=== PATIENT | female | born 1955 | race Hispanic/Latino ===

== ENCOUNTER 2019-05-12 21:16 | Emergency (ER) | payer BC ==
--- OUTSIDE RECORDS SUMMARY | 2019-05-12 21:19 | XMS REPORT ---
:1955 [facility] Address [address] [place] [address] [address]. [address] [place] [address] Care Team Providers Name Role Phone Unavailable Unavailable Unavailable Problems This patient has no known problems. Allergies, Adverse Reactions, Alerts This patient has no known allergies or adverse reactions. Medications This patient has no known medications. Results Test Description Test Time Test Comments Text Results Atomic Results Result Comments Thyroid Stimulating Hormone 2018-11-22 22:27:55 Test Item Value Reference Range Comments TSH (test code=TSH) 0.445 mIU/mL 0.270-4.200 Erythrocyte Sedimentation Rate [id number] 22:20:13 Test Item Value Reference Range Comments ESR STAT (test code=ESR STAT) 8 mm/hr 0-20 Comprehensive Metabolic [id number] 21:59:49 Test Item Value Reference Range Comments Sodium Level (test code=Sodium Level) 139.0 mmol/L 135.0-145.0 Potassium Level (test code=Potassium Level) 3.7 mmol/L 3.5-5.1 Chloride Level (test code=Chloride Level) 98 mmol/L 98-105 CO2 (test code=CO2) 26 mmol/L 22-29 Anion Gap (test code=Anion Gap) 15 mmol/L 7-16 BUN (test code=BUN) 14.70 mg/dL 8.00-23.00 Creatinine Level (test code=Creatinine Level) 0.70 mg/dL 0.50-0.90 BUN/Creat Ratio (test code=BUN/Creat Ratio) 21 Glucose Level (test code=Glucose Level) 121 mg/dL 70-115 Calcium Level (test code=Calcium Level) 9.8 mg/dL 8.3-10.5 Alk Phos (test code=Alk Phos) 98 U/L 35-104 Bilirubin Total (test code=Bilirubin Total) 0.4 mg/dL 0.1-0.9 Albumin Level (test code=Albumin Level) 4.6 g/dL 3.5-5.2 Protein Total (test code=Protein Total) 7.4 g/dL 6.4-8.3 ALT (test code=ALT) 22 U/L 1-33 AST (test code=AST) 24 U/L 1-32 Globulin (test code=Globulin) 2.8 g/dL 2.9-3.1 A/G Ratio (test code=A/G Ratio) 1.6 ratio Comprehensive Metabolic [id number] 21:59:49 Test Item Value Reference Range Comments Sodium Level (test 139.0 mmol/L 135.0-145.0 code=Sodium Level) Potassium Level (test 3.7 mmol/L 3.5-5.1 code=Potassium Level) Chloride Level (test 98 mmol/L 98-105 code=Chloride Level) CO2 (test code=CO2) 26 mmol/L 22-29 Anion Gap (test 15 mmol/L 7-16 code=Anion Gap) BUN (test code=BUN) 14.70 mg/dL 8.00-23.00 Creatinine Level (test 0.70 mg/dL 0.50-0.90 code=Creatinine Level) BUN/Creat Ratio (test 21 code=BUN/Creat Ratio) Glucose Level (test 121 mg/dL 70-115 code=Glucose Level) Calcium Level (test 9.8 mg/dL 8.3-10.5 code=Calcium Level) Alk Phos (test code=Alk 98 U/L 35-104 Phos) Bilirubin Total (test 0.4 mg/dL 0.1-0.9 code=Bilirubin Total) Albumin Level (test 4.6 g/dL 3.5-5.2 code=Albumin Level) Protein Total (test 7.4 g/dL 6.4-8.3 code=Protein Total) ALT (test code=ALT) 22 U/L 1-33 AST (test code=AST) 24 U/L 1-32 Globulin (test 2.8 g/dL 2.9-3.1 code=Globulin) A/G Ratio (test code=A/G 1.6 ratio Ratio) eGFR AA (test code=eGFR >60 mL/min/1.73 m2 eGFR (estimated AA) Glomerular Filtration Rate) is an estimated value, calculated from the patient's serum creatinine using the MDRD equation. It is NOT the patient's actual GFR. The eGFR provides a more clinically useful measure of kidney disease than serum creatinine alone.This calculation takes sex and race into account, if the information is provided. If the race is not provided, and the patient is -[place], multiply by 1.212. If sex is not provided, and the patient is female, multiply by 0.742. Results for patients <18 years of age have not been validated by the MDRD study and should be interpreted with caution. eGFR Result Interpretation:eGFR > or=60 is in the Normal RangeeGFR < 60 may mean kidney diseaseeGFR < 15 may mean kidney failure Ranges recommended by the National Kidney Foundation, http://nkdep.nih.gov Lipid [id number] 21:59:49 Test Item Value Reference Range Comments Cholesterol Total (test 294 mg/dL 0-200 RISK OF HEART code=Cholesterol Total) DISEASEPublished by [place] Heart Association Analyte Optimal Borderline Increased RiskCHOL <200 200-239 >240TRIG <150 150-199 >200HDL Male >60 <40HDL Female >60 <50LDL <100 130-159 >160LDL Near optimal is 100-129 Triglycerides (test 616 mg/dL 9-200 code=Triglycerides) HDL (test code=HDL) 52 mg/dL 50-60 LDL (test code=LDL) N/A Trig >400 0-130 LDL calculation is mg/dL unreliable when Triglyceride is greater than 400. VLDL (test code=VLDL) N/A Trig >400 5-40 VLDL calculation is mg/dL unreliable when Triglyceride is greater than 400. Chol/HDL (test 5.7 ratio 0.0-4.4 code=Chol/HDL) LDL/HDL Ratio (test N/A Trig >400 LDL/HDL Ratio calculation code=LDL/HDL Ratio) is unreliable when Triglyceride is greater than 400. Comprehensive Metabolic [id number] 21:59:49 Test Item Value Reference Range Comments Sodium Level (test 139.0 mmol/L 135.0-145.0 code=Sodium Level) Potassium Level (test 3.7 mmol/L 3.5-5.1 code=Potassium Level) Chloride Level (test 98 mmol/L 98-105 code=Chloride Level) CO2 (test code=CO2) 26 mmol/L 22-29 Anion Gap (test 15 mmol/L 7-16 code=Anion Gap) BUN (test code=BUN) 14.70 mg/dL 8.00-23.00 Creatinine Level (test 0.70 mg/dL 0.50-0.90 code=Creatinine Level) BUN/Creat Ratio (test 21 code=BUN/Creat Ratio) Glucose Level (test 121 mg/dL 70-115 code=Glucose Level) Calcium Level (test 9.8 mg/dL 8.3-10.5 code=Calcium Level) Alk Phos (test code=Alk 98 U/L 35-104 Phos) Bilirubin Total (test 0.4 mg/dL 0.1-0.9 code=Bilirubin Total) Albumin Level (test 4.6 g/dL 3.5-5.2 code=Albumin Level) Protein Total (test 7.4 g/dL 6.4-8.3 code=Protein Total) ALT (test code=ALT) 22 U/L 1-33 AST (test code=AST) 24 U/L 1-32 Globulin (test 2.8 g/dL 2.9-3.1 code=Globulin) A/G Ratio (test code=A/G 1.6 ratio Ratio) eGFR AA (test code=eGFR >60 mL/min/1.73 m2 eGFR (estimated AA) Glomerular Filtration Rate) is an estimated value, calculated from the patient's serum creatinine using the MDRD equation. It is NOT the patient's actual GFR. The eGFR provides a more clinically useful measure of kidney disease than serum creatinine alone.This calculation takes sex and race into account, if the information is provided. If the race is not provided, and the patient is -[place], multiply by 1.212. If sex is not provided, and the patient is female, multiply by 0.742. Results for patients <18 years of age have not been validated by the MDRD study and should be interpreted with caution. eGFR Result Interpretation:eGFR > or=60 is in the Normal RangeeGFR < 60 may mean kidney diseaseeGFR < 15 may mean kidney failure Ranges recommended by the National Kidney Foundation, http://nkdep.nih.gov eGFR Non-AA (test >60.00 mL/min/1.73 eGFR (estimated code=eGFR Non-AA) m2 Glomerular Filtration Rate) is an estimated value, calculated from the patient's serum creatinine using the MDRD equation. It is NOT the patient's actual GFR. The eGFR provides a more clinically useful measure of kidney disease than serum creatinine alone.This calculation takes sex and race into account, if the information is provided. If the race is not provided, and the patient is -[place], multiply by 1.212. If sex is not provided, and the patient is female, multiply by 0.742. Results for patients <18 years of age have not been validated by the MDRD study and should be interpreted with caution. eGFR Result Interpretation:eGFR > or=60 is in the Normal RangeeGFR < 60 may mean kidney diseaseeGFR < 15 may mean kidney failure Ranges recommended by the National Kidney Foundation, http://nkdep.nih.gov Complete Blood Count with [id number] 21:52:58 Test Item Value Reference Range Comments WBC (test code=WBC) 9.0 x10 4.4-10.5 RBC (test code=RBC) 4.76 x10 3.75-5.20 Hgb (test code=Hgb) 14.4 g/dL 12.2-14.8 Hct (test code=Hct) 42.4 % 36.5-44.4 MCV (test code=MCV) 89.10 fL 80.00-100.00 MCHC (test code=MCHC) 34.00 g/dL 32.00-37.50 MCH (test code=MCH) 30.3 pg 27.0-32.5 RDW CV (test code=RDW CV) 12.6 % 11.5-14.5 Platelets (test 340.0 x10 140.0-440.0 code=Platelets) MPV (test code=MPV) 10.1 fL Slide Review (test code=Slide Auto Auto Result created by Review) GL_SJM_SLIDE_REV_AUTO nRBC (test code=nRBC) 0 NRBC Abs (test code=NRBC Abs) 0.00 x10 IPF (test code=IPF) 0 % Automated [id number] 21:52:58 Test Item Value Reference Range Comments Neutro Auto (test code=Neutro Auto) 62.7 % 36.0-70.0 Lymph Auto (test code=Lymph Auto) 28.3 % 12.0-44.0 Hardy Auto (test code=Hardy Auto) 7.6 % 0.0-11.0 Eos, Auto (test code=Eos, Auto) 0.7 % 0.0-7.0 Basophil Auto (test code=Basophil Auto) 0.3 % 0.0-2.0 Neutro Absolute (test code=Neutro Absolute) 5.7 x10 1.6-7.4 Lymph Absolute (test code=Lymph Absolute) 2.56 x10 .50-4.60 Hardy Absolute (test code=Hardy Absolute) .69 x10 .00-1.20 Eos Absolute (test code=Eos Absolute) 0.06 x10 0.00-0.74 Baso Absolute (test code=Baso Absolute) 0.03 x10 0.00-0.21 Pro B Natriuretic [id number] 21:52:58 Test Item Value Reference Range Comments NT-proBNP (test code=NT-proBNP) 80 pg/mL 0-124 IG [id number] 21:52:58 Test Item Value Reference Range Comments IG (test code=IG) 0.4 % 0.0-5.0 IG Abs (test code=IG Abs) 0 x10
[2019-05-12] MEDS ORDERED: lisinopriL 10 MG TAB ONE (21:41)
[2019-05-12 22:07] LABS: Absolute Lymphocytes (CBC) 2.3 K/uL (0.7-4.9); Basophils % 0.6 % (0-1.3); Hematocrit 44.7 % (36.0-45.0); Lymphocytes % 33.1 % (15.3-44.8); MPV 7.6 fL (7.6-11.3); RBC Red Blood Cell Count 4.94 M/uL (3.86-4.86)
[2019-05-12 22:51] LABS: ALT/SGPT 34 U/L (12-78); AST/SGOT 31 U/L (15-37); Alkaline Phosphatase 77 U/L (45-117); BUN Blood Urea Nitrogen 12 mg/dL (7-18); Bicarbonate 28 mmol/L (21-32); Bilirubin Direct < 0.1 mg/dL (0-0.2); Bilirubin Total 0.4 mg/dL (0.2-1.0); Creatine Phosphokinase 138 U/L (26-192); Glucose Level 96 mg/dL (74-106); Lipase 158 U/L (73-393); Magnesium 2.3 mg/dL (1.8-2.4); Potassium 3.5 mmol/L (3.5-5.1); Protein, Total 8.5 g/dL (6.4-8.2); Sodium Level 140 mmol/L (136-145); Troponin (Emerg Dept Use Only) < 0.02 ng/mL (0.0-0.045)
--- NOTE | 2019-05-12 23:14 | ER ---
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 Her stylist reports she was shaking as if she was having a seizure and was unresponsive for a couple mins. Pt states at this time she feels completely normal and has no symptoms. Reports this has happened once before many years ago but she was not evaluated for it. Transition of care: patient was not received from another setting of care. Onset of symptoms was May 12, 2019. Risk Assessment: Do you want to hurt yourself or someone else? Patient reports no desire to harm self or others. Initial Sepsis Screen: Does the patient meet any 2 criteria? No. Patient's initial sepsis screen is negative. Does the patient have a suspected source of infection? No. Patient's initial sepsis screen is negative. Care prior to arrival: None. 21:28 Method Of Arrival: Ambulatory aa1 21:28 Acuity: CHET 3 aa1 Triage Assessment: 21:34 General: Appears in no apparent distress. comfortable, Behavior is calm, cooperative, aa1 appropriate for age. Pain: Denies pain. Historical: - Allergies: 21:34 No Known Allergies; aa1 - Home Meds: 21:34 lisinopril 10 mg Oral tab 1 tab once daily [Active]; aa1 - PMHx: 21:34 Hypertension; aa1 - PSHx: 21:34 None; aa1 - Immunization history:: Flu vaccine is not up to date. - Social history:: Smoking status: Patient uses tobacco products, smokes one pack cigarettes per day. - Ebola Screening: : No symptoms or risks identified at this time. Screenin:30 Abuse screen: Denies threats or abuse. Nutritional screening: No deficits noted. tr5 Tuberculosis screening: No symptoms or risk factors identified. Fall Risk None identified. Assessment: 21:30 General: Appears uncomfortable, Behavior is calm, cooperative, appropriate for age. tr5 Pain: Denies pain. Neuro: Seizure activity Seizure lasted approximately 2 minutes. Patient is post-ictal at this time. Cardiovascular: Heart tones present Capillary refill < 3 seconds Pulses are all present. Edema is absent. Respiratory: Airway is patent Respiratory effort is even, unlabored, Respiratory pattern is regular, symmetrical. GI: No signs and/or symptoms were reported involving the gastrointestinal system. : No signs and/or symptoms were reported regarding the genitourinary system. EENT: No signs and/or symptoms were reported regarding the EENT system. Derm: No signs and/or symptoms reported regarding the dermatologic system. Musculoskeletal: No signs and/or symptoms reported regarding the musculoskeletal system. 23:00 Reassessment: Patient appears in no apparent distress at this time. Patient and/or tr5 family updated on plan of care and expected duration. Pain level reassessed. Patient is alert, oriented x 3, equal unlabored respirations, skin warm/dry/pink. Vital Signs: 21:34 BP 196 / 97; Pulse 75; Resp 16; Temp 97.6; Pulse Ox 100% on R/A; Weight 67.59 kg; aa1 Height 5 ft. 2 in. (157.48 cm); Pain 0/10; 22:00 BP 165 / 91; Pulse 75; Resp 18; Pulse Ox 100% ; tr5 22:30 BP 178 / 92; Pulse 80; Resp 16; Pulse Ox 99% on R/A; tr5 23:00 BP 181 / 90; Pulse 75; Resp 16; Pulse Ox 98% ; tr5 21:34 Body Mass Index 27.25 (67.59 kg, 157.48 cm) aa1 [place] Coma Score: 21:34 Eye Response: spontaneous(4). Verbal Response: oriented(5). Motor Response: obeys aa1 commands(6). Total: 15. ED Course: 21:18 Patient arrived in ED. cl3 21:24 [facility]oussaint [facility]C [facility]. kb 21:24 Bonifacio Nguyen MD is Attending Physician. kb 21:30 Bed in low position. Call light in reach. Side rails up X 1. tr5 21:30 Seizure precautions initiated. tr5 21:31 Triage completed. aa1 21:34 Arm band placed on right wrist. aa1 21:37 Tc, Manas, RN is Primary Nurse. tr5 21:40 Initial lab(s) drawn, by me, sent to lab. Inserted saline lock: 20 gauge in right tr5 antecubital area, using aseptic technique. Patient did not have IV access during this emergency room visit. 21:[address] via stretcher. shaina 22:01 CT Head Brain wo Cont In Process Unspecified. EDMS 22:15 EKG done, by ED staff, reviewed by Payton BARTON. jp3 23:19 No provider procedures requiring assistance completed. tr5 Administered Medications: 21:41 Drug: Lisinopril 10 mg Route: PO; tr5 Outcome: 23:12 Discharge ordered by MD. spencer 23:19 Discharged to home ambulatory, with family. tr5 23:19 Condition: stable 23:19 Discharge instructions given to patient, family, Instructed on discharge instructions, follow up and referral plans. Demonstrated understanding of instructions, follow-up care. 23:24 Patient left the ED. tr5 Signatures: Dispatcher [employer] EDPayton Bernard, MICK CASTROP-Viktoria Canales, RN RN aa1 Marcelo Holguin Jacob jp3 Manas Montez, RN RN tr5 Adolfo Hoffman 3
--- NOTE | 2019-05-12 23:14 | EDPHYS ---
Physician Documentation [facility] Name: Jeni Johnson Age: 64 yrs Sex: Female : 1955 Arrival Date: 05/12/2019 Time: 21:18 Bed 27 Private MD: ED Physician Bonifacio Nguyen HPI: 05/12 21:47 This 64 yrs old Female presents to ER via Ambulatory with complaints of kb Probable Seizure. 21:47 The patient has experienced syncope, became unresponsive. Onset: The symptoms/episode kb began/occurred today. Duration: This was a single episode. 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 Associated injury: The patient did not suffer any apparent associated injury. Associated signs and symptoms: The patient has no apparent associated signs or symptoms. Current symptoms: Currently, the patient is not experiencing any symptoms, the patient feels back to baseline, no decreased level of consciousness, no confusion, no dysphasia, no headache, no paralysis, no visual changes. The patient has experienced a previous episode, many years ago. The patient has not recently seen a physician. Pt reports she was getting her hair done, felt hot and nauseous, then blacked out. Person doing her hair reports she shook a little like she may have had a seizure. EMS were called to the scene. Pt reports she felt fine when she woke up and feels fine now. States this happened once before but she didn't get checked out at the time. Reports the only thing that was consistent on both occasions was that she was drinking alcohol. . Historical: - Allergies: 21:34 No Known Allergies; aa1 - Home Meds: 21:34 lisinopril 10 mg Oral tab 1 tab once daily [Active]; aa1 - PMHx: 21:34 Hypertension; aa1 - PSHx: 21:34 None; aa1 - Immunization history:: Flu vaccine is not up to date. - Social history:: Smoking status: Patient uses tobacco products, smokes one pack cigarettes per day. - Ebola Screening: : No symptoms or risks identified at this time. ROS: 21:46 Constitutional: Negative for fever, chills, and weight loss, ENT: Negative for injury, kb pain, and discharge, Neck: Negative for injury, pain, and swelling, Cardiovascular: Negative for chest pain, palpitations, and edema, Respiratory: Negative for shortness of breath, cough, wheezing, and pleuritic chest pain, Abdomen/GI: Negative for abdominal pain, nausea, vomiting, diarrhea, and constipation, Back: Negative for injury and pain, MS/Extremity: Negative for injury and deformity, Skin: Negative for injury, rash, and discoloration. 21:46 Neuro: Positive for seizure activity, syncope. Exam: 21:46 Constitutional: This is a well developed, well nourished patient who is awake, alert, kb and in no acute distress. Head/Face: Normocephalic, atraumatic. ENT: Nares patent. No nasal discharge, no septal abnormalities noted. Tympanic membranes are normal and external auditory canals are clear. Oropharynx with no redness, swelling, or masses, exudates, or evidence of obstruction, uvula midline. Mucous membranes moist. Neck: Trachea midline, no thyromegaly or masses palpated, and no cervical lymphadenopathy. Supple, full range of motion without nuchal rigidity, or vertebral point tenderness. No Meningismus. Chest/axilla: Normal chest wall appearance and motion. Nontender with no deformity. No lesions are appreciated. Cardiovascular: Regular rate and rhythm with a normal S1 and S2. No gallops, murmurs, or rubs. Normal PMI, no JVD. No pulse deficits. Respiratory: Lungs have equal breath sounds bilaterally, clear to auscultation and percussion. No rales, rhonchi or wheezes noted. No increased work of breathing, no retractions or nasal flaring. Abdomen/GI: Soft, non-tender, with normal bowel sounds. No distension or tympany. No guarding or rebound. No evidence of tenderness throughout. Skin: Warm, dry with normal turgor. Normal color with no rashes, no lesions, and no evidence of cellulitis. MS/ Extremity: Pulses equal, no cyanosis. Neurovascular intact. Full, normal range of motion. Neuro: Awake and alert, GCS 15, oriented to person, place, time, and situation. Cranial nerves II-XII grossly intact. Motor strength 5/5 in all extremities. Sensory grossly intact. Cerebellar exam normal. Normal gait. Vital Signs: 21:34 BP 196 / 97; Pulse 75; Resp 16; Temp 97.6; Pulse Ox 100% on R/A; Weight 67.59 kg; aa1 Height 5 ft. 2 in. (157.48 cm); Pain 0/10; 22:00 BP 165 / 91; Pulse 75; Resp 18; Pulse Ox 100% ; tr5 22:30 BP 178 / 92; Pulse 80; Resp 16; Pulse Ox 99% on R/A; tr5 23:00 BP 181 / 90; Pulse 75; Resp 16; Pulse Ox 98% ; tr5 21:34 Body Mass Index 27.25 (67.59 kg, 157.48 cm) aa1 [place] Coma Score: 21:34 Eye Response: spontaneous(4). Verbal Response: oriented(5). Motor Response: obeys aa1 commands(6). Total: 15. MDM: 21:24 Patient medically screened. kb 21:46 Data reviewed: vital signs, nurses notes. Data interpreted: Pulse oximetry: on room air kb is 100 %. Interpretation: normal. 23:12 Counseling: I had a detailed discussion with the patient and/or guardian regarding: the kb historical points, exam findings, and any diagnostic results supporting the discharge/admit diagnosis, lab results, radiology results, the need for outpatient follow up, a family practitioner, to return to the emergency department if symptoms worsen or persist or if there are any questions or concerns that arise at home. 05/12 21:32 Order name: Basic Metabolic Panel; Complete Time: 22:53 kb 05/12 21:32 Order name: CBC with Diff; Complete Time: 22:36 kb 05/12 21:32 Order name: Ckmb; Complete Time: 22:53 kb 05/12 21:32 Order name: CPK; Complete Time: 22:53 kb 05/12 21:32 Order name: Hepatic Function; Complete Time: 22:53 kb 05/12 21:32 Order name: Lipase; Complete Time: 22:53 kb 05/12 21:32 Order name: EKG; Complete Time: 21:32 kb 05/12 21:32 Order name: EKG - Nurse/Tech; Complete Time: 22:34 kb 05/12 21:32 Order name: CT Head Brain wo Cont kb 05/12 21:32 Order name: Magnesium; Complete Time: 22:53 kb 05/12 21:32 Order name: Troponin (emerg Dept Use Only); Complete Time: 22:53 kb 05/12 21:32 Order name: Cardiac monitoring; Complete Time: 22:34 kb 05/12 21:32 Order name: IV Saline Lock; Complete Time: 22:01 kb 05/12 21:32 Order name: Labs collected and sent; Complete Time: 22:01 kb 05/12 21:32 Order name: NPO; Complete Time: 21:38 kb 05/12 21:32 Order name: O2 Per Protocol; Complete Time: 21:38 kb 05/12 21:32 Order name: O2 Sat Monitoring; Complete Time: 21:38 kb Administered Medications: 21:41 Drug: Lisinopril 10 mg Route: PO; tr5 Disposition: 05/13 06:53 Co-signature as Attending Physician, Bonifacio Nguyen MD I agree with the assessment and tw4 plan of care. Disposition: 05/12/19 23:12 Discharged to Home. Impression: Syncope and collapse. - Condition is Stable. - Discharge Instructions: Syncope, [id number]. - Medication Reconciliation Form, Thank You Letter, Antibiotic Education, Prescription Opioid Use form. - Follow up: Emergency Department; When: As needed; Reason: Worsening of condition. Follow up: Private Physician; When: 2 - 3 days; Reason: Recheck today's complaints, Continuance of care, Re-evaluation by your physician. Signatures: Dispatcher [employer] EDMS Payton Toussaint, SCREW MACHINE REPAIRER-C SCREW MACHINE REPAIRER-CkViktoria Connolly, RN RN aa1 Bonifacio Nguyen MD MD tw4 Manas Montez RN RN tr5 Corrections: (The following items were deleted from the chart) 05/12 23:24 23:12 05/12/2019 23:12 Discharged to Home. Impression: Syncope and collapse. Condition tr5 is Stable. Forms are Medication Reconciliation Form, Thank You Letter, Antibiotic Education, Prescription Opioid Use. Follow up: Emergency Department; When: As needed; Reason: Worsening of condition. Follow up: Private Physician; When: 2 - 3 days; Reason: Recheck today's complaints, Continuance of care, Re-evaluation by your physician. kb
[2019-05-12 23:45] VITALS: TEMP 97.6
[2019-05-12 23:50] VITALS: BP 181/90; O2SAT 98
--- NOTE | 2019-05-13 11:39 | RAD REPORT ---
EXAM DESCRIPTION: CT - Head Brain Wo Cont - 05/13/2019 2:02 am CLINICAL HISTORY: 64 years Female SYNCOPE COMPARISON: None TECHNIQUE: Images were obtained in axial, sagittal, and coronal planes. This exam was performed according to our departmental dose-optimization program which includes use of Automated Exposure Control, adjustment of the mA and/or kV according to patient size and/or use of i terative reconstruction technique. FINDINGS: Ventricular system appears mildly enlarged for the patient's age. Old lacunar infarcts bas al ganglionic regions bilaterally left greater than right. Decreased attenuation adjacent to anterior right frontal horn consistent with more remote ischemic change. Moderate periventricular decreased a ttenuation consistent with more remote microvascular ischemic change more pronounced on the left. No abnormal areas of increased attenuation in. No extra-axial fluid collections noted. No evidence for skull fracture. Symmetric aeration mastoid air cells bilaterally. IMPRESSION: No acute intracranial abnormality. No evidence for hemorrhage, mass lesion, or large acu te infarction. Findings consistent with more remote ischemic change. Electronically signed by: Meena Mcintyre MD 05/12/2019 10:20 PM BISTRO ATTENDANT Due to temporary technical issues with the PACS/Fluency reporting system, reports are being signed by the in house radiologist as a courtesy to ensure prompt reporting. The interpreting radiologist is f ully responsible for the content of the report.
--- NOTE | 2019-05-13 16:36 | EKG ---
Test Date: 2019-05-12 Test Time: 22:24:29 Client Support Representative: DEON MEASUREMENT RESULTS: Intervals: Rate: 76 MS: 152 QRSD: 86 QT: 398 QTc: 447 [place]: P: 73 MS: 152 QRS: 29 T: 29 INTERPRETIVE STATEMENTS: Normal sinus rhythm Normal ECG Compared to ECG 02/06/2013 10:19:08 No significant changes Electronically Signed On 05-13-19 16:34:03 SUPERINTENDENT MAINTENANCE by Honorio Blake
== END 2019-05-12 23:24 | disposition home or self-care (01) ==
LOC: ER 21:16
DX: R55 Syncope and collapse (principal); I10 Essential (primary) hypertension; F17.210 Nicotine dependence, cigarettes, uncomplicated
CPT/HCPCS: 36415; 70450; 80048; 80076; 82550; 82553; 83690; 83735; 84484; 85025; 93005; 99284

== ENCOUNTER 2020-05-25 18:59 | Emergency (ER) | payer BC, OTHER ==
--- OUTSIDE RECORDS SUMMARY | 2020-05-25 19:01 | XMS REPORT | Continuity of Care Document ---
:1955 Author Organization [facility] Care Team Providers Name Role Phone [facility] Unavailable Un available Problems Problem Status Onset Classification Date Comments Sourc e Date Reported SUB ACUTE MCA Active 02/07/20 Killian as STROKE [address] [place] [address] Center TIA Active 02/07/[address] Arthritis Resolved Problem 02/09/2013 [facility] Hyperlipidemia Resolved Problem 02/09/2013 [facility] LASIK Resolved Problem 02/09/2013 [facility] Arthritis Resolved Problem 07/23/2019 [facility]ischer (disorder) Neuro Hyperlipidemia Resolved Problem 07/23/2019 Misc her (disorder) Neuro Laser assisted in Resolved Problem 07/23/2019 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 [facility] Medications Medication Details Route Status Patient Ordering Order Source Instructions Provider Date atorvastatin 80 80 mg, 1 tab, PO Active [facility] [place] mg oral tablet PO, Daily, 30 013 Med ical tab, Center Substitution Allowed, TAB aspirin 81 mg 81 mg, 1 tab, PO Active [facility] [place] tablet, enteric PO, Daily, 30 013 Me dical coated tab, Center Substitution Allowed, ECTAB atorvastatin 80 mg, 1 tab, PO No [place] Route: PO, Drug Jocy Medical form: TAB, Active Center Daily, Dosing Weight 72.727, kg, Start date: 02/07/13 9:00:00, Duration: 30 day, Stop date: 03/08/13 9:00:00 aspirin 81 mg, 1 tab, PO No Leon Tino Route: PO, Drug Longer 013 Medical form: ECTAB, Active Center Daily, Dosing Weight 72.727, kg, Start date: 02/07/13 9:00:00, Duration: 30 day, Stop date: 03/08/13 9:00:00 heparin 5,000 unit, 1 SUB-Q No Leon Tino mL, Route: Longer 013 Medical SUB-Q, Drug Active Center form: INJ, Q8H, Dosing Weight 72.727, kg, Start date: 02/07/13 8:00:00, Duration: 30 day, Stop date: 03/09/13 0:00:00 Saline Flush 5 ml, Route: IVP No Yoshii-Con [place] 0.9% IVP, Drug Form: Longer trerebecca 013 Medical INJ, Dosing Active Center Weight 72.727, kg, Q12H, Start date: 02/06/13 21:00:00, Duration: 30 day, Stop date: 03/08/13 9:00:00 Zantac Substitution Active [facility] Allowed 013 Medical Center Multiple 1 cap, PO, PO Active Tino Vitamins oral Daily, 30 cap, [facility] Med ical capsule Substitution Center Allowed, Maintenance, CAP Saline Flush 5 ml, Route: IVP No Kamrynii-Con [facility] 0.9% IVP, Drug Form: Longer treras 013 Medical INJ, Dosing Active Center Weight 72.727, kg, PRN, PRN Line Flush, Start date: 02/06/13 17:09:00, Duration: 30 day, Stop date: 03/08/13 17:08:00 labetalol 10 mg, 2 mL, IVP No Kamrynii-Con Killian as Route: IVP, Longer trerebecca Menjivar Medical Drug form: INJ, Active Center Q10Min, Dosing Weight 72.727, kg, PRN Hypertension, Start date: 02/06/13 17:09:00, Duration: 30 day, Stop date: 03/08/13 17:08:00, For SBP > 180mmHg and/or DBP > 105mmHg Sodium Chloride 1,000 mL, Rate: IV No Brown Tino 0.9% IV 1,000 100 ml/hr, Longer 013 Medical mL Infuse over: 10 Active Center hr, Route: IV, Dosing Weight 72.727 kg, Total Volume: 1,000, Start date: 02/06/13 17:09:00, Stop date: 03/08/13 17:08:00 Omnipaque 85 mL, Route: IVP No Anderson [facility] 350mg/ml IVP, Drug Form: Longer 013 Medical SOLN, Dosing Active Center Weight 72.727, kg, ONCALL, STAT, Start date: 02/06/13 14:37:00, Duration: 1 doses or times, Dose = 2.2ml/kg, Max dose = 100ml -- "To be infused by Radiology Staff ONLY"Dose = 2.2ml/kg, Max dose = 100ml -- "To be infused by Radiology Staff ONLY" Allergies, Adverse Reactions, Alerts Substance Category Reaction Severity Reaction Status Date Comments S ource type Reported No Known Assertion Drug Misch er Medication allergy Neuro Allergies Immunizations No Data Provided for This Section Results Order Name Results Value Reference Date Interpretation Comments Saundra rce Range CHEMISTRY LDL Direct 144 <=99 02/07 HI [facility] CHEMISTRY AGAP 13.1 10.0 - 02/07 Normal [facility] 20.0 [facility] CHEMISTRY eGFR 96 02/07 NA <sup>1</sup>Res [facility] ult Comment: Medical The eGFR is Center calculated using the CKD-EPI formula. In most young, healthy individuals the eGFR will be >90 mL/min/1.73m2. The eGFR declines with age. An eGFR of 60-89 may be normal in some populations, particularly the elderly, for whom the CKD-EPI formula has not been extensively validated. Use of the eGFR is not recommended in the following populations:&lt ;br/>
Indiv iduals with unstable creatinine concentrations, including patients and those with serious co-morbid conditions.<br/ >
Patients with extremes in muscle mass or diet.

The data above are obtained from the National Kidney Disease Education Program (NKDEP) which additionally recommends that when the eGFR is used in patients with extremes of body mass index for purposes of drug dosing, the eGFR should be multiplied by the estimated BMI. CHEMISTRY Creatinine 0.7 0.5 - 1.4 02/07 Normal [facility] Lvl /2012 [facility] CHEMISTRY BUN 18 7 - 22 02/07 Normal [facility] CHEMISTRY Glucose Lvl 101 70 - 99 02/07 HI <sup>3</sup>Int erpretive Data: [facility] Adult reference Center range values reflect the clinical guidelines
of the [place] [employer]. CHEMISTRY Sodium Lvl 142 135 - 145 02/07 Normal [facility] CHEMISTRY Calcium Lvl 8.3 8.5 - 10.5 02/07 LOW [facility] CHEMISTRY CO2 23 24 - 32 02/07 LOW [facility] CHEMISTRY Chloride Lvl 110 95 - 109 02/07 [facility] CHEMISTRY Potassium Lvl 4.1 3.5 - 5.1 02/07 Normal [facility] CHEMISTRY LDL See Note mg/dL 5 <=99 02/07 NA <sup>5</sup>R es [facility] *NA* /2012 ult Comment: Medical (02/07/2013 03:00:00) LDL choles [facility] cannot be calculated due to very high triglycerides (>400 mg/dL). Recommend Direct LDL if clinically indicated. CHEMISTRY CHD Risk 8.45 3.90 - 02/07 [facility] 5.80 /2012 [facility] CHEMISTRY HDL 29 >=61 02/07 LOW [facility] CHEMISTRY Trig 531 <=149 02/07 [facility] CHEMISTRY Chol 245 <=199 02/07 [facility] HEMATOLOGY Basophils 0.7 0.0 - 1.0 02/07 Normal [facility] HEMATOLOGY Segs-Bands # 3.6 1.5 - 8.1 02/07 Normal [facility] HEMATOLOGY Lymphocytes # 3.1 1.0 - 5.5 02/07 Normal [place] [facility] HEMATOLOGY Monocytes # 0.6 0.0 - 0.8 02/07 Normal [facility] HEMATOLOGY Eosinophils # 0.1 0.0 - 0.5 02/07 [place] [facility] HEMATOLOGY Basophils # 0.1 0.0 - 0.2 02/07 Normal [facility] HEMATOLOGY Eosinophils 1.7 0.0 - 4.0 02/07 Normal [facility] HEMATOLOGY Monocytes 8.0 2.0 - 12.0 02/07 Normal [facility] HEMATOLOGY Segs 48.0 45.0 - 02/07 [facility] [place] 75.0 Medical Center HEMATOLOGY Lymphocytes 41.6 20.0 - 02/07 [facility] [place] 40.0 Medical Center HEMATOLOGY RBC 3.87 4.20 - 02/07 LOW [place] 5.40 /2012 [facility] HEMATOLOGY WBC 7.4 3.7 - 10.4 02/07 Normal [facility] HEMATOLOGY Hgb 11.9 12.0 - 02/07 [facility] [place] 16.0 /2012 [facility] HEMATOLOGY Hct 35.2 36.0 - 02/07 LOW [place] 48.0 /2012 [facility] HEMATOLOGY MCV 90.8 81.0 - 02/07 Normal [place] 99.0 /2012 [facility] HEMATOLOGY MCH 30.7 27.0 - 09 Normal [place] 31.0 /2012 [facility] HEMATOLOGY RDW 13.3 11.5 - 02/07 Normal [place] 14.5 /2012 [facility] HEMATOLOGY MCHC 33.9 32.0 - 09 [facility] [place] 36.0 /2012 [facility] HEMATOLOGY Platelet 279 133 - 450 02/07 [facility] HEMATOLOGY MPV 7.5 7.4 - 10.4 02/07 Normal [facility] CHEMISTRY eGFR 96 02/06 NA <sup>2</sup>Res [facility] ult Comment: Medical The eGFR is Center calculated using the CKD-EPI formula. In most young, healthy individuals the eGFR will be >90 mL/min/1.73m2. The eGFR declines with age. An eGFR of 60-89 may be normal in some populations, particularly the elderly, for whom the CKD-EPI formula has not been extensively validated. Use of the eGFR is not recommended in the following populations:&lt ;br/>
Indiv iduals with unstable creatinine concentrations, including patients and those with serious co-morbid conditions.<br/ >
Patients with extremes in muscle mass or diet.

The data above are obtained from the National Kidney Disease Education Program (NKDEP) which additionally recommends that when the eGFR is used in patients with extremes of body mass index for purposes of drug dosing, the eGFR should be multiplied by the estimated BMI. CHEMISTRY Sodium Lvl 140 135 - 145 02/06 Normal [facility] CHEMISTRY Potassium Lvl 3.9 3.5 - 5.1 02/06 Normal [facility] CHEMISTRY Chloride Lvl 105 95 - 109 02/06 Normal [facility] CHEMISTRY CO2 28 24 - 32 09/15 Normal [facility] CHEMISTRY Glucose Lvl 92 70 - 99 02/06 Normal <sup>4</sup>Int erpretive Data: [facility] Adult reference Center range values reflect the clinical guidelines
of the [place] [employer]. CHEMISTRY BUN 14 7 - 22 02/06 Normal [facility] CHEMISTRY Creatinine 0.7 0.5 - 1.4 02/06 Normal [facility] Lvl [facility] CHEMISTRY Calcium Lvl 9.1 8.5 - 10.5 02/06 Normal [facility] CHEMISTRY AGAP 10.9 10.0 - 02/06 Normal [place] 20.0 [facility] HEMATOLOGY Basophils # 0.1 0.0 - 0.2 02/06 Normal [place] [facility] HEMATOLOGY Lymphocytes # 2.8 1.0 - 5.5 02/06 [place] [facility] HEMATOLOGY Eosinophils # 0.1 0.0 - 0.5 02/06 [place] [facility] HEMATOLOGY Monocytes # 0.7 0.0 - 0.8 02/06 Normal [place] [facility] HEMATOLOGY Segs-Bands # 4.6 1.5 - 8.1 02/06 Normal [facility] HEMATOLOGY Basophils 1.0 0.0 - 1.0 02/06 Normal [facility] HEMATOLOGY Lymphocytes 34.0 20.0 - 02/06 Normal [place] 40.0 /2012 [facility] HEMATOLOGY Eosinophils 1.3 0.0 - 4.0 02/06 Normal a [facility] HEMATOLOGY Monocytes 8.4 2.0 - 12.0 02/06 Normal [facility] HEMATOLOGY Segs 55.3 45.0 - 02/06 Normal [place] 75.0 /2012 [facility] HEMATOLOGY PTT 27.3 22.9 - 02/06 Normal <sup>7</sup>Int [place] 35.8 /2012 erpretive Data: [facility] Center Therapeutic Range: 57 - 92 Seconds HEMATOLOGY PT 13.3 12.0 - 02/06 Normal [place] 14.7 [facility] HEMATOLOGY INR 1.02 0.85 - 02/06 Normal <sup>6</sup>Int [place] 1.17 erpretive Data: [facility] RANGES FOR PROTIME INR:
2.0-3.0 for most medical and surgical thromboembolic states.
2.5-3.5 for artificial heart valves and recurrent embolism.
< br/>INR SHOULD BE USED ONLY FOR PATIENTS ON STABLE ANTICOAGULANT THERAPY. HEMATOLOGY MPV 7.2 7.4 - 10.4 02/06 LOW [facility] HEMATOLOGY MCHC 33.5 32.0 - 02/06 Normal [facility] 36.0 [facility] HEMATOLOGY MCH 29.8 27.0 - 02/06 Normal [facility] 31.0 [facility] HEMATOLOGY Platelet 305 133 - 450 02/06 Normal /2012 [facility] HEMATOLOGY RDW 12.4 11.5 - 02/06 Normal [facility] 14.5 [facility] HEMATOLOGY MCV 89.0 81.0 - 02/06 Normal [facility] 99.0 /2012 [facility] HEMATOLOGY Hgb 13.3 12.0 - 02/06 Normal [facility] 16.0 [facility] HEMATOLOGY RBC 4.45 4.20 - 02/06 Normal [facility] 5.40 /2012 [facility] HEMATOLOGY Hct 39.6 36.0 - 02/06 Normal [facility] 48.0 /2012 [facility] HEMATOLOGY WBC 8.3 3.7 - 10.4 02/06 Normal [facility] /2012 [facility] Pathology Reports No Data Provided for This Section Diagnostic Reports Report Value Date Source Brain w contrast MRI EXAM: MRI BRAIN WITH AND WITHOUT CONTRAST 0 02/07/2013 [facility] DATE: Feb 07, 2013 at 0940 hours INDICATION: Hemiparesis COMPARISON: MRI brain without contrast dated 01/23 TECHNIQUE: Multiplanar imaging of the b rain was obtained before and after intravenous administration of 14 mL of MultiHance gadolinium contrast. FINDINGS: No abnormal enhancement is i dentified. Redemonstration of the T2 hyperintensity in the left frontal subcortical white matter without perilesional edema or marked mass effect (but absence of volume loss as well). An area of diffusion restric tion along the left periventricular white matter is once again seen without enhancement, compatible with acute ischemia. Remote bilateral lacunar isc hemic changes are present. Chronic white matter disease is once again noted. IMPRESSION: 1. Nonenhancing T2 hyperinte nse lesion in the left frontal subcortical white matter. Given the lack of enhancement this is not felt to be a consequence of demyelinating disease. Absence of volume loss i s concerning and the lesion differs from others present. The differential remains a subacute versus more remote infarct or a low grade neoplasm. Recommend followup MRI brain with and without contrast in 3 to 6 months to document s tability. A change in size/morphology in the interim could help discriminate between a more recent infarct and neoplasm. 2. Periventricular lesion do es not enhance and, therefore, is consistent with recent infarct rather than demyelinating disease. Brain wo contrast MRI EXAM: MRI BRAIN 02/06/2013 [facility] DATE: Feb 06, 2013 dated 1839 hours INDICATION: Right-sided weakness COMPARISON: CT of the head dated 02/06/2013 TECHNIQUE: Multiplanar and m ultisequence MRI of the brain was performed without administration of intravenous contrast. FINDINGS: There is tiny area of diffusion restriction along the left periventricular white matter (series 302, image 120), likely related to recent ischemic change. In a patient where MS is suspected, a more acute lesion would possibly have this luana earance as well. There is a T2 hyperintense, T1 isointense lesion in the left frontal subcortical white matter without volume loss or perilesional edema which may represent subacute infarct, multiple sclerosis plaque, or low grade neoplasm. Central cystic changes in th e caudate heads are most likely lacunar infarcts. Scattered areas of T2 FLAIR abnormality is compatible with advanced for age chronic white matter disease. There is no evidence of intr aparenchymal or extra-axial hemorrhage, mass, mass effect, or hydrocephalus. Appropriate flow-voids are present in the vessels at the base of the brain. Incidental imaging of the or bits, paranasal sinuses, mastoid air cells, and skull base are unremarkable. IMPRESSION: 1. Tiny area of diffusion re striction along the left periventricular white matter (series 302, image 120), likely related to an acute subcortical ischemic event and less likely secondary to demyelinating disease. 2. Left frontal white matter T2 hyperintense, T1 isointense lesion may represent subacute ischemic change, multiple sclerosis plaque, or low grade neoplasm. Contrast study may be indicated for further evaluation. Head/Neck CTA CT ANGIOGRAM OF THE HEAD AND NECK 02/06/2013 [facility] DATE: 05/08/2013 at 2:47 p.m. CLINICAL INFORMATION: Aphasia, dysarthria. TECHNIQUE: Axial images wer e obtained from the vertex through the upper thorax at 1.5 mm intervals in the enhanced mode. 3-D maximum intensity projection, MIP images were also created. FINDINGS: There is normal contrast-enh ancement of the aortic arch and proximal great vessels. The right innominate, left common carotid, and left subclavian arteries arise in normal anatomic configuration. There are no proximal stenoses. Minimal calcified atheroscle rotic plaque is noted within the bilateral carotid bulbs without stenosis. There is normal contrast-enhancement of the bilateral common, internal, and external carotid arteries. There is normal contrast-enhancement of the bila teral vertebral arteries. Intracranially there is norm al contrast-enhancement of the bilateral intracranial internal carotid arteries, the bilateral distal vertebral arteries, and the basilar artery. There is normal contrast enh ancement of the the bilatera l anterior, middle, and posterior cerebral arteries. There is normal contrast-enhancement of the superior cerebellar, anterior/inferior cerebellar, and posterior inferior cer ebellar arteries bilaterally. There are no intra cranial branch occlusions. There is normal contrast-enhancement of the veno us structures. IMPRESSION: 1. Minimal atherosclerotic p laque of the carotid bifurcations without stenosis. 2. Normal intracranial CT an giogram. There are no intracranial branch occlusions. Consultation Notes No Data Provided for This Section Discharge Summaries No Data Provided for This Section History and Physicals No Data Provided for This Section Vital Signs Vital Sign Value Date Comments Source Diastolic (mm Hg) 77 02/07/2013 [facility] Heart Rate 72 02/07/2013 [facility] Respitory Rate 20 02/07/[address] [facility] [place] [place] Temperature Oral (F) 97.0 F 02/07/2013 [facility] Systolic (mm Hg) 156 02/07/2013 [facility] Temperature Oral (F) 96.3 F 02/07/2013 [facility] Heart Rate 68 02/07/2013 [facility] Systolic (mm Hg) 166 02/07/2013 [facility] Diastolic (mm Hg) 82 02/07/2013 [facility] Respitory Rate 20 02/07/[address] [facility] [place] [place] Heart Rate 62 02/07/2013 [facility] Temperature Oral (F) 97.8 F 02/07/2013 [facility] Systolic (mm Hg) 126 02/07/2013 [facility] Diastolic (mm Hg) 72 02/07/2013 [facility] Respitory Rate 18 02/07/[address] [facility] [place] [place] Weight 72.727 02/06/2013 [facility] Height 157.48 cm 02/06/2013 [facility] Encounters Location Location Encounter Encounter Reason Attending ADM DC Stat us Source Details Type Number For Provider Date Date Visit [facility] OU [id number] 02/06 02/07 [facility] [id number] Gunn[place] 07/21 Active [facility] Kre Mateusz MNA Ambulatory [id number] Gunnar 07/21 07/21 [facility] [place] /2019 [facility] [place] Procedures Procedure Code Date Perfomer Comments Source LASIK [facility] LASIK [id number] [facility] Assessment and Plan No Data Provided for This Section Plan of Care No Data Provided for This Section Social History Social History Date Source No data available for this 07/21/2019 [facility] section Family History No Data Provided for This Section Advance Directives No Data Provided for This Section Functional Status No Data Provided for This Section
--- OUTSIDE RECORDS SUMMARY | 2020-05-25 19:02 | XMS REPORT | Continuity of Care Document ---
:1955 Author Organization [facility] t Address [address] [place] [address] Care Team Providers Name Role Phone Lab, Adc Fam Pob I Attending Clinician Unavailable Logan Bowers Attending Clinician Problems Condition Condition Condition Status Onset Resolution Last Treating Co mments Source Name Details Category Date Date Treatment Clinician Date SUB ACUTE Diagnosis Active 2013-02-06 Memoria MCA STROKE 02-06 18:02:00 l SUB 00:00: Mateusz ACUTE MCA 00 STROKE Active 02/06/2013 [facility] TIA Diagnosis Active 2013-02-07 Mem oria 02-06 12:05:00 l TIA 00:00: Mateusz 00 Active 02/06/2013 [facility] Arthritis Problem Resolve 2013-02-09 M emoria d 21:14:51 l [place] Arthritis Resolved Problem 02/09/2013 [facility] Hyperlipid Problem Resolve 2013-02-09 Memoria emia d 21:14:51 l Mateusz Hyperlipid emia Resolved Problem 02/09/2013 [facility] LASIK Problem Resolve 2013-02-09 Jn sal d 21:14:51 l LASIK [place] Resolved Problem 02/09/2013 [facility] Arthritis Problem Resolve 2019-07-23 M emoria (disorder) d 22:45:28 l [place] Arthritis (disorder) Resolved Problem 07/23/2019 [facility] Hyperlipid Problem Resolve 2019-07-23 Memoria emia d 22:45:28 l (disorder) Edmundo n Hyperlipid emia (disorder) Resolved Problem 07/23/2019 [facility] Laser Problem Resolve 2019-07-23 Jn sal assisted d 22:45:28 l in situ Laser Mateusz keratomile assisted usis in situ (procedure keratomile ) usis (procedure ) Resolved Problem 07/23/2019 [facility] TRANS Diagnosis Active 2013-02-07 Mem oria CEREB 12:05:00 l ISCHEMIA TRANS [place] NEC CEREB ISCHEMIA NEC Active [facility] Allergies, Adverse Reactions, Alerts Allergy Allergy Status Severity Reaction(s) Onset Inactive Treating Comm ents Source Name Type Date Date Clinician No Known No Known Active Memori a Medicati Medicati l on on [place] Allergie Allergie s s Social History Social Habit Start Date Stop Date Quantity Comments Source Social History 2019-07-21 2019-07-21 [facility] 19:45:00 19:45:00 Medications Ordered Filled Start Stop Current Ordering Indication Dosage Frequency Signature Comments Components Source Medication Medication Date Date Medication? Clinician (SIG) Name Name atorvastati Yes Payton 80 mg, 1 Memoria n 80 mg 02-07 Joellen tab, PO, l oral tablet 18:23: Brown Daily, 30 [place] 46 tab, Substituti on Allowed, TAB aspirin 81 Yes Payton 81 mg, 1 Memoria mg tablet, 02-07 Joellen tab, PO, l enteric 18:23: Brown Daily, 30 Herm aleksandra coated 38 tab, Substituti on Allowed, ECTAB atorvastati No Peace 80 mg, 1 M emoria n -16 Luis tab, l 14:00: Leon Route: PO, Edmundo n 00 Drug form: TAB, Daily, Dosing Weight 72.727, kg, Start date: 02/07/13 9:00:00, Duration: 30 day, Stop date: 03/08/13 9:00:00 aspirin No Peace 81 mg, 1 Memor ia -16 Luis tab, l 14:00: Leon Route: PO, Edmundo n 00 Drug form: ECTAB, Daily, Dosing Weight 72.727, kg, Start date: 02/07/13 9:00:00, Duration: 30 day, Stop date: 03/08/13 9:00:00 heparin No Peace 5,000 Memoria -16 Luis unit, 1 l 13:00: Leon mL, Route: Edmundo n 00 SUB-Q, Drug form: INJ, Q8H, Dosing Weight 72.727, kg, Start date: 02/07/13 8:00:00, Duration: 30 day, Stop date: 03/09/13 0:00:00 Saline 2012- No October 5 ml, Memoria Flush 0.9% 02-07 Yoshii-Con Route: l 02:00: treras IVP, Drug Edmundo n 00 Form: INJ, Dosing Weight 72.727, kg, Q12H, Start date: 02/06/13 21:00:00, Duration: 30 day, Stop date: 03/08/13 9:00:00 Zantac Yes Substituti Memor ia 9-15 on Allowed l 22:49: Mateusz 00 Multiple Yes 1 cap, PO, Mem oria Vitamins 9-15 Daily, 30 l oral 22:48: cap, Mateusz capsule 47 Substituti on Allowed, Maintenanc e, CAP Saline No October 5 ml, Memoria Flush 0.9% 02-06 Yoshii-Con Route: l 22:09: treras IVP, Drug Edmundo n 00 Form: INJ, Dosing Weight 72.727, kg, PRN, PRN Line Flush, Start date: 02/06/13 17:09:00, Duration: 30 day, Stop date: 03/08/13 17:08:00 labetalol No October 10 mg, 2 Jn sal -15 Yoshii-Con mL, Route: l 22:09: treras IVP, Drug Edmundo n 00 form: INJ, Q10Min, Dosing Weight 72.727, kg, PRN Hypertensi on, Start date: 02/06/13 17:09:00, Duration: 30 day, Stop date: 03/08/13 17:08:00, For SBP > 180mmHg and/or DBP > 105mmHg Sodium No Payton 1,000 mL, Mem oria Chloride 9-15 Joellen Rate: 100 l 0.9% IV 22:09: Brown ml/hr, [place] 1,000 mL 00 Infuse over: 10 hr, Route: IV, Dosing Weight 72.727 kg, Total Volume: 1,000, Start date: 02/06/13 17:09:00, Stop date: 03/08/13 17:08:00 Omnipaque 2012- No Miriam 85 mL, Jn sal 350mg/ml 02-06 Anderson Route: l 19:37: IVP, Drug Mateusz 00 Form: SOLN, Dosing Weight 72.727, kg, ONCALL, STAT, Start date: 02/06/13 14:37:00, Duration: 1 doses or times, Dose = 2.2ml/kg, Max dose = 100ml -- "To be infused by Radiology Staff ONLY"Dose = 2.2ml/kg, Max dose = 100ml -- "To be infused by Radiology Staff ONLY" Vital Signs Vital Name Observation Time Observation Value Comments Source Diastolic (mm Hg) 2013-02-07 17:00:00 Mem orial [place] Heart Rate 2013-02-07 17:00:00 [facility] [place] Respitory Rate 2013-02-07 17:00:00 Memori al Mateusz Temperature Oral (F) 2013-02-07 17:00:00 97.0 F [facility] Mateusz Systolic (mm Hg) 2013-02-07 17:00:00 Jn rial Mateusz Temperature Oral (F) 2013-02-07 12:00:00 96.3 F [facility] [place] Heart Rate 2013-02-07 12:00:00 [facility] Mateusz Systolic (mm Hg) 2013-02-07 12:00:00 Jn rial [place] Diastolic (mm Hg) 2013-02-07 12:00:00 Mem orial Mateusz Respitory Rate 2013-02-07 12:00:00 Memori al Mateusz Heart Rate 2013-02-07 08:51:00 [facility] [place] Temperature Oral (F) 2013-02-07 08:51:00 97.8 F [facility] [place] Systolic (mm Hg) 2013-02-07 08:51:00 Jn rial Mateusz Diastolic (mm Hg) 2013-02-07 08:51:00 Mem orial Mateusz Respitory Rate 2013-02-07 00:41:00 Maria Elenaori al [place] Weight 2013-02-06 17:49:00 [facility] Mateusz Height 2013-02-06 17:49:00 157.48 cm [facility] Mateusz Procedures Procedure Date / Time Performed Performing Clinician Fady ROMAN [facility] BAEL [facility] Encounters Start End Encounter Admission Attending Care Care Encounter Source Date/Time Date/Time Type Type Clinicians Facility Department ID 2020-01-06 2020-01-06 Laboratory Lab, [facility] [id number] 09:23:20 09:43:20 Only Fam Pob I Health [id number] [place] [id number] Professio [id number] nal [address] 2019-07-21 2019-07-21 [id number] 13:45:00 13:45:00 Gunnar 00 Logan Results Test Description Test Time Test Comments Results Result Comments Source Thyroid Stimulating Hormone 2018-11-22 22:27:55 Test Item Value Reference Range Interpretation Comme nts TSH (test code = TSH) 0.445 mIU/mL 0.270-4.200 Erythrocyte Sedimentation Rate [id number] 22:20:13 Test Item Value Reference Range Interpretation Comments ESR STAT (test code = ESR STAT) 8 mm/hr 0-20 Comprehensive Metabolic [id number] 21:59:49 Test Item Value Reference Range Interpretation Comments Sodium Level (test code = Sodium 139.0 mmol/L 135.0-145.0 Level) Potassium Level (test code = 3.7 mmol/L 3.5-5.1 Potassium Level) Chloride Level (test code = 98 mmol/L 98-105 Chloride Level) CO2 (test code = CO2) 26 mmol/L 22-29 Anion Gap (test code = Anion 15 mmol/L 7-16 Gap) BUN (test code = BUN) 14.70 mg/dL 8.00-23.00 Creatinine Level (test code = 0.70 mg/dL 0.50-0.90 Creatinine Level) BUN/Creat Ratio (test code = 21 N BUN/Creat Ratio) Glucose Level (test code = 121 mg/dL 70-115 H Glucose Level) Calcium Level (test code = 9.8 mg/dL 8.3-10.5 Calcium Level) Alk Phos (test code = Alk Phos) 98 U/L 35-104 Bilirubin Total (test code = 0.4 mg/dL 0.1-0.9 Bilirubin Total) Albumin Level (test code = 4.6 g/dL 3.5-5.2 Albumin Level) Protein Total (test code = 7.4 g/dL 6.4-8.3 Protein Total) ALT (test code = ALT) 22 U/L 1-33 AST (test code = AST) 24 U/L 1-32 Globulin (test code = Globulin) 2.8 g/dL 2.9-3.1 L A/G Ratio (test code = A/G 1.6 ratio N Ratio) Comprehensive Metabolic [id number] 21:59:49 Test Item Value Reference Range Interpretation Comments Sodium Level (test 139.0 mmol/L 135.0-145.0 code = Sodium Level) Potassium Level 3.7 mmol/L 3.5-5.1 (test code = Potassium Level) Chloride Level (test 98 mmol/L 98-105 code = Chloride Level) CO2 (test code = 26 mmol/L 22-29 CO2) Anion Gap (test code 15 mmol/L 7-16 = Anion Gap) BUN (test code = 14.70 mg/dL 8.00-23.00 BUN) Creatinine Level 0.70 mg/dL 0.50-0.90 (test code = Creatinine Level) BUN/Creat Ratio 21 N (test code = BUN/Creat Ratio) Glucose Level (test 121 mg/dL 70-115 H code = Glucose Level) Calcium Level (test 9.8 mg/dL 8.3-10.5 code = Calcium Level) Alk Phos (test code 98 U/L 35-104 = Alk Phos) Bilirubin Total 0.4 mg/dL 0.1-0.9 (test code = Bilirubin Total) Albumin Level (test 4.6 g/dL 3.5-5.2 code = Albumin Level) Protein Total (test 7.4 g/dL 6.4-8.3 code = Protein Total) ALT (test code = 22 U/L 1-33 ALT) AST (test code = 24 U/L 1-32 AST) Globulin (test code 2.8 g/dL 2.9-3.1 L = Globulin) A/G Ratio (test code 1.6 ratio N = A/G Ratio) eGFR AA (test code = >60 N eGFR (e stimated eGFR AA) mL/min/1.73 m2 Glomerular Filtration Rate ) is an estimated va lue, calculated from the patient's serum creatinine usin g the MDRD equation. It is NOT the patient 's actual GFR. The eGFR provides a more clinically usef ul measure of kidn ey disease than se rum creatinine alone.This calculation ofelia es sex and race in to account, if the information is provided. If th e race is not provided, and t he patient is -Suzan n, multiply by 1.2 12. If sex is not provided, and t he patient is fema le, multiply by 0.7 42. Results for pat ients <18 years of ag e have not been validated by th e MDRD study and should be interpreted wit h caution. eGFR R esult Interpretation: eGFR > or = 60 is in the Normal RangeeGF R < 60 may mean kid helio diseaseeGFR < 1 5 may mean kidney failure Rang es recommended by the National Kidney Foundation, http://nkdep.ni h.gov Lipid [id number] 21:59:49 Test Item Value Reference Range Interpretation Comments Cholesterol Total 294 mg/dL 0-200 H RISK OF HE ART (test code = DISEASEPublishe d by Cholesterol Total) [place] [employer] Sowmya lyte Optimal Borderl ine Increased RiskC HOL <200 200-239 >2 40TRIG <150 150-199 >2 00HDL Male >60 <40H DL Female >60 <5 0LDL <100 130-159 >1 60LDL Near optimal is 100-129 Triglycerides (test 616 mg/dL 9-200 H code = Triglycerides) HDL (test code = 52 mg/dL 50-60 HDL) LDL (test code = N/A Trig 0-130 N LDL calcula tion is LDL) >400 mg/dL unreliable when Triglyceride is greater than 40 0. VLDL (test code = N/A Trig 5-40 N VLDL calcu lation is VLDL) >400 mg/dL unreliable when Triglyceride is greater than 40 0. Chol/HDL (test code 5.7 ratio 0.0-4.4 H = Chol/HDL) LDL/HDL Ratio (test N/A Trig N LDL/HDL Ratio code = LDL/HDL >400 calculation i s Ratio) unreliable when Triglyceride is greater than 40 0. Comprehensive Metabolic [id number] 21:59:49 Test Item Value Reference Range Interpretation Comments Sodium Level (test 139.0 mmol/L 135.0-145.0 code = Sodium Level) Potassium Level 3.7 mmol/L 3.5-5.1 (test code = Potassium Level) Chloride Level (test 98 mmol/L 98-105 code = Chloride Level) CO2 (test code = 26 mmol/L 22-29 CO2) Anion Gap (test code 15 mmol/L 7-16 = Anion Gap) BUN (test code = 14.70 mg/dL 8.00-23.00 BUN) Creatinine Level 0.70 mg/dL 0.50-0.90 (test code = Creatinine Level) BUN/Creat Ratio 21 N (test code = BUN/Creat Ratio) Glucose Level (test 121 mg/dL 70-115 H code = Glucose Level) Calcium Level (test 9.8 mg/dL 8.3-10.5 code = Calcium Level) Alk Phos (test code 98 U/L 35-104 = Alk Phos) Bilirubin Total 0.4 mg/dL 0.1-0.9 (test code = Bilirubin Total) Albumin Level (test 4.6 g/dL 3.5-5.2 code = Albumin Level) Protein Total (test 7.4 g/dL 6.4-8.3 code = Protein Total) ALT (test code = 22 U/L 1-33 ALT) AST (test code = 24 U/L 1-32 AST) Globulin (test code 2.8 g/dL 2.9-3.1 L = Globulin) A/G Ratio (test code 1.6 ratio N = A/G Ratio) eGFR AA (test code = >60 N eGFR (e stimated eGFR AA) mL/min/1.73 m2 Glomerular Filtration Rate ) is an estimated va lue, calculated from the patient's serum creatinine usin g the MDRD equation. It is NOT the patient 's actual GFR. The eGFR provides a more clinically usef ul measure of kidn ey disease than se rum creatinine alone.This calculation ofelia es sex and race in to account, if the information is provided. If th e race is not provided, and t he patient is -Suzan n, multiply by 1.2 12. If sex is not provided, and t he patient is fema le, multiply by 0.7 42. Results for pat ients <18 years of ag e have not been validated by th e MDRD study and should be interpreted wit h caution. eGFR R esult Interpretation: eGFR > or = 60 is in the Normal RangeeGF R < 60 may mean kid helio diseaseeGFR < 1 5 may mean kidney failure Rang es recommended by the National Kidney Foundation, http://nkdep.ni h.gov eGFR Non-AA (test >60.00 N eGFR (olegario mated code = eGFR Non-AA) mL/min/1.73 m2 Glomer ular Filtration Rate ) is an estimated va lue, calculated from the patient's serum creatinine usin g the MDRD equation. It is NOT the patient 's actual GFR. The eGFR provides a more clinically usef ul measure of kidn ey disease than se rum creatinine alone.This calculation ofelia es sex and race in to account, if the information is provided. If th e race is not provided, and t he patient is -Suzan n, multiply by 1.2 12. If sex is not provided, and t he patient is fema le, multiply by 0.7 42. Results for pat ients <18 years of ag e have not been validated by th e MDRD study and should be interpreted wit h caution. eGFR R esult Interpretation: eGFR > or = 60 is in the Normal RangeeGF R < 60 may mean kid helio diseaseeGFR < 1 5 may mean kidney failure Rang es recommended by the National Kidney Foundation, http://nkdep.ni h.gov Complete Blood Count with [id number] 21:52:58 Test Item Value Reference Range Interpretation Comments WBC (test code = WBC) 9.0 x10 4.4-10.5 RBC (test code = RBC) 4.76 x10 3.75-5.20 Hgb (test code = Hgb) 14.4 g/dL 12.2-14.8 Hct (test code = Hct) 42.4 % 36.5-44.4 MCV (test code = MCV) 89.10 fL 80.00-100.00 MCHC (test code = 34.00 g/dL 32.00-37.50 MCHC) MCH (test code = MCH) 30.3 pg 27.0-32.5 RDW CV (test code = 12.6 % 11.5-14.5 RDW CV) Platelets (test code = 340.0 x10 140.0-440.0 Platelets) MPV (test code = MPV) 10.1 fL N Slide Review (test Auto Auto Result cr eated by code = Slide Review) GL_SJM_ SLIDE_REV_AUTO nRBC (test code = 0 N nRBC) NRBC Abs (test code = 0.00 x10 N NRBC Abs) IPF (test code = IPF) 0 % N Automated [id number] 21:52:58 Test Item Value Reference Range Interpretation Comments Neutro Auto (test code = Neutro 62.7 % 36.0-70.0 Auto) Lymph Auto (test code = Lymph Auto) 28.3 % 12.0-44.0 Twiggs Auto (test code = Twiggs Auto) 7.6 % 0.0-11.0 Eos, Auto (test code = Eos, Auto) 0.7 % 0.0-7.0 Basophil Auto (test code = Basophil 0.3 % 0.0-2.0 Auto) Neutro Absolute (test code = Neutro 5.7 x10 1.6-7.4 Absolute) Lymph Absolute (test code = Lymph 2.56 x10 .50-4.60 Absolute) Twiggs Absolute (test code = Twiggs .69 x10 .00-1.20 Absolute) Eos Absolute (test code = Eos 0.06 x10 0.00-0.74 Absolute) Baso Absolute (test code = Baso 0.03 x10 0.00-0.21 Absolute) Pro B Natriuretic [id number] 21:52:58 Test Item Value Reference Range Interpretation Comments NT-proBNP (test code = NT-proBNP) 80 pg/mL 0-124 IG [id number] 21:52:58 Test Item Value Reference Range Interpretation Comments IG (test code = IG) 0.4 % 0.0-5.0 IG Abs (test code = IG Abs) 0 x10 N [id number] 12:35:08110Rrqdzfzk ZhbasfuNBCUUHIYN5187-03-32 08:00:0013.1 [facility] LlviqtkHSEAQQDMF1975-98-53 08:00:0096[facility]STRY 2013-02-07 08:00:000.7[facility] IpxmmbbXQRBEHBMS5698-67-69 08:00:0018[facility] EsjvamyWZUNWLYDR7717-66-39 08:00:18825Hzvxqvfb OrjmgofLISZNFSDN8684-41-11 08:00:40960Bzmorkjk PxuuqpyUINTLXEPE6092-91-13 08:00:008.3[facility] [place] UFGIYWOEP4245-83-64 08:00:0023[facility] VunnovrRUJLWDSTZ6308-69-94 08:00:36126 [facility] PsgbcmnARPLMIWMB9998-16-22 08:00:004.1[facility]annCHEMISTRY 2013-02-07 08:00:00See Note mg/dL 5*NA*(02/07/2013 03:00:00)[facility] Mate[facility]z HRBPZBZMX5056-62-25 08:00:008.45[facility] SxthrurWBDWORGSO4397-62-78 08:00:0029 [facility] EqginuoQLOYCBBXG3167-62-29 08:00:94873Xxocukjt HermannCHEMISTRY 2013-02-07 08:00:71377Gijrwjna GhxuiteTCUWBSWLYU4820-91-07 08:00:000.7[facility] JnsuzraTEWIGWVJSQ2392-12-11 08:00:003.6[facility] FritmhaWBCTDWAQVY5524-93-76 08:00:003.1[facility] ZwgihlxFDOLFPCCRH0274-17-64 08:00:000.6[facility] MSUXVZFPLA7663-12-82 08:00:000.1[facility] PrctubiEPPDPURPWK8129-08-43 08:00:000.1 [facility] WxlnetyJDXEANCSJM4125-11-93 08:00:001.7[facility] HermannHEMATOLOGY 2013-02-07 08:00:008.0[facility] NltywpvYOFISDVBDX1187-43-19 08:00:0048.0[facility] AqxuulgQMFFXHEDZQ8833-28-46 08:00:0041.6[facility] GfxbqrpFSHAKELELK0486-62-80 08:00:003.87[facility] CbtbtnpGLILYBRRTC1304-49-24 08:00:007.4[facility] [place] ERCSIVPFVI0335-17-57 08:00:0011.9[facility] WmgzyesHKSBEZJWVG4286-99-50 08:00:00 35.2[facility] EspjmjvZIUNWTZGKT5822-86-17 08:00:0090.8[facility] HermannHEMATOLOGY 2013-02-07 08:00:00 Test Item Value Reference Range Interpretation Comments MCH (test code = MCH) 30.7 pg 27.0-31.0 N Memorial GkvgblmWVJZIKCNRW1099-29-75 08:00:0013.3[facility]annHEMATOLOGY 2013-02-07 08:00:0033.9[facility] YwkacgaAKFJYNXEVF1724-32-10 08:00:68370Vsewqdth SoghkhfGIVGVHTRZC5016-73-89 08:00:007.5[facility] MhrtbdcEZNDFUIJP8828-35-26 18:53:0096[facility] ZbkslzbDSVKHXSDS7792-92-79 18:53:36971Hvbknuys Mateusz HJXVUTWFJ6938-23-55 18:53:003.9[facility] VddubzlNOHEGEXAQ7086-90-04 18:53:91260 [facility] PoirytjFDHAWBPEH8047-08-03 18:53:0028[facility]annCHEMISTRY 2013-02-06 18:53:0092[facility] LbbpjloEJOKPCYSH8832-38-77 18:53:0014[facility] RebtkkfRKXASOCJI7436-48-19 18:53:000.7[facility] IkvxigyOZQFKFLHF4977-88-97 18:53:009.1[facility] MshgehoIQJHQYMPH1255-90-75 18:53:0010.9[facility] [place] KYVRZCBYWE2960-43-26 18:53:000.1[facility] MjhcattSVSEQGBZKO2706-11-22 18:53:002.8 [facility] VvqbjjqBEVGUEQHES6340-35-57 18:53:000.1[facility]annHEMATOLOGY 2013-02-06 18:53:000.7[facility] QadjvidENSIDYNJTI7895-87-59 18:53:004.6[facility] FlsdxccPLMIFZQLAE9450-88-87 18:53:001.0[facility] BhiytlaGIIENGWMIK7794-61-15 18:53:0034.0[facility] IrvidvmCQRXADNRTL7582-72-37 18:53:001.3[facility] [place] NHGCXPBVSG8129-24-42 18:53:008.4[facility] AzdehthWJWIVKKYTD7805-14-33 18:53:00 55.3[facility] SvgqgraAGBZDYXFOZ6378-14-97 18:53:00 Test Item Value Reference Range Interpretation Comments PTT (test code = PTT) 27.3 s 22.9-35.8 N [facility] ResourcesPswluaaCXIEMZPJXR2471-06-62 18:53:00 Test Item Value Reference Range Interpretation Comments PT (test code = PT) 13.3 s 12.0-14.7 N [facility] WmsfuntJCADSTFIRS3771-59-34 18:53:001.02[facility] HermannHEMATOLOGY 2013-02-06 18:53:007.2[facility] PynrxylOOZUUDEDAS1038-32-79 18:53:0033.5[facility] WzbezeaXLDDISYQFC4218-00-34 18:53:00 Test Item Value Reference Range Interpretation Comments MCH (test code = MCH) 29.8 pg 27.0-31.0 N [facility] ResourcesIudteieJHVLZHAIHM5005-43-35 18:53:04706Mvgmxjju HermannHEMATOLOGY 2013-02-06 18:53:0012.4[facility] NrpiljvUWEROSTGEF3183-93-99 18:53:0089.0[facility] NlppazeHQGVPAGDML9498-34-21 18:53:0013.3[facility] PgwlhukQRXZBAVFEG2422-40-70 18:53:004.45[facility] SweyhnmBWFAYAVYIP8884-93-55 18:53:0039.6[facility] [place] JYLGTFKBSU3999-91-50 18:53:008.3[facility] [place]
[2020-05-25] MEDS ORDERED: HYDROCODONE/APAP 7.5/325 MG TAB ONE (19:45)
--- NOTE | 2020-05-25 20:19 | RAD REPORT ---
EXAM DESCRIPTION: RAD - Chest Single View - 05/25/2020 7:49 pm CLINICAL HISTORY: fall, clavicle injury, chest pain COMPARISON: January 2013 TECHNIQUE: AP portable chest image was obtained 05/25/2020 7:49 pm . FINDINGS: Lung volumes are low. No pulmonary contusion, pneumothorax or acute lung parenchymal proce ss. Heart and vasculature are normal. No measurable pleural effusion and no pneumothorax. No acute mariaelena ne finding. Clavicle as a normal appearance on single-view imaging. No acute aortic findings suspecte d. IMPRESSION: No clavicle fracture or other acute finding.
--- NOTE | 2020-05-25 21:02 | RAD REPORT ---
EXAM DESCRIPTION: CT - C Spine Wo Con - 05/25/2020 8:34 pm CLINICAL HISTORY: Fall, right-sided chest pain, right-sided neck pain COMPARISON: Portable chest same date TECHNIQUE: Axial 2 mm thick images of the cervical spine were obtained with sagittal and coronal rec onstruction images generated and reviewed. All CT scans are performed using dose optimization technique as appropriate and may include automated exposure control or mA/KV adjustment according to patient size. FINDINGS: Cervical body height and alignment are normal. No disk space narrowing. No fracture or acu te bony abnormality. No paraspinal mass or hematoma. Central canal detail is inherently limited on CT imaging. Right clavicle is fractured near the sternoclavicular joint. The clavicle at the AC joint is not disl ocated. There is anterior displacement of the medial shaft of the clavicle creating bowing deformity into the anterior right chest soft tissues. Small amount of hemorrhage or edema surrounds the fractur e site. IMPRESSION: Fracture of the right clavicle near the sternoclavicular joint. Anterior displacement of the shaft of the clavicle creates an anterior bone deformity to the chest soft tissues. Sternoclavic ular joint is intact. No cervical spine fracture or acute cervical spine finding.
--- NOTE | 2020-05-25 21:08 | ER ---
Nurse's Notes [facility] Name: Jeni Johnson Age: 65 yrs Sex: Female : 1955 Arrival Date: 05/25/2020 Time: 19:06 Bed 8 Private MD: Diagnosis: Fracture of clavicle;Fall on same level from slipping, tripping and stumbling Presentation: 05/25 19:16 Chief complaint: Patient states: Stepped on a puppy pillow and fell sideways on the R ca1 side. reports R shoulder pain. Swelling on R side of the clavicle. Denies difficulty breathing. Coronavirus screen: Client denies travel out of the [place] in the last 14 days. At this time, the client does not indicate any symptoms associated with coronavirus-19. Ebola Screen: Patient negative for fever greater than or equal to 101.5 degrees Fahrenheit, and additional compatible Ebola Virus Disease symptoms Patient denies exposure to infectious person. Patient denies travel to an Ebola-affected area in the 21 days before illness onset. No symptoms or risks identified at this time. Initial Sepsis Screen: Does the patient meet any 2 criteria? No. Patient's initial sepsis screen is negative. Does the patient have a suspected source of infection? No. Patient's initial sepsis screen is negative. Risk Assessment: Do you want to hurt yourself or someone else? Patient reports no desire to harm self or others. Onset of symptoms was May 25, 2020. 19:16 Method Of Arrival: Ambulatory ca1 19:16 Acuity: CHET 4 ca1 20:27 Care prior to arrival: None. Mechanism of Injury: Fall from standing position. Trauma mg2 event details: Injury occurred in the [facility]. Trauma Activation: Not Applicable Physician: ED Physician; Name: ; Notified At: ; Arrived At: Physician: General Surgeon; Name: ; Notified At: ; Arrived At: Physician: Radiology; Name: ; Notified At: ; Arrived At: Physician: Respiratory; Name: ; Notified At: ; Arrived At: Physician: Lab; Name: ; Notified At: ; Arrived At: Historical: - Allergies: 19:19 No Known Allergies; ca1 - Home Meds: 19:19 lisinopril 10 mg Oral tab 1 tab once daily [Active]; ca1 - PMHx: 19:19 Hypertension; ca1 - PSHx: 19:19 None; ca1 - Immunization history:: Flu vaccine is not up to date. - Social history:: Smoking status: Patient reports the use of cigarette tobacco products, smokes two packs cigarettes per day. - Immunization history: Last tetanus immunization: unknown. Screenin:26 Abuse screen: Denies threats or abuse. Denies injuries from another. Nutritional mg2 screening: No deficits noted. Tuberculosis screening: No symptoms or risk factors identified. Fall risk At risk due to prior history of falls. 20:28 Fall Risk Fall in past 12 months (25 points). mg2 Primary Survey: 20:27 NO uncontrolled hemorrhage observed. A: The patient is alert. Breathing/Chest: mg2 Respiratory pattern: regular, Respiratory effort: spontaneous, unlabored. Circulation: Skin color: pink. Disability Alert. Exposure/Environment: All clothing and personal items were removed. Forensic evidence collection is not deemed to be indicated at this time. Items placed in patient belonging bag. 20:50 Reassessment Airway Airway Patent Breathing/Chest Respiratory pattern Regular rr5 Circulation Pulses Palpable. Assessment: 19:50 General: Appears in no apparent distress. uncomfortable, Behavior is calm, cooperative, rr5 appropriate for age. Pain: Complains of pain in right clavicle Pain currently is 5 out of 10 on a pain scale. Quality of pain is described as aching, Pain began suddenly, Is intermittent. Neuro: Level of Consciousness is awake, alert, obeys commands, Oriented to person, place, time, situation. Cardiovascular: Capillary refill < 3 seconds Patient's skin is warm and dry. Respiratory: Airway is patent Respiratory effort is even, unlabored, Respiratory pattern is regular, symmetrical. GI: No signs and/or symptoms were reported involving the gastrointestinal system. : No signs and/or symptoms were reported regarding the genitourinary system. EENT: No signs and/or symptoms were reported regarding the EENT system. Derm: Skin is intact, is healthy with good turgor, Skin temperature is warm. Musculoskeletal: Capillary refill < 3 seconds, Swelling present in right clavicle Reports pain in right clavicle. 20:27 Reassessment: Patient appears in no apparent distress at this time. Patient is alert, rr5 oriented x 3, equal unlabored respirations, skin warm/dry/pink. reassess by ED provider ordered for CTscan. 21:17 Reassessment: Patient appears in no apparent distress at this time. Patient is alert, rr5 oriented x 3, equal unlabored respirations, skin warm/dry/pink. discharge instruction given and explained without complaints made. Vital Signs: 19:16 BP 190 / 94; Pulse 95; Resp 16 S; Temp 98.3(TE); Pulse Ox 99% on R/A; Weight 69.4 kg ca1 (R); Height 5 ft. 2 in. (157.48 cm) (R); Pain 5/10; 19:50 BP 180 / 92; Pulse 90; Resp 17; Pulse Ox 99% ; rr5 20:20 BP 164 / 135; Pulse 89; Resp 15; Pulse Ox 99% ; rr5 20:28 BP 180 / 92; mg2 21:19 BP 175 / 92; Pulse 80; Resp 17; Pulse Ox 98% ; rr5 19:16 Body Mass Index 27.98 (69.40 kg, 157.48 cm) ca1 Emery Coma Score: 20:27 Eye Response: spontaneous(4). Verbal Response: oriented(5). Motor Response: obeys mg2 commands(6). Total: 15. 21:19 Eye Response: spontaneous(4). Verbal Response: oriented(5). Motor Response: obeys rr5 commands(6). Total: 15. Trauma Score (Adult): 20:27 Eye Response: spontaneous(1); Verbal Response: oriented(1); Motor Response: obeys mg2 commands(2); Systolic BP: > 89 mm Hg(4); Respiratory Rate: 10 to 29 per min(4); Yuki Score: 15; Trauma Score: 12 21:19 Eye Response: spontaneous(1); Verbal Response: oriented(1); Motor Response: obeys rr5 commands(2); Systolic BP: > 89 mm Hg(4); Respiratory Rate: 10 to 29 per min(4); Yuki Score: 15; Trauma Score: 12 ED Course: 19:06 Patient arrived in ED. es 19:19 Triage completed. ca1 19:19 Arm band placed on right wrist. ca1 19:21 Pay[facility]oussaint [facility]-C [facility] kb 19:21 Blair Isabel MD is Attending Physician. kb 19:30 Tonio Campuzano, NYLA is Primary Nurse. rr5 19:44 Chest Single View XRAY In Process Unspecified. EDMS 19:45 Ice pack to injury. rr5 19:50 Patient has correct armband on for positive identification. Bed in low position. Call rr5 light in reach. Pulse ox on. NIBP on. 20:26 No provider procedures requiring assistance completed. Patient did not have IV access mg2 during this emergency room visit. 20:27 Patient has correct armband on for positive identification. mg2 20:28 Patient maintains SpO2 saturation greater than 95% on room air. Thermoregulation: warm mg2 blanket given to patient. 20:34 CT C Spine In Process Unspecified. EDMS 21:17 Clavicle/Shoulder strap applied on right clavicle/shoulder. rr5 Administered Medications: 19:31 Drug: Addy (7.5 mg-325 mg) 1 tabs {Note: rass 0.} Route: PO; rr5 20:26 Follow up: Response: No adverse reaction mg2 Intake: 20:27 PO: 0ml; Total: 0ml. mg2 Outcome: 21:07 Discharge ordered by . kb 21:17 Discharged to home ambulatory. rr5 21:17 Condition: stable 21:17 Discharge instructions given to patient, Instructed on discharge instructions, follow up and referral plans. medication usage, Demonstrated understanding of instructions, follow-up care, medications, Prescriptions given X 1. 21:19 Patient's length of stay was not longer than 2 hours. rr5 21:20 Patient left the ED. rr5 Signatures: Dispatcher [employer] EDRI Payton Toussaint, ELEVATED WORK PLATFORM OPERATOR-C ELEVATED WORK PLATFORM OPERATOR-Jonelle Emmanuel Michele, RN RN mg2 Tonio Campuzano RN RN rr5 Elle Cueva RN RN ca1
--- NOTE | 2020-05-25 21:09 | EDPHYS ---
Physician Documentation [facility] Name: Jeni Johnson Age: 65 yrs Sex: Female : 1955 Arrival Date: 05/25/2020 Time: 19:06 Bed 8 Private MD: ED Physician Blair Isabel HPI: 05/25 21:29 This 65 yrs old Female presents to ER via Ambulatory with complaints of Fall kb Injury. 21:29 Details of fall: The patient fell from an upright position, while walking. Onset: The kb symptoms/episode began/occurred just prior to arrival. Associated injuries: The patient sustained right sternocleidomastoid and right clavicle. Severity of symptoms: At their worst the symptoms were moderate, in the emergency department the symptoms are unchanged. The patient has not experienced similar symptoms in the past. The patient has not recently seen a physician. Pt reports she was walking and slipped on dog's bed causing her to fall onto right side. Reports pain to right clavicle/neck area only. Denies loc. Historical: - Allergies: 19:19 No Known Allergies; ca1 - Home Meds: 19:19 lisinopril 10 mg Oral tab 1 tab once daily [Active]; ca1 - PMHx: 19:19 Hypertension; ca1 - PSHx: 19:19 None; ca1 - Immunization history:: Flu vaccine is not up to date. - Social history:: Smoking status: Patient reports the use of cigarette tobacco products, smokes two packs cigarettes per day. - Immunization history: Last tetanus immunization: unknown. ROS: 21:32 Constitutional: Negative for fever, chills, and weight loss, Cardiovascular: Negative kb for chest pain, palpitations, and edema, Respiratory: Negative for shortness of breath, cough, wheezing, and pleuritic chest pain, Abdomen/GI: Negative for abdominal pain, nausea, vomiting, diarrhea, and constipation, Skin: Negative for injury, rash, and discoloration, Neuro: Negative for headache, weakness, numbness, tingling, and seizure. 21:32 MS/extremity: Positive for injury or acute deformity, decreased range of motion, pain, swelling, tenderness, of the right clavicle. Exam: 21:30 Constitutional: This is a well developed, well nourished patient who is awake, alert, kb and in no acute distress. Head/Face: Normocephalic, atraumatic. Chest/axilla: Normal chest wall appearance and motion. Nontender with no deformity. No lesions are appreciated. Cardiovascular: Regular rate and rhythm with a normal S1 and S2. No gallops, murmurs, or rubs. Normal PMI, no JVD. No pulse deficits. Respiratory: Lungs have equal breath sounds bilaterally, clear to auscultation and percussion. No rales, rhonchi or wheezes noted. No increased work of breathing, no retractions or nasal flaring. Abdomen/GI: Soft, non-tender, with normal bowel sounds. No distension or tympany. No guarding or rebound. No evidence of tenderness throughout. Skin: Warm, dry with normal turgor. Normal color with no rashes, no lesions, and no evidence of cellulitis. Neuro: Awake and alert, GCS 15, oriented to person, place, time, and situation. Cranial nerves II-XII grossly intact. Motor strength 5/5 in all extremities. Sensory grossly intact. Cerebellar exam normal. Normal gait. 21:30 Neck: External neck: swelling, that is moderate, of the right sternocleidomastoid. 21:30 Musculoskeletal/extremity: Extremities: grossly normal except: noted in the right clavicle: decreased ROM, deformity, pain, swelling, tenderness, ROM: limited active range of motion due to pain, in the right arm, Circulation is intact in all extremities. Sensation intact. Vital Signs: 19:16 BP 190 / 94; Pulse 95; Resp 16 S; Temp 98.3(TE); Pulse Ox 99% on R/A; Weight 69.4 kg ca1 (R); Height 5 ft. 2 in. (157.48 cm) (R); Pain 5/10; 19:50 BP 180 / 92; Pulse 90; Resp 17; Pulse Ox 99% ; rr5 20:20 BP 164 / 135; Pulse 89; Resp 15; Pulse Ox 99% ; rr5 20:28 BP 180 / 92; mg2 21:19 BP 175 / 92; Pulse 80; Resp 17; Pulse Ox 98% ; rr5 19:16 Body Mass Index 27.98 (69.40 kg, 157.48 cm) ca1 Topaz Coma Score: 20:27 Eye Response: spontaneous(4). Verbal Response: oriented(5). Motor Response: obeys mg2 commands(6). Total: 15. 21:19 Eye Response: spontaneous(4). Verbal Response: oriented(5). Motor Response: obeys rr5 commands(6). Total: 15. Trauma Score (Adult): 20:27 Eye Response: spontaneous(1); Verbal Response: oriented(1); Motor Response: obeys mg2 commands(2); Systolic BP: > 89 mm Hg(4); Respiratory Rate: 10 to 29 per min(4); Yuki Score: 15; Trauma Score: 12 21:19 Eye Response: spontaneous(1); Verbal Response: oriented(1); Motor Response: obeys rr5 commands(2); Systolic BP: > 89 mm Hg(4); Respiratory Rate: 10 to 29 per min(4); Yuki Score: 15; Trauma Score: 12 MDM: 19:21 Patient medically screened. kb 21:06 Data reviewed: vital signs, nurses notes. Data interpreted: Pulse oximetry: on room air kb is 99 %. Interpretation: normal. Counseling: I had a detailed discussion with the patient and/or guardian regarding: the historical points, exam findings, and any diagnostic results supporting the discharge/admit diagnosis, radiology results, the need for outpatient follow up, a orthopedic surgeon, to return to the emergency department if symptoms worsen or persist or if there are any questions or concerns that arise at home. 05/25 19:27 Order name: Chest Single View XRAY; Complete Time: 20:22 kb 05/25 20:23 Order name: CT C Spine; Complete Time: 21:16 kb 05/25 19:27 Order name: Ice pack; Complete Time: 19:31 kb 05/25 21:07 Order name: Sling; Complete Time: 21:17 kb Administered Medications: 19:31 Drug: [place] (7.5 mg-325 mg) 1 tabs {Note: rass 0.} Route: PO; rr5 20:26 Follow up: Response: No adverse reaction mg2 Disposition: 22:01 Co-signature as Attending Physician, Blair Isabel MD. pkl Disposition: 05/25/20 21:07 Discharged to Home. Impression: Fracture of clavicle, Fall on same level from slipping, tripping and stumbling. - Condition is Stable. - Discharge Instructions: Clavicle Fracture, [id number]. - Prescriptions for Tylenol- Codeine #3 300-30 mg Oral Tablet - take 2 tablets by ORAL route every 6 hours As needed; 16 tablet. - Medication Reconciliation Form, Thank You Letter, Antibiotic Education, Prescription Opioid Use form. - Follow up: Emergency Department; When: As needed; Reason: Worsening of condition. Follow up: Private Physician; When: 2 - 3 days; Reason: Recheck today's complaints, Continuance of care, Re-evaluation by your physician. Signatures: Dispatcher [employer] EDMS Payton Toussaint, MICK PARHAM-Blair Preston MD MD pkTonio Bains RN RN rr5 Hammad, NYLA Almeida RN ca1 Cory Krueger RN mg2 Corrections: (The following items were deleted from the chart) 21:20 21:07 05/25/2020 21:07 Discharged to Home. Impression: Fracture of clavicle; Fall on rr5 same level from slipping, tripping and stumbling. Condition is Stable. Forms are Medication Reconciliation Form, Thank You Letter, Antibiotic Education, Prescription Opioid Use. Follow up: Emergency Department; When: As needed; Reason: Worsening of condition. Follow up: Private Physician; When: 2 - 3 days; Reason: Recheck today's complaints, Continuance of care, Re-evaluation by your physician. kb
[2020-05-25 21:28] VITALS: TEMP 98.3
[2020-05-25 21:33] VITALS: BP 175/92; O2SAT 98
== END 2020-05-25 21:20 | disposition home or self-care (01) ==
LOC: ER 18:59
DX: S42.011A Anterior displaced fracture of sternal end of right clavicle, initial encounter for closed fracture (principal); W01.0XXA Fall on same level from slipping, tripping and stumbling without subsequent striking against object, initial encounter; Y93.01 Activity, walking, marching and hiking; Y92.9 Unspecified place or not applicable; I10 Essential (primary) hypertension; F17.210 Nicotine dependence, cigarettes, uncomplicated
CPT/HCPCS: 71045; 72125; 99284

== ENCOUNTER 2021-09-24 09:42 | Inpatient (IN) | payer OTHER ==
--- OUTSIDE RECORDS SUMMARY | 2021-09-24 09:44 | XMS REPORT | Continuity of Care Document ---
:1955 Author Organization [facility] t Address [address] [place] [address] Care Team Providers Name Role Phone Lab, [facility] Fam Pob I Attending Clinician Unavailable Maylin CASTROP Attending Clinician Payers Payer Name Policy Type Policy Number Effective Date Expiration Date S ource Problems This patient has no known problems. Allergies, Adverse Reactions, Alerts Allergy Allergy Status Severity Reaction(s) Onset Inactive Treating Comm ents Source Name Type Date Date Clinician NO KNOWN Drug Active Univers ALLERGIE Class ity of S [facility] Social History Social Habit Start Date Stop Date Quantity Comments Source Sex Assigned At Universit y of [facility] Exposure to Yes University of SARS-CoV-2 [facility] (event) Branch Alcohol intake 2015-04-09 2015-04-09 Current University of 00:00:00 00:00:00 non-drinker of [facility] alcohol Branch (finding) Smoking Status Start Date Stop Date Source Current every day smoker 2015-04-09 00:00:00 Uni versity of [facility] Medications Ordered Filled Start Stop Current Ordering Indication Dosage Frequency Signature Comments Components Source Medication Medication Date Date Medication? Clinician (SIG) Name Name HUSSEIN 2014-05 Yes 20mg Take 20 mg U nivers mg tablet 0-26 by mouth ity of 00:00: at [place] 00 bedtime. Medical Branch Procedures This patient has no known procedures. Encounters Start End Encounter Admission Attending Care Care Encounter Source Date/Time Date/Time Type Type Clinicians Facility Department ID 2020-01-06 2020-01-06 Laboratory Lab, [facility] [id number] 09:23:20 09:43:20 Only Fam Pob I Health [id number] [place] [id number] Professio [phone] nal [facility] Office Building One 2020-01-06 2020-01-06 Laboratory Lab, Adc Fam Pob I [facility] [id number] Univers 09:23:20 09:43:20 Only Anene, [facility] [id number] ity of [place] [id number] [place] as Professio [phone] [place] [address] Branch Office [address] One 2020-01-06 2020-01-06 Outpatient R [facility] [id number] Univers 09:00:00 09:00:00 [facility] Results Test Description Test Time Test Comments Results Result Comments Source Thyroid Stimulating Hormone 2018-11-22 22:27:55 Test Item Value Reference Range Interpretation Comme nts TSH (test code = TSH) 0.445 mIU/mL 0.270-4.200 Erythrocyte Sedimentation Rate [id number] 22:20:13 Test Item Value Reference Range Interpretation Comments ESR STAT (test code = ESR STAT) 8 mm/hr 0-20 Comprehensive Metabolic [id number] 21:59:49 Test Item Value Reference Range Interpretation [...] A/G 1.6 ratio N Ratio) Comprehensive Metabolic [id number] 21:59:49 Test Item Value Reference Range Interpretation [...] the National Kidney Foundation, http://nkdep.ni h.gov Lipid [id number] 21:59:49 Test Item Value Reference Range Interpretation Comments Cholesterol Total 294 mg/dL 0-200 H RISK OF HE ART (test code = DISEASEPublishe d by Cholesterol Total) [place] [employer] Sowmya lyte Optimal Borderl ine [...] is greater than 40 0. Comprehensive Metabolic [id number] 21:59:49 Test Item Value Reference Range Interpretation [...] ag e have not been validated by [facility] MDRD study and should be interpreted wit [...] ag e have not been validated by [facility] MDRD study and should be interpreted wit h caution. eGFR R esult Interpretation: eGFR > or = 60 is in the Normal RangeeGF R < 60 may mean kid helio diseaseeGFR < 1 5 may mean kidney failure Rang es recommended by the National Kidney Foundation, http://nkdep.ni h.gov Complete Blood Count with [id number] 21:52:58 Test Item Value Reference Range Interpretation [...] code = IPF) 0 % N Automated [id number] 21:52:58 Test Item Value Reference Range Interpretation Comments Neutro Auto (test code = Neutro 62.7 % 36.0-70.0 Auto) Lymph Auto (test code = Lymph Auto) 28.3 % 12.0-44.0 Mcdonough Auto (test code = Mcdonough Auto) 7.6 % 0.0-11.0 Eos, Auto (test code = Eos, Auto) 0.7 % 0.0-7.0 Basophil Auto (test code = Basophil 0.3 % 0.0-2.0 Auto) Neutro Absolute (test code = Neutro 5.7 x10 1.6-7.4 Absolute) Lymph Absolute (test code = Lymph 2.56 x10 .50-4.60 Absolute) Mcdonough Absolute (test code = Mcdonough .69 x10 .00-1.20 Absolute) Eos Absolute (test code = Eos 0.06 x10 0.00-0.74 Absolute) Baso Absolute (test code = Baso 0.03 x10 0.00-0.21 Absolute) Pro B Natriuretic [id number] 21:52:58 Test Item Value Reference Range Interpretation Comments NT-proBNP (test code = NT-proBNP) 80 pg/mL 0-124 IG [id number] 21:52:58 Test Item Value Reference Range Interpretation Comments IG (test code = IG) 0.4 % 0.0-5.0 IG Abs (test code = IG Abs) 0 x10 N
[2021-09-24 10:32] LABS: Absolute Lymphocytes (CBC) 1.9 K/uL (0.7-4.9); Hematocrit 42.5 % (36.0-45.0); Lymphocytes % 23.2 % (15.3-44.8); MPV 7.3 fL (7.6-11.3); RBC Red Blood Cell Count 4.92 M/uL (3.86-4.86)
[2021-09-24 10:37] LABS: Urine Blood Negative (Negative); Urine Glucose Negative (Negative); Urine Protein Negative (Negative); Urine pH 5.5 (5.0-7.0)
[2021-09-24 10:39] LABS: Protime INR 1.03
[2021-09-24 10:49] LABS: Albumin 3.8 g/dL (3.4-5.0); Bilirubin Total 0.3 mg/dL (0.2-1.0); Magnesium 2.2 mg/dL (1.8-2.4); Protein, Total 7.5 g/dL (6.4-8.2)
--- NOTE | 2021-09-24 10:51 | RAD REPORT ---
EXAM DESCRIPTION: CT - Head Brain Wo Cont - 09/24/2021 10:42 am CLINICAL HISTORY: difficulty walking, bowel/bladder incontinence Headache, drowsiness, CVA symptomology COMPARISON: Head Brain Wo Cont dated 05/12/2019; HEAD BRAIN W O CONTRAST dated 02/06/2013 TECHNIQUE: All CT scans are performed using dose optimization technique as appropriate and may inclu de automated exposure control or mA/KV adjustment according to patient size. FINDINGS: No intracranial hemorrhage, hydrocephalus or extra-axial fluid collection.Moderate periven tricular and deep white matter chronic microvascular ischemic changes are present.No areas of brain e evette or evidence of midline shift. The paranasal sinuses and mastoids are clear. The calvarium is intact. IMPRESSION: No acute intracranial abnormality.
[2021-09-24 10:52] LABS: Urine Bacteria <20 /HPF (<20); Urine Mucus 1+ /HPF (NONE SEEN); Urine RBC <5 /HPF (NONE SEEN)
--- NOTE | 2021-09-24 11:35 | RAD REPORT ---
EXAM DESCRIPTION: MRI - Brain Wo Cont - 09/24/2021 11:20 am CLINICAL HISTORY: bowel/bladder incontinence Headache, drowsiness COMPARISON: Head Brain Wo Cont dated 09/24/2021 TECHNIQUE: Multi-sequence, multiplanar MR imaging of the brain was performed without contrast. FINDINGS: No intracranial hemorrhage, hydrocephalus or extra-axial fluid collections.Moderate perive ntricular and deep white matter chronic microvascular ischemic changes. No edema or shift of midline structures. No findings to suspect brain mass. 5 mm acute CVA is seen right aspect of the hussain. No he morrhage is present. Midline structures are normally formed. Mastoid air cells and paranasal sinuses are clear. IMPRESSION: 5 mm acute right-sided pontine CVA.
--- NOTE | 2021-09-24 11:38 | RAD REPORT ---
EXAM DESCRIPTION: MRI - Lumbar Spine Mera Merritt- 09/24/2021 11:25 am CLINICAL HISTORY: bowel or bladder incontinence Back pain radiculopathy. COMPARISON: No comparisons FINDINGS: Vertebral body heights are within normal limits. No aggressive marrow pattern is observed. No fracture is suspected. The conus medullaris terminates at a normal level. No thickening of the cauda equina or clumping of n erve roots seen. L1-2 level: Asymmetric bulge of disc material to the left is seen with moderate left-sided facet hype rtrophy. There is slight attenuation left lateral recess. L2-3 level: Minimal posterior disc bulge is present. L3-4 level: Mild posterior disc bulge with mild facet and ligamentum flavum hypertrophy. L4-5 level: Mild to moderate posterior disc bulge with moderate facet and ligamentum flavum hypertrop hy. Moderate central canal stenosis. L5-S1 level: No significant findings. IMPRESSION: Moderate spondylosis L4-5 is noted.
--- NOTE | 2021-09-24 11:55 | ER ---
Nurse's Notes [facility] Name: Jeni Johnson Age: 66 yrs Sex: Female : 1955 Arrival Date: 09/24/2021 Time: 09:44 Bed 4 Private MD: Diagnosis: Shuffling gait;Cerebral infarction, unspecified Presentation: 09/24 09:50 Chief complaint: Patient states: Trouble walking (shuffling gait) getting progressively ll1 worse for 2 weeks. Symptoms got way worse yesterday. 3 episodes of loss of BM since yesterday, abnormal for her. Coronavirus screen: Vaccine status: Patient reports being unvaccinated. Client denies travel out of the [place] in the last 14 days. At this time, the client does not indicate any symptoms associated with coronavirus-19. Ebola Screen: Patient denies travel to an Ebola-affected area in the 21 days before illness onset. Initial Sepsis Screen: Does the patient meet any 2 criteria? No. Patient's initial sepsis screen is negative. Does the patient have a suspected source of infection? No. Patient's initial sepsis screen is negative. Risk Assessment: Do you want to hurt yourself or someone else? Patient reports no desire to harm self or others. Onset of symptoms was September 13, 2021. 09:50 Method Of Arrival: Ambulatory ll1 09:50 Acuity: CHET 3 ll1 Historical: - Allergies: 09:56 No Known Allergies; ll1 - PMHx: 09:56 Hypertension; ll1 - PSHx: 09:56 None; ll1 - Immunization history:: Client reports having NOT received the Covid vaccine. - Social history:: Smoking status: Patient reports the use of cigarette tobacco products, smokes one pack cigarettes per day. - Family history:: not pertinent. - Hospitalizations: : No recent hospitalization is reported. Screenin:32 Abuse screen: Denies threats or abuse. Nutritional screening: No deficits noted. vg1 Tuberculosis screening: No symptoms or risk factors identified. Fall Risk No fall in past 12 months (0 pts). No secondary diagnosis (0 pts). IV access (20 points). Ambulatory Aid- None/Bed Rest/Nurse Assist (0 pts). Gait- Normal/Bed Rest/Wheelchair (0 pts) Mental Status- Oriented to own ability (0 pts). Total Anderson Fall Scale indicates No Risk (0-24 pts). Assessment: 10:05 General: Appears in no apparent distress. uncomfortable, Behavior is calm, cooperative. vg1 Pain: Denies pain. Neuro: Mar Agitation-Sedation Scale (RASS): 0 - Alert and Calm Level of Consciousness is awake, alert, obeys commands, Oriented to person, place, time, situation, Denies paresthesias in right leg and left leg numbness. Cardiovascular: Patient's skin is warm and dry. Respiratory: Airway is patent Respiratory effort is even, unlabored. GI: Reports diarrhea, incontinence, Patient currently denies nausea, vomiting. : Reports incontinence. EENT: Derm: Skin is intact, is healthy with good turgor. Musculoskeletal: Circulation, motion, and sensation intact. 10:33 Reassessment: Pt transported to CT/MRI via wheelchair. vg1 11:52 Reassessment: Patient appears in no apparent distress at this time. No changes from vg1 previously documented assessment. Patient and/or family updated on plan of care and expected duration. Pain level reassessed. Patient is alert, oriented x 3, equal unlabored respirations, skin warm/dry/pink. 13:30 Reassessment: Patient appears in no apparent distress at this time. No changes from vg1 previously documented assessment. Patient and/or family updated on plan of care and expected duration. Pain level reassessed. Patient is alert, oriented x 3, equal unlabored respirations, skin warm/dry/pink. 14:30 Reassessment: Patient appears in no apparent distress at this time. Patient and/or vg1 family updated on plan of care and expected duration. Pain level reassessed. Patient is alert, oriented x 3, equal unlabored respirations, skin warm/dry/pink. 15:30 Reassessment: pt resting with eyes closed. vg1 16:30 Reassessment: Patient appears in no apparent distress at this time. Patient and/or vg1 family updated on plan of care and expected duration. Pain level reassessed. Patient is alert, oriented x 3, equal unlabored respirations, skin warm/dry/pink. Patient denies pain at this time. 17:55 Reassessment: attempted to call report. vg1 18:05 Reassessment: Patient appears in no apparent distress at this time. No changes from vg1 previously documented assessment. Patient and/or family updated on plan of care and expected duration. Pain level reassessed. Patient is alert, oriented x 3, equal unlabored respirations, skin warm/dry/pink. Vital Signs: 09:50 BP 164 / 85; Pulse 83; Resp 17; Temp 98.2; Pulse Ox 100% ; Weight 66.68 kg; Height 5 ll1 ft. 2 in. (157.48 cm); Pain 0/10; 10:15 BP 164 / 93; Pulse 90; Resp 16; Pulse Ox 100% on R/A; vg1 11:00 BP 162 / 88; Pulse 86; Resp 18; Pulse Ox 99% on R/A; vg1 12:00 BP 168 / 100; Pulse 86; Resp 19; Pulse Ox 98% on R/A; vg1 13:20 BP 172 / 75; Pulse 97; Resp 20; Pulse Ox 99% on R/A; vg1 14:30 BP 159 / 78; Pulse 99; Resp 16; Pulse Ox 98% on R/A; vg1 15:30 BP 153 / 87; Pulse 88; Resp 16; Pulse Ox 97% on R/A; vg1 16:30 BP 153 / 103; Pulse 100; Resp 16; Pulse Ox 100% on R/A; vg1 17:30 BP 164 / 92; Pulse 99; Resp 20; Pulse Ox 97% on R/A; vg1 09:50 Body Mass Index 26.89 (66.68 kg, 157.48 cm) ll1 ED Course: 09:44 Patient arrived in ED. ds1 09:56 Triage completed. ll1 09:57 Arm band placed on Patient placed in an exam room, on a stretcher. ll1 09:58 Hugh Zendejas MD is Attending Physician. rn 10:00 Cassandra Horne, [place] is Primary Nurse. vg1 10:15 Inserted saline lock: 20 gauge in right antecubital area, using aseptic technique. vg1 ,using aseptic technique. completed by foundation stage teacher Blood collected. 10:32 Patient has correct armband on for positive identification. Placed in gown. Bed in low vg1 position. Call light in reach. Side rails up X 1. Adult w/ patient. Client placed on continuous cardiac and pulse oximetry monitoring. NIBP monitoring applied. civil division commander deputy sheriff on. 10:44 Head Brain Wo Cont In Process Unspecified. EDMS 11:17 Brain Wo Cont MRI In Process Unspecified. EDMS 11:17 MRI Lumbar Spine wo Con In Process Unspecified. EDMS 11:54 Jimbo Templeton is Hospitalizing Provider. rn 18:33 No provider procedures requiring assistance completed. Patient admitted, IV remains in vg1 place. Administered Medications: 12:05 Drug: Aspirin 325 mg Route: PO; vg1 12:52 Follow up: Response: No adverse reaction vg1 12:05 Drug: foLIC Acid 1 mg Route: IVPB; Site: right antecubital; vg1 12:52 Follow up: Response: No adverse reaction; IV Status: Completed infusion vg1 12:50 Drug: Nicoderm CQ Patch 21 mg/24 hr 21 mg {Note: Right upper arm.} Route: Transdermal; vg1 Site: affected area; 14:00 Follow up: Response: No adverse reaction vg1 Outcome: 11:55 Decision to Hospitalize by Provider. rn 18:32 Admitted to Tele accompanied by tech, via wheelchair, room 207, with chart, Report vg1 called to Celia REDMOND 18:32 Condition: good 18:32 Instructed on the need for admit. 18:33 Patient left the ED. vg1 Signatures: Dispatcher [employer] EDMS Maricruz Artis ds1 Hugh Zendejas MD MD rn Garcia, Victoria RN RN vg1 Dionne Hoffman, [place]LA RN ll1 Corrections: (The following items were deleted from the chart) 09:58 09:50 Pulse 83bpm; Resp 17bpm; Pulse Ox 100%; Temp 98.2F; 66.68 kg; Height 5 ft. 2 in.; ll1 BMI: 26.8; Pain 0/10; ll1
--- NOTE | 2021-09-24 11:55 | EDPHYS ---
Physician Documentation [facility] Name: Jeni Johnson Age: 66 yrs Sex: Female : 1955 Arrival Date: 09/24/2021 Time: 09:44 Bed 4 Private MD: ED Physician Hugh Zendejas HPI: 09/24 10:30 This 66 yrs old Female presents to ER via Ambulatory with complaints of Diff rn Walking. 10:30 The patient presents to the emergency department with difficult walking, Difficulty rn walking, bowel and bladder incontinence. Onset: The symptoms/episode began/occurred 1 month(s) ago. Context: occurred at an unknown location, occurred while the patient was at rest. 11:50 Associated signs and symptoms: Pertinent positives: shuffling gait, difficulty rn controlling/bowel/bladder, Pertinent negatives: altered mental status, fever, headache, neck stiffness, seizure, syncope, blurred vision, double vision, visual field changes, loss of vision. Severity of symptoms: At their worst the symptoms were moderate in the emergency department the symptoms are unchanged. Current symptoms: difficulty walking. The patient has not experienced similar symptoms in the past. The patient has not recently seen a physician. Partner reports patient having difficulty walking with shuffling gait but in the last week developed worsening symptoms, a feeling is worse, and now reports incontinence of bowel and bladder but cannot specify if due to length of time to arrive in bathroom or true incontinence. No trauma. Seen by PCP and MRIs ordered but not obtained yet. Last known normal was last month but partner states noticed a change in symptoms last week. Patient active smoker. Historical: - Allergies: 09:56 No Known Allergies; ll1 - PMHx: 09:56 Hypertension; ll1 - PSHx: 09:56 None; ll1 - Immunization history:: Client reports having NOT received the Covid vaccine. - Social history:: Smoking status: Patient reports the use of cigarette tobacco products, smokes one pack cigarettes per day. - Family history:: not pertinent. - Hospitalizations: : No recent hospitalization is reported. ROS: 11:50 Constitutional: Negative for fever, chills, and weight loss, Eyes: Negative for injury, rn pain, redness, and discharge, ENT: Negative for injury, pain, and discharge, Neck: Negative for injury, pain, and swelling, Cardiovascular: Negative for chest pain, palpitations, and edema, Respiratory: Negative for shortness of breath, cough, wheezing, and pleuritic chest pain, Abdomen/GI: Negative for abdominal pain, nausea, vomiting, diarrhea, and constipation, Back: Negative for injury and pain, : Negative for injury, bleeding, discharge, and swelling, MS/Extremity: Negative for injury and deformity, Skin: Negative for injury, rash, and discoloration, Neuro: Negative for headache, weakness, numbness, tingling, and seizure. Exam: 11:50 Constitutional: This is a well developed, well nourished patient who is awake, alert, rn and in no acute distress. Ambulatory to room with a shuffling slow gait Head/Face: Normocephalic, atraumatic. Eyes: Pupils equal round and reactive to light, extra-ocular motions intact. Lids and lashes normal. Conjunctiva and sclera are non-icteric and not injected. Cornea within normal limits. Periorbital areas with no swelling, redness, or edema. Neck: Trachea midline, no thyromegaly or masses palpated, and no cervical lymphadenopathy. Supple, full range of motion without nuchal rigidity, or vertebral point tenderness. No Meningismus. Cardiovascular: Regular rate and rhythm. No pulse deficits. Respiratory: No increased work of breathing, no retractions or nasal flaring. Abdomen/GI: Soft, non-tender Back: No spinal tenderness. No costovertebral tenderness. Full range of motion. Skin: Warm, dry with normal turgor. Normal color with no rashes, no lesions, and no evidence of cellulitis. MS/ Extremity: Pulses equal, no cyanosis. Neurovascular intact. Full, normal range of motion. Equal circumference. Neuro: Awake and alert, GCS 15, oriented to person, place, time, and situation. Cranial nerves II-XII grossly intact. Motor strength 5/5 in all extremities. Sensory grossly intact. Shuffling gait Vital Signs: 09:50 BP 164 / 85; Pulse 83; Resp 17; Temp 98.2; Pulse Ox 100% ; Weight 66.68 kg; Height 5 ll1 ft. 2 in. (157.48 cm); Pain 0/10; 10:15 BP 164 / 93; Pulse 90; Resp 16; Pulse Ox 100% on R/A; vg1 11:00 BP 162 / 88; Pulse 86; Resp 18; Pulse Ox 99% on R/A; vg1 12:00 BP 168 / 100; Pulse 86; Resp 19; Pulse Ox 98% on R/A; vg1 13:20 BP 172 / 75; Pulse 97; Resp 20; Pulse Ox 99% on R/A; vg1 14:30 BP 159 / 78; Pulse 99; Resp 16; Pulse Ox 98% on R/A; vg1 15:30 BP 153 / 87; Pulse 88; Resp 16; Pulse Ox 97% on R/A; vg1 16:30 BP 153 / 103; Pulse 100; Resp 16; Pulse Ox 100% on R/A; vg1 17:30 BP 164 / 92; Pulse 99; Resp 20; Pulse Ox 97% on R/A; vg1 09:50 Body Mass Index 26.89 (66.68 kg, 157.48 cm) ll1 MDM: 09:58 Patient medically screened. rn 10:44 ED course: Pt ambulatory to bathroom, tech in bathroom with her, no incontinence and rn able to urinate on her own in specimen cup without difficulty. MRI department unable to fit in all MRIs ordered so canceled thoracic and cspine, kept brain and lumbar to rule out emergency.. 11:50 Data reviewed: vital signs, nurses notes, lab test result(s), EKG, radiologic studies, rn CT scan, MRI, and as a result, I will admit patient. Counseling: I had a detailed discussion with the patient and/or guardian regarding: the historical points, exam findings, and any diagnostic results supporting the discharge/admit diagnosis, lab results, radiology results, the need for further work-up and treatment in the hospital. Response to treatment: There is no appreciated change of the patient's symptoms at this time, and as a result, I will admit patient. Admission orders: after a detailed discussion of the patient's condition and case, the admit orders are written by me. 09/24 10:10 Order name: CBC with Diff; Complete Time: 10:42 rn 09/24 10:10 Order name: Protime (+inr); Complete Time: 10:42 rn 09/24 10:10 Order name: Ptt, Activated; Complete Time: 10:42 rn 09/24 10:10 Order name: Urine Microscopic Only; Complete Time: 11:36 rn 09/24 10:10 Order name: Magnesium; Complete Time: 11:36 rn 09/24 10:10 Order name: CMP; Complete Time: 11:36 rn 09/24 10:10 Order name: CT Head Brain wo Cont rn 09/24 10:10 Order name: Brain Wo Cont MRI; Complete Time: 11:36 rn 09/24 10:10 Order name: MRI Lumbar Spine wo Con; Complete Time: 11:55 rn 09/24 10:14 Order name: Head Brain Wo Cont; Complete Time: 11:36 EDMS 09/24 10:38 Order name: Urine Dipstick-Ancillary; Complete Time: 10:42 EDMS 09/24 11:56 Order name: COVID-19 SARS RT PCR (Document "Date of Onset" if Symptomatic) bd 09/24 10:10 Order name: IV Start; Complete Time: 10:28 rn 09/24 10:10 Order name: Urine Dipstick-Ancillary (obtain specimen); Complete Time: 12:30 rn Administered Medications: 12:05 Drug: Aspirin 325 mg Route: PO; vg1 12:52 Follow up: Response: No adverse reaction vg1 12:05 Drug: foLIC Acid 1 mg Route: IVPB; Site: right antecubital; vg1 12:52 Follow up: Response: No adverse reaction; IV Status: Completed infusion vg1 12:50 Drug: Nicoderm CQ Patch 21 mg/24 hr 21 mg {Note: Right upper arm.} Route: Transdermal; vg1 Site: affected area; 14:00 Follow up: Response: No adverse reaction vg1 Disposition Summary: 09/24/21 11:55 Hospitalization Ordered Hospitalization Status: Inpatient Admission rn Provider: Jimbo Templeton rn Condition: Stable rn Problem: new rn Symptoms: are unchanged rn Bed/Room Type: Standard rn Location: Telemetry/MedSurg (Inpatient)(09/24/21 17:10) bd Room Assignment: 207(09/24/21 17:10) bd Diagnosis - Shuffling gait rn - Cerebral infarction, unspecified rn Forms: - Medication Reconciliation Form rn - SBAR form rn Signatures: Dispatcher [employer] EDMS Che Estrella bd Hugh Zendejas MD MD rn Garcia, Victoria, RN RN vg1 Dionne Hoffman RN RN 1 Corrections: (The following items were deleted from the chart) 10:44 10:20 CT-CERVICAL SPINE W/O CONTRAST ordered. EDMS EDMS 10:44 10:33 CT-CERVICAL SPINE W/O CONTRAST ordered. EDMS EDMS 11:48 10:20 Thoracic Spine Wo Contr ordered. EDMS EDMS :48 10:30 C Spine Wo Cont ordered. EDMS EDMS 16:38 11:55 Telemetry/MedSurg (Inpatient) rn bd 16:38 11:55 rn bd 17:10 16:38 [facility] ER HOLD bd bd 17:10 16:38 ERHOLD- bd bd
[2021-09-24] MEDS ORDERED: ASPIRIN 325 MG TAB ONE (12:06)
[2021-09-24] MEDS ORDERED: FOLIC ACID 5 MG/ML VIAL ONE (12:08)
[2021-09-24] MEDS ORDERED: NICOTINE 21 MG/PAT TD ONE (12:50)
--- NOTE | 2021-09-24 13:44 | P.HP ---
Certification for Inpatient Patient admitted to: Observation With expected LOS: <2 Midnights Practitioner: I am a practitioner with admitting privileges, knowledge of patient current condition, hospital course, and medical plan of care. Services: Services provided to patient in accordance with Admission requirements found in Title 42 Section 412.3 of the Code of Federal Regulations Patient History Date of Service: 09/24/21 Reason for admission: Unsteady gait History of Present Illness: 66-year-old man with a history of hypertension presented to the emergency department with a complaint of unsteady gait of several weeks duration which became worse over the last 4 days. She saw her PCP who prescribed her Viibryd for possible depression. Patient reports worsening wobbly gait denies any facial deviation or speech problem or visual problems. She also denied any tremors. There was concern for acute CVA. CT head negative, MRI of the brain showed acute pontine CVA. Patient unsteady gait likely secondary to acute stroke. She is hospitalized for further management. Allergies No Known Allergies Allergy (Unverified 09/24/21 10:14) Home medications list reviewed: Yes - Past Medical/Surgical History Diabetic: No -: Hypertension - Family History Father -: Other (see notes) (Parkinson's disease, diabetes) Mother -: Cancer (Stomach cancer), Other (see notes) - Social History Smoking Status: Former smoker Alcohol use: No Place of Residence: Home Review of Systems Other: Except as documented, all other systems reviewed and negative. Physical Examination - Physical Exam General: Alert, In no apparent distress, Oriented x3 HEENT: Atraumatic, Normocephalic, PERRLA, Mucous membr. moist/pink, EOMI, Sclerae nonicteric Neck: Supple, 2+ carotid pulse no bruit, JVD not distended, No Thyromegaly Respiratory: Clear to auscultation bilaterally, Normal air movement Cardiovascular: No edema, Regular rate/rhythm, Normal S1 S2, No murmurs Capillary refill: <2 Seconds Gastrointestinal: Normal bowel sounds, Soft and benign, Non-distended, No tenderness Musculoskeletal: No swelling, No tenderness Integumentary: No rashes, No erythema, No cyanosis Neurological: Normal strength at 5/5 x4 extr, Cranial nerves 3-12 intact, Other (Coordination intact.) Lymphatics: No axilla or inguinal lymphadenopathy - Studies Laboratory Data (last 24 hrs) 09/24/21 10:19: Sodium 138, Potassium 4.0, BUN 16, Creatinine 0.90, Glucose 103, Magnesium 2.2, Total Bilirubin 0.3, AST 19, ALT 26, Alkaline Phosphatase 100 09/24/21 10:19: PT 11.3, INR 1.03, APTT 31.0 09/24/21 10:19: WBC 8.1, Hgb 14.5, Hct 42.5, Plt Count 289 Assessment and Plan - Problems (Diagnosis) (1) Acute CVA (cerebrovascular accident) Current Visit: Yes Status: Acute (2) Hypertension Current Visit: Yes Status: Acute (3) Unsteady gait Current Visit: Yes Status: Acute - Plan Place patient under observation. Continue stroke protocol initiated in the ED. We will start aspirin and Plavix. Obtain carotid Doppler, echocardiogram Start statins. Check lipid profile. PT and OT evaluation Speech consult. Permissive hypertension, keep systolic blood pressure between 160-1 80. Neurology consult. - Advance Directives Does patient have a Living Will: No Does patient have a Durable POA for Healthcare: No
[2021-09-24 18:51] VITALS: BMI 26.9
--- NOTE | 2021-09-24 19:56 | RAD REPORT ---
EXAM DESCRIPTION: RAD - Chest Single View - 09/24/2021 7:35 pm CLINICAL HISTORY: [facility] chest film COMPARISON: Portable 05/25/2020 TECHNIQUE: AP portable chest image was obtained 09/24/2021 7:35 pm . FINDINGS: Lung volumes are low. No acute lung parenchymal process. Heart and vasculature are normal. No measurable pleural effusion and no pneumothorax. No acute bony abnormality seen. No acute aortic findings suspected. IMPRESSION: No acute cardiopulmonary process. No significant change from comparison study.
[2021-09-24] MEDS: ATORVASTATIN 40 MG TAB PO SCH (20:05)
[2021-09-24] MEDS: NA CHLORIDE 0.9% 1,000 ML IV SCH (20:06)
[2021-09-25] MEDS: HYDRALAZINE HCL 20 MG/ML VIAL IV PRN ×2 (00:24→20:15)
[2021-09-25] MEDS: ONDANSETRON 4 MG/2 ML VIAL IV PRN (02:06)
[2021-09-25 04:10] LABS: Absolute Lymphocytes (CBC) 1.3 K/uL (0.7-4.9); Hematocrit 38.8 % (36.0-45.0); Lymphocytes % 16.6 % (15.3-44.8); MPV 7.1 fL (7.6-11.3); RBC Red Blood Cell Count 4.58 M/uL (3.86-4.86)
[2021-09-25 04:51] LABS: Folic Acid, (Folate) 11.5 ng/mL (3.1-17.5); Phosphorus 1.6 mg/dL (2.5-4.9); Potassium 3.7 mmol/L (3.5-5.1); Thyroid Stimulating Hormone 0.277 uIU/mL (0.360-3.740)
[2021-09-25] MEDS ORDERED: POTASS/SODIUM PHOSPHATE 1 PKT POWD.PACK PO SCH (06:00)
[2021-09-25] MEDS: POTASS/SODIUM PHOSPHATE 1 PKT POWD.PACK PO SCH ×3 (06:31→08:01)
[2021-09-25] MEDS: ASPIRIN EC 81 MG TAB PO SCH (08:01)
[2021-09-25] MEDS: ENOXAPARIN 40 MG/0.4 ML SQ SCH (08:01)
[2021-09-25] MEDS: CLOPIDOGREL 75 MG TABLET PO SCH (08:02)
[2021-09-25] MEDS ORDERED: POTASSIUM CL SA 10 MEQ TAB PO ONE (09:00)
[2021-09-25] MEDS: NA CHLORIDE 0.9% 1,000 ML IV SCH (10:21)
[2021-09-25 10:27] VITALS: O2SAT 98
--- NOTE | 2021-09-25 12:57 | EKG ---
Test Date: 2021-09-24 Test Time: 10:25:08 Drying Machine Tender: EDISON MEASUREMENT RESULTS: Intervals: Rate: 87 MA: 152 QRSD: 92 QT: 360 QTc: 433 [place]: P: 68 MA: 152 QRS: 22 T: 30 INTERPRETIVE STATEMENTS: Normal sinus rhythm Normal ECG Compared to ECG 05/12/2019 22:24:29 No significant changes Electronically Signed On 09-25-21 12:52:19 CDT by Honorio Blake
--- NOTE | 2021-09-25 13:32 | ECHO ---
HEIGHT: 5 ft 2 in WEIGHT: 147 lb 6 oz DATE OF STUDY: 09/25/[address]: debbie rg 2-DIMENSIONAL: YES M.MODE: YES DOPPLER: YES COLOR FLOW: YES TDS: NO PORTABLE: YES DEFINITY: NO BUBBLE STUDY: NO DIAGNOSIS: STROKE CARDIAC HISTORY: CATHERIZATION: SURGERY: PROSTHETIC VALVE: PACEMAKER: MEASUREMENTS (cm) DIASTOLIC (NORMALS) SYSTOLIC (NORMALS) IVSd 0.9 (0.6-1.2) LA Diam 3.2 (1.9-4.0) LVEF 55% LVIDd 3.1 (3.5-5.7) LVIDs 2.3 (2.0-3.5) %FS 27% LVPWd 1.0 (0.6-1.2) Ao Diam 2.4 (2.0-3.7) 2 DIMENSIONAL ASSESSMENT: RIGHT ATRIUM: NORMAL LEFT ATRIUM: NORMAL RIGHT VENTRICLE: NORMAL LEFT VENTRICLE: NORMAL TRICUSPID VALVE: NORMAL MITRAL VALVE: NORMAL PULMONIC VALVE: NORMAL AORTIC VALVE: NORMAL PERICARDIAL EFFUSION: NONE AORTIC ROOT: NORMAL LEFT VENTRICULAR WALL MOTION: NORMAL DOPPLER/COLOR FLOW: NORMAL COMMENTS: NORMAL 2D ECHOCARDIOGRAM WITH DOPPLER. NO VEGETATION. NO THROMBUS. TECHNOLOGIST: Diana PATTERSON
[2021-09-25] MEDS: NICOTINE 21 MG/PAT TD SCH (18:02)
[2021-09-25] MEDS: ATORVASTATIN 40 MG TAB PO SCH (20:15)
--- NOTE | 2021-09-26 00:04 | CON ---
Reason For Consultation: Consultation called because of stroke. History Of Present Illness: Ms. Johnson is a 66-year-old patient with hypertension who comes to [facility] with worsening gait, perhaps of 2-3 weeks' duration, but she still ambulated well unt il Thursday when she had a significant change with much more left leg and arm weakness and could not am bulate. Her gait was described as "wobbly." She had no difficulty with face movements, speech, visi on, or other issues. Head CT scan was negative. She is not a candidate for tPA as she did not arriv e within 4.5 hours and had a complete workup prior to the decision to be made for tPA. Brain MRI did show an acute 5 mm infarct in the right hussain and she was admitted for further evaluation and managem ent. Her echocardiogram showed an ejection fraction of 55% and was a normal study without vegetation . Her electrocardiogram showed a normal sinus rhythm and is a normal study. Her chest x-ray showed no acute cardiothoracic processes. She did have a lumbar spine MRI entertaining the possibility of a nerve compression of the perhaps L4-L5 region. The study did show moderate central canal stenosis, however, no mention of any nerve root stenosis. The patient was evaluated by Physical Therapy and wa s able to ambulate 100 feet once then 60 feet and then 40 feet with minimum assistance, taking severa l rest breaks. Maximum verbal cues were required for the patient to steer her foot and not trip and fall. Past Medical History: As noted. Allergies: NO KNOWN DRUG ALLERGIES. Family History: Parkinson's and diabetes in father. Cancer in mother. Social History: Smoked in the past. No recent tobacco use. No alcohol use. The patient lives at [facility] with family. Review of Systems: Aside from mentioned where she has the gait difficulties for a few weeks and poor balance and incoord ination, now more left-sided weakness along with the right-sided weakness, she has no nausea or vomit ing. No fevers or chills. No myalgias or arthralgias. No rash. No headaches. No weight changes. Physical Examination: Vital Signs: Blood pressure 136 up to 161/74-84, pulse 73-89, temperature 98.3, oxygen saturation 99 % on room air. Weight 147 pounds, height 5 feet 2 inches, BMI 27. General: Ms. Johnson is resting in bed. She is in no significant distress. HEENT: She is normocephalic, atraumatic. Sclerae anicteric. Oropharynx is moist. Neck: Supple. Chest: Clear. Heart: Regular. Extremities: No significant edema, cyanosis, or clubbing. Neurologic: Cranial nerves show no focal deficits. The left lower extremity has some zcmk-rz-[id number] te weakness around 3 to 4/5 proximally and distally in the left upper extremity, 4+/5 weakness. Righ t upper and lower extremity, 5-/5 weakness. Sensory examination slightly decreased to light touch an d temperature in the left upper and lower extremity compared to the right side. Reflexes are symmetr ic. Coordination intact in upper and lower extremities. Gait, she does require moderate assistance using a 2 wheeled walker. Laboratory Studies: Complete blood count with differential is normal. INR 1.03. She has a pending stroke workup including protein C, protein S, antithrombin 3, Factor V Leiden. Her cholesterol panel shows elevated cholesterol of 239, LDL elevated at 153. Vitamin D level is very low at 16.8. TSH v jamshid low at 0.277. Liver function studies normal. Chemistry is unremarkable except slightly elevated chloride of 110. Her magnesium is normal at 2.0. Glucose ranged from 103-126. Urinalysis is unrem arkable. She also has pending studies including antiphospholipid antibody, anticardiolipin antibody, antiproteinase 3, antimyeloperoxidase antibody. RPR test is pending. COVID-19 test is negative. Assessment: Ms. 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 She has had difficulty with coordination predating her more recent stroke. She has a stroke workup pending. Also she is on aspirin, Plavix, Lipitor, deep vein thrombosis proph ylaxis with Lovenox and blood pressure management with apresoline. Those medications are to be rainer nued. She is currently being evaluated for inpatient rehabilitation transfer for aggressive physical , occupational, and speech therapy. The patient was informed that she would recover best after her s troke, if she has aggressive therapy immediately following the stroke, which is what the patient agre ed to. TIFFANY/DANIEL Voice ID: [id number] Report ID: [id number]
[2021-09-26] MEDS: NA CHLORIDE 0.9% 1,000 ML IV SCH (01:08)
[2021-09-26] MEDS: ONDANSETRON 4 MG/2 ML VIAL IV PRN (01:08)
[2021-09-26] MEDS ORDERED: POTASSIUM CL SA 10 MEQ TAB PO ONE (05:32)
[2021-09-26] MEDS ORDERED: POTASSIUM PHOS IN 0.9 % NACL 15 MMOL/250 ML BAG IV ONE (09:00)
[2021-09-26] MEDS ORDERED: NICOTINE 21 MG/PAT TD SCH (09:00)
--- NOTE | 2021-09-26 09:39 | P.DS ---
Admission Date: 09/25/21 Discharge Date: 09/26/21 Disposition: TRANSFER TO INPATIENT REHAB Discharge Condition: FAIR Reason for Admission: Unsteady gait - Problems (1) Acute CVA (cerebrovascular accident) Current Visit: Yes Status: Acute (2) Hypertension Current Visit: Yes Status: Resolved (3) Unsteady gait Current Visit: Yes Status: Acute Brief History of Present Illness: 66-year-old man with a history of hypertension presented to the emergency department with a complaint of unsteady gait of several weeks duration which became worse over the last 4 days. She saw her PCP who prescribed her Viibryd for possible depression. Patient reports worsening wobbly gait denies any facial deviation or speech problem or visual problems. She also denied any tremors. There was concern for acute CVA. CT head negative, MRI of the brain showed acute pontine CVA. Patient unsteady gait likely secondary to acute stroke. She was hospitalized for further management. Hospital Course: Admitted to the medical floor. Stroke work-up initiated in the ED was continued. Echocardiogram done unremarkable. Patient placed on aspirin and Plavix, seen by neurology, lipid profile checked which showed elevated LDL. Patient started on high-dose statin. She continues to have unsteady gait. She had no trouble with swallowing or speech. She was seen by physical therapy. Neurology and physical therapy recommending inpatient rehab. Patient has been accepted to rehab. She is deemed stable for discharge. Vital Signs/Physical Exam: Temp Pulse Resp BP Pulse Ox 97.0 F 83 18 180/88 H 98 09/26/21 08:00 09/26/21 08:00 09/26/21 08:00 09/26/21 08:00 09/26/21 08:00 General: Alert, In no apparent distress, Oriented x3 HEENT: Mucous membr. moist/pink Neck: JVD not distended Respiratory: Clear to auscultation bilaterally, Normal air movement Cardiovascular: No edema, Regular rate/rhythm, No murmurs Gastrointestinal: Soft and benign, Non-distended, No tenderness Musculoskeletal: No swelling Integumentary: No rashes Neurological: Normal strength at 5/5 x4 extr, Cranial nerves 3-12 intact Laboratory Data at Discharge: WBC 7.9 K/uL (4.3-10.9) 09/25/21 03:46 Hgb 13.5 g/dL (12.0-15.0) 09/25/21 03:46 Hct 38.8 % (36.0-45.0) 09/25/21 03:46 Plt Count 284 K/uL (152-406) 09/25/21 03:46 PT 11.3 SECONDS (9.5-12.5) 09/24/21 10:19 INR 1.03 09/24/21 10:19 APTT 31.0 SECONDS (24.3-36.9) 09/24/21 10:19 Sodium 139 mmol/L (136-145) 09/25/21 03:46 Potassium 3.7 mmol/L (3.5-5.1) 09/25/21 03:46 BUN 18 mg/dL (7-18) 09/25/21 03:46 Creatinine 0.88 mg/dL (0.55-1.3) 09/25/21 03:46 Glucose 126 mg/dL (74-106) H 09/25/21 03:46 Phosphorus 1.6 mg/dL (2.5-4.9) L 09/25/21 03:46 Magnesium 2.0 mg/dL (1.8-2.4) 09/25/21 03:46 Total Bilirubin 0.3 mg/dL (0.2-1.0) 09/24/21 10:19 AST 19 U/L (15-37) 09/24/21 10:19 ALT 26 U/L (12-78) 09/24/21 10:19 Alkaline Phosphatase 100 U/L (45-117) 09/24/21 10:19 Triglycerides 280 mg/dL (<150) H 09/25/21 03:46 Cholesterol 259 mg/dL (<200) H 09/25/21 03:46 HDL Cholesterol 50 mg/dL (40-60) 09/25/21 03:46 Cholesterol/HDL Ratio 5.18 09/25/21 03:46 Home Medications: Lisinopril [Zestril] 1 tab PO DAILY 09/24/21 Vilazodone HCl [Viibryd] 1 each PO DAILY 09/24/21 Aspirin [Aspirin EC 81 MG] 81 mg PO DAILY #30 tablet. 09/26/21 Atorvastatin Calcium [Lipitor] 40 mg PO BEDTIME tab 09/26/21 Clopidogrel Bisulfate [Plavix*] 75 mg PO DAILY tablet 09/26/21 Nicotine [Nicoderm*] 21 mg TD DAILY patch.td24 09/26/21 New Medications: Aspirin [Aspirin EC 81 MG] 81 mg PO DAILY #30 tablet. Diet: AHA Activity: Fall precautions Followup: Logan Lemus MD [Primary Care Provider] - (Call to schedule appointment) Time spent managing pt's care (in minutes): 34
[2021-09-26] MEDS: CLOPIDOGREL 75 MG TABLET PO SCH (11:18)
[2021-09-26] MEDS: HYDRALAZINE HCL 20 MG/ML VIAL IV PRN (11:18)
[2021-09-26] MEDS: ASPIRIN EC 81 MG TAB PO SCH (11:18)
[2021-09-26] MEDS: ENOXAPARIN 40 MG/0.4 ML SQ SCH (11:19)
[2021-09-26] MEDS: NICOTINE 21 MG/PAT TD SCH (11:19)
[2021-09-26 12:21] VITALS: TEMP 98.2
[2021-09-26 13:03] VITALS: BP 142/68
[2021-09-27 00:50] LABS: RPR (Rapid Plasma Reagin) NON-REACT (NON-REACT)
[2021-09-27 12:06] LABS: Protein C Antigen 97 % (70-140)
[2021-09-28 12:32] LABS: Alpha-1-Globulins 0.2 g/dL (0.2-0.3); Alpha-2-Globulins 0.7 g/dL (0.5-0.9); Gamma Globulins 0.9 g/dL (0.8-1.7); INTERPRETATION REPORT
[2021-09-29 03:30] LABS: Anti-Cardiolipin IgA Antibody <2.0 APL-U/mL (<20.0); PHOSPHATDYLSERINE AB IGA <20 U/mL (<20); PHOSPHATDYLSERINE AB IGG 13 U/mL (<10); PHOSPHATDYLSERINE AB IGM <25 U/mL (<25)
== END 2021-09-26 15:52 | DRG 66 ==
LOC: ER 09:42 → ERHOLD 13:35 → 2ND 18:07 → OBSVTOIN 09-25 22:26
PROVIDERS: ADMIT Internal Medicine; ATTEND Internal Medicine
DX: I63.9 Cerebral infarction, unspecified (principal); R26.81 Unsteadiness on feet; I10 Essential (primary) hypertension; F32.A Depression, unspecified; E78.00 Pure hypercholesterolemia, unspecified; Z20.822 Contact with and (suspected) exposure to COVID-19; Z87.891 Personal history of nicotine dependence; Z83.3 Family history of diabetes mellitus; Z82.0 Family history of epilepsy and other diseases of the nervous system; Z80.0 Family history of malignant neoplasm of digestive organs
CPT/HCPCS: 36415; 70450; 70551; 71045; 72148; 80048; 80053; 80061; 81003; 81015; 81240; 81241; 82306; 82607; 82746; 83090; 83735; 84100; 84165; 84443; 85025; 85300; 85302; 85305; 85306; 85610; 85652; 85730; 86021; 86146; 86147; 86148; 86592; 93005; 93306; 96365; 97116; 97161; 97530; 99285; G0378; J0360; J1650; J2405; J7030; U0003

== ENCOUNTER 2021-09-26 09:29 | Inpatient (IN) | payer OTHER ==
--- NOTE | 2021-09-26 12:04 | R.PREADM ---
PRE-ADMISSION SCREENING FORM SCREENING DATE AND TIME 09/26/2021 09:59 (CDT) ANTICIPATED REHAB ADMISSION DATE 09/28/2021 REFERRING FACILITY [facility] REFERRAL DATE AND TIME 09/26/2021 09:59 (CDT) REFERRAL ROOM# 207/A ACUTE ADMIT DATE 09/24/2021 Previous Rehabilitation(s): No. 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 Eliud Larkin M.D. MR# [id number] NAME FERMIN DE LOS SANTOS ADDRESS [address] [place] [address] PHONE [facility] [id number] DATE OF 1955 AGE 66 SSN# [id number] GENDER female MARITAL STATUS with a Domestic Partner RACE unknown race ADMIT FROM 02 - [facility] PRE-HOSPITAL LIVING SETTING 01 - Home (private home/apt. board/care, assisted living, alf, transitional living) HOME TYPE AND DETAILS Type of home: single family house # of levels in the residence: 1 # of steps within the residence: 0 # of steps to enter the residence: 1 PRE-HOSPITAL LIVING WITH Other FAMILY SUPPORT Yes PRIMARY FAMILY CONTACT NAME Mercy Hdez PRIMARY FAMILY CONTACT PHONE PRIMARY FAMILY CONTACT RELATIONSHIP Partner PHONE PRIMARY FAMILY CONTACT ON ADM.? no IS PRIMARY FAMILY CONTACT AUTH. REP.? no 1ST EMERGENCY CONTACT Mercy Hdez 1ST CONTACT PHONE 1ST CONTACT RELATIONSHIP Partner PHONE 1ST CONTACT ON ADM. no IS 1ST CONTACT AUTH. REP.? no PHONE 2ND CONTACT ON ADM.? no PATIENT EMPLOYMENT STATUS Retired (for age) PATIENT EMPLOYER Lynne Bonilla PAYOR INFORMATION: 1ST PAYOR NAME MEDICARE 1ST PAYOR PHONE 1ST PAYOR INJURY/ILLNESS DUE TO ACCIDENT? No ANOTHER CONSTITUTION PARTY RESPONSIBLE? No PRIMARY REHAB/ACUTE DIAGNOSIS: Acute Pontine CVA ONSET DATE 09/22/2021 REHAB IMPAIRMENT CATEGORY (YASMINE): 01 Stroke (STR) MEETS 60% rule PRIMARY DIAGNOSIS-RELATED SURGERIES: No surgeries related to the primary diagnosis were performed. INTERVENTIONS: - Hypertension Monitor and treat with prescribed medications to maintainsystolic blood pressure between 160-180 as p er physician recommendation Increase physical activity - Depression Monitor and treat Administer medications as indicated - CVA Monitor Neuro Signs regularly Provide aggressive OT, PT, and Speech services if warranted to address functional deficits RISK FOR COMPLICATIONS: - Skin Breakdown Encourage ambulation as tolerated Repositioning q 2 hours Use of pillows or foam wedges while in bed - DVT Active and Passive ROM exercises Assist patient with frequent position changes Elevate BLE - Falls Maintain call light within patient reach for easy access to nursing assistance Provide assistive devices Provide assistance getting out of bed and with ambulation Assess for medication side effects - Stroke Monitor and maintain patient pain level Monitor patient blood pressure - Pain Assist patient with frequent position changes at least every 2 hours - CVA pt has history of CVA. Will monitor blood pressure and manage with medication. SUMMARY OF ACUTE HOSPITALIZATION: Pt. is a 66 yo female of unknown race. On 09/24/2021 she was admitted to [facility] with diagnosis Acute Pontine CVA. Her impairment category is Stroke 01 - Other Stroke (01.9). Pre-morbidly, Pt. was independent/mod-I in Self-Care, Communication, and Locomotion; and she had good Balance, Transfers Control, Endurance, and Safety Awareness. Currently, she has deficits of Locomotion, Safety Awareness, Transfers Control, Endurance, and Self-C are. Pt. is now referred to [facility] for acute in-patient rehabilitation in order to maximize patient's functional independence in activities of daily living, strength, ROM, and mobi lity. Patient has realistic goal of being discharged at assistance level 7-Ind to reside at Home with chan rAnastasia PAST MEDICAL HISTORY Hypertension Depression Falls PAST SURGICAL HISTORY: None MEDICATION ALLERGIES: No Known Drug Allergies (NKDA) ENVIRONMENTAL ALLERGIES: - Substance Allergies None Known - Other Allergies None Known CODE STATUS: Full code WEIGHT/HEIGHT/BMI: WEIGHT 147 lbs HEIGHT 5' 2" BMI 26.9 DIET: - Diet Type Regular - Diet - Solid Texture Regular - Diet - Liquid Texture Regular - Tube Feed N/A none REVIEW OF SYSTEMS: - Gen Alert and awake Lying in bed No apparent distress Oriented to: person, time, and place - Vital Signs Temperature: 98.0 F SBP/DBP: 166/74 Pulse: 98 Resp: 18 Vital signs stable, afebrile - CVS RRR VITAL SIGNS Temperature: 98.0 F SBP/DBP: 166/74 Pulse: 98 Resp: 18 Vital signs stable, afebrile MEDICATIONS/TREATMENT: Other- See attached MAR (Medication Administration Record). CURRENT SPHINCTER CONTROL: Pre-hospital bladder status: unspecified # of bladder accidents in the last 7 days prior to screenin Pre-hospital bowel status: unspecified # of bowel accidents in the last 7 days prior to screenin Last Bowel Movement Date: 09/26/2021 CURRENT LOCOMOTION STATUS: distance walked 100 feet DETAILED CURRENT FUNCTIONAL STATUS: - Bladder accident frequency: 7-Ind - No accidents in the past 7 days - Bowel accident frequency: 7-Ind - No accidents in the past 7 days - Walking score based on distance walked: 3(>=150ft) QI SCORES: - Self-Care A. Eating 05-Setup or clean-up assistance B. Oral hygiene 05-Setup or clean-up assistance C. Toileting hygiene 03-Partial/moderate assistance E. Shower/bathe self 03-Partial/moderate assistance F. Upper body dressing 04-Supervision or touching assistance G. Lower body dressing 03-Partial/moderate assistance H. Putting on/taking off footwear 03-Partial/moderate assistance - Mobility A. Roll left and right 03-Partial/moderate assistance B. Sit to lying 03-Partial/moderate assistance C. Lying to sitting on side of bed 03-Partial/moderate assistance D. Sit to stand 03-Partial/moderate assistance E. Chair/uvi-qf-chuon transfer 03-Partial/moderate assistance F. Toilet transfer 03-Partial/moderate assistance G. Car transfer 03-Partial/moderate assistance I. Walk 10 feet 03-Partial/moderate assistance J. Walk 50 feet with two turns 03-Partial/moderate assistance K. Walk 150 feet 88-Not attempted due to medical condition or safety concerns L. Walking 10 feet on uneven surfaces 88-Not attempted due to medical condition or safety concerns M. 1 step (curb) 88-Not attempted due to medical condition or safety concerns N. 4 steps 88-Not attempted due to medical condition or safety concerns O. 12 steps 88-Not attempted due to medical condition or safety concerns P. Picking up object 88-Not attempted due to medical condition or safety concerns R. Wheel 50 feet with two turns S. Wheel 150 feet - Bladder and Bowel Bladder continence 2-Incontinent less than daily Bowel continence 0-Always continent - Endurance Poor - Balance Poor - Safety Awareness Fair CURRENT FUNC. DEFICITS: Self-Care, Mobility, Endurance, Balance, and Safety Awareness CURRENT / PREVIOUS ASSISTIVE DEVICES: Rolling Walker HISTORY OF FALLS. HAS THE PATIENT HAD TWO OR MORE FALLS IN THE PAST YEAR OR ANY FALL WITH INJURY IN T HE PAST YEAR?: Yes PRIOR SURGERY. DID THE PATIENT HAVE MAJOR SURGERY DURING THE 100 DAYS PRIOR TO ADMISSION?: No THERAPY NOTES FROM ACUTE CARE: Attached. SPECIAL NEEDS: - Safety Concerns Skin breakdown and Fall precautions needed due to skin breakdown risk, Poor balance, Fall history, an d High fall risk PRECAUTIONS: - Fall Precaution Bed alarm TABS alarm Wheel chair alarm - DVT Risk due to restricted mobility and age - Skin Breakdown Risk due to restricted mobility and age PATIENT NEEDS ACTIVE AND ONGOING THERAPEUTIC INTERVENTION OF MULTIPLE THERAPY DISCIPLINES, INCLUDING: - Dietary and Nutrition Adequate Nutrition. Nutritional Education. Nutritional Supplements. - Occupational Therapy Cognitive Retraining. Evaluate and Treat. Patient needs Occupational Therapy for a daily minimum of 1 .5 hours at least 5 out of 7 days, to improve Activities of Daily Living, including: Bathing, Toilet Transfers, Community Reintegration, Higher functional activities, Adaptive Equipment, Household Tasks , and Other activities as determined. Visual Perceptual Training. - Speech Therapy Cognitive Training. Evaluate and Treat. Expressive Language Skills. Memory Strategies. Receptive Lang uage Skills. Speech Intelligibility Training. - Physical Therapy Patient needs Physical Therapy for a daily minimum of 1.5 hours at least 5 out of 7 days, to improve: Mobility, Strengthening, Transfers, Stretching, ROM, Endurance, Ability to manage stairs, Gait, and Balance. Safety Awareness. Medical Equipment Assessment and Evaluation. PATIENT NEEDS CLOSE MEDICAL SUPERVISION BY A REHABILITATION PHYSICIAN FOR: Coordination of Treatment Team DVT Management Bowel and Bladder Management Medical and Co-Morbidity Management Pain Management PATIENT REQUIRES 24X7 REHAB NURSING FOR MEDICAL AND FUNCTIONAL MGT. OF THE FOLLOWING DEFICITS: Disease Management Patient requires 24x7 Rehabilitation Nursing for: Pain Issues, Identifying and preventing risk factor s, Monitoring and reporting current medical conditions, Assisting with ambulation and transfer, Leonila ting with all ADL-s, Teaching patients about disease process and medications, Family teaching, Provid ing safe environment, Bowel and Bladder Issues, Skin Integrity, and Medication Management PATIENT REQUIRES INTENSIVE, COORDINATED INTERDISCIPLINARY APPROACH TO REHAB: Arranging Home Equipment/Services Discharge Planning Family Intervention/Training Patient needs Dietary and Nutrition Services for: Adequate Nutrition, Nutritional Supplements, and Nu tritional Education Patient needs Retail Salesworker and/or Case Management for: Discharge Planning, Arranging Home Equipmen t or Services, and Family Interventions Retail Salesworker/Case Management PATIENT REHAB POTENTIAL: Rafi DE LOS SANTOS is able and expected to receive 3 hours of individualized therapy daily on at least 5 of e very 7 days Rafi DE LOS SANTOS'fletcher prognosis for significant practical improvement within a reasonable period of time appea rs Good Expected level of measurable improvement will be of a practical value to Rafi DE LOS SANTOS's functional capa city or adaptations to impairments Has a viable Discharge Plan Medically appropriate; condition is sufficiently stable to participate in intensive rehab program DISCHARGE PLAN: - Estimated Length of Stay (days) 17. - Consensus on plan Discharge plan has been discussed with primary caregiver. Patient/Family is in agreement with the shauna n. Primary caregiver is in agreement with the plan. - Patient/Family Goals Return home independently. - Planned Living Setting Upon Discharge Home, to live with Other. Transitional Living. RECOMMENDED CARE LEVEL: IRF RECOMMENDATION DETAILS: Recommended Admission to Comprehensive Rehabilitation Program to Increase Functional [place] SCREENER'S COMPLETENESS CONFIRMATION: - Screening Confirmation The patient data collection on this preadmission screening form is finished PHYSICIANS REVIEW AND ADMISSION DETERMINATION Admit - Based on my review of the Pre-Admission Screening results, in my medical judgment and experie nce, I concur with the findings and recommend admission to [facility], as this patient requires an IRF level of care. SIGNATURE PANEL: Clinical Liaison - [electronically] signed by Alfreda Castillo on 09/26/2021 at 10:33 (CDT) Radio Interference Investigator - [electronically] signed by Guido Alberto PT on 09/26/2021 at 10:52 (CDT) Physician Reviewer - [electronically] signed by Dr. Eliud Larkin M.D. on 09/26/2021 at 12:03 (CDT )
--- OUTSIDE RECORDS SUMMARY | 2021-09-26 15:56 | XMS REPORT | Continuity of Care Document ---
:1955 Author Organization [facility] t Address [address] [place] [address] Care Team Providers Name Role Phone Lab, [facility] Fam Pob I Attending Clinician Unavailable Maylin CASTROP Attending Clinician Payers Payer Name Policy Type Policy Number Effective Date Expiration Date S ource Problems This patient has no known problems. Allergies, Adverse Reactions, Alerts Allergy Allergy Status Severity Reaction(s) Onset Inactive Treating Comm ents Source Name Type Date Date Clinician NO KNOWN Drug Active Univers ALLERGIE Class ity of S [facility] Social History Social Habit Start Date Stop Date Quantity Comments Source Sex Assigned At Universit y of [facility] Exposure to Yes University of SARS-CoV-2 [facility] (event) Branch Alcohol intake 2015-04-09 2015-04-09 Current University of 00:00:00 00:00:00 non-drinker of [facility] alcohol Branch (finding) Smoking Status Start Date Stop Date Source Current every day smoker 2015-04-09 00:00:00 Uni versity of [facility] Medications Ordered Filled Start Stop Current Ordering Indication Dosage Frequency Signature Comments Components Source Medication Medication Date Date Medication? Clinician (SIG) Name Name HUSSEIN 2014-05 Yes 20mg Take 20 mg U nivers mg tablet 0-26 by mouth ity of 00:00: at [place] 00 bedtime. Medical Branch Procedures This patient has no known procedures. Encounters Start End Encounter Admission Attending Care Care Encounter Source Date/Time Date/Time Type Type Clinicians Facility Department ID 2020-01-06 2020-01-06 Laboratory Lab, [facility] [id number] 09:23:20 09:43:20 Only Fam Pob I Health [id number] [place] [id number] Professio [phone] nal [facility] Office Building One 2020-01-06 2020-01-06 Laboratory Lab, Adc Fam Pob I [facility] [id number] Univers 09:23:20 09:43:20 Only Anene, [facility] [id number] ity of [place] [id number] [place] as Professio [phone] dical [place] [address] Branch Office Building One 2020-01-06 2020-01-06 Outpatient R [facility] [id number] Univers 09:00:00 09:00:00 [facility] Results Test Description Test Time Test Comments Results Result Comments Source Thyroid Stimulating Hormone 2018-11-22 22:27:55 Test Item Value Reference Range Interpretation Comme nts TSH (test code = TSH) 0.445 mIU/mL 0.270-4.200 Erythrocyte Sedimentation Rate [id number] 22:20:13 Test Item Value Reference Range Interpretation Comments ESR STAT (test code = ESR STAT) 8 mm/hr 0-20 Comprehensive Metabolic [id number] 21:59:49 Test Item Value Reference Range Interpretation [...] A/G 1.6 ratio N Ratio) Comprehensive Metabolic [id number] 21:59:49 Test Item Value Reference Range Interpretation [...] the National Kidney Foundation, http://nkdep.ni h.gov Lipid [id number] 21:59:49 Test Item Value Reference Range Interpretation Comments Cholesterol Total 294 mg/dL 0-200 H RISK OF HE ART (test code = DISEASEPublishe d by Cholesterol Total) [employer] Sowmya lyte Optimal Borderl ine [...] is greater than 40 0. Comprehensive Metabolic [id number] 21:59:49 Test Item Value Reference Range Interpretation [...] disease than se rum creatinine alone.This calculation foelia es sex and race in to account, if the information is provided. If th e race is not provided, and t he patient is -Suzan n, multiply by 1.2 12. If sex is not provided, and t he patient is fema le, multiply by 0.7 42. Results for pat ients <18 years of ag e have not been validated by [facility] MDRD study and should be interpreted wit [...] ag e have not been validated by [facility] MDRD study and should be interpreted wit h caution. eGFR R esult Interpretation: eGFR > or = 60 is in the Normal RangeeGF R < 60 may mean kid helio diseaseeGFR < 1 5 may mean kidney failure Rang es recommended by the National Kidney Foundation, http://nkdep.ni h.gov Complete Blood Count with [id number] 21:52:58 Test Item Value Reference Range Interpretation [...] code = IPF) 0 % N Automated [id number] 21:52:58 Test Item Value Reference Range Interpretation Comments Neutro Auto (test code = Neutro 62.7 % 36.0-70.0 Auto) Lymph Auto (test code = Lymph Auto) 28.3 % 12.0-44.0 [place] Auto (test code = [place] Auto) 7.6 % 0.0-11.0 Eos, Auto (test code = Eos, Auto) 0.7 % 0.0-7.0 Basophil Auto (test code = Basophil 0.3 % 0.0-2.0 Auto) Neutro Absolute (test code = Neutro 5.7 x10 1.6-7.4 Absolute) Lymph Absolute (test code = Lymph 2.56 x10 .50-4.60 Absolute) [place] Absolute (test code = [place] .69 x10 .00-1.20 Absolute) Eos Absolute (test code = Eos 0.06 x10 0.00-0.74 Absolute) Baso Absolute (test code = Baso 0.03 x10 0.00-0.21 Absolute) Pro B Natriuretic [id number] 21:52:58 Test Item Value Reference Range Interpretation Comments NT-proBNP (test code = NT-proBNP) 80 pg/mL 0-124 IG [id number] 21:52:58 Test Item Value Reference Range Interpretation Comments IG (test code = IG) 0.4 % 0.0-5.0 IG Abs (test code = IG Abs) 0 x10 N
[2021-09-26] MEDS ORDERED: ONDANSETRON 4 MG (ODT) TAB PO PRN (16:24)
[2021-09-26] MEDS ORDERED: DOCUSATE NA/SENNA CONC 1 TAB PO PRN (16:25)
[2021-09-26] MEDS ORDERED: MELATONIN 5 MG TABLET PO PRN (16:25)
[2021-09-26] MEDS ORDERED: ACETAMINOPHEN 500 MG TAB PO PRN (16:26)
[2021-09-26 17:06] VITALS: BMI 27.1
--- NOTE | 2021-09-26 18:17 | R.HP ---
HISTORY AND PHYSICAL FACILITY: [facility] ENCOUNTER DATE AND TIME: 09/26/2021 18:11 (CDT) MR#: [id number] NAME FERMIN DE LOS SANTOS ADDRESS: [address] [place] [address]: [place] [address] [address] PHONE: DATE OF : 1955 AGE: 66 SSN# [id number] GENDER: Female DEXTERITY Unknown dexterity MARITAL STATUS With a Domestic Partner RACE Unknown race PRE-HOSPITAL LIVING SETTING 01 - Home (private home/apt. board/care, assisted living, [facility], transitional living) PRE-HOSPITAL LIVING WITH Other ENCOUNTER PHYSICIAN: Dr. Eliud Larkin M.D. REFERRING DOCTOR: Jimbo Templeton DATE OF ADMISSION: 09/26/2021 18:12 (CDT) [facility]ACILITY [facility] PRIMARY CARE PHYSICIAN Logan Lemus BOYERS TYPE AND DETAILS: Type of home: single family house # of levels in the residence: 1 # of steps within the residence: 0 # of steps to enter the residence: 1 ONSET DATE: 09/22/2021 PRIMARY DIAGNOSIS-RELATED SURGERIES: No surgeries related to the primary diagnosis were performed. HISTORY OF PRESENT ILLNESS (HPI): Pt. is a 66 yo female of unknown race. On 09/24/2021 [facility] with diagnosis Acute 5 mm right pontine CVA. Her impairment category is Stroke 01 - Other Stroke (01.9). Pre-morbidly, Pt. was independent/mod-I in Self-Care, Communication, and Locomotion; and she had good Balance, Transfers Control, Endurance, and Safety Awareness. Currently, she has deficits of Locomotion, Safety Awareness, Transfers Control, Endurance, and Self-C are. Pt. is now referred to [facility] for acute in-patient rehabilitation in order to maximize patient's functional independence in activities of daily living, strength, ROM, and mobi lity. Patient has realistic goal of being discharged at assistance level 7-Ind to reside at Home with Ot r. MEDICATION ALLERGIES: No Known Drug Allergies (NKDA) ENVIRONMENTAL ALLERGIES: - Substance Allergies None Known - Other Allergies None Known PAST MEDICAL HISTORY: Hypertension Depression Falls PAST SURGICAL HISTORY: None REVIEW OF SYSTEMS: - Gen No Chills Fatigue No Fever - Eyes No Double Vision No itchiness - ENMT Difficulty Swallowing - CVS No Chest Discomfort No Chest Pain Fatigue No Weight Gain - Resp No Cough No Shortness of Breath - GI Continent No Abdominal Pain No Constipation No Diarrhea - Continent No Kidney Pain No Painful Urination No Urinary Urgency - MSK No Joint Pain Muscle Cramps Stiffness - Skin No Itching No Rash No Suspicious Lesions - Neuro Coordination Difficulty No Difficulty with Concentration No Memory Loss No Seizures Weakness - Psych No Anxiety No Depression No HIV Exposure No Persistent Infections No Seasonal Allergies - Endo No Cold/Heat Intolerance No Excessive Hunger No Excessive Thirst No Excessive Urination PHYSICAL EXAM - Gen Alert and awake Lying in bed No apparent distress Oriented to: person, time, and place - Skin No skin breakdown. No abnormalities - Eyes No abnormalities - ENMT No abnormalities - Neck No abnormalities No cervical adenopathy - CVS RRR - Chest No abnormalities - Resp Clear to auscultation - Abd + bowel sounds - GI Soft Deferred - No abnormalities - Ext Mild left lower extremity edema. - MSK 4+/5 weakness in left upper and lower extremity - Neuro 4/5 strength left upper and lower extremities. - Psych Mild depression. VITAL SIGNS Temperature: 97.8 F SBP/DBP: 159/76 Pulse: 100 Resp: 16 NURSING: - Shower allowing shower - Bladder care per protocol - Skin care per protocol PRECAUTIONS: - Fall Precaution Bed alarm TABS alarm Wheel chair alarm - DVT Risk due to restricted mobility and age - Skin Breakdown Risk due to restricted mobility and age ACTIVITIES OOB only with supervision QI SCORES: - Self-Care A. Eating 05-Setup or clean-up assistance B. Oral hygiene 05-Setup or clean-up assistance C. Toileting hygiene 03-Partial/moderate assistance E. Shower/bathe self 03-Partial/moderate assistance F. Upper body dressing 04-Supervision or touching assistance G. Lower body dressing 03-Partial/moderate assistance H. Putting on/taking off footwear 03-Partial/moderate assistance - Mobility A. Roll left and right 03-Partial/moderate assistance B. Sit to lying 03-Partial/moderate assistance C. Lying to sitting on side of bed 03-Partial/moderate assistance D. Sit to stand 03-Partial/moderate assistance E. Chair/onz-ei-uwbwo transfer 03-Partial/moderate assistance F. Toilet transfer 03-Partial/moderate assistance G. Car transfer 03-Partial/moderate assistance I. Walk 10 feet 03-Partial/moderate assistance J. Walk 50 feet with two turns 03-Partial/moderate assistance K. Walk 150 feet 88-Not attempted due to medical condition or safety concerns L. Walking 10 feet on uneven surfaces 88-Not attempted due to medical condition or safety concerns M. 1 step (curb) 88-Not attempted due to medical condition or safety concerns N. 4 steps 88-Not attempted due to medical condition or safety concerns O. 12 steps 88-Not attempted due to medical condition or safety concerns P. Picking up object 88-Not attempted due to medical condition or safety concerns R. Wheel 50 feet with two turns S. Wheel 150 feet - Bladder and Bowel Bladder continence 2-Incontinent less than daily Bowel continence 0-Always continent - Endurance Poor - Balance Poor - Safety Awareness Fair CURRENT FUNC. DEFICITS: Self-Care, Mobility, Endurance, Balance, and Safety Awareness MEDICATIONS: - Other See attached MAR (Medication Administration Record) ASSESSMENT: Pt. is a 66 yo female of unknown race.On 09/24/2021 [facility] with di agnosis Acute 5 mm right pontine CVA.Her impairment category is Stroke 01 - Other Stroke (01.9).Pre- morbidly, Pt. was independent/mod-I in Self-Care, Communication, and Locomotion; and she had good Bal ance, Transfers Control, Endurance, and Safety Awareness.Currently, she has deficits of Locomotion, S afety Awareness, Transfers Control, Endurance, and Self-Care.Pt. is now referred to [facility] for acute in-patient rehabilitation in order to maximize patient's functional indepe ndence in activities of daily living, strength, ROM, and mobility.- Rehab Goal Patient has realistic goal of being discharged at assistance level 7-Ind to reside at Home with Othe r. for Dementia, TBI, Stroke, or others - Physical Therapy Weakness - to improve, our physical therapists will perform initial evaluation of pt's status upon a dmission and devise an individualized program for Aquatic Therapy, Neuromuscular Reeducation, and Str engthening Inability to transfer - to improve, our physical therapists will perform initial evaluation of pt's status upon admission and devise an individualized program for Bed mobility Need in caregiver upon discharge - to improve, our physical therapists will perform initial evaluati on of pt's status upon admission and devise an individualized program for Caregiver Training Poor endurance - to improve, our physical therapists will perform initial evaluation of pt's status upon admission and devise an individualized program for Endurance Training Gait dysfunction - to improve, our physical therapists will perform initial evaluation of pt's statu s upon admission and devise an individualized program for Gait Training, and Wheel Chair mobility Need for home safety evaluation - to improve, our physical therapists will perform initial evaluatio n of pt's status upon admission and devise an individualized program for Home Evaluation New precaution - to improve, our physical therapists will perform initial evaluation of pt's status upon admission and devise an individualized program for Patient precaution education Edema - to improve, our physical therapists will perform initial evaluation of pt's status upon admi ssion and devise an individualized program for Elevation Training, and Lymphedema Therapy - Occupational Therapy Weakness - to improve, our occupation therapists will perform initial evaluation of pt's status upon admission and devise an individualized program for Aquatic Therapy, Balance, Endurance, UE ROM, and UE strengthening ADL deficits - to improve, our occupation therapists will perform initial evaluation of pt's status upon admission and devise an individualized program for Bathing, Bed mobility, Community Reintegratio n, Cooking, Dressing, Eating, Fine Motor Skills, Grooming, Homemaking, Kitchen Mobility, Laundry, Pat ient Education, Safety Awareness, Splinting - Positioning, Transfers(Toilet, Tub, Shower), and Wheel Chair Management Need for family day care worker - to improve, our occupation therapists will perform initial evaluation of pt's status upon admission and devise an individualized program for Caregiver Training - Balance for Weakness - Bed mobility for ADL deficits - Cognition - orientation for Dementia - Dressing Status: for ADL deficits - Eating for ADL deficits - Grooming Status: for ADL deficits - Toilet Transfer for ADL deficits Status: - Bed to Chair Transfer squat pivot transfer Status: for ADL deficits - Tub Transfer for ADL deficits Status: - Hygiene for ADL deficits - Shower Transfer for ADL deficits Status: - Wheel Chair to Bed Transfer Status: for ADL deficits MEDICAL PLAN: - Diet Type Start Regular - Diet - Liquid Texture Start Regular - Tube Feed Start N/A - Bladder care per protocol - DVT Risk due to restricted mobility and age - Skin Breakdown Risk due to restricted mobility and age - Fall Precaution Bed alarm TABS alarm Wheel chair alarm - Skin care per protocol - Other See attached MAR (Medication Administration Record) - Diet - Solid Texture Regular - Shower shower DISCHARGE PLAN: - Estimated Length of Stay (days) 17. - Consensus on plan Discharge plan has been discussed with primary caregiver. Patient/Family is in agreement with the shauna n. Primary caregiver is in agreement with the plan. - Patient/Family Goals Return home independently. - Planned Living Setting Upon Discharge Home, to live with Other. Transitional Living. SIGNATURE PANEL: (CDT)
--- NOTE | 2021-09-26 18:18 | PAPE ---
POST ADMISSION PHYSICIAN EVALUATION PATIENT: [facility] MR# [id number] REFERRING DOCTOR Jimbo [place] PRIMARY CARE PHYSICIAN rebecca Lemus EVALUATION DATE AND TIME 09/26/2021 18:16 (CDT) NAME FERMIN DE LOS SANTOS DATE OF 1955 AGE 66 PHONE SSN# [id number] GENDER female EVALUATING PHYSICIAN Dr. Eliud Larkin M.D. ADMISSION DIAGNOSIS: Acute 5 mm right pontine CVA ONSET DATE 09/22/2021 POST-ADMISSION FUNCTIONAL/MEDICAL STATUS: - Bladder Same accident frequency: 7-Ind - No accidents in the past 7 days - Bowel Same accident frequency: 7-Ind - No accidents in the past 7 days - Walking Same score based on distance walked: 3(>=150ft) - Wheelchair Same STATUS CHANGE EVALUATION: No change in Functional or Medical Status is identified compared with Pre-Admission screening. PATIENT NEEDS CLOSE MEDICAL SUPERVISION BY A REHABILITATION PHYSICIAN FOR: Coordination of Treatment Team DVT Management Bowel and Bladder Management Medical and Co-Morbidity Management Pain Management PATIENT REQUIRES 24X7 REHAB NURSING FOR MEDICAL AND FUNCTIONAL MGT. OF THE FOLLOWING DEFICITS: Disease Management Patient requires 24x7 Rehabilitation Nursing for: Pain Issues, Identifying and preventing risk factor s, Monitoring and reporting current medical conditions, Assisting with ambulation and transfer, Leonila ting with all ADL-s, Teaching patients about disease process and medications, Family teaching, Provid ing safe environment, Bowel and Bladder Issues, Skin Integrity, and Medication Management PATIENT REQUIRES INTENSIVE, COORDINATED INTERDISCIPLINARY APPROACH TO REHAB: Arranging Home Equipment/Services Discharge Planning Family Intervention/Training Patient needs Dietary and Nutrition Services for: Adequate Nutrition, Nutritional Supplements, and Nu tritional Education Patient needs Rn Endoscopy and/or Case Management for: Discharge Planning, Arranging Home Equipmen t or Services, and Family Interventions Rn Endoscopy/Case Management LIST OF IDENTIFIED AND POTENTIAL PROBLEMS: Alteration in leisure activities Bladder, Incontinence Bowel, Incontinence Falls, Actual or Potential Infection, Actual or Potential Mobility Impaired Pain, Alteration in Comfort Self Care Deficit Skin Integrity, Actual or Potential Urinary Tract Infection (UTI), Actual or Potential RISK FOR COMPLICATIONS - Skin Breakdown Encourage ambulation as tolerated. Repositioning q 2 hours. Use of pillows or foam wedges while in be d. - DVT Active and Passive ROM exercises. Assist patient with frequent position changes. Elevate BLE. - Falls Maintain call light within patient reach for easy access to nursing assistance. Provide assistive dev ices. Provide assistance getting out of bed and with ambulation. Assess for medication side effects. - Stroke Monitor and maintain patient pain level. Monitor patient blood pressure. - Pain Assist patient with frequent position changes at least every 2 hours. - CVA pt has history of CVA. Will monitor blood pressure and manage with medication. INTERVENTIONS - Hypertension Monitor and treat with prescribed medications to maintainsystolic blood pressure between 160-180 as p er physician recommendation. Increase physical activity. - Depression Monitor and treat. Administer medications as indicated. - CVA Monitor Neuro Signs regularly. Provide aggressive OT, PT, and Speech services if warranted to address functional deficits. PATIENT COULD BE AT RISK FOR COMPLICATIONS FROM ADVERSE MEDICAL CONDITIONS DUE TO HIS/HER COMORBIDITI ES AND THE RIGORS OF THE INTENSIVE REHABILLITATION PROGRAM. METHODS OR INTERVENTIONS TO AVOID COMPLIC ATIONS INCLUDE: - Deep Vein Thrombosis (DVT) Prophylaxis therapy for prevention . Sequential Compression Device (SCD). TE D Hose. - Bleeding Stroke patients assessed for lethargy or change in status. - Infection Clinical staff to assess and manage the signs and symptoms of infection including fever, redness, war mth, etc. - Urinary Tract Infection - Aspiration Clinical staff will assess and manage coughing, drooling, congestion. - Falls Patient will be evaluated for Fall Precautions and will be placed on Fall Precautions as indicated pe r protocol. - Skin Breakdown Nursing will assess skin daily using assessment tool and will place on Skin Breakdown Precautions as indicated per protocol. - Pain Clinical staff may employ non-medication methods such as massage, distraction, decrease stimulus, etc . as needed. Clinical staff will assess patient's pain level every shift per protocol to assess and e nsure pain management effectiveness. Medications will be given and the pain level re-assessed. PRELIMINARY PLAN OF CARE: - Physical Therapy Patient needs Physical Therapy for a daily minimum of 1.5 hours at least 5 out of 7 days, to improve: Mobility, Strengthening, Transfers, Stretching, ROM, Endurance, Ability to manage stairs, Gait, and Balance. - Speech Therapy Patient needs Speech Therapy for a daily minimum of 0.5 hours at least 5 out of 7 days, to improve: S wallowing, Cognition, Language Skills, and Compensatory Strategies. - Rehabilitation Nursing Patient requires 24x7 Rehabilitation Nursing for: Pain Issues, Identifying and preventing risk factor s, Monitoring and reporting current medical conditions, Assisting with ambulation and transfer, Leonila ting with all ADL-s, Teaching patients about disease process and medications, Family teaching, Provid ing safe environment, Bowel and Bladder Issues, Skin Integrity, and Medication Management. Patient needs Rn Endoscopy and/or Case Management for: Discharge Planning, Arranging Home Equipmen t or Services, and Family Interventions. - Dietary and Nutrition Services Patient needs Dietary and Nutrition Services for: Adequate Nutrition, Nutritional Supplements, and Nu tritional Education. - Occupational Therapy Patient needs Occupational Therapy for a daily minimum of 1.5 hours at least 5 out of 7 days, to impr ove Activities of Daily Living, including: Eating, Grooming, Bathing, Dressing, Toileting, Toilet Tra nsfers, Community Reintegration, Higher functional activities, Adaptive Equipment, Splinting, Househo ld Tasks, and Other activities as determined. QI SCORES: - Self-Care A. Eating 05-Setup or clean-up assistance B. Oral hygiene 05-Setup or clean-up assistance C. Toileting hygiene 03-Partial/moderate assistance E. Shower/bathe self 03-Partial/moderate assistance F. Upper body dressing 04-Supervision or touching assistance G. Lower body dressing 03-Partial/moderate assistance H. Putting on/taking off footwear 03-Partial/moderate assistance - Mobility A. Roll left and right 03-Partial/moderate assistance B. Sit to lying 03-Partial/moderate assistance C. Lying to sitting on side of bed 03-Partial/moderate assistance D. Sit to stand 03-Partial/moderate assistance E. Chair/zup-de-wrllv transfer 03-Partial/moderate assistance F. Toilet transfer 03-Partial/moderate assistance G. Car transfer 03-Partial/moderate assistance I. Walk 10 feet 03-Partial/moderate assistance J. Walk 50 feet with two turns 03-Partial/moderate assistance K. Walk 150 feet 88-Not attempted due to medical condition or safety concerns L. Walking 10 feet on uneven surfaces 88-Not attempted due to medical condition or safety concerns M. 1 step (curb) 88-Not attempted due to medical condition or safety concerns N. 4 steps 88-Not attempted due to medical condition or safety concerns O. 12 steps 88-Not attempted due to medical condition or safety concerns P. Picking up object 88-Not attempted due to medical condition or safety concerns R. Wheel 50 feet with two turns S. Wheel 150 feet - Bladder and Bowel Bladder continence 2-Incontinent less than daily Bowel continence 0-Always continent - Endurance Poor - Balance Poor - Safety Awareness Fair POTENTIAL FUNCTIONAL GOALS FOR PATIENT TO ACHIEVE BY DISCHARGE: - Safety Precaution Patient will remain free from falls or injury at time of discharge. - Bed Mobility Patient will perform bed mobility at 4-[place] level of assistance. - Transfers Patient will complete transfers from bed to chair at 4-[place] level of assistance. - Mobility Patient will ambulate 150 ft with 4-[place] level of assistance with RW. PATIENT REHAB POTENTIAL Rafi DE LOS SANTOS is able and expected to receive 3 hours of individualized therapy daily on at least 5 of e very 7 days Rafi Justin prognosis for significant practical improvement within a reasonable period of time appea rs Good Expected level of measurable improvement will be of a practical value to Rafi DE LOS SANTOS's functional capa city or adaptations to impairments Has a viable Discharge Plan Medically appropriate; condition is sufficiently stable to participate in intensive rehab program DISCHARGE PLAN: - Estimated Length of Stay (days) 17. - Consensus on plan Discharge plan has been discussed with primary caregiver. Patient/Family is in agreement with the shauna n. Primary caregiver is in agreement with the plan. - Patient/Family Goals Return home independently. - Planned Living Setting Upon Discharge Home, to live with Other. Transitional Living. CONCLUSION ON REHABILITATION NECESSITY: I have evaluated patient's pre-admission functional status and, comparing it to the patient's post-ad mission functional status now, I conclude that the pre-admission assessment was accurate. Patient's c ondition on admission supports the medical necessity of admission to IR[facility]. It is safe to proceed with patient's therapy program. SIGNATURE PANEL: (CDT)
[2021-09-26] MEDS: ATORVASTATIN 40 MG TAB PO SCH (20:06)
[2021-09-26] MEDS: cloNIDine HCL 0.1 MG TAB PO PRN (20:50)
[2021-09-27 05:05] LABS: Absolute Lymphocytes (CBC) 2.7 K/uL (0.7-4.9); Hematocrit 36.4 % (36.0-45.0); Lymphocytes % 37.6 % (15.3-44.8); MPV 7.2 fL (7.6-11.3); RBC Red Blood Cell Count 4.16 M/uL (3.86-4.86)
[2021-09-27 05:26] LABS: Magnesium 2.1 mg/dL (1.8-2.4); Potassium 4.1 mmol/L (3.5-5.1); Prealbumin 18.5 mg/dL (20-40)
[2021-09-27] MEDS: NICOTINE 21 MG/PAT TD SCH (07:29)
[2021-09-27] MEDS: ENOXAPARIN 40 MG/0.4 ML SQ SCH (07:29)
[2021-09-27] MEDS: lisinopriL 20 MG TAB PO SCH (07:30)
[2021-09-27] MEDS: CLOPIDOGREL 75 MG TABLET PO SCH (07:31)
[2021-09-27] MEDS: ASPIRIN EC 81 MG TAB PO SCH (07:31)
[2021-09-27] MEDS: VILAZODONE 20 MG PO SCH (07:32)
--- NOTE | 2021-09-27 09:55 | P.RH.PN ---
Estimated Length of Stay: 14 Expected Discharge Date: 10/10/21 Discharge Disposition Plan: Home Family Support: Yes Half-Way Goal: Mobility, Transfers, Self Care Vital Signs: Last Vital Signs Temp 97.8 F 09/27/21 07:32 Pulse 79 09/27/21 07:32 Resp 18 09/27/21 07:32 BP 130/68 09/27/21 07:32 Pulse Ox 95 09/27/21 07:32 Laboratory: Laboratory Last Values WBC 7.2 K/uL (4.3-10.9) 09/27/21 04:22 RBC 4.16 M/uL (3.86-4.86) 09/27/21 04:22 Hgb 12.4 g/dL (12.0-15.0) 09/27/21 04:22 Hct 36.4 % (36.0-45.0) 09/27/21 04:22 MCV 87.6 fL (80-100) 09/27/21 04:22 MCH 29.9 pg (27.0-35.0) 09/27/21 04:22 MCHC 34.1 g/dL (32.0-36.0) 09/27/21 04:22 RDW 13.9 % (12.1-15.2) 09/27/21 04:22 Plt Count 259 K/uL (152-406) 09/27/21 04:22 MPV 7.2 fL (7.6-11.3) L 09/27/21 04:22 Neutrophils % 49.9 % (41.7-73.7) 09/27/21 04:22 Lymphocytes % 37.6 % (15.3-44.8) 09/27/21 04:22 Monocytes % 10.7 % (3.3-12.3) 09/27/21 04:22 Eosinophils % 1.3 % (0-4.4) 09/27/21 04:22 Basophils % 0.5 % (0-1.3) 09/27/21 04:22 Absolute Neutrophils 3.6 K/uL (1.8-8.0) 09/27/21 04:22 Absolute Lymphocytes 2.7 K/uL (0.7-4.9) 09/27/21 04:22 Absolute Monocytes 0.8 K/uL (0.1-1.3) 09/27/21 04:22 Absolute Eosinophils 0.1 K/uL (0-0.5) 09/27/21 04:22 Absolute Basophils 0.0 K/uL (0-0.5) 09/27/21 04:22 Sodium 137 mmol/L (136-145) 09/27/21 04:22 Potassium 4.1 mmol/L (3.5-5.1) 09/27/21 04:22 Chloride 111 mmol/L (98-107) H 09/27/21 04:22 Carbon Dioxide 21 mmol/L (21-32) 09/27/21 04:22 Anion Gap 9.1 mEq/L (5.0-15.0) D 09/27/21 04:22 BUN 18 mg/dL (7-18) 09/27/21 04:22 Creatinine 0.83 mg/dL (0.55-1.3) 09/27/21 04:22 Estimated GFR 69 mL/min (=/>90) L 09/27/21 04:22 Glucose 103 mg/dL (74-106) 09/27/21 04:22 Calcium 8.8 mg/dL (8.5-10.1) 09/27/21 04:22 Magnesium 2.1 mg/dL (1.8-2.4) 09/27/21 04:22 Albumin 3.0 g/dL (3.4-5.0) L 09/27/21 04:22 Prealbumin 18.5 mg/dL (20-40) L 09/27/21 04:22 Weight: 148 lb 1.6 oz Physician Update: Bed mobility supervision, transfers at CGA, gait 150' with queing crossing her leg. Fatigues easily. Not coordinated to use a single prong cane. May have features of Parkinsonism. CGA to min assistance for transfers, bathing. Standby for grooming. Poor right hand dexterity. 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 Please see the Rehabilitation Signature page for all necessary signatures.
[2021-09-27] MEDS ORDERED: BISACODYL 10 MG RECTAL SUPP PR PRN (11:54)
[2021-09-27] MEDS: DOCUSATE NA/SENNA CONC 1 TAB PO SCH ×2 (14:53→19:29)
[2021-09-27 17:43] LABS: Urine Appearance Clear (Clear); Urine Bilirubin Negative (Negative); Urine Blood Negative (Negative); Urine Color Yellow (Yellow); Urine Glucose Negative (Negative); Urine Protein Negative (Negative); Urine Specific Gravity 1.015 (1.005-1.030); Urine Urobilinogen 0.2 mg/dL (0.2-1.0); Urine pH 5.5 (5.0-7.0)
[2021-09-27] MEDS: ATORVASTATIN 40 MG TAB PO SCH (19:28)
[2021-09-27 20:03] LABS: Urine Bacteria <20 /HPF (<20); Urine Microscopic Reflex ORDER UMIC; Urine RBC <5 /HPF (NONE SEEN)
[2021-09-28] MEDS: ENOXAPARIN 40 MG/0.4 ML SQ SCH (07:16)
[2021-09-28] MEDS: CLOPIDOGREL 75 MG TABLET PO SCH (07:42)
[2021-09-28] MEDS: NICOTINE 21 MG/PAT TD SCH (07:42)
[2021-09-28] MEDS: ASPIRIN EC 81 MG TAB PO SCH (07:42)
[2021-09-28] MEDS: lisinopriL 20 MG TAB PO SCH (07:42)
[2021-09-28] MEDS: VILAZODONE 20 MG PO SCH (09:51)
--- NOTE | 2021-09-28 16:55 | R.PN ---
PROGRESS NOTES ENCOUNTER DATE AND TIME: 09/28/2021 16:44 (CDT) NAME FERMIN DE LOS SANTOS DATE OF : 1955 DATE OF ADMISSION: 09/26/2021 18:12 (CDT) Acute 5 mm right pontine CVACHIEF COMPLAINT: Left sided weakness after right pontine stroke. SUBJECTIVE: Pt denied any depression. Pt denied any Shortness of Breath. CBC with differential is normal, prealbumin 18.5. Ambulated 750' with a rolling walker and contact guard assistance. VITAL SIGNS Temperature: 97.8 F SBP/DBP: 159/76 Pulse: 100 Resp: 16 MEDICATION ALLERGIES: No Known Drug Allergies (NKDA) ENVIRONMENTAL ALLERGIES: - Substance Allergies None Known - Other Allergies None Known NURSING: - Shower allowing shower - Bladder care per protocol - Skin care per protocol PRECAUTIONS: - Fall Precaution Bed alarm TABS alarm Wheel chair alarm - DVT Risk due to restricted mobility and age - Skin Breakdown Risk due to restricted mobility and age ACTIVITIES OOB only with supervision THERAPIES: - Dietary and Nutrition Adequate Nutrition. Nutritional Education. Nutritional Supplements. - Occupational Therapy Cognitive Retraining. Evaluate and Treat. Patient needs Occupational Therapy for a daily minimum of 1 .5 hours at least 5 out of 7 days, to improve Activities of Daily Living, including: Bathing, Toilet Transfers, Community Reintegration, Higher functional activities, Adaptive Equipment, Household Tasks , and Other activities as determined. Visual Perceptual Training. - Speech Therapy Cognitive Training. Evaluate and Treat. Expressive Language Skills. Memory Strategies. Receptive Lang uage Skills. Speech Intelligibility Training. - Physical Therapy Patient needs Physical Therapy for a daily minimum of 1.5 hours at least 5 out of 7 days, to improve: Mobility, Strengthening, Transfers, Stretching, ROM, Endurance, Ability to manage stairs, Gait, and Balance. Safety Awareness. Medical Equipment Assessment and Evaluation. PHYSICAL EXAM - Gen Alert and awake Lying in bed No apparent distress Oriented to: person, time, and place - Skin No skin breakdown. No abnormalities - Eyes No abnormalities - ENMT No abnormalities - Neck No abnormalities No cervical adenopathy - CVS RRR - Chest No abnormalities - Resp Clear to auscultation - Abd + bowel sounds - GI Soft Deferred - No abnormalities - Ext Mild left lower extremity edema. - MSK 4+/5 weakness in left upper and lower extremity - Neuro 4/5 strength left upper and lower extremities. - Psych Mild depression. ASSESSMENT: Pt. is a 66 yo female of unknown race.On 09/24/2021 she was admitted to [facility] with di agnosis Acute 5 mm right pontine CVA.Her impairment category is Stroke 01 - Other Stroke (01.9).Pre- morbidly, Pt. was independent/mod-I in Self-Care, Communication, and Locomotion; and she had good Bal ance, Transfers Control, Endurance, and Safety Awareness.Currently, she has deficits of Locomotion, S afety Awareness, Transfers Control, Endurance, and Self-Care.Pt. is now referred to [facility] for acute in-patient rehabilitation in order to maximize patient's functional indepe ndence in activities of daily living, strength, ROM, and mobility.- Rehab Goal Patient has realistic goal of being discharged at assistance level 7-Ind to reside at Home with Adalgisa denver MDM/PLAN: - Physical Therapy Weakness - to improve, our physical therapists will perform initial evaluation of pt's status upon ad mission and devise an individualized program for Aquatic Therapy, Neuromuscular Reeducation, and Stre ngthening Inability to transfer - to improve, our physical therapists will perform initial evaluation of pt's s tatus upon admission and devise an individualized program for Bed mobility Need in caregiver upon discharge - to improve, our physical therapists will perform initial evaluatio n of pt's status upon admission and devise an individualized program for Caregiver Training Poor endurance - to improve, our physical therapists will perform initial evaluation of pt's status u frances admission and devise an individualized program for Endurance Training Gait dysfunction - to improve, our physical therapists will perform initial evaluation of pt's status upon admission and devise an individualized program for Gait Training, and Wheel Chair mobility Need for home safety evaluation - to improve, our physical therapists will perform initial evaluation of pt's status upon admission and devise an individualized program for Home Evaluation New precaution - to improve, our physical therapists will perform initial evaluation of pt's status u frances admission and devise an individualized program for Patient precaution education Edema - to improve, our physical therapists will perform initial evaluation of pt's status upon admis tanesha and devise an individualized program for Elevation Training, and Lymphedema Therapy - Occupational Therapy Weakness - to improve, our occupation therapists will perform initial evaluation of pt's status upon admission and devise an individualized program for Aquatic Therapy, Balance, Endurance, UE ROM, and U E strengthening ADL deficits - to improve, our occupation therapists will perform initial evaluation of pt's status u frances admission and devise an individualized program for Bathing, Bed mobility, Community Reintegration , Cooking, Dressing, Eating, Fine Motor Skills, Grooming, Homemaking, Kitchen Mobility, Laundry, Tamiko ent Education, Safety Awareness, Splinting - Positioning, Transfers(Toilet, Tub, Shower), and Wheel C hair Management 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 - to improve, our occupation therapists will perform initial evaluation of pt's s tatus upon admission and devise an individualized program for Caregiver Training - Other See attached MAR (Medication Administration Record) - Diet Type Continue Regular - Diet - Liquid Texture Continue Regular - Tube Feed Continue N/A - Bladder care per protocol - DVT Risk due to restricted mobility and age - Skin Breakdown Risk due to restricted mobility and age - Fall Precaution Bed alarm TABS alarm Wheel chair alarm - Skin care per protocol - Diet - Solid Texture Continue Regular - Shower allowing shower for Dementia, TBI, Stroke, or others - Balance for Weakness - Bed mobility for ADL deficits - Cognition - orientation for Dementia - Dressing Status: indep for ADL deficits - Eating for ADL deficits - Grooming Status: indep for ADL deficits - Toilet Transfer for ADL deficits Status: indep - Bed to Chair Transfer squat pivot transfer Status: indep for ADL deficits - Tub Transfer for ADL deficits Status: indep - Hygiene for ADL deficits - Shower Transfer for ADL deficits Status: indep - Wheel Chair to Bed Transfer Status: indep for ADL deficits FUNCTIONAL STATUS: UPDATED AT WEEKLY TEAM CONFERENCE - Bladder Same accident frequency: 7-Ind - No accidents in the past 7 days - Bowel Same accident frequency: 7-Ind - No accidents in the past 7 days - Walking Same score based on distance walked: 3(>=150ft) - Wheelchair Same FUNCTIONAL STATUS: - Self-Care A. Eating Ind B. Grooming sup C. Bathing sup D. Dressing - Upper sup E. Dressing - Lower sup F. Toileting Ken[place] - Sphincter Control G. Bladder control Kenney H. Bowel control [place] - Transfers Control I. Bed/Chair/Wheelchair sup J. Toilet Ind K. Tub/Shower [place] - Locomotion L. Walk/Wheelchair (B) [place] M. Stairs maxA - Communication N. Comprehension (B) [place] O. Expression (B) [place] - Social Cognition P. Social Interaction Kenney Q. Problem Solving Kenney R. Memory Ind - Endurance Good - Balance Good - Safety Awareness Good QI SCORES: - Self-Care A. Eating 05-Setup or clean-up assistance B. Oral hygiene 05-Setup or clean-up assistance C. Toileting hygiene 03-Partial/moderate assistance E. Shower/bathe self 03-Partial/moderate assistance F. Upper body dressing 04-Supervision or touching assistance G. Lower body dressing 03-Partial/moderate assistance H. Putting on/taking off footwear 03-Partial/moderate assistance - Mobility A. Roll left and right 03-Partial/moderate assistance B. Sit to lying 03-Partial/moderate assistance C. Lying to sitting on side of bed 03-Partial/moderate assistance D. Sit to stand 03-Partial/moderate assistance E. Chair/[id number]-bg-luniq transfer 03-Partial/moderate assistance F. Toilet transfer 03-Partial/moderate assistance G. Car transfer 03-Partial/moderate assistance I. Walk 10 feet 03-Partial/moderate assistance J. Walk 50 feet with two turns 03-Partial/moderate assistance K. Walk 150 feet 88-Not attempted due to medical condition or safety concerns L. Walking 10 feet on uneven surfaces 88-Not attempted due to medical condition or safety concerns M. 1 step (curb) 88-Not attempted due to medical condition or safety concerns N. 4 steps 88-Not attempted due to medical condition or safety concerns O. 12 steps 88-Not attempted due to medical condition or safety concerns P. Picking up object 88-Not attempted due to medical condition or safety concerns R. Wheel 50 feet with two turns S. Wheel 150 feet - Bladder and Bowel Bladder continence 2-Incontinent less than daily Bowel continence 0-Always continent - Endurance Poor - Balance Poor - Safety Awareness Fair CURRENT FUNC. DEFICITS: Self-Care, Mobility, Endurance, Balance, and Safety Awareness SIGNATURE PANEL: (CDT)
[2021-09-28] MEDS: cloNIDine HCL 0.1 MG TAB PO PRN (19:32)
[2021-09-28] MEDS: ATORVASTATIN 40 MG TAB PO SCH (19:32)
[2021-09-29] MEDS: ENOXAPARIN 40 MG/0.4 ML SQ SCH (07:38)
[2021-09-29] MEDS: VILAZODONE 20 MG PO SCH (08:18)
[2021-09-29] MEDS: ASPIRIN EC 81 MG TAB PO SCH (08:22)
[2021-09-29] MEDS: NICOTINE 21 MG/PAT TD SCH (08:23)
[2021-09-29] MEDS: lisinopriL 20 MG TAB PO SCH (08:23)
[2021-09-29] MEDS: CLOPIDOGREL 75 MG TABLET PO SCH (08:23)
[2021-09-29] MEDS: DOCUSATE NA/SENNA CONC 1 TAB PO SCH ×2 (19:54→19:59)
[2021-09-29] MEDS: ATORVASTATIN 40 MG TAB PO SCH (19:54)
[2021-09-30] MEDS: ENOXAPARIN 40 MG/0.4 ML SQ SCH (07:41)
[2021-09-30] MEDS: VILAZODONE 20 MG PO SCH (07:41)
[2021-09-30] MEDS: NICOTINE 21 MG/PAT TD SCH (07:41)
[2021-09-30] MEDS: CLOPIDOGREL 75 MG TABLET PO SCH (07:41)
[2021-09-30] MEDS: ASPIRIN EC 81 MG TAB PO SCH (07:41)
[2021-09-30] MEDS: lisinopriL 20 MG TAB PO SCH (07:42)
--- NOTE | 2021-09-30 18:56 | R.PN ---
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 SUBJECTIVE: Pt denied any depression. Pt denied any Shortness of Breath. CBC with differential is normal, prealbumin 18.5. Ambulated without an assistive device with contact guard assistance. VITAL SIGNS Temperature: 97.2 F SBP/DBP: 170/81 Pulse: 89 Resp: 16 MEDICATION ALLERGIES: No Known Drug Allergies (NKDA) ENVIRONMENTAL ALLERGIES: - Substance Allergies None Known - Other Allergies None Known NURSING: - Shower allowing shower - Bladder care per protocol - Skin care per protocol PRECAUTIONS: - Fall Precaution Bed alarm TABS alarm Wheel chair alarm - DVT Risk due to restricted mobility and age - Skin Breakdown Risk due to restricted mobility and age ACTIVITIES OOB only with supervision THERAPIES: - Dietary and Nutrition Adequate Nutrition. Nutritional Education. Nutritional Supplements. - Occupational Therapy Cognitive Retraining. Evaluate and Treat. Patient needs Occupational Therapy for a daily minimum of 1 .5 hours at least 5 out of 7 days, to improve Activities of Daily Living, including: Bathing, Toilet Transfers, Community Reintegration, Higher functional activities, Adaptive Equipment, Household Tasks , and Other activities as determined. Visual Perceptual Training. - Speech Therapy Cognitive Training. Evaluate and Treat. Expressive Language Skills. Memory Strategies. Receptive Lang uage Skills. Speech Intelligibility Training. - Physical Therapy Patient needs Physical Therapy for a daily minimum of 1.5 hours at least 5 out of 7 days, to improve: Mobility, Strengthening, Transfers, Stretching, ROM, Endurance, Ability to manage stairs, Gait, and Balance. Safety Awareness. Medical Equipment Assessment and Evaluation. PHYSICAL EXAM - Gen Alert and awake Lying in bed No apparent distress Oriented to: person, time, and place - Skin No skin breakdown. No abnormalities - Eyes No abnormalities - ENMT No abnormalities - Neck No abnormalities No cervical adenopathy - CVS RRR - Chest No abnormalities - Resp Clear to auscultation - Abd + bowel sounds - GI Soft Deferred - No abnormalities - Ext Mild left lower extremity edema. - MSK 4+/5 weakness in left upper and lower extremity - Neuro 4/5 strength left upper and lower extremities. - Psych Mild depression. ASSESSMENT: Pt. is a 66 yo female of unknown race.On 09/24/2021 she was admitted to [facility] with di agnosis Acute 5 mm right pontine CVA.Her impairment category is Stroke 01 - Other Stroke (01.9).Pre- morbidly, Pt. was independent/mod-I in Self-Care, Communication, and Locomotion; and she had good Bal ance, Transfers Control, Endurance, and Safety Awareness.Currently, she has deficits of Locomotion, S afety Awareness, Transfers Control, Endurance, and Self-Care.Pt. is now referred to [facility] for acute in-patient rehabilitation in order to maximize patient's functional indepe ndence in activities of daily living, strength, ROM, and mobility.- Rehab Goal Patient has realistic goal of being discharged at assistance level 7-Ind to reside at Home with Adalgisa garciaAnastasia MDM/PLAN: - Physical Therapy Weakness - to improve, our physical therapists will perform initial evaluation of pt's status upon a dmission and devise an individualized program for Aquatic Therapy, Neuromuscular Reeducation, and Str engthening Inability to transfer - to improve, our physical therapists will perform initial evaluation of pt's status upon admission and devise an individualized program for Bed mobility Need in caregiver upon discharge - to improve, our physical therapists will perform initial evaluati on of pt's status upon admission and devise an individualized program for Caregiver Training Poor endurance - to improve, our physical therapists will perform initial evaluation of pt's status upon admission and devise an individualized program for Endurance Training Gait dysfunction - to improve, our physical therapists will perform initial evaluation of pt's statu s upon admission and devise an individualized program for Gait Training, and Wheel Chair mobility Need for home safety evaluation - to improve, our physical therapists will perform initial evaluatio n of pt's status upon admission and devise an individualized program for Home Evaluation New precaution - to improve, our physical therapists will perform initial evaluation of pt's status upon admission and devise an individualized program for Patient precaution education Edema - to improve, our physical therapists will perform initial evaluation of pt's status upon admi ssion and devise an individualized program for Elevation Training, and Lymphedema Therapy - Occupational Therapy Weakness - to improve, our occupation therapists will perform initial evaluation of pt's status upon admission and devise an individualized program for Aquatic Therapy, Balance, Endurance, UE ROM, and UE strengthening ADL deficits - to improve, our occupation therapists will perform initial evaluation of pt's status upon admission and devise an individualized program for Bathing, Bed mobility, Community Reintegratio n, Cooking, Dressing, Eating, Fine Motor Skills, Grooming, Homemaking, Kitchen Mobility, Laundry, Pat ient Education, Safety Awareness, Splinting - Positioning, Transfers(Toilet, Tub, Shower), and Wheel Chair Management Need for healthcare social worker - to improve, our occupation therapists will perform initial evaluation of pt's status upon admission and devise an individualized program for Caregiver Training - Other See attached MAR (Medication Administration Record) - Diet Type Continue Regular - Diet - Liquid Texture Continue Regular - Tube Feed Continue N/A - Bladder care per protocol - DVT Risk due to restricted mobility and age - Skin Breakdown Risk due to restricted mobility and age - Fall Precaution Bed alarm TABS alarm Wheel chair alarm - Skin care per protocol - Diet - Solid Texture Continue Regular - Shower allowing shower for Dementia, TBI, Stroke, or others - Balance for Weakness - Bed mobility for ADL deficits - Cognition - orientation for Dementia - Dressing Status: indep for ADL deficits - Eating for ADL deficits - Grooming Status: indep for ADL deficits - Toilet Transfer for ADL deficits Status: indep - Bed to Chair Transfer squat pivot transfer Status: indep for ADL deficits - Tub Transfer for ADL deficits Status: indep - Hygiene for ADL deficits - Shower Transfer for ADL deficits Status: indep - Wheel Chair to Bed Transfer Status: indep for ADL deficits FUNCTIONAL STATUS: UPDATED AT WEEKLY TEAM CONFERENCE - Bladder Same accident frequency: 7-Ind - No accidents in the past 7 days - Bowel Same accident frequency: 7-Ind - No accidents in the past 7 days - Walking Same score based on distance walked: 3(>=150ft) - Wheelchair Same FUNCTIONAL STATUS: - Self-Care A. Eating Ind B. Grooming sup C. Bathing sup D. Dressing - Upper sup E. Dressing - Lower sup F. Toileting Kenney - Sphincter Control G. Bladder control Kenney H. Bowel control Kenney - Transfers Control I. Bed/Chair/Wheelchair sup J. Toilet Ind K. Tub/Shower Latonia - Locomotion L. Walk/Wheelchair (B) Latonia M. Stairs maxA - Communication N. Comprehension (B) Kenney O. Expression (B) Kenney - Social Cognition P. Social Interaction Kenney Q. Problem Solving Kenney R. Memory Ind - Endurance Good - Balance Good - Safety Awareness Good QI SCORES: - Self-Care A. Eating 05-Setup or clean-up assistance B. Oral hygiene 05-Setup or clean-up assistance C. Toileting hygiene 03-Partial/moderate assistance E. Shower/bathe self 03-Partial/moderate assistance F. Upper body dressing 04-Supervision or touching assistance G. Lower body dressing 03-Partial/moderate assistance H. Putting on/taking off footwear 03-Partial/moderate assistance - Mobility A. Roll left and right 03-Partial/moderate assistance B. Sit to lying 03-Partial/moderate assistance C. Lying to sitting on side of bed 03-Partial/moderate assistance D. Sit to stand 03-Partial/moderate assistance E. Chair/[id number] transfer 03-Partial/moderate assistance F. Toilet transfer 03-Partial/moderate assistance G. Car transfer 03-Partial/moderate assistance I. Walk 10 feet 03-Partial/moderate assistance J. Walk 50 feet with two turns 03-Partial/moderate assistance K. Walk 150 feet 88-Not attempted due to medical condition or safety concerns L. Walking 10 feet on uneven surfaces 88-Not attempted due to medical condition or safety concerns M. 1 step (curb) 88-Not attempted due to medical condition or safety concerns N. 4 steps 88-Not attempted due to medical condition or safety concerns O. 12 steps 88-Not attempted due to medical condition or safety concerns P. Picking up object 88-Not attempted due to medical condition or safety concerns R. Wheel 50 feet with two turns S. Wheel 150 feet - Bladder and Bowel Bladder continence 2-Incontinent less than daily Bowel continence 0-Always continent - Endurance Poor - Balance Poor - Safety Awareness Fair CURRENT FUNC. DEFICITS: Self-Care, Mobility, Endurance, Balance, and Safety Awareness SIGNATURE PANEL: (CDT)
[2021-09-30] MEDS: DOCUSATE NA/SENNA CONC 1 TAB PO SCH (21:00)
[2021-09-30] MEDS: ATORVASTATIN 40 MG TAB PO SCH (21:04)
[2021-09-30] MEDS: cloNIDine HCL 0.1 MG TAB PO PRN (21:04)
[2021-10-01] MEDS: VILAZODONE 20 MG PO SCH (07:23)
[2021-10-01] MEDS: ASPIRIN EC 81 MG TAB PO SCH (07:23)
[2021-10-01] MEDS: CLOPIDOGREL 75 MG TABLET PO SCH (07:23)
[2021-10-01] MEDS: lisinopriL 20 MG TAB PO SCH (07:24)
[2021-10-01] MEDS: NICOTINE 21 MG/PAT TD SCH (07:24)
[2021-10-01] MEDS: ENOXAPARIN 40 MG/0.4 ML SQ SCH (07:24)
--- NOTE | 2021-10-01 16:57 | R.PN ---
PROGRESS NOTES ENCOUNTER DATE AND TIME: 10/01/2021 16:44 (CDT) NAME FERMIN DE LOS SANTOS DATE OF : 1955 DATE OF ADMISSION: 09/26/2021 18:12 (CDT) Acute 5 mm right pontine CVACHIEF COMPLAINT: Left sided weakness after right pontine stroke. SUBJECTIVE: Pt denied any depression. Pt denied any Shortness of Breath. CBC with differential is normal, prealbumin 18.5. Ambulated 250' with a SPC cane and contact guard assistance. Ambulated 1000' with a rolling walker an d supervision. Covid-19 test is pending. VITAL SIGNS Temperature: 97.9 F SBP/DBP: 168/84 Pulse: 84 Resp: 16 MEDICATION ALLERGIES: No Known Drug Allergies (NKDA) ENVIRONMENTAL ALLERGIES: - Substance Allergies None Known - Other Allergies None Known NURSING: - Shower allowing shower - Bladder care per protocol - Skin care per protocol PRECAUTIONS: - Fall Precaution Bed alarm TABS alarm Wheel chair alarm - DVT Risk due to restricted mobility and age - Skin Breakdown Risk due to restricted mobility and age ACTIVITIES OOB only with supervision THERAPIES: - Dietary and Nutrition Adequate Nutrition. Nutritional Education. Nutritional Supplements. - Occupational Therapy Cognitive Retraining. Evaluate and Treat. Patient needs Occupational Therapy for a daily minimum of 1 .5 hours at least 5 out of 7 days, to improve Activities of Daily Living, including: Bathing, Toilet Transfers, Community Reintegration, Higher functional activities, Adaptive Equipment, Household Tasks , and Other activities as determined. Visual Perceptual Training. - Speech Therapy Cognitive Training. Evaluate and Treat. Expressive Language Skills. Memory Strategies. Receptive Lang uage Skills. Speech Intelligibility Training. - Physical Therapy Patient needs Physical Therapy for a daily minimum of 1.5 hours at least 5 out of 7 days, to improve: Mobility, Strengthening, Transfers, Stretching, ROM, Endurance, Ability to manage stairs, Gait, and Balance. Safety Awareness. Medical Equipment Assessment and Evaluation. PHYSICAL EXAM - Gen Alert and awake Lying in bed No apparent distress Oriented to: person, time, and place - Skin No skin breakdown. No abnormalities - Eyes No abnormalities - ENMT No abnormalities - Neck No abnormalities No cervical adenopathy - CVS RRR - Chest No abnormalities - Resp Clear to auscultation - Abd + bowel sounds - GI Soft Deferred - No abnormalities - Ext Mild left lower extremity edema. - MSK 4+/5 weakness in left upper and lower extremity - Neuro 4/5 strength left upper and lower extremities. - Psych Mild depression. ASSESSMENT: Pt. is a 66 yo female of unknown race.On 09/24/2021 [facility] Acute 5 mm right pontine CVA.Her impairment category is Stroke 01 - Other Stroke (01.9).Pre- morbidly, Pt. was independent/mod-I in Self-Care, Communication, and Locomotion; and she had good Bal ance, Transfers Control, Endurance, and Safety Awareness.Currently, she has deficits of Locomotion, S afety Awareness, Transfers Control, Endurance, and Self-Care.Pt. is now referred to [facility] for acute in-patient rehabilitation in order to maximize patient's functional indepe ndence in activities of daily living, strength, ROM, and mobility.- Rehab Goal Patient has realistic goal of being discharged at assistance level 7-Ind to reside at Home with Adalgisa goff MDM/PLAN: - Physical Therapy Weakness - to improve, our physical therapists will perform initial evaluation of pt's status upon a dmission and devise an individualized program for Aquatic Therapy, Neuromuscular Reeducation, and Str engthening Inability to transfer - to improve, our physical therapists will perform initial evaluation of pt's status upon admission and devise an individualized program for Bed mobility Need in caregiver upon discharge - to improve, our physical therapists will perform initial evaluati on of pt's status upon admission and devise an individualized program for Caregiver Training Poor endurance - to improve, our physical therapists will perform initial evaluation of pt's status upon admission and devise an individualized program for Endurance Training Gait dysfunction - to improve, our physical therapists will perform initial evaluation of pt's statu s upon admission and devise an individualized program for Gait Training, and Wheel Chair mobility Need for home safety evaluation - to improve, our physical therapists will perform initial evaluatio n of pt's status upon admission and devise an individualized program for Home Evaluation New precaution - to improve, our physical therapists will perform initial evaluation of pt's status upon admission and devise an individualized program for Patient precaution education Edema - to improve, our physical therapists will perform initial evaluation of pt's status upon admi ssion and devise an individualized program for Elevation Training, and Lymphedema Therapy - Occupational Therapy Weakness - to improve, our occupation therapists will perform initial evaluation of pt's status upon admission and devise an individualized program for Aquatic Therapy, Balance, Endurance, UE ROM, and UE strengthening ADL deficits - to improve, our occupation therapists will perform initial evaluation of pt's status upon admission and devise an individualized program for Bathing, Bed mobility, Community Reintegratio n, Cooking, Dressing, Eating, Fine Motor Skills, Grooming, Homemaking, Kitchen Mobility, Laundry, Pat ient Education, Safety Awareness, Splinting - Positioning, Transfers(Toilet, Tub, Shower), and Wheel Chair Management Need for child care counselor - to improve, our occupation therapists will perform initial evaluation of pt's status upon admission and devise an individualized program for Caregiver Training - Other See attached MAR (Medication Administration Record) - Diet Type Continue Regular - Diet - Liquid Texture Continue Regular - Tube Feed Continue N/A - Bladder care per protocol - DVT Risk due to restricted mobility and age - Skin Breakdown Risk due to restricted mobility and age - Fall Precaution Bed alarm TABS alarm Wheel chair alarm - Skin care per protocol - Diet - Solid Texture Continue Regular - Shower allowing shower for Dementia, TBI, Stroke, or others - Balance for Weakness - Bed mobility for ADL deficits - Cognition - orientation for Dementia - Dressing Status: indep for ADL deficits - Eating for ADL deficits - Grooming Status: indep for ADL deficits - Toilet Transfer for ADL deficits Status: indep - Bed to Chair Transfer squat pivot transfer Status: indep for ADL deficits - Tub Transfer for ADL deficits Status: indep - Hygiene for ADL deficits - Shower Transfer for ADL deficits Status: indep - Wheel Chair to Bed Transfer Status: indep for ADL deficits FUNCTIONAL STATUS: UPDATED AT WEEKLY TEAM CONFERENCE - Bladder Same accident frequency: 7-Ind - No accidents in the past 7 days - Bowel Same accident frequency: 7-Ind - No accidents in the past 7 days - Walking Same score based on distance walked: 3(>=150ft) - Wheelchair Same FUNCTIONAL STATUS: - Self-Care A. Eating Ind B. Grooming sup C. Bathing sup D. Dressing - Upper sup E. Dressing - Lower sup F. Toileting Kenney - Sphincter Control G. Bladder control Kenney H. Bowel control Kenney - Transfers Control I. Bed/Chair/Wheelchair sup J. Toilet Ind K. Tub/Shower Latonia - Locomotion L. Walk/Wheelchair (B) Latonia M. Stairs maxA - Communication N. Comprehension (B) Kenney O. Expression (B) Kenney - Social Cognition P. Social Interaction Kenney Q. Problem Solving Kenney R. Memory Ind - Endurance Good - Balance Good - Safety Awareness Good QI SCORES: - Self-Care A. Eating 05-Setup or clean-up assistance B. Oral hygiene 05-Setup or clean-up assistance C. Toileting hygiene 03-Partial/moderate assistance E. Shower/bathe self 03-Partial/moderate assistance F. Upper body dressing 04-Supervision or touching assistance G. Lower body dressing 03-Partial/moderate assistance H. Putting on/taking off footwear 03-Partial/moderate assistance - Mobility A. Roll left and right 03-Partial/moderate assistance B. Sit to lying 03-Partial/moderate assistance C. Lying to sitting on side of bed 03-Partial/moderate assistance D. Sit to stand 03-Partial/moderate assistance E. Chair/[id number] transfer 03-Partial/moderate assistance F. Toilet transfer 03-Partial/moderate assistance G. Car transfer 03-Partial/moderate assistance I. Walk 10 feet 03-Partial/moderate assistance J. Walk 50 feet with two turns 03-Partial/moderate assistance K. Walk 150 feet 88-Not attempted due to medical condition or safety concerns L. Walking 10 feet on uneven surfaces 88-Not attempted due to medical condition or safety concerns M. 1 step (curb) 88-Not attempted due to medical condition or safety concerns N. 4 steps 88-Not attempted due to medical condition or safety concerns O. 12 steps 88-Not attempted due to medical condition or safety concerns P. Picking up object 88-Not attempted due to medical condition or safety concerns R. Wheel 50 feet with two turns S. Wheel 150 feet - Bladder and Bowel Bladder continence 2-Incontinent less than daily Bowel continence 0-Always continent - Endurance Poor - Balance Poor - Safety Awareness Fair CURRENT FUNC. DEFICITS: Self-Care, Mobility, Endurance, Balance, and Safety Awareness SIGNATURE PANEL: (CDT)
[2021-10-01] MEDS: ATORVASTATIN 40 MG TAB PO SCH (19:41)
[2021-10-01] MEDS: DOCUSATE NA/SENNA CONC 1 TAB PO SCH (19:41)
[2021-10-02] MEDS: ENOXAPARIN 40 MG/0.4 ML SQ SCH (06:59)
[2021-10-02] MEDS: ASPIRIN EC 81 MG TAB PO SCH (08:22)
[2021-10-02] MEDS: lisinopriL 20 MG TAB PO SCH (08:22)
[2021-10-02] MEDS: CLOPIDOGREL 75 MG TABLET PO SCH (08:22)
[2021-10-02] MEDS: VILAZODONE 20 MG PO SCH (08:23)
[2021-10-02] MEDS: NICOTINE 21 MG/PAT TD SCH (14:23)
--- NOTE | 2021-10-02 17:16 | R.PN ---
PROGRESS NOTES ENCOUNTER DATE AND TIME: 10/02/2021 17:12 (CDT) NAME FERMIN DE LOS SANTOS DATE OF : 1955 DATE OF ADMISSION: 09/26/2021 18:12 (CDT) Acute 5 mm right pontine CVACHIEF COMPLAINT: Left sided weakness after right pontine stroke. SUBJECTIVE: Pt denied any depression. Pt denied any Shortness of Breath. CBC with differential is normal, prealbumin 18.5. Ambulated 520' with a rolling walker and standby assistance. Ambulated 260' with no assistive device nad contact guard assistance. Covid-19 test is pending. VITAL SIGNS Temperature: 97.5 F SBP/DBP: 171/79 Pulse: 82 Resp: 16 MEDICATION ALLERGIES: No Known Drug Allergies (NKDA) ENVIRONMENTAL ALLERGIES: - Substance Allergies None Known - Other Allergies None Known NURSING: - Shower allowing shower - Bladder care per protocol - Skin care per protocol PRECAUTIONS: - Fall Precaution Bed alarm TABS alarm Wheel chair alarm - DVT Risk due to restricted mobility and age - Skin Breakdown Risk due to restricted mobility and age ACTIVITIES OOB only with supervision THERAPIES: - Dietary and Nutrition Adequate Nutrition. Nutritional Education. Nutritional Supplements. - Occupational Therapy Cognitive Retraining. Evaluate and Treat. Patient needs Occupational Therapy for a daily minimum of 1 .5 hours at least 5 out of 7 days, to improve Activities of Daily Living, including: Bathing, Toilet Transfers, Community Reintegration, Higher functional activities, Adaptive Equipment, Household Tasks , and Other activities as determined. Visual Perceptual Training. - Speech Therapy Cognitive Training. Evaluate and Treat. Expressive Language Skills. Memory Strategies. Receptive Lang uage Skills. Speech Intelligibility Training. - Physical Therapy Patient needs Physical Therapy for a daily minimum of 1.5 hours at least 5 out of 7 days, to improve: Mobility, Strengthening, Transfers, Stretching, ROM, Endurance, Ability to manage stairs, Gait, and Balance. Safety Awareness. Medical Equipment Assessment and Evaluation. PHYSICAL EXAM - Gen Alert and awake Lying in bed No apparent distress Oriented to: person, time, and place - Skin No skin breakdown. No abnormalities - Eyes No abnormalities - ENMT No abnormalities - Neck No abnormalities No cervical adenopathy - CVS RRR - Chest No abnormalities - Resp Clear to auscultation - Abd + bowel sounds - GI Soft Deferred - No abnormalities - Ext Mild left lower extremity edema. - MSK 4+/5 weakness in left upper and lower extremity - Neuro 4/5 strength left upper and lower extremities. - Psych Mild depression. ASSESSMENT: Pt. is a 66 yo female of unknown race.On 09/24/2021 she was admitted to [facility] with di agnosis Acute 5 mm right pontine CVA.Her impairment category is Stroke 01 - Other Stroke (01.9).Pre- morbidly, Pt. was independent/mod-I in Self-Care, Communication, and Locomotion; and she had good Bal ance, Transfers Control, Endurance, and Safety Awareness.Currently, she has deficits of Locomotion, S afety Awareness, Transfers Control, Endurance, and Self-Care.Pt. is now referred to [facility] for acute in-patient rehabilitation in order to maximize patient's functional indepe ndence in activities of daily living, strength, ROM, and mobility.- Rehab Goal Patient has realistic goal of being discharged at assistance level 7-Ind to reside at Home with Adalgisa goff MDM/PLAN: - Physical Therapy Weakness - to improve, our physical therapists will perform initial evaluation of pt's status upon a dmission and devise an individualized program for Aquatic Therapy, Neuromuscular Reeducation, and Str engthening Inability to transfer - to improve, our physical therapists will perform initial evaluation of pt's status upon admission and devise an individualized program for Bed mobility Need in caregiver upon discharge - to improve, our physical therapists will perform initial evaluati on of pt's status upon admission and devise an individualized program for Caregiver Training Poor endurance - to improve, our physical therapists will perform initial evaluation of pt's status upon admission and devise an individualized program for Endurance Training Gait dysfunction - to improve, our physical therapists will perform initial evaluation of pt's statu s upon admission and devise an individualized program for Gait Training, and Wheel Chair mobility Need for home safety evaluation - to improve, our physical therapists will perform initial evaluatio n of pt's status upon admission and devise an individualized program for Home Evaluation New precaution - to improve, our physical therapists will perform initial evaluation of pt's status upon admission and devise an individualized program for Patient precaution education Edema - to improve, our physical therapists will perform initial evaluation of pt's status upon admi ssion and devise an individualized program for Elevation Training, and Lymphedema Therapy - Occupational Therapy Weakness - to improve, our occupation therapists will perform initial evaluation of pt's status upon admission and devise an individualized program for Aquatic Therapy, Balance, Endurance, UE ROM, and UE strengthening ADL deficits - to improve, our occupation therapists will perform initial evaluation of pt's status upon admission and devise an individualized program for Bathing, Bed mobility, Community Reintegratio n, Cooking, Dressing, Eating, Fine Motor Skills, Grooming, Homemaking, Kitchen Mobility, Laundry, Pat ient Education, Safety Awareness, Splinting - Positioning, Transfers(Toilet, Tub, Shower), and Wheel Chair Management Need for administrator health care facility - to improve, our occupation therapists will perform initial evaluation of pt's status upon admission and devise an individualized program for Caregiver Training - Other See attached MAR (Medication Administration Record) - Diet Type Continue Regular - Diet - Liquid Texture Continue Regular - Tube Feed Continue N/A - Bladder care per protocol - DVT Risk due to restricted mobility and age - Skin Breakdown Risk due to restricted mobility and age - Fall Precaution Bed alarm TABS alarm Wheel chair alarm - Skin care per protocol - Diet - Solid Texture Continue Regular - Shower allowing shower for Dementia, TBI, Stroke, or others - Balance for Weakness - Bed mobility for ADL deficits - Cognition - orientation for Dementia - Dressing Status: indep for ADL deficits - Eating for ADL deficits - Grooming Status: indep for ADL deficits - Toilet Transfer for ADL deficits Status: indep - Bed to Chair Transfer squat pivot transfer Status: indep for ADL deficits - Tub Transfer for ADL deficits Status: indep - Hygiene for ADL deficits - Shower Transfer for ADL deficits Status: indep - Wheel Chair to Bed Transfer Status: indep for ADL deficits FUNCTIONAL STATUS: UPDATED AT WEEKLY TEAM CONFERENCE - Bladder Same accident frequency: 7-Ind - No accidents in the past 7 days - Bowel Same accident frequency: 7-Ind - No accidents in the past 7 days - Walking Same score based on distance walked: 3(>=150ft) - Wheelchair Same FUNCTIONAL STATUS: - Self-Care A. Eating Ind B. Grooming sup C. Bathing sup D. Dressing - Upper sup E. Dressing - Lower sup F. Toileting Kenney - Sphincter Control G. Bladder control Kenney H. Bowel control Kenney - Transfers Control I. Bed/Chair/Wheelchair sup J. Toilet Ind K. Tub/Shower Latonia - Locomotion L. Walk/Wheelchair (B) Latonia M. Stairs maxA - Communication N. Comprehension (B) Kenney O. Expression (B) Kenney - Social Cognition P. Social Interaction Kenney Q. Problem Solving Kenney R. Memory Ind - Endurance Good - Balance Good - Safety Awareness Good QI SCORES: - Self-Care A. Eating 05-Setup or clean-up assistance B. Oral hygiene 05-Setup or clean-up assistance C. Toileting hygiene 03-Partial/moderate assistance E. Shower/bathe self 03-Partial/moderate assistance F. Upper body dressing 04-Supervision or touching assistance G. Lower body dressing 03-Partial/moderate assistance H. Putting on/taking off footwear 03-Partial/moderate assistance - Mobility A. Roll left and right 03-Partial/moderate assistance B. Sit to lying 03-Partial/moderate assistance C. Lying to sitting on side of bed 03-Partial/moderate assistance D. Sit to stand 03-Partial/moderate assistance E. Chair/[id number] transfer 03-Partial/moderate assistance F. Toilet transfer 03-Partial/moderate assistance G. Car transfer 03-Partial/moderate assistance I. Walk 10 feet 03-Partial/moderate assistance J. Walk 50 feet with two turns 03-Partial/moderate assistance K. Walk 150 feet 88-Not attempted due to medical condition or safety concerns L. Walking 10 feet on uneven surfaces 88-Not attempted due to medical condition or safety concerns M. 1 step (curb) 88-Not attempted due to medical condition or safety concerns N. 4 steps 88-Not attempted due to medical condition or safety concerns O. 12 steps 88-Not attempted due to medical condition or safety concerns P. Picking up object 88-Not attempted due to medical condition or safety concerns R. Wheel 50 feet with two turns S. Wheel 150 feet - Bladder and Bowel Bladder continence 2-Incontinent less than daily Bowel continence 0-Always continent - Endurance Poor - Balance Poor - Safety Awareness Fair CURRENT FUNC. DEFICITS: Self-Care, Mobility, Endurance, Balance, and Safety Awareness SIGNATURE PANEL: (CDT)
[2021-10-02] MEDS: APIXABAN 2.5 MG TABLET PO SCH (19:09)
[2021-10-02] MEDS: DOCUSATE NA/SENNA CONC 1 TAB PO SCH (19:09)
[2021-10-02] MEDS: ATORVASTATIN 40 MG TAB PO SCH (19:09)
[2021-10-03 06:04] LABS: Absolute Lymphocytes (CBC) 2.2 K/uL (0.7-4.9); Hematocrit 38.5 % (36.0-45.0); Lymphocytes % 30.4 % (15.3-44.8); MPV 7.3 fL (7.6-11.3); RBC Red Blood Cell Count 4.43 M/uL (3.86-4.86)
[2021-10-03 06:16] LABS: Albumin 3.3 g/dL (3.4-5.0); Magnesium 2.1 mg/dL (1.8-2.4); Potassium 3.8 mmol/L (3.5-5.1); Prealbumin 27.8 mg/dL (20-40)
[2021-10-03] MEDS: NICOTINE 21 MG/PAT TD SCH (08:05)
[2021-10-03] MEDS: CLOPIDOGREL 75 MG TABLET PO SCH (08:05)
[2021-10-03] MEDS: VILAZODONE 20 MG PO SCH (08:05)
[2021-10-03] MEDS: ASPIRIN EC 81 MG TAB PO SCH (08:05)
[2021-10-03] MEDS: APIXABAN 2.5 MG TABLET PO SCH ×2 (08:05→20:04)
[2021-10-03] MEDS: cloNIDine HCL 0.1 MG TAB PO PRN (08:18)
--- NOTE | 2021-10-03 18:06 | R.PN ---
PROGRESS NOTES ENCOUNTER DATE AND TIME: 10/03/2021 18:00 (CDT) NAME FERMIN DE LOS SANTOS DATE OF : 1955 DATE OF ADMISSION: 09/26/2021 18:12 (CDT) Acute 5 mm right pontine CVACHIEF COMPLAINT: Left sided weakness after right pontine stroke. SUBJECTIVE: Pt denied any depression. Pt denied any Shortness of Breath. CBC with differential is normal, prealbumin 27.8 Ambulated 1000' with a rolling walker and modified independence. Up and down 15 steps with modified i ndependence. Covid-19 test is pending. VITAL SIGNS Temperature: 98.0 F SBP/DBP: 123/70 Pulse: 76 Resp: 16 MEDICATION ALLERGIES: No Known Drug Allergies (NKDA) ENVIRONMENTAL ALLERGIES: - Substance Allergies None Known - Other Allergies None Known NURSING: - Shower allowing shower - Bladder care per protocol - Skin care per protocol PRECAUTIONS: - Fall Precaution Bed alarm TABS alarm Wheel chair alarm - DVT Risk due to restricted mobility and age - Skin Breakdown Risk due to restricted mobility and age ACTIVITIES OOB only with supervision THERAPIES: - Dietary and Nutrition Adequate Nutrition. Nutritional Education. Nutritional Supplements. - Occupational Therapy Cognitive Retraining. Evaluate and Treat. Patient needs Occupational Therapy for a daily minimum of 1 .5 hours at least 5 out of 7 days, to improve Activities of Daily Living, including: Bathing, Toilet Transfers, Community Reintegration, Higher functional activities, Adaptive Equipment, Household Tasks , and Other activities as determined. Visual Perceptual Training. - Speech Therapy Cognitive Training. Evaluate and Treat. Expressive Language Skills. Memory Strategies. Receptive Lang uage Skills. Speech Intelligibility Training. - Physical Therapy Patient needs Physical Therapy for a daily minimum of 1.5 hours at least 5 out of 7 days, to improve: Mobility, Strengthening, Transfers, Stretching, ROM, Endurance, Ability to manage stairs, Gait, and Balance. Safety Awareness. Medical Equipment Assessment and Evaluation. PHYSICAL EXAM - Gen Alert and awake Lying in bed No apparent distress Oriented to: person, time, and place - Skin No skin breakdown. No abnormalities - Eyes No abnormalities - ENMT No abnormalities - Neck No abnormalities No cervical adenopathy - CVS RRR - Chest No abnormalities - Resp Clear to auscultation - Abd + bowel sounds - GI Soft Deferred - No abnormalities - Ext Mild left lower extremity edema. - MSK 4+/5 weakness in left upper and lower extremity - Neuro 4/5 strength left upper and lower extremities. - Psych Mild depression. ASSESSMENT: Pt. is a 66 yo female of unknown race.On 09/24/2021 she was admitted to [facility] with di agnosis Acute 5 mm right pontine CVA.Her impairment category is Stroke 01 - Other Stroke (01.9).Pre- morbidly, Pt. was independent/mod-I in Self-Care, Communication, and Locomotion; and she had good Bal ance, Transfers Control, Endurance, and Safety Awareness.Currently, she has deficits of Locomotion, S afety Awareness, Transfers Control, Endurance, and Self-Care.Pt. is now referred to [facility] for acute in-patient rehabilitation in order to maximize patient's functional indepe ndence in activities of daily living, strength, ROM, and mobility.- Rehab Goal Patient has realistic goal of being discharged at assistance level 7-Ind to reside at Home with Adalgisa goff MDM/PLAN: - Physical Therapy Weakness - to improve, our physical therapists will perform initial evaluation of pt's status upon a dmission and devise an individualized program for Aquatic Therapy, Neuromuscular Reeducation, and Str engthening Inability to transfer - to improve, our physical therapists will perform initial evaluation of pt's status upon admission and devise an individualized program for Bed mobility Need in caregiver upon discharge - to improve, our physical therapists will perform initial evaluati on of pt's status upon admission and devise an individualized program for Caregiver Training Poor endurance - to improve, our physical therapists will perform initial evaluation of pt's status upon admission and devise an individualized program for Endurance Training Gait dysfunction - to improve, our physical therapists will perform initial evaluation of pt's statu s upon admission and devise an individualized program for Gait Training, and Wheel Chair mobility Need for home safety evaluation - to improve, our physical therapists will perform initial evaluatio n of pt's status upon admission and devise an individualized program for Home Evaluation New precaution - to improve, our physical therapists will perform initial evaluation of pt's status upon admission and devise an individualized program for Patient precaution education Edema - to improve, our physical therapists will perform initial evaluation of pt's status upon admi ssion and devise an individualized program for Elevation Training, and Lymphedema Therapy - Occupational Therapy Weakness - to improve, our occupation therapists will perform initial evaluation of pt's status upon admission and devise an individualized program for Aquatic Therapy, Balance, Endurance, UE ROM, and UE strengthening ADL deficits - to improve, our occupation therapists will perform initial evaluation of pt's status upon admission and devise an individualized program for Bathing, Bed mobility, Community Reintegratio n, Cooking, Dressing, Eating, Fine Motor Skills, Grooming, Homemaking, Kitchen Mobility, Laundry, Pat ient Education, Safety Awareness, Splinting - Positioning, Transfers(Toilet, Tub, Shower), and Wheel Chair Management Need for foster care case manager - to improve, our occupation therapists will perform initial evaluation of pt's status upon admission and devise an individualized program for Caregiver Training - Other See attached MAR (Medication Administration Record) - Diet Type Continue Regular - Diet - Liquid Texture Continue Regular - Tube Feed Continue N/A - Bladder care per protocol - DVT Risk due to restricted mobility and age - Skin Breakdown Risk due to restricted mobility and age - Fall Precaution Bed alarm TABS alarm Wheel chair alarm - Skin care per protocol - Diet - Solid Texture Continue Regular - Shower allowing shower for Dementia, TBI, Stroke, or others - Balance for Weakness - Bed mobility for ADL deficits - Cognition - orientation for Dementia - Dressing Status: indep for ADL deficits - Eating for ADL deficits - Grooming Status: indep for ADL deficits - Toilet Transfer for ADL deficits Status: indep - Bed to Chair Transfer squat pivot transfer Status: indep for ADL deficits - Tub Transfer for ADL deficits Status: indep - Hygiene for ADL deficits - Shower Transfer for ADL deficits Status: indep - Wheel Chair to Bed Transfer Status: indep for ADL deficits FUNCTIONAL STATUS: UPDATED AT WEEKLY TEAM CONFERENCE - Bladder Same accident frequency: 7-Ind - No accidents in the past 7 days - Bowel Same accident frequency: 7-Ind - No accidents in the past 7 days - Walking Same score based on distance walked: 3(>=150ft) - Wheelchair Same FUNCTIONAL STATUS: - Self-Care A. Eating Ind B. Grooming sup C. Bathing sup D. Dressing - Upper sup E. Dressing - Lower sup F. Toileting Kenney - Sphincter Control G. Bladder control Kenney H. Bowel control Kenney - Transfers Control I. Bed/Chair/Wheelchair sup J. Toilet Ind K. Tub/Shower Latonia - Locomotion L. Walk/Wheelchair (B) Latonia M. Stairs maxA - Communication N. Comprehension (B) Kenney O. Expression (B) Kenney - Social Cognition P. Social Interaction Kenney Q. Problem Solving Kenney R. Memory Ind - Endurance Good - Balance Good - Safety Awareness Good QI SCORES: - Self-Care A. Eating 05-Setup or clean-up assistance B. Oral hygiene 05-Setup or clean-up assistance C. Toileting hygiene 03-Partial/moderate assistance E. Shower/bathe self 03-Partial/moderate assistance F. Upper body dressing 04-Supervision or touching assistance G. Lower body dressing 03-Partial/moderate assistance H. Putting on/taking off footwear 03-Partial/moderate assistance - Mobility A. Roll left and right 03-Partial/moderate assistance B. Sit to lying 03-Partial/moderate assistance C. Lying to sitting on side of bed 03-Partial/moderate assistance D. Sit to stand 03-Partial/moderate assistance E. Chair/[id number] transfer 03-Partial/moderate assistance F. Toilet transfer 03-Partial/moderate assistance G. Car transfer 03-Partial/moderate assistance I. Walk 10 feet 03-Partial/moderate assistance J. Walk 50 feet with two turns 03-Partial/moderate assistance K. Walk 150 feet 88-Not attempted due to medical condition or safety concerns L. Walking 10 feet on uneven surfaces 88-Not attempted due to medical condition or safety concerns M. 1 step (curb) 88-Not attempted due to medical condition or safety concerns N. 4 steps 88-Not attempted due to medical condition or safety concerns O. 12 steps 88-Not attempted due to medical condition or safety concerns P. Picking up object 88-Not attempted due to medical condition or safety concerns R. Wheel 50 feet with two turns S. Wheel 150 feet - Bladder and Bowel Bladder continence 2-Incontinent less than daily Bowel continence 0-Always continent - Endurance Poor - Balance Poor - Safety Awareness Fair CURRENT FUNC. DEFICITS: Self-Care, Mobility, Endurance, Balance, and Safety Awareness SIGNATURE PANEL: (CDT)
[2021-10-03] MEDS: DOCUSATE NA/SENNA CONC 1 TAB PO SCH ×2 (20:04→21:00)
[2021-10-03] MEDS: ATORVASTATIN 40 MG TAB PO SCH (20:04)
[2021-10-03] MEDS ORDERED: lisinopriL 20 MG TAB PO SCH (21:00)
[2021-10-04 07:14] VITALS: TEMP 96.8
[2021-10-04] MEDS ORDERED: lisinopriL 20 MG TAB PO SCH (08:00)
[2021-10-04] MEDS: ASPIRIN EC 81 MG TAB PO SCH (08:08)
[2021-10-04] MEDS: APIXABAN 2.5 MG TABLET PO SCH ×2 (08:08→18:29)
[2021-10-04] MEDS: VILAZODONE 20 MG PO SCH (08:08)
[2021-10-04] MEDS: CLOPIDOGREL 75 MG TABLET PO SCH (08:09)
--- NOTE | 2021-10-04 09:50 | P.RH.PN ---
Estimated Length of Stay: 11 Expected Discharge Date: 10/06/21 Discharge Disposition Plan: Home Vital Signs: Last Vital Signs Temp 96.8 F 10/04/21 07:13 Pulse 90 10/04/21 08:14 Resp 20 10/04/21 07:13 BP 155/90 H 10/04/21 08:14 Pulse Ox 97 10/04/21 07:13 Laboratory: Laboratory Last Values WBC 7.4 K/uL (4.3-10.9) 10/03/21 05:35 RBC 4.43 M/uL (3.86-4.86) 10/03/21 05:35 Hgb 12.9 g/dL (12.0-15.0) 10/03/21 05:35 Hct 38.5 % (36.0-45.0) 10/03/21 05:35 MCV 86.9 fL (80-100) 10/03/21 05:35 MCH 29.2 pg (27.0-35.0) 10/03/21 05:35 MCHC 33.6 g/dL (32.0-36.0) 10/03/21 05:35 RDW 13.3 % (12.1-15.2) 10/03/21 05:35 Plt Count 282 K/uL (152-406) 10/03/21 05:35 MPV 7.3 fL (7.6-11.3) L 10/03/21 05:35 Neutrophils % 57.8 % (41.7-73.7) 10/03/21 05:35 Lymphocytes % 30.4 % (15.3-44.8) 10/03/21 05:35 Monocytes % 9.6 % (3.3-12.3) 10/03/21 05:35 Eosinophils % 1.7 % (0-4.4) 10/03/21 05:35 Basophils % 0.5 % (0-1.3) 10/03/21 05:35 Absolute Neutrophils 4.3 K/uL (1.8-8.0) 10/03/21 05:35 Absolute Lymphocytes 2.2 K/uL (0.7-4.9) 10/03/21 05:35 Absolute Monocytes 0.7 K/uL (0.1-1.3) 10/03/21 05:35 Absolute Eosinophils 0.1 K/uL (0-0.5) 10/03/21 05:35 Absolute Basophils 0.0 K/uL (0-0.5) 10/03/21 05:35 Sodium 138 mmol/L (136-145) 10/03/21 05:35 Potassium 3.8 mmol/L (3.5-5.1) 10/03/21 05:35 Chloride 109 mmol/L (98-107) H 10/03/21 05:35 Carbon Dioxide 22 mmol/L (21-32) 10/03/21 05:35 Anion Gap 10.8 mEq/L (5.0-15.0) 10/03/21 05:35 BUN 14 mg/dL (7-18) 10/03/21 05:35 Creatinine 0.78 mg/dL (0.55-1.3) 10/03/21 05:35 Estimated GFR 69 mL/min (=/>90) L 09/27/21 04:22 Est GFR (CKD-EPI) 84 ml/min (=/>90) L 10/03/21 05:35 Glucose 100 mg/dL (74-106) 10/03/21 05:35 Calcium 8.9 mg/dL (8.5-10.1) 10/03/21 05:35 Magnesium 2.1 mg/dL (1.8-2.4) 10/03/21 05:35 Albumin 3.3 g/dL (3.4-5.0) L 10/03/21 05:35 Prealbumin 27.8 mg/dL (20-40) 10/03/21 05:35 Urine Color Yellow (Yellow) 09/27/21 17:40 Urine Appearance Clear (Clear) 09/27/21 17:40 Urine pH 5.5 (5.0-7.0) 09/27/21 17:40 Ur Specific Howes 1.015 (1.005-1.030) 09/27/21 17:40 Glucose (UA)(Auto) Negative (Negative) 09/27/21 17:40 Urine Ketones Negative (Negative) 09/27/21 17:40 Urine Blood Negative (Negative) 09/27/21 17:40 Urine Nitrite Negative (Negative) 09/27/21 17:40 Urine Bilirubin Negative (Negative) 09/27/21 17:40 Urine Urobilinogen 0.2 mg/dL (0.2-1.0) 09/27/21 17:40 Ur Leukocyte Esterase Trace (Negative) H 09/27/21 17:40 Urine RBC <5 /HPF (NONE SEEN) 09/27/21 17:40 Urine WBC <5 /HPF (<5) 09/27/21 17:40 Ur Squamous Epith Cells <5 /HPF (NONE SEEN) 09/27/21 17:40 Ur Urothelial Cells Cancelled 09/26/21 00:30 Calcium Oxalate Crystal Cancelled 09/26/21 00:30 Uric Acid Crystals Cancelled 09/26/21 00:30 Triple Phos Crystals Cancelled 09/26/21 00:30 Other Crystals Cancelled 09/26/21 00:30 Amorphous Sediment Cancelled 09/26/21 00:30 Glitter Cells Cancelled 09/26/21 00:30 Urine Bacteria <20 /HPF (<20) 09/27/21 17:40 Hyaline Casts Cancelled 09/26/21 00:30 Fine Granular Casts Cancelled 09/26/21 00:30 Coarse Granular Casts Cancelled 09/26/21 00:30 Waxy Casts Cancelled 09/26/21 00:30 RBC Casts Cancelled 09/26/21 00:30 WBC Casts Cancelled 09/26/21 00:30 Urine Mucus Cancelled 09/26/21 00:30 Urine Other Cancelled 09/26/21 00:30 Urine Trichomonas Cancelled 09/26/21 00:30 Urine Yeast Cancelled 09/26/21 00:30 Ur Yeast w Hyphae Cancelled 09/26/21 00:30 Urine Yeast (Budding) Cancelled 09/26/21 00:30 Urine Sperm Cancelled 09/26/21 00:30 Urine Culture Reflexed Not needed 09/27/21 17:40 Urine Total Volume Cancelled 09/26/21 00:30 Urine Total Protein Negative (Negative) 09/27/21 17:40 SARS-CoV-2 Rap RNA(RT-PCR) Negative (NEGATIVE) 10/01/21 15:05 Weight: 148 lb 1.6 oz Wound Present: No Closed Surgical Incision Present: No Negative Pressure Wound Therapy Present: No Physician Update: Independent to mod I with walker and standby assistance without an assistive device. Up and down 15 steps with mod I. Her BP is elevated in am and pm. Will add amlodipine to lisinopril. Will DC with out patient physical therapy. She has walker and transfer tub bench for home. Comment: No skin breakdown Functional Improvement: Patient has met all short-term and long-term goals, w/ the exception of a car transfer. Patient to complete car transfer tomorrow. Summary: Patient's care plan and group home goals have been reviewed and revised as necessary. Please see the Rehabilitation Signature page for all necessary signatures.
[2021-10-04] MEDS: AMLODIPINE 2.5 MG TAB PO SCH ×2 (12:46→18:29)
[2021-10-04] MEDS: NICOTINE 21 MG/PAT TD SCH (12:48)
[2021-10-04] MEDS: DOCUSATE NA/SENNA CONC 1 TAB PO SCH (18:29)
[2021-10-04] MEDS: ATORVASTATIN 40 MG TAB PO SCH (18:29)
[2021-10-04 18:47] VITALS: BP 149/72
== END 2021-10-04 18:50 | disposition home or self-care (01) | DRG 57 ==
LOC: 5TH 15:51
PROVIDERS: ADMIT Psychiatry & Neurology Neurology with Special Qualifications in Child Neurology; ATTEND Psychiatry & Neurology Neurology with Special Qualifications in Child Neurology
DX: I69.354 Hemiplegia and hemiparesis following cerebral infarction affecting left non-dominant side (principal); I10 Essential (primary) hypertension; F32.A Depression, unspecified; Z91.81 History of falling; Z20.822 Contact with and (suspected) exposure to COVID-19
CPT/HCPCS: 36415; 80048; 81003; 81015; 82040; 83735; 84134; 85025; 87086; 87088; 92523; 97110; 97112; 97116; 97161; 97165; 97530; 97542; J1650; U0003

== ENCOUNTER 2022-05-07 18:25 | Emergency (ER) | payer OTHER ==
--- OUTSIDE RECORDS SUMMARY | 2022-05-07 18:28 | XMS REPORT | Continuity of Care Document ---
:1955 Author Organization [facility] t Address [address] [place] [address] Care Team Providers Name Role Phone Lab, Adc Fam Pob I Attending Clinician Unavailable Beatrice Anguiano Attending Clinician Gunnar Bowers Attending Clinician Payers Payer Name Policy Type Policy Number Effective Date Expiration Date S ource Problems Condition Condition Condition Status Onset Resolution Last Treating Co mments Source Name Details Category Date Date Treatment Clinician Date TIA TIA Diagnosis Active 2013-02-07 Mem oria Active 02-06 12:05:00 l 02/06/2013 00:00: Edmundo georges [address] SUB ACUTE SUB ACUTE Diagnosis Active 2013-02-06 Memoria MCA STROKE MCA STROKE 02-06 18:02:00 l Active 00:00: [place] 02/06/[address] [facility] LASIK LASIK Problem Resolve 2013-02-09 Mem oria Resolved d 21:14:51 l Problem Mateusz 02/09/[address] [facility] TRANS TRANS Diagnosis Active 2013-02-07 Mem oria CEREB CEREB 12:05:00 l ISCHEMIA ISCHEMIA Edmundo georges NEC NEC Active [facility] Arthritis Arthritis Problem Resolve 2019-07-23 Memoria (disorder) (disorder) d 22:45:28 l Resolved [place] Problem 07/23/2019 [facility] Hyperlipid Problem Resolve 2019-07-23 Memoria emia Hyperlipid d 22:45:28 l (disorder) cathy georges (disorder) Resolved Problem 07/23/2019 [facility] Laser Laser Problem Resolve 2019-07-23 Jn sal assisted assisted d 22:45:28 l in situ in situ [place] keratomile keratomile usis usis (procedure (procedure ) ) Resolved Problem 07/23/2019 [facility] Arthritis Arthritis Problem Resolve 2013-02-09 Memoria Resolved d 21:14:51 l Problem Mateusz 02/09/[address] [facility] Hyperlipid Hyperlipi Problem Resolve 2013-02-09 Memoria emia demia d 21:14:51 l Resolved Mateusz Problem 02/09/[address] [facility] Allergies, Adverse Reactions, Alerts Allergy Allergy Status Severity Reaction(s) Onset Inactive Treating Comm ents Source Name Type Date Date Clinician NO KNOWN Drug Active [facility] ALLERGIE Class ity of [facility] Social History Social Habit Start Date Stop Date Quantity Comments Source Sex Assigned At [facility] Exposure to Yes [facility] SARS-CoV-2 [facility] (event) Branch Alcohol intake 2015-04-09 2015-04-09 Current University of 00:00:00 00:00:00 non-drinker of [facility] alcohol [place] (finding) Smoking Status Start Date Stop Date Source Current every day smoker 2015-04-09 00:00:00 Uni versity [facility] Medications Ordered Filled Start Stop Current Ordering Indication Dosage Frequency Signature Comments Components Source Medication Medication Date Date Medication? Clinician (SIG) Name Name HUSSEIN 20 2014-05 Yes 20mg Take 20 mg U nivers mg tablet 0-26 by mouth ity of 00:00: at [place] 00 bedtime. Medical Branch atorvastati Yes Payton 80 mg, 1 Memoria n 80 mg 02-07 Joellen tab, PO, l oral tablet 18:23: Brown Daily, 30 [place] 46 tab, Substituti on Allowed, TAB aspirin 81 Yes Payton 81 mg, 1 Memoria mg tablet, 02-07 Joellen tab, PO, l enteric 18:23: Brown Daily, 30 Herm aleksandra coated 38 tab, Substituti on Allowed, ECTAB atorvastati No Peace 80 mg, 1 M emoria n 02-07 Luis tab, l 14:00: Leon Route: PO, Edmundo n 00 Drug form: TAB, Daily, Dosing Weight 72.727, kg, Start date: 02/07/13 9:00:00, Duration: 30 day, Stop date: 03/08/13 9:00:00 aspirin 2012- No Peace 81 mg, 1 Memor ia 9-16 Luis tab, l 14:00: Leon Route: PO, Edmundo n 00 Drug form: ECTAB, Daily, Dosing Weight 72.727, kg, Start date: 02/07/13 9:00:00, Duration: 30 day, Stop date: 03/08/13 9:00:00 heparin No Peace 5,000 Memoria 9-16 Luis unit, 1 l 13:00: Leon mL, Route: Edmundo n 00 SUB-Q, Drug form: INJ, Q8H, Dosing Weight 72.727, kg, Start date: 02/07/13 8:00:00, Duration: 30 day, Stop date: 03/09/13 0:00:00 Saline No October 5 ml, Memoria Flush 0.9% -16 Yoshii-Con Route: l 02:00: treras IVP, Drug Edmundo n 00 Form: INJ, Dosing Weight 72.727, kg, Q12H, Start date: 02/06/13 21:00:00, Duration: 30 day, Stop date: 03/08/13 9:00:00 Zantac Yes Substituti Memor ia 9-15 on Allowed l 22:49: [place] 00 Multiple Yes 1 cap, PO, Mem oria Vitamins 9-15 Daily, 30 l oral 22:48: cap, Maetusz capsule 47 Substituti on Allowed, Maintenanc e, CAP Saline No October 5 ml, Memoria Flush 0.9% -15 Yoshii-Con Route: l 22:09: treras IVP, Drug [...] No Payton 1,000 mL, Mem oria Chloride 02-06 Joellen Rate: 100 l 0.9% IV 22:09: Brown ml/hr, Mateusz 1,000 mL 00 Infuse over: 10 hr, Route: IV, Dosing Weight 72.727 kg, Total Volume: 1,000, Start date: 02/06/13 17:09:00, Stop date: 03/08/13 17:08:00 Omnipaque No Miriam 85 mL, Jn sal 350mg/ml [...] Diastolic (mm Hg) 2013-02-07 17:00:00 Mem orial [place] Heart Rate 2013-02-07 17:00:00 [facility]z Respitory Rate 2013-02-07 17:00:00 Memori al [place] Temperature Oral (F) 2013-02-07 17:00:00 97.0 F [facility] [place] Systolic (mm Hg) 2013-02-07 17:00:00 Jn rial Mateusz Temperature Oral (F) 2013-02-07 12:00:00 96.3 F [facility] Heart Rate 2013-02-07 12:00:00 [facility] [place] Systolic (mm Hg) 2013-02-07 12:00:00 Jn rial [place] Diastolic (mm Hg) 2013-02-07 12:00:00 Mem orial [place] Respitory Rate 2013-02-07 12:00:00 Memori al Mateusz Heart Rate 2013-02-07 08:51:00 [facility] [place] Temperature Oral (F) 2013-02-07 08:51:00 97.8 F [facility] [place] Systolic (mm Hg) 2013-02-07 08:51:00 Jn frey [place] Diastolic (mm Hg) 2013-02-07 08:51:00 Mem orial [place] Respitory Rate 2013-02-07 00:41:00 Memori al [place] Weight 2013-02-06 17:49:00 [facility] Height 2013-02-06 17:49:00 157.48 cm [facility] [place] Procedures Procedure Date / Time Performed Performing Clinician Fady ROMAN [facility] LASMAHI [facility] [place] Encounters Start End Encounter Admission Attending Care Care Encounter Source Date/Time Date/Time Type Type Clinicians Facility Department ID 2020-01-06 2020-01-06 Laboratory Lab, [facility] [id number] 09:23:20 09:43:20 Only Fam Pob I Health [id number] [place] [id number] Professio [id number] [place] [id number] [address] 2020-01-06 2020-01-06 Laboratory Lab, [facility] Fam Pob I [facility] [id number] Univers 09:23:20 09:43:20 Only Anene, [facility] [id number] ity of [place] [id number] [place] as Professio [id number] Me dical [address] Office [address] 2020-01-06 2020-01-06 Outpatient R [facility] [id number] Univers 09:00:00 09:00:00 ity of [facility] 2019-07-21 2019-07-21 Ambulatory nullFlavo MNA [id number] Memoria 19:45:00 19:45:00 Pre-Reg r Neurology 00 l Schlater [place] 2019-07-21 2019-07-21 Outpatient MHIE KOKI [id number] Memoria 13:45:00 13:45:00 00 l Mateusz 2019-07-21 2019-07-21 Outpatient KAROLINE Bowers [id number] 13:45:00 13:45:00 Gunnar [place] 2013-02-06 2013-02-07 OU nullFlavo [facility] [id number] Memoria 17:09:00 15:00:00 r [facility] Mate[facility]z Results Test Description Test Time Test Comments Results Result Comments Source Thyroid Stimulating Hormone 2018-11-22 22:27:55 Test Item Value Reference Range Interpretation Comme nts TSH (test code = TSH) 0.445 mIU/mL 0.270-4.200 Erythrocyte Sedimentation Rate [id number] 22:20:13 Test Item Value Reference Range Interpretation Comments ESR STAT (test code = ESR STAT) 8 mm/hr 0-20 Comprehensive Metabolic [id number] 21:59:49 Test Item Value Reference Range Interpretation [...] A/G 1.6 ratio N Ratio) Comprehensive Metabolic [id number] 21:59:49 Test Item Value Reference Range Interpretation [...] the National Kidney Foundation, http://nkdep.ni h.gov Lipid [id number] 21:59:49 Test Item Value Reference Range Interpretation Comments Cholesterol Total 294 mg/dL 0-200 H RISK OF HE ART (test code = DISEASEPublishe d by Cholesterol Total) [place] [employer] Sowmya lyte Optimal Borderl ine Increased RiskC HOL <200 200-239 >2 40TRIG <150 150-199 >2 00HDL Male >60 <40HDL Female >60 <50LDL <100 130-159 >160LDL Near optimal is 100- 129 Triglycerides (test 616 mg/dL 9-200 H code [...] is greater than 40 0. Comprehensive Metabolic [id number] 21:59:49 Test Item Value Reference Range Interpretation [...] Foundation, http://nkdep.ni h.gov Complete Blood Count with [id number] 21:52:58 Test Item Value Reference Range Interpretation [...] code = IPF) 0 % N Automated Yzkhfpbykykt1840-14-97 21:52:58 Test Item Value Reference Range Interpretation Comments Neutro Auto (test code = Neutro 62.7 % 36.0-70.0 Auto) Lymph Auto (test code = Lymph Auto) 28.3 % 12.0-44.0 Frio Auto (test code = Frio Auto) 7.6 % 0.0-11.0 Eos, Auto (test code = Eos, Auto) 0.7 % 0.0-7.0 Basophil Auto (test code = Basophil 0.3 % 0.0-2.0 Auto) Neutro Absolute (test code = Neutro 5.7 x10 1.6-7.4 Absolute) Lymph Absolute (test code = Lymph 2.56 x10 .50-4.60 Absolute) Frio Absolute (test code = Frio .69 x10 .00-1.20 Absolute) Eos Absolute (test code = Eos 0.06 x10 0.00-0.74 Absolute) Baso Absolute (test code = Baso 0.03 x10 0.00-0.21 Absolute) Pro B Natriuretic [id number] 21:52:58 Test Item Value Reference Range Interpretation Comments NT-proBNP (test code = NT-proBNP) 80 pg/mL 0-124 IG [id number] 21:52:58 Test Item Value Reference Range Interpretation Comments IG (test code = IG) 0.4 % 0.0-5.0 IG Abs (test code = IG Abs) 0 x10 N [id number] 12:35:11 Test Item Value Reference Range Interpretation Comments LDL Direct (test code = LDL Direct) 144 [facility]-84 08:00:00 Test Item Value Reference Range Interpretation Comments AGAP (test code = AGAP) 13.1 10.0-20.0 N [facility]baFGCWPWCUB2720-82-76 08:00:00 Test Item Value Reference Range Interpretation Comments eGFR (test code = eGFR) 96 [facility] CenterWkwlmovIEPFQQCXG8831-74-17 08:00:00 Test Item Value Reference Range Interpretation Comments Creatinine Lvl (test code = Creatinine 0.7 0.5-1.4 N Lvl) [facility]aisafwNEVSQNMZV0683-65-25 08:00:00 Test Item Value Reference Range Interpretation Comments BUN (test code = BUN) 18 7-22 N [facility]kjnpuxNQSSLBHDU4070-37-67 08:00:00 Test Item Value Reference Range Interpretation Comments Glucose Lvl (test code = Glucose Lvl) 101 70-99 H [facility] WestEcjglunZTBYRQKTF6626-71-07 08:00:00 Test Item Value Reference Range Interpretation Comments Sodium Lvl (test code = Sodium Lvl) 142 135-145 N [facility] WestMrpewyaDPFJJWKFK5292-32-27 08:00:00 Test Item Value Reference Range Interpretation Comments Calcium Lvl (test code = Calcium Lvl) 8.3 8.5-10.5 L [facility] WestJgrwlnyPLNQZOIIC0995-16-95 08:00:00 Test Item Value Reference Range Interpretation Comments CO2 (test code = CO2) 23 24-32 L [facility] WestSeglcpwMPPSIADZK6757-41-37 08:00:00 Test Item Value Reference Range Interpretation Comments Chloride Lvl (test code = Chloride Lvl) 110 95-109 H [facility] WestMvpwlvjSIFZONRLS8231-67-02 08:00:00 Test Item Value Reference Range Interpretation Comments Potassium Lvl (test code = Potassium 4.1 3.5-5.1 N Lvl) [facility] WestAxcbgrfHLSAMRENB3990-26-76 08:00:00 Test Item Value Reference Range Interpretation Comments LDL (test code = LDL) See Note mg/dL 5*NA*(02/07/2013 03:00:00) [facility] WestPlmbxvrPDKBVCSZI3664-65-36 08:00:00 Test Item Value Reference Range Interpretation Comments CHD Risk (test code = CHD Risk) 8.45 3.90-5.80 H [facility] WestRhntlhjROLLYBYSE8801-99-00 08:00:00 Test Item Value Reference Range Interpretation Comments HDL (test code = HDL) 29 L [facility] WestOljwgypOKCQZPYRM0995-09-07 08:00:00 Test Item Value Reference Range Interpretation Comments Trig (test code = Trig) 531 H [facility] WestYeqgqwtYGUVHLFOB1681-47-72 08:00:00 Test Item Value Reference Range Interpretation Comments Chol (test code = Chol) 245 H [facility] HospitalRxmfellNVMEAEXEZL9517-44-10 08:00:00 Test Item Value Reference Range Interpretation Comments Basophils (test code = 0.7 See_Comment N [Aut omated message] The Basophils) system which ge nerated this result tra nsmitted reference range : <=1.0. The reference r charan was not used to int erpret this result as normal/abnormal . [facility] HospitalEiwjsxaYNMZIFKJGY0950-03-36 08:00:00 Test Item Value Reference Range Interpretation Comments Segs-Bands # (test code = Segs-Bands #) 3.6 1.5-8.1 N [facility] HospitalYmqehsiTQEAMFFWKE9325-89-11 08:00:00 Test Item Value Reference Range Interpretation Comments Lymphocytes # (test code = Lymphocytes 3.1 1.0-5.5 N #) [facility] HospitalOhtwljzKRTNHFDMEI9497-78-21 08:00:00 Test Item Value Reference Range Interpretation Comments Monocytes # (test code 0.6 See_Comment N [Aut omated message] The = Monocytes #) system which generated this result tra nsmitted reference range : <=0.8. The reference r charan was not used to int erpret this result as normal/abnormal . [facility] HospitalFxsdjrrEGLUPOGAPH3746-95-01 08:00:00 Test Item Value Reference Range Interpretation Comments Eosinophils # (test code 0.1 See_Comment N [A utomated message] The = Eosinophils #) system whic h generated this result tra nsmitted reference range : <=0.5. The reference r charan was not used to int erpret this result as normal/abnormal . [facility] HospitalKghqddeRRZGXRRUPN7987-12-99 08:00:00 Test Item Value Reference Range Interpretation Comments Basophils # (test code 0.1 See_Comment N [Aut omated message] The = Basophils #) system which generated this result tra nsmitted reference range : <=0.2. The reference r charan was not used to int erpret this result as normal/abnormal . [facility] HospitalTonosbeILNPOEVQFH8506-77-62 08:00:00 Test Item Value Reference Range Interpretation Comments Eosinophils (test code = 1.7 See_Comment N [A utomated message] The Eosinophils) system which ge nerated this result tra nsmitted reference range : <=4.0. The reference r charan was not used to int erpret this result as normal/abnormal . [facility] HospitalPmuzaqeTSBPBXNYSQ6305-64-86 08:00:00 Test Item Value Reference Range Interpretation Comments Monocytes (test code = Monocytes) 8.0 2.0-12.0 N [facility] HospitalQilyckeAPMTHPZUFK4928-60-04 08:00:00 Test Item Value Reference Range Interpretation Comments Segs (test code = Segs) 48.0 45.0-75.0 N [facility] HospitalEqysnsdZVADPJYAXL7751-82-84 08:00:00 Test Item Value Reference Range Interpretation Comments Lymphocytes (test code = Lymphocytes) 41.6 20.0-40.0 H [facility] HospitalCxtstqiWNNYDXMOTN8567-76-16 08:00:00 Test Item Value Reference Range Interpretation Comments RBC (test code = RBC) 3.87 4.20-5.40 L [facility] HospitalLxiuuvsNBERWBIGTS4219-88-28 08:00:00 Test Item Value Reference Range Interpretation Comments WBC (test code = WBC) 7.4 3.7-10.4 N [facility] HospitalRxinuwaHHYZUCTMAY7598-31-10 08:00:00 Test Item Value Reference Range Interpretation Comments Hgb (test code = Hgb) 11.9 12.0-16.0 L [facility] HospitalLgykwibQOELNGKNLR6984-23-61 08:00:00 Test Item Value Reference Range Interpretation Comments Hct (test code = Hct) 35.2 36.0-48.0 L [facility] HospitalQiruddyLMLXMELLXZ9982-51-84 08:00:00 Test Item Value Reference Range Interpretation Comments MCV (test code = MCV) 90.8 81.0-99.0 N [facility] HospitalAkipgseVLZDOSHRXD1871-35-99 08:00:00 Test Item Value Reference Range Interpretation Comments MCH (test code = MCH) 30.7 pg 27.0-31.0 N [facility] HospitalFrzgiyzVXCZIDCVEK7222-46-77 08:00:00 Test Item Value Reference Range Interpretation Comments RDW (test code = RDW) 13.3 11.5-14.5 N [facility] HospitalWguwitaSTZOYKRREW4556-63-29 08:00:00 Test Item Value Reference Range Interpretation Comments MCHC (test code = MCHC) 33.9 32.0-36.0 N [facility] HospitalVeadzcrVBAVHTGGBF8466-11-95 08:00:00 Test Item Value Reference Range Interpretation Comments Platelet (test code = Platelet) 279 133-450 N [facility] HospitalUcbgqatJCSCFRGAWP9007-17-15 08:00:00 Test Item Value Reference Range Interpretation Comments MPV (test code = MPV) 7.5 7.4-10.4 N [facility] HospitalEmajhzvCMVRLLAOKR6230-81-59 18:53:00 Test Item Value Reference Range Interpretation Comments Segs (test code = Segs) 55.3 45.0-75.0 N [facility] HospitalQopvnsdCZONCKMHLK6070-82-59 18:53:00 Test Item Value Reference Range Interpretation Comments PTT (test code = PTT) 27.3 s 22.9-35.8 N [facility] HospitalWavbzqgSKWKWNDRTN9100-61-57 18:53:00 Test Item Value Reference Range Interpretation Comments PT (test code = PT) 13.3 s 12.0-14.7 N [facility] HospitalOmdlnjxGRJLPFWLRN6927-85-74 18:53:00 Test Item Value Reference Range Interpretation Comments INR (test code = INR) 1.02 0.85-1.17 N [facility] HospitalIgveswhGNBEPBJQGU1145-02-09 18:53:00 Test Item Value Reference Range Interpretation Comments MPV (test code = MPV) 7.2 7.4-10.4 L [facility] HospitalQgmsnivMQCRZQVOBT3666-55-32 18:53:00 Test Item Value Reference Range Interpretation Comments MCHC (test code = MCHC) 33.5 32.0-36.0 N [facility] HospitalFgbgrqqRNDWEEAXQJ9093-06-94 18:53:00 Test Item Value Reference Range Interpretation Comments MCH (test code = MCH) 29.8 pg 27.0-31.0 N [facility] HospitalSehycbdPPCFVDACGP6836-93-76 18:53:00 Test Item Value Reference Range Interpretation Comments Platelet (test code = Platelet) 305 133-450 N [facility] HospitalXvxpqsiHANZRTOYPP5774-48-85 18:53:00 Test Item Value Reference Range Interpretation Comments RDW (test code = RDW) 12.4 11.5-14.5 N [facility] HospitalGmbmoplCUWVUIRTUL1008-73-36 18:53:00 Test Item Value Reference Range Interpretation Comments MCV (test code = MCV) 89.0 81.0-99.0 N [facility] HospitalYknozsvGPMMQKFVVZ0042-58-05 18:53:00 Test Item Value Reference Range Interpretation Comments Hgb (test code = Hgb) 13.3 12.0-16.0 N [facility] HospitalBedavawDCGBKQTFPT3917-59-20 18:53:00 Test Item Value Reference Range Interpretation Comments RBC (test code = RBC) 4.45 4.20-5.40 N [facility] HospitalKhrddriLWCTRXBXTE5729-70-77 18:53:00 Test Item Value Reference Range Interpretation Comments Hct (test code = Hct) 39.6 36.0-48.0 N [facility] HospitalOdvovvbEMGKMVXYMR8045-84-77 18:53:00 Test Item Value Reference Range Interpretation Comments WBC (test code = WBC) 8.3 3.7-10.4 N [facility] WestWnbkpklSMSDEMHXP2723-34-75 18:53:00 Test Item Value Reference Range Interpretation Comments eGFR (test code = eGFR) 96 [facility] WestWednqojPBKBOGAKH8848-80-19 18:53:00 Test Item Value Reference Range Interpretation Comments Sodium Lvl (test code = Sodium Lvl) 140 135-145 N [facility] WestZkrvaruACLHIKKTM6869-69-10 18:53:00 Test Item Value Reference Range Interpretation Comments Potassium Lvl (test code = Potassium 3.9 3.5-5.1 N Lvl) [facility] WestFkubnaiVJFZRQEGL5771-48-42 18:53:00 Test Item Value Reference Range Interpretation Comments Chloride Lvl (test code = Chloride Lvl) 105 95-109 N [facility] WestZxsguliLNFHXDPXF4278-53-83 18:53:00 Test Item Value Reference Range Interpretation Comments CO2 (test code = CO2) 28 24-32 N [facility] WestQkzsfxlXPZBMJQET8440-01-17 18:53:00 Test Item Value Reference Range Interpretation Comments Glucose Lvl (test code = Glucose Lvl) 92 70-99 N [facility] WestJyzrpfpAEJKPUKAU7439-31-43 18:53:00 Test Item Value Reference Range Interpretation Comments BUN (test code = BUN) 14 7-22 N [facility] WestVbawqcgRPXIODIZF2972-18-99 18:53:00 Test Item Value Reference Range Interpretation Comments Creatinine Lvl (test code = Creatinine 0.7 0.5-1.4 N Lvl) [facility] WestStvpulhDETMCISNE5156-33-87 18:53:00 Test Item Value Reference Range Interpretation Comments Calcium Lvl (test code = Calcium Lvl) 9.1 8.5-10.5 N [facility] WestCwichvwQMZLVLXVC3624-88-05 18:53:00 Test Item Value Reference Range Interpretation Comments AGAP (test code = AGAP) 10.9 10.0-20.0 N [facility] HospitalOwcugozNDPKFNXGBG5610-64-82 18:53:00 Test Item Value Reference Range Interpretation Comments Basophils # (test code 0.1 See_Comment N [Aut omated message] The = Basophils #) system which generated this result tra nsmitted reference range : <=0.2. The reference r charan was not used to int erpret this result as normal/abnormal . [facility] HospitalXofowwjQMWVFZVNFI0891-66-14 18:53:00 Test Item Value Reference Range Interpretation Comments Lymphocytes # (test code = Lymphocytes 2.8 1.0-5.5 N #) [facility] HospitalXydaojmVJLSXTXMNS2465-06-27 18:53:00 Test Item Value Reference Range Interpretation Comments Eosinophils # (test code 0.1 See_Comment N [A utomated message] The = Eosinophils #) system wh h generated this result tra nsmitted reference range : <=0.5. The reference r charan was not used to int erpret this result as normal/abnormal . [facility] HospitalOjegfxvUSRSNZUVWS8017-73-28 18:53:00 Test Item Value Reference Range Interpretation Comments Monocytes # (test code 0.7 See_Comment N [Aut omated message] The = Monocytes #) system which generated this result tra nsmitted reference range : <=0.8. The reference r charan was not used to int erpret this result as normal/abnormal . [facility] HospitalIineuieWZAKVBDQJQ3215-89-23 18:53:00 Test Item Value Reference Range Interpretation Comments Segs-Bands # (test code = Segs-Bands #) 4.6 1.5-8.1 N [facility] HospitalMyiodrgJKLIAZGYDH3270-23-72 18:53:00 Test Item Value Reference Range Interpretation Comments Basophils (test code = 1.0 See_Comment N [Aut omated message] The Basophils) system which ge nerated this result tra nsmitted reference range : <=1.0. The reference r charan was not used to int erpret this result as normal/abnormal . [facility] HospitalWbzauxdNLWSECXUIO9481-92-40 18:53:00 Test Item Value Reference Range Interpretation Comments Lymphocytes (test code = Lymphocytes) 34.0 20.0-40.0 N [facility] HospitalUbpjarnGCCOUGHUUJ8641-27-29 18:53:00 Test Item Value Reference Range Interpretation Comments Eosinophils (test code = 1.3 See_Comment N [A utomated message] The Eosinophils) system which ge nerated this result tra nsmitted reference range : <=4.0. The reference r charan was not used to int erpret this result as normal/abnormal . [facility] HospitalEprynibPLQKEOUGGX3510-33-68 18:53:00 Test Item Value Reference Range Interpretation Comments Monocytes (test code = Monocytes) 8.4 2.0-12.0 N [facility]
[2022-05-07] MEDS ORDERED: NA CHLORIDE 0.9% 1,000 ML ONE (18:47)
[2022-05-07 19:28] LABS: Urine Blood Negative (Negative); Urine Glucose Negative (Negative); Urine Protein Negative (Negative); Urine Specific Gravity 1.025 (1.005-1.030)
[2022-05-07 19:31] LABS: Absolute Lymphocytes (CBC) 2.1 K/uL (0.7-4.9); Hematocrit 43.3 % (36.0-45.0); Lymphocytes % 20.9 % (15.3-44.8); MCV 87.7 fL (80-100); RBC Red Blood Cell Count 4.93 M/uL (3.86-4.86)
[2022-05-07 19:41] LABS: Urine Bacteria None Seen /HPF (<20); Urine Mucus Slight /HPF (None Seen); Urine RBC <5 /HPF (None Seen)
[2022-05-07 19:47] LABS: Protime INR 1.14
[2022-05-07 19:52] LABS: Albumin 4.1 g/dL (3.4-5.0); Bilirubin Direct 0.1 mg/dL (0-0.2); Bilirubin Total 0.4 mg/dL (0.2-1.0); Magnesium 2.3 mg/dL (1.6-2.4); Potassium 3.8 mmol/L (3.5-5.1); Protein, Total 8.7 g/dL (6.4-8.2); Troponin High Sensitivity 8.3 pg/mL (<58.9)
[2022-05-07 20:07] LABS: SARS-COV-2 RT PCR NEGATIVE (NEGATIVE)
--- NOTE | 2022-05-07 20:43 | RAD REPORT ---
EXAM DESCRIPTION: CT - Head Brain Wo Cont - 05/07/2022 8:28 pm CLINICAL HISTORY: Alteration of awareness/confusion COMPARISON: September 2021 TECHNIQUE: Computed axial tomography of the head was obtained. IV contrast was not requested. All CT scans are performed using dose optimization technique as appropriate and may include automated exposure control or mA/KV adjustment according to patient size. FINDINGS: An intracranial bleed is not seen . The ventricles are normal in caliber. No extra-axial fluid collection is noted. 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 Fluid within the sinuses/ mastoids is not seen. IMPRESSION: No acute intracranial abnormality is seen. If patient's symptoms persist MRI of the bra in would be recommended.
[2022-05-07] MEDS ORDERED: HYDROCODONE/APAP 7.5/325 MG TAB ONE (20:44)
--- NOTE | 2022-05-07 20:54 | RAD REPORT ---
EXAM DESCRIPTION: CT - Angio Aorta For Dissection - 05/07/2022 8:28 pm CLINICAL HISTORY: . Chest and abd pain COMPARISON: None TECHNIQUE: Computed tomography angiography of the chest, abdomen pelvis were obtained. 100 cc Isovue 370 was administered intravenously. Coronal and sagittal reconstruction were performed. MIP 3D reconstruction was performed All CT scans are performed using dose optimization technique as appropriate and may include automated exposure control or mA/KV adjustment according to patient size. FINDINGS: An aortic dissection is not seen. An aortic aneurysm is not displayed. The celiac, SMA and JAMIE are patent . Mild atherosclerotic disease A lung consolidation is not present. A pericardial effusion is not seen. A pleural effusion is not no maria de jesus. Mild fatty liver Spleen, pancreas,adrenals and kidneys demonstrate no significant abnormality. There no evidence diverticulitis. Normal appendix No adnexal mass Mild compression deformity superior vertebral endplate T12 appears subacute IMPRESSION: Negative for an aortic dissection. Mild compression deformity superior vertebral endplate T12 appears subacute. If clinically indicated further evaluation with MRI could be obtained
--- NOTE | 2022-05-07 20:55 | RAD REPORT ---
EXAM DESCRIPTION: Shanika Single View05/07/2022 7:35 pm CLINICAL HISTORY: Chest pain COMPARISON: September 2021 FINDINGS: The lungs appear clear of acute infiltrate. The heart is normal size IMPRESSION: No acute abnormalities displayed
--- NOTE | 2022-05-07 21:59 | EDPHYS ---
Physician Documentation [facility] Name: Jeni Johnson Age: 67 yrs Sex: Female : 1955 Arrival Date: 05/07/2022 Time: 18:31 Bed 26 Private MD: Logan Lemus E ED Physician Basilio Sotomayor HPI: 05/07 20:29 This 67 yrs old Female presents to ER via Ambulatory with complaints of kdr Shortness Of Breath, Back Pain. 20:30 This 67 yrs old Female presents to ER via Ambulatory with complaints of kdr Shortness Of Breath, Back Pain. 20:30 Patient has multiple complaints including dizziness, weakness, back pain and shortness kdr of breath. Patient states that she was sitting on the toilet feeling poorly about 2 weeks ago when she fell off the toilet. She denies any head injury at the time. Since then she has had back pain generalized weakness and feeling poorly. She has had some mild dizziness as well. Overall there is no focal complaint with the most significant issue being her mid back pain. Onset: The symptoms/episode began/occurred gradually, 2 week(s) ago. Severity of symptoms: At their worst the symptoms were mild moderate just prior to arrival, in the emergency department the symptoms have improved mildly. The patient has not experienced similar symptoms in the past. The patient has not recently seen a physician. Historical: - Allergies: 18:48 No Known Allergies; kr3 - Home Meds: 19:02 lisinopril 10 mg Oral tab 1 tab once daily [Active]; em6 - PMHx: 18:48 Hypertension; kr3 - Immunization history:: Adult Immunizations not up to date. - Social history:: Smoking status: Patient reports the use of cigarette tobacco products, smokes one-half pack cigarettes per day. ROS: 20:30 Constitutional: Negative for fever, chills, and weight loss, Eyes: Negative for injury, kdr pain, redness, and discharge, ENT: Negative for injury, pain, and discharge, Neck: Negative for injury, pain, and swelling, Cardiovascular: Negative for chest pain, palpitations, and edema, Abdomen/GI: Negative for abdominal pain, nausea, vomiting, diarrhea, and constipation, : Negative for injury, bleeding, discharge, and swelling, MS/Extremity: Negative for injury and deformity, Skin: Negative for injury, rash, and discoloration, Psych: Negative for depression, anxiety, suicide ideation, homicidal ideation, and hallucinations, Allergy/Immunology: Negative for hives, rash, and allergies, Endocrine: Negative for neck swelling, polydipsia, polyuria, polyphagia, and marked weight changes, Hematologic/Lymphatic: Negative for swollen nodes, abnormal bleeding, and unusual bruising. 20:30 Respiratory: Positive for dyspnea on exertion, shortness of breath, at rest. Negative for hemoptysis, orthopnea, pleurisy, sputum production, wheezing. 20:30 Back: Positive for injury or acute deformity, decreased range of motion, pain at rest, pain with movement, of the thoracic area, lumbar area and mid back area. Exam: 20:30 Constitutional: This is a well developed, well nourished patient who is awake, alert, kdr and in no acute distress. Head/Face: Normocephalic, atraumatic. Eyes: Pupils equal round and reactive to light, extra-ocular motions intact. Lids and lashes normal. Conjunctiva and sclera are non-icteric and not injected. Cornea within normal limits. Periorbital areas with no swelling, redness, or edema. Neck: Trachea midline, no thyromegaly or masses palpated, and no cervical lymphadenopathy. Supple, full range of motion without nuchal rigidity, or vertebral point tenderness. No Meningismus. Chest/axilla: Normal chest wall appearance and motion. Nontender with no deformity. No lesions are appreciated. Cardiovascular: Regular rate and rhythm with a normal S1 and S2. No gallops, murmurs, or rubs. Normal PMI, no JVD. No pulse deficits. Respiratory: Lungs have equal breath sounds bilaterally, clear to auscultation and percussion. No rales, rhonchi or wheezes noted. No increased work of breathing, no retractions or nasal flaring. Abdomen/GI: Soft, non-tender, with normal bowel sounds. No distension or tympany. No guarding or rebound. No evidence of tenderness throughout. Skin: Warm, dry with normal turgor. Normal color with no rashes, no lesions, and no evidence of cellulitis. MS/ Extremity: Pulses equal, no cyanosis. Neurovascular intact. Full, normal range of motion. Neuro: Awake and alert, GCS 15, oriented to person, place, time, and situation. Cranial nerves II-XII grossly intact. Motor strength 5/5 in all extremities. Sensory grossly intact. Cerebellar exam normal. Normal gait. Psych: Awake, alert, with orientation to person, place and time. Behavior, mood, and affect are within normal limits. 20:32 Back: pain, that is mild, of the mid back area, ROM is painful, Minor discomfort. kdr normal spinal alignment noted, CVA tenderness, is absent, vertebral tenderness, is appreciated at T9, T10 and T11. Vital Signs: 18:45 BP 143 / 115; Pulse 108; Resp 18; Temp 97.8; Pulse Ox 100% on R/A; Weight 68.04 kg; kr3 Height 5 ft. 2 in. (157.48 cm); 20:30 BP 176 / 83; Pulse 103; Resp 20; Pulse Ox 100% on R/A; em6 21:15 BP 138 / 90; Pulse 98; Resp 18; Pulse Ox 100% on R/A; em6 18:45 Body Mass Index 27.44 (68.04 kg, 157.48 cm) kr3 MDM: 18:37 Patient medically screened. [facility] 20:32 Data reviewed: vital signs, nurses notes, lab test result(s), radiologic studies. kdr Counseling: I had a detailed discussion with the patient and/or guardian regarding: the historical points, exam findings, and any diagnostic results supporting the discharge/admit diagnosis, lab results, radiology results. 05/07 18:38 Order name: Basic Metabolic Panel; Complete Time: 20:51 nick 05/07 18:38 Order name: CBC with Diff; Complete Time: 20:51 nick 05/07 18:38 Order name: LFT's; Complete Time: 20:51 nick 05/07 18:38 Order name: Magnesium; Complete Time: 20:51 nick 05/07 18:38 Order name: NT PRO-BNP; Complete Time: 20:51 nick 05/07 18:38 Order name: PT-INR; Complete Time: 20:51 nick 05/07 18:38 Order name: Troponin HS; Complete Time: 20:51 nick 05/07 18:38 Order name: XRAY Chest (1 view); Complete Time: 21:33 nick 05/07 18:38 Order name: Lipase; Complete Time: 20:51 nick 05/07 18:38 Order name: Urine Microscopic Only; Complete Time: 20:51 [facility] 05/07 18:38 Order name: COVID-19/FLU A+B; Complete Time: 20:51 [facility] 05/07 18:38 Order name: CT Aorta for Dissection; Complete Time: 21:33 [facility] 05/07 19:28 Order name: Urine Dipstick-Ancillary; Complete Time: 20:51 EDMS 05/07 19:34 Order name: CT Head Brain wo Cont kdr 05/07 18:38 Order name: EKG; Complete Time: 18:39 [facility] 05/07 18:38 Order name: Cardiac monitoring; Complete Time: 19:03 [facility] 05/07 18:38 Order name: EKG - Nurse/Tech; Complete Time: 19:03 [facility] 05/07 18:38 Order name: IV Saline Lock; Complete Time: 19:28 [facility] 05/07 18:38 Order name: Labs collected and sent; Complete Time: 19:28 [facility] 05/07 18:38 Order name: O2 Per Protocol; Complete Time: 19:03 [facility] 05/07 18:38 Order name: O2 Sat Monitoring; Complete Time: 19:03 [facility] 05/07 18:38 Order name: Urine Dipstick-Ancillary (obtain specimen); Complete Time: 19:28 [facility] 05/07 19:38 Order name: Head Brain Wo Cont; Complete Time: 20:51 EDMS Administered Medications: 19:27 Drug: NS 0.9% 1000 ml Route: IV; Rate: 125 ml/hr; Site: right antecubital; em6 22:01 Follow up: Response: No adverse reaction; IV Status: Order to discontinue infusion; IV em6 Intake: 375ml 20:44 Drug: [place] (HYDROcodone-acetaminophen) (7.5 mg-325 mg) 1 tabs Route: PO; em6 21:20 Follow up: Response: No adverse reaction; RASS: Alert and Calm (0) em6 Disposition Summary: 05/07/22 21:58 Discharge Ordered Location: Home kdr Problem: new kdr Symptoms: have improved kdr Condition: Stable kdr Diagnosis - T12 vertebral compression fracture kdr Followup: kdr - With: Logan Lemus MD - When: 2 - 3 days - Reason: If symptoms return, Further diagnostic work-up, Recheck today's complaints, Continuance of care, Re-evaluation by your physician Discharge Instructions: - Discharge Summary Sheet kdr - Spinal Compression Fracture kdr Forms: - Medication Reconciliation Form kdr - Thank You Letter kdr - Prescription Opioid Use kdr Prescriptions: - Ibuprofen 600 mg Oral Tablet - take 1 tablet by ORAL route every 6 hours As needed take with food; 30 tablet; kdr Refills: 0, Product Selection Permitted - Tramadol 50 mg Oral Tablet - take 1 tablet by ORAL route every 8 hours as needed; 12 tablet; Refills: 0, kdr Product Selection Permitted Signatures: Dispatcher [employer] EDMS Jd Andrews MD MD cha Rittger, Kevin, MD MD kdr Reid, Kelley, RN RN kr3 Lili Presley RN RN em6 Corrections: (The following items were deleted from the chart) 20:33 20:30 Constitutional: This is a well developed, well nourished patient who is awake, kdr alert, and in no acute distress. Head/Face: Normocephalic, atraumatic. Eyes: Pupils equal round and reactive to light, extra-ocular motions intact. Lids and lashes normal. Conjunctiva and sclera are non-icteric and not injected. Cornea within normal limits. Periorbital areas with no swelling, redness, or edema. Neck: Trachea midline, no thyromegaly or masses palpated, and no cervical lymphadenopathy. Supple, full range of motion without nuchal rigidity, or vertebral point tenderness. No Meningismus. Chest/axilla: Normal chest wall appearance and motion. Nontender with no deformity. No lesions are appreciated. Cardiovascular: Regular rate and rhythm with a normal S1 and S2. No gallops, murmurs, or rubs. Normal PMI, no JVD. No pulse deficits. Respiratory: Lungs have equal breath sounds bilaterally, clear to auscultation and percussion. No rales, rhonchi or wheezes noted. No increased work of breathing, no retractions or nasal flaring. Abdomen/GI: Soft, non-tender, with normal bowel sounds. No distension or tympany. No guarding or rebound. No evidence of tenderness throughout. Back: No spinal tenderness. No costovertebral tenderness. Full range of motion. kdr
--- NOTE | 2022-05-07 21:59 | ER ---
Nurse's Notes [facility] Name: Jeni Johnson Age: 67 yrs Sex: Female : 1955 Arrival Date: 05/07/2022 Time: 18:31 Bed 26 Private MD: Logan Lemus E Diagnosis: T12 vertebral compression fracture Presentation: 05/07 18:45 Chief complaint: Patient states: I was sitting in my chair 2 weeks ago and started kr3 vomiting and became lightheaded, fell from sitting in my chair to the floor landing on my left hip. I have been having back pain and shortness of breath since. I was seen at my PCP last week but did not tell him I fell or was SOB. Coronavirus screen: Vaccine status: Patient reports being unvaccinated. Client denies travel out of the [place] in the last 14 days. Ebola Screen: Patient denies travel to an Ebola-affected area in the 21 days before illness onset. Initial Sepsis Screen: Does the patient meet any 2 criteria? No. Patient's initial sepsis screen is negative. Does the patient have a suspected source of infection? No. Patient's initial sepsis screen is negative. Risk Assessment: Do you want to hurt yourself or someone else? Patient reports no desire to harm self or others. Onset of symptoms was April 23, 2022. 18:45 Method Of Arrival: Ambulatory kr3 18:45 Acuity: CHET 3 kr3 Triage Assessment: 18:48 General: Appears in no apparent distress. comfortable, Behavior is calm, cooperative, kr3 appropriate for age. Pain: Complains of pain in lumbar area. 19:03 Respiratory: Reports shortness of breath on exertion Onset: The symptoms/episode em6 began/occurred gradually. 19:03 Respiratory: the patient has mild shortness of breath. em6 Historical: - Allergies: 18:48 No Known Allergies; kr3 - Home Meds: 19:02 lisinopril 10 mg Oral tab 1 tab once daily [Active]; em6 - PMHx: 18:48 Hypertension; kr3 - Immunization history:: Adult Immunizations not up to date. - Social history:: Smoking status: Patient reports the use of cigarette tobacco products, smokes one-half pack cigarettes per day. Screenin:41 Abuse screen: Denies threats or abuse. Nutritional screening: No deficits noted. em6 Tuberculosis screening: No symptoms or risk factors identified. Fall Risk Total Anderson Fall Scale indicates No Risk (0-24 pts). 19:02 [facility] ED Fall Risk Assessment (Adult) History of falling in the last 3 months, em6 including since admission Yes- single mechanical fall (1 pt) Confusion or Disorientation No (0 pts) Intoxicated or Sedated No (0 pts) Impaired Gait No (0 pts) Mobility Assist Device Used No (0 pt) Altered Elimination No (0 pt) Score/Fall Risk Level 0 - 2 = Low Risk Oriented to surroundings, Maintained a safe environment, Educated pt \T\ family on fall prevention, incl call for assistance when getting out of bed, Assessed \T\ reinforced patient's understanding of fall precautions, Hourly rounding (assess needs \T\ fall precautionary measures) done. Assessment: 19:01 General: Appears in no apparent distress. Behavior is cooperative. Pain: Complains of em6 pain in back. Neuro: Level of Consciousness is awake, alert, obeys commands, Oriented to person, place, time, situation. Cardiovascular: Capillary refill < 3 seconds Rhythm is sinus tachycardia Chest pain is denied. Respiratory: Airway is patent Respiratory effort is even, unlabored, Breath sounds are clear bilaterally. GI: No signs and/or symptoms were reported involving the gastrointestinal system. : No signs and/or symptoms were reported regarding the genitourinary system. EENT: No signs and/or symptoms were reported regarding the EENT system. Derm: No signs and/or symptoms reported regarding the dermatologic system. Musculoskeletal: Circulation, motion, and sensation intact. Range of motion: intact in all extremities. 20:00 Reassessment: Patient appears in no apparent distress at this time. No changes from em6 previously documented assessment. Patient and/or family updated on plan of care and expected duration. Pain level reassessed. Patient is alert, oriented x 3, equal unlabored respirations, skin warm/dry/pink. 20:38 Reassessment: patient is stating 9 out of 10 pain in the back. provider notified. new em6 order given. 20:38 Neuro: Level of Consciousness is awake, alert, obeys commands, Oriented to person, em6 place, time, situation. Respiratory: Airway is patent Respiratory effort is even, unlabored. 21:30 Reassessment: Patient appears in no apparent distress at this time. No changes from em6 previously documented assessment. Patient and/or family updated on plan of care and expected duration. Pain level reassessed. Patient is alert, oriented x 3, equal unlabored respirations, skin warm/dry/pink. Vital Signs: 18:45 BP 143 / 115; Pulse 108; Resp 18; Temp 97.8; Pulse Ox 100% on R/A; Weight 68.04 kg; kr3 Height 5 ft. 2 in. (157.48 cm); 20:30 BP 176 / 83; Pulse 103; Resp 20; Pulse Ox 100% on R/A; em6 21:15 BP 138 / 90; Pulse 98; Resp 18; Pulse Ox 100% on R/A; em6 18:45 Body Mass Index 27.44 (68.04 kg, 157.48 cm) kr3 ED Course: 18:31 Patient arrived in ED. am2 18:31 Logan Lemus MD is Private Physician. am2 18:37 Jd Andrews MD is Attending Physician. nick 18:41 Lili Presley, RN is Primary Nurse. em6 18:41 Bed in low position. Call light in reach. Side rails up X 1. Pulse ox on. NIBP on. Warm em6 blanket given. 18:48 Triage completed. kr3 19:02 Arm band placed on. em6 19:09 Attending Physician role handed off by Jd Andrews MD kdr 19:09 Basilio Sotomayor MD is Attending Physician. kdr 19:28 COVID-19/FLU A+B Sent. em6 19:28 Urine Microscopic Only Sent. em6 19:28 Lipase Sent. em6 19:28 Inserted saline lock: 20 gauge in right antecubital area, using aseptic technique. em6 Blood collected. 19:37 XRAY Chest (1 view) In Process Unspecified. EDMS 20:30 CT Aorta for Dissection In Process Unspecified. EDMS 20:30 Head Brain Wo Cont In Process Unspecified. EDMS 21:57 Logan Lemus MD is Referral Physician. kdr 22:01 No provider procedures requiring assistance completed. em6 22:10 IV discontinued, intact, bleeding controlled, No redness/swelling at site. Pressure em6 dressing applied. Administered Medications: 19:27 Drug: NS 0.9% 1000 ml Route: IV; Rate: 125 ml/hr; Site: right antecubital; em6 22:01 Follow up: Response: No adverse reaction; IV Status: Order to discontinue infusion; IV em6 Intake: 375ml 20:44 Drug: [place] (HYDROcodone-acetaminophen) (7.5 mg-325 mg) 1 tabs Route: PO; em6 21:20 Follow up: Response: No adverse reaction; RASS: Alert and Calm (0) em6 Medication: 22:01 VIS not applicable for this client. em6 Intake: 22:01 IV: 375ml; Total: 375ml. em6 Outcome: 21:58 Discharge ordered by . kdr 22:10 Discharged to home ambulatory, with family. em6 22:10 Condition: stable 22:10 Discharge instructions given to patient, family, Instructed on discharge instructions, follow up and referral plans. medication usage, Demonstrated understanding of instructions, follow-up care, medications, Prescriptions given X 2. 22:10 Patient left the ED. em6 Signatures: Dispatcher [employer] EDJd Aguilar MD MD cha Rittger, Kevin, MD MD kdr Moreno, Amanda amAmarilis Charlton, RN RN kr3 Lili Presley RN RN em6
[2022-05-07 22:27] VITALS: TEMP 97.8; O2SAT 100
[2022-05-07 22:29] VITALS: BP 138/90
--- NOTE | 2022-05-08 08:02 | EKG ---
Test Date: 2022-05-07 Test Time: 18:53:12 Director Of Rooms: MEASUREMENT RESULTS: Intervals: Rate: 107 MN: 154 QRSD: 88 QT: 318 QTc: 424 [place]: P: 50 MN: 154 QRS: 42 T: 19 INTERPRETIVE STATEMENTS: Sinus tachycardia Otherwise normal ECG Compared to ECG 09/24/2021 10:25:08 Sinus rhythm no longer present Electronically Signed On 05-08-22 08:01:40 [employer] EXAMINER by Honorio Blake
== END 2022-05-07 22:10 | disposition home or self-care (01) ==
LOC: ER 18:25
DX: S22.080A Wedge compression fracture of T11-T12 vertebra, initial encounter for closed fracture (principal); I10 Essential (primary) hypertension; F17.210 Nicotine dependence, cigarettes, uncomplicated; Z20.822 Contact with and (suspected) exposure to COVID-19
CPT/HCPCS: 85025; 80048; 36415; 83735; 85610; 80076; 84484; 83690; 83880; 0240U; 70450; 71275; 74175; 71045; Q9967; J7030; 81003; 81015; 93005

== ENCOUNTER 2022-06-28 19:18 | Emergency (ER) | payer OTHER ==
--- OUTSIDE RECORDS SUMMARY | 2022-06-28 19:24 | XMS REPORT | Continuity of Care Document ---
:1955 Author Organization [facility] t Address [address] [place] [address] Care Team Providers Name Role Phone Lab, Adc Gus Pob I Attending Clinician Unavailable Beatrice Anguiano Attending Clinician Gunnar Bowers Attending Clinician Payers Payer Name Policy Type Policy Number Effective Date Expiration Date S ource Problems Condition Condition Condition Status Onset Resolution Last Treating Co mments Source Name Details Category Date Date Treatment Clinician Date SUB ACUTE SUB ACUTE Diagnosis Active 2013-02-06 Memoria MCA STROKE MCA STROKE 02-06 18:02:00 l Active 00:00: Mateusz 02/06/2013 00 [facility] TIA TIA Diagnosis Active 2013-02-07 Mem oria Active 02-06 12:05:00 l 02/06/2013 00:00: Edmundo [place]es [address] TRANS TRANS Diagnosis Active 2013-02-07 Mem oria CEREB CEREB 12:05:00 l ISCHEMIA ISCHEMIA Edmundo georges NEC NEC Active [facility] Arthritis Arthritis Problem Resolve 2019-07-23 Memoria (disorder) (disorder) d 22:45:28 l Resolved [place] Problem 07/23/2019 [facility] Hyperlipid Hyperlipi Problem Resolve 2019-07-23 Memoria emia demia d 22:45:28 l (disorder) (disorder) He r[place] Resolved Problem 07/23/2019 [facility] Laser Laser Problem Resolve 2019-07-23 Mem oria assisted assisted d 22:45:28 l in situ in situ Mateusz keratomile keratomile usis usis (procedure (procedure ) ) Resolved Problem 07/23/2019 [facility] Arthritis Arthritis Problem Resolve 2013-02-09 Memoria Resolved d 21:14:51 l Problem [place] 02/09/2013 [facility] Hyperlipid Hyperlipi Problem Resolve 2013-02-09 Memoria emia demia d 21:14:51 l Resolved Mateusz Problem 02/09/2013 [facility] LASIK LASIK Problem Resolve 2013-02-09 Jn sal Resolved d 21:14:51 l Problem [place] 02/09/2013 [facility] Allergies, Adverse Reactions, Alerts Allergy Allergy Status Severity Reaction(s) Onset Inactive Treating Comm ents Source Name Type Date Date Clinician NO KNOWN Drug Active Univers ALLERGIE Class ity of [facility] Social History Social Habit Start Date Stop Date Quantity Comments Source Sex Assigned At [facility] Exposure to Yes [facility] SARS-CoV-2 [facility] (event) [place] Alcohol intake 2015-04-09 2015-04-09 Current [facility] 00:00:00 00:00:00 non-drinker of [facility] alcohol [place] (finding) Smoking Status Start Date Stop Date Source Current every day smoker 2015-04-09 00:00:00 Uni versity [facility] Medications Ordered Filled Start Stop Current Ordering Indication Dosage Frequency Signature Comments Components Source Medication Medication Date Date Medication? Clinician (SIG) Name Name HUSSEIN 20 2014-05 Yes 20mg Take 20 mg U nivers mg tablet 0-26 by mouth ity of 00:00: at [place] 00 bedtime. [facility] atorvastati Yes Pay[place] 80 mg, 1 Memoria n 80 mg 9-16 Joellen tab, PO, l oral tablet 18:23: Brown Daily, 30 Mateusz 46 tab, Substituti on Allowed, TAB atorvastati Yes [place] 80 mg, 1 Memoria n 80 mg 9-16 Joellen tab, PO, l oral tablet 18:23: [place] Daily, 30 [place] 46 tab, Substituti on Allowed, TAB aspirin 81 Yes [place] 81 mg, 1 Memoria mg tablet, 9-16 Joellen tab, PO, l enteric 18:23: [place] Daily, 30 Herm aleksandra coated 38 tab, Substituti on Allowed, ECTAB aspirin 81 Yes [place] 81 mg, 1 Memoria mg tablet, 9- Joellen tab, PO, l enteric 18:23: Brown Daily, 30 Herm aleksandra coated 38 tab, Substituti on Allowed, ECTAB atorvastati No Peace 80 mg, 1 M emoria n 9-16 Luis tab, l 14:00: Leon Route: [...] Duration: 30 day, Stop date: 03/08/13 9:00:00 atorvastati No Peace 80 mg, 1 M emoria n 9-16 Luis tab, l 14:00: Leon Route: PO, Edmundo n 00 Drug form: TAB, Daily, Dosing Weight 72.727, kg, Start date: 02/07/13 9:00:00, Duration: 30 day, Stop date: 03/08/13 9:00:00 aspirin 2012-0 No Peace 81 mg, 1 Memor ia [...] Duration: 30 day, Stop date: 03/09/13 0:00:00 heparin 2012-0 No Peace 5,000 Memoria 9-16 Luis unit, [...] Duration: 30 day, Stop date: 03/08/13 9:00:00 Saline No October 5 ml, Memoria Flush 0.9% 9-16 Yoshii-Con Route: l 02:00: treras IVP, Drug Edmundo n 00 Form: INJ, Dosing Weight 72.727, kg, Q12H, Start date: 02/06/13 21:00:00, Duration: 30 day, Stop date: 03/08/13 9:00:00 Zantac 2012- Yes Substituti Memor ia 9-15 on Allowed l 22:49: Mateusz 00 Zantac 2012- Yes Substituti Memor ia 9-15 on Allowed l 22:49: [place] 00 Multiple Yes 1 cap, PO, Mem oria Vitamins 9-15 Daily, 30 l oral 22:48: cap, [place] capsule 47 Substituti on Allowed, Maintenanc e, CAP Multiple Yes 1 cap, PO, Mem oria Vitamins 9-15 Daily, 30 l oral 22:48: cap, [place] capsule 47 Substituti on Allowed, Maintenanc e, CAP Saline No October 5 ml, Memoria Flush 0.9% 9-15 Yoshii-Con Route: l 22:09: treras IVP, Drug Edmundo n 00 Form: INJ, Dosing Weight 72.727, kg, PRN, PRN Line Flush, Start date: 02/06/13 17:09:00, Duration: 30 day, Stop date: 03/08/13 17:08:00 labetalol No October 10 mg, 2 Jn sal 9-15 Yoshii-Con mL, Route: l 22:09: treras IVP, Drug Edmundo n 00 form: INJ, Q10Min, Dosing Weight 72.727, kg, PRN Hypertensi on, Start date: 02/06/13 17:09:00, Duration: 30 day, Stop date: 03/08/13 17:08:00, For SBP > 180mmHg and/or DBP > 105mmHg Sodium 2012- No Payton 1,000 mL, Mem oria Chloride 9-15 Joellen Rate: 100 l 0.9% IV 22:09: Brown ml/hr, Mateusz 1,000 mL 00 Infuse over: 10 hr, Route: IV, Dosing Weight 72.727 kg, Total Volume: 1,000, Start date: 02/06/13 17:09:00, Stop date: 03/08/13 17:08:00 Saline 2012- No October 5 ml, Memoria Flush 0.9% 02-06 Yoshii-Con Route: l 22:09: treras IVP, Drug Edmundo n 00 Form: INJ, Dosing Weight 72.727, kg, PRN, PRN Line Flush, Start date: 02/06/13 17:09:00, Duration: 30 day, Stop date: 03/08/13 17:08:00 labetalol No October 10 mg, 2 Jn sal 02-06 Yoshii-Con mL, Route: l 22:09: treras IVP, Drug Edmundo n 00 form: INJ, Q10Min, Dosing Weight 72.727, kg, PRN Hypertensi on, Start date: 02/06/13 17:09:00, Duration: 30 day, Stop date: 03/08/13 17:08:00, For SBP > 180mmHg and/or DBP > 105mmHg Sodium No [place] 1,000 mL, Mem oria Chloride 9-15 Joellen Rate: 100 l 0.9% IV 22:09: Brown ml/hr, [place] 1,000 mL 00 Infuse over: 10 hr, Route: IV, Dosing Weight 72.727 kg, Total Volume: 1,000, Start date: 02/06/13 17:09:00, Stop date: 03/08/13 17:08:00 Omnipaque 2012-0 No Miriam 85 mL, Jn sal 350mg/ml 02-06 Anderson Route: l 19:37: IVP, Drug [place] Form: SOLN, Dosing Weight 72.727, kg, ONCALL, STAT, Start date: 02/06/13 14:37:00, Duration: 1 doses or times, Dose = 2.2ml/kg, Max dose = 100ml -- "To be infused by Radiology Staff ONLY"Dose = 2.2ml/kg, Max dose = 100ml -- "To be infused by Radiology Staff ONLY" Omnipaque No Miriam 85 mL, Jn sal 350mg/ml 02-06 Anderson Route: l 19:37: IVP, Drug [place] 00 Form: SOLN, Dosing Weight 72.727, kg, [...] Diastolic (mm Hg) 2013-02-07 17:00:00 Mem orial [place] Heart Rate 2013-02-07 17:00:00 [facility] [place] Respitory Rate 2013-02-07 17:00:00 Memori al Mateusz Temperature Oral (F) 2013-02-07 17:00:00 97.0 F [facility] [place] Systolic (mm Hg) 2013-02-07 17:00:00 Jn rial [place] Systolic (mm Hg) 2013-02-07 12:00:00 Jn rial Mateusz Diastolic (mm Hg) 2013-02-07 12:00:00 Mem orial [place] Respitory Rate 2013-02-07 12:00:00 Memori al Mateusz Temperature Oral (F) 2013-02-07 12:00:00 96.3 F Memorial Mateusz Heart Rate 2013-02-07 12:00:00 Memorial Mateusz Heart Rate 2013-02-07 08:51:00 [facility] [place] Temperature Oral (F) 2013-02-07 08:51:00 97.8 F [facility] [place] Systolic (mm Hg) 2013-02-07 08:51:00 Jn rial Mateusz Diastolic (mm Hg) 2013-02-07 08:51:00 Mem orial [place] Respitory Rate 2013-02-07 00:41:00 Memori al [place] Weight 2013-02-06 17:49:00 [facility] [place] Height 2013-02-06 17:49:00 157.48 cm [facility] [place] Procedures Procedure Date / Time Performed Performing Clinician Anusha Augustine Mateusz ABEL [facility] Mateusz Encounters Start End Encounter Admission Attending Care Care Encounter Source Date/Time Date/Time Type Type Clinicians Facility Department ID 2020-01-06 2020-01-06 Laboratory Lab, [facility] [id number] 09:23:20 09:43:20 Only Fam Pob I Health [id number] [place] [id number] Professio [id number] [place] [id number] [address] 2020-01-06 2020-01-06 Laboratory Lab, [facility] Fam Pob I [facility] [id number] Univers 09:23:20 09:43:20 Only Anene, Beatrice [facility] [id number] ity of [place] [id number] [place] as Professio [phone] [place] [address] Branch [address] 2020-01-06 2020-01-06 Outpatient R [facility] [id number] Univers 09:00:00 09:00:[address] [facility] 2019-07-21 2019-07-21 Ambulatory nullFlavo [facility] [id number] Memoria 19:45:00 19:45:00 Pre-Reg r Neurology 00 l [place] 2019-07-21 2019-07-21 [place] [id number] Memoria 19:45:00 19:45:00 Pre-Reg r Neurology 00 l [place] Mateusz 2019-07-21 2019-07-21 Outpatient RADHAIE KOKI [id number] Memoria 13:45:00 13:45:00 00 l [place] 2019-07-21 2019-07-21 Outpatient HAYDE BowersSCHBARBARA RAMEY [id number] 13:45:00 13:45:00 Gunnar [place] 2013-02-06 2013-02-07 OU nullFlavo [facility] [id number] Memoria 17:09:00 15:00:00 Medical 58 l [facility] 2013-02-06 2013-02-07 OU nullFlavo [facility] [id number] Memoria 17:09 15:00:00 [facility] 58 l [facility] Results Test Description Test Time Test Comments Results Result Comments Source Thyroid Stimulating Hormone 2018-11-22 22:27:55 Test Item Value Reference Range Interpretation Comme nts TSH (test code = TSH) 0.445 mIU/mL 0.270-4.200 Erythrocyte Sedimentation Rate [id number] 22:20:13 Test Item Value Reference Range Interpretation Comments ESR STAT (test code = ESR STAT) 8 mm/hr 0-20 Comprehensive Metabolic [id number] 21:59:49 Test Item Value Reference Range Interpretation [...] A/G 1.6 ratio N Ratio) Comprehensive Metabolic [id number] 21:59:49 Test Item Value Reference Range Interpretation [...] not provided, and t he patient is femarabella le, multiply by 0.7 42. Results for pat ients <18 years of ag e have not been validated by e MDRD study and should be interpreted wit h caution. eGFR R esult Interpretation: eGFR > or = 60 is in the Normal RangeeGF R < 60 may mean kid helio diseaseeGFR < 1 5 may mean kidney failure Rang es recommended by the National Kidney Foundation, http://nkdep.ni h.gov Lipid [id number] 21:59:49 Test Item Value Reference Range Interpretation Comments Cholesterol Total 294 mg/dL 0-200 H RISK OF HE ART (test code = DISEASEPublishe d by Cholesterol Total) [employer] Sowmya lyte Optimal Borderl ine [...] is greater than 40 0. Comprehensive Metabolic [id number] 21:59:49 Test Item Value Reference Range Interpretation [...] not provided, and t he patient is -Suzna n, multiply by 1.2 12. If sex [...] Foundation, http://nkdep.ni h.gov Complete Blood Count with [id number] 21:52:58 Test Item Value Reference Range Interpretation [...] code = IPF) 0 % N Automated Ztsxzkgmhlzn5468-05-26 21:52:58 Test Item Value Reference Range Interpretation Comments Neutro Auto (test code = Neutro 62.7 % 36.0-70.0 Auto) Lymph Auto (test code = Lymph Auto) 28.3 % 12.0-44.0 Lucas Auto (test code = Lucas Auto) 7.6 % 0.0-11.0 Eos, Auto (test code = Eos, Auto) 0.7 % 0.0-7.0 Basophil Auto (test code = Basophil 0.3 % 0.0-2.0 Auto) Neutro Absolute (test code = Neutro 5.7 x10 1.6-7.4 Absolute) Lymph Absolute (test code = Lymph 2.56 x10 .50-4.60 Absolute) Lucas Absolute (test code = Lucas .69 x10 .00-1.20 Absolute) Eos Absolute (test code = Eos 0.06 x10 0.00-0.74 Absolute) Baso Absolute (test code = Baso 0.03 x10 0.00-0.21 Absolute) Pro B Natriuretic [id number] 21:52:58 Test Item Value Reference Range Interpretation Comments NT-proBNP (test code = NT-proBNP) 80 pg/mL 0-124 IG [id number] 21:52:58 Test Item Value Reference Range Interpretation Comments IG (test code = IG) 0.4 % 0.0-5.0 IG Abs (test code = IG Abs) 0 x10 N [id number] 12:35:11 Test Item Value Reference Range Interpretation Comments LDL Direct (test code = LDL Direct) 144 [facility]LL[facility]5538[facility]-76 12:35:11 Test Item Value Reference Range Interpretation Comments LDL Direct (test code = LDL Direct) 144 H [facility] HospitalGrmsqdzWRVYTKIME9500-51-69 08:00:00 Test Item Value Reference Range Interpretation Comments AGAP (test code = AGAP) 13.1 10.0-20.0 N [facility] HospitalJpvythiIAKRDNPTN9085-73-18 08:00:00 Test Item Value Reference Range Interpretation Comments eGFR (test code = eGFR) 96 [facility] HospitalOsxasxlIOCGCUHZF5491-13-94 08:00:00 Test Item Value Reference Range Interpretation Comments Creatinine Lvl (test code = Creatinine 0.7 0.5-1.4 N Lvl) [facility]MummddzAUPDHEDFT3953-06-68 08:00:00 Test Item Value Reference Range Interpretation Comments BUN (test code = BUN) 18 7-22 N [facility] HospitalBwjkipqGAFMVOKGD0092-96-28 08:00:00 Test Item Value Reference Range Interpretation Comments Glucose Lvl (test code = Glucose Lvl) 101 70-99 H [facility] HospitalUfcjjifORAFXZWWA8953-68-34 08:00:00 Test Item Value Reference Range Interpretation Comments Sodium Lvl (test code = Sodium Lvl) 142 135-145 N [facility] HospitalCvikxkpXVOSRXOAV7570-03-61 08:00:00 Test Item Value Reference Range Interpretation Comments Calcium Lvl (test code = Calcium Lvl) 8.3 8.5-10.5 L [facility] HospitalReetrktVWIYRTXQL2531-64-97 08:00:00 Test Item Value Reference Range Interpretation Comments CO2 (test code = CO2) 23 24-32 L [facility] HospitalAiszpyoLMSTXYPHZ1552-70-30 08:00:00 Test Item Value Reference Range Interpretation Comments Chloride Lvl (test code = Chloride Lvl) 110 95-109 H [facility] HospitalWlrevzwOUFPOAERI7056-31-61 08:00:00 Test Item Value Reference Range Interpretation Comments Potassium Lvl (test code = Potassium 4.1 3.5-5.1 N Lvl) [facility] HospitalLoosbogKJDKTAHNQ9055-63-09 08:00:00 Test Item Value Reference Range Interpretation Comments LDL (test code = LDL) See Note mg/dL 5*NA*(02/07/2013 03:00:00) [facility] HospitalVikrueeQLHYNTNXI1617-96-49 08:00:00 Test Item Value Reference Range Interpretation Comments CHD Risk (test code = CHD Risk) 8.45 3.90-5.80 H [facility] HospitalThlvatwQWBQGTYRC7385-91-08 08:00:00 Test Item Value Reference Range Interpretation Comments HDL (test code = HDL) 29 L [facility] HospitalMbpkoixXWQPYITPI2050-42-15 08:00:00 Test Item Value Reference Range Interpretation Comments Trig (test code = Trig) 531 H [facility] HospitalCxiduhpQQMFOVHNH6557-55-68 08:00:00 Test Item Value Reference Range Interpretation Comments Chol (test code = Chol) 245 H [facility] HospitalNduwuobDPMACVFAGV0445-23-05 08:00:00 Test Item Value Reference Range Interpretation Comments Basophils (test code = 0.7 See_Comment N [Aut omated message] The Basophils) system which ge nerated this result tra nsmitted reference range : <=1.0. The reference r charan was not used to int erpret this result as normal/abnormal . [facility] HospitalQihsbriZWPDPOGNUM7557-97-36 08:00:00 Test Item Value Reference Range Interpretation Comments Segs-Bands # (test code = Segs-Bands #) 3.6 1.5-8.1 N [facility] H[id number] 08:00:00 Test Item Value Reference Range Interpretation Comments Lymphocytes # (test code = Lymphocytes 3.1 1.0-5.5 N #) [facility] HospitalGnmmjedREFVGJWUZD7787-13-37 08:00:00 Test Item Value Reference Range Interpretation Comments Monocytes # (test code 0.6 See_Comment N [Aut omated message] The = Monocytes #) system which generated this result tra nsmitted reference range : <=0.8. The reference r charan was not used to int erpret this result as normal/abnormal . [facility] HospitalQifjykoZYQANAIWZS1228-71-87 08:00:00 Test Item Value Reference Range Interpretation Comments Eosinophils # (test code 0.1 See_Comment N [A utomated message] The = Eosinophils #) system whic h generated this result tra nsmitted reference range : <=0.5. The reference r charan was not used to int erpret this result as normal/abnormal . [facility] HospitalLygpplhXRVCPLQFIQ7459-53-76 08:00:00 Test Item Value Reference Range Interpretation Comments Basophils # (test code 0.1 See_Comment N [Aut omated message] The = Basophils #) system which generated this result tra nsmitted reference range : <=0.2. The reference r charan was not used to int erpret this result as normal/abnormal . [facility] HospitalFygzqngUZKHHBSMLR2835-03-77 08:00:00 Test Item Value Reference Range Interpretation Comments Eosinophils (test code = 1.7 See_Comment N [A utomated message] The Eosinophils) system which ge nerated this result tra nsmitted reference range : <=4.0. The reference r charan was not used to int erpret this result as normal/abnormal . [facility] HospitalUcnamtvRCCBDOCTRT5458-29-01 08:00:00 Test Item Value Reference Range Interpretation Comments Monocytes (test code = Monocytes) 8.0 2.0-12.0 N [facility] HospitalWvllzsfUFOJILFVYP8231-27-78 08:00:00 Test Item Value Reference Range Interpretation Comments Segs (test code = Segs) 48.0 45.0-75.0 N [facility] HospitalZapefixFAZHFJZWHF2760-06-22 08:00:00 Test Item Value Reference Range Interpretation Comments Lymphocytes (test code = Lymphocytes) 41.6 20.0-40.0 H [facility] HospitalMabsorhYBNEJLWLTX7622-69-86 08:00:00 Test Item Value Reference Range Interpretation Comments RBC (test code = RBC) 3.87 4.20-5.40 L [facility] HospitalMrydshmEXMMPOBSOC6772-94-80 08:00:00 Test Item Value Reference Range Interpretation Comments WBC (test code = WBC) 7.4 3.7-10.4 N [facility] HospitalVzyspszELGOJHPYUS3652-18-57 08:00:00 Test Item Value Reference Range Interpretation Comments Hgb (test code = Hgb) 11.9 12.0-16.0 L [facility] HospitalWlujcemXPPTWUMASY5226-00-55 08:00:00 Test Item Value Reference Range Interpretation Comments Hct (test code = Hct) 35.2 36.0-48.0 L [facility] HospitalTtjuzmxILAAVUMTSF5715-71-14 08:00:00 Test Item Value Reference Range Interpretation Comments MCV (test code = MCV) 90.8 81.0-99.0 N [facility] HospitalXsmhhhxTGPZCSIGCO8787-93-73 08:00:00 Test Item Value Reference Range Interpretation Comments MCH (test code = MCH) 30.7 pg 27.0-31.0 N [facility] HospitalRildowmKIBRYGQQWP7902-95-00 08:00:00 Test Item Value Reference Range Interpretation Comments RDW (test code = RDW) 13.3 11.5-14.5 N [facility] HospitalVmewdchBIZPZSRRAQ3038-62-32 08:00:00 Test Item Value Reference Range Interpretation Comments MCHC (test code = MCHC) 33.9 32.0-36.0 N [facility] HospitalF[id number] 08:00:00 Test Item Value Reference Range Interpretation Comments Platelet (test code = Platelet) 279 133-450 N [facility] HospitalBosqgmfXWGPILMBMX6065-74-45 08:00:00 Test Item Value Reference Range Interpretation Comments MPV (test code = MPV) 7.5 7.4-10.4 N [facility] HospitalCfkfswtHISPYSMBF0156-58-78 08:00:00 Test Item Value Reference Range Interpretation Comments AGAP (test code = AGAP) 13.1 10.0-20.0 N [facility] HospitalAvldppsJCXMSREZO9587-96-14 08:00:00 Test Item Value Reference Range Interpretation Comments eGFR (test code = eGFR) 96 [facility] HospitalDpxvhzpJHPPASXAB9094-61-47 08:00:00 Test Item Value Reference Range Interpretation Comments Creatinine Lvl (test code = Creatinine 0.7 0.5-1.4 N Lvl) [facility] HospitalCrssuthLLKEYLHXW7269-87-91 08:00:00 Test Item Value Reference Range Interpretation Comments BUN (test code = BUN) 18 7-22 N [facility] HospitalKzdcsycMAGLVCRQS1922-67-03 08:00:00 Test Item Value Reference Range Interpretation Comments Glucose Lvl (test code = Glucose Lvl) 101 70-99 H [facility] HospitalWitagjrXOOKKPKLJ1506-97-70 08:00:00 Test Item Value Reference Range Interpretation Comments Sodium Lvl (test code = Sodium Lvl) 142 135-145 N [facility] HospitalLoatsbhSTHKSSEWK7309-85-87 08:00:00 Test Item Value Reference Range Interpretation Comments Calcium Lvl (test code = Calcium Lvl) 8.3 8.5-10.5 L [facility] HospitalSfxacazCCDGCDDIZ5058-17-78 08:00:00 Test Item Value Reference Range Interpretation Comments CO2 (test code = CO2) 23 24-32 L [facility] HospitalSvpiotmEMKBINYRQ6996-28-26 08:00:00 Test Item Value Reference Range Interpretation Comments Chloride Lvl (test code = Chloride Lvl) 110 95-109 H [facility] HospitalUcufxkjUXLYDCRLS5762-92-36 08:00:00 Test Item Value Reference Range Interpretation Comments Potassium Lvl (test code = Potassium 4.1 3.5-5.1 N Lvl) [facility] HospitalYzsfmtzRVVVDREJX1503-65-02 08:00:00 Test Item Value Reference Range Interpretation Comments LDL (test code = LDL) See Note mg/dL 5*NA*(02/07/2013 03:00:00) [facility] HospitalWkzhkpmSXTWDVWVT8372-31-99 08:00:00 Test Item Value Reference Range Interpretation Comments CHD Risk (test code = CHD Risk) 8.45 3.90-5.80 H [facility] HospitalMvohabeCXVQGXOSI6022-51-86 08:00:00 Test Item Value Reference Range Interpretation Comments HDL (test code = HDL) 29 L [facility] HospitalLusjutbIIKVTKGTV0186-28-71 08:00:00 Test Item Value Reference Range Interpretation Comments Trig (test code = Trig) 531 H [facility] HospitalUtuuzeyQZPPLQPAS7580-11-51 08:00:00 Test Item Value Reference Range Interpretation Comments Chol (test code = Chol) 245 H [facility] HospitalYprsrfuOHOSMTOLCR7628-23-19 08:00:00 Test Item Value Reference Range Interpretation Comments Basophils (test code = 0.7 See_Comment N [Aut omated message] The Basophils) system which ge nerated this result tra nsmitted reference range : <=1.0. The reference r charan was not used to int erpret this result as normal/abnormal . [facility] HospitalFggbqteAGPAPJOWHZ6619-83-55 08:00:00 Test Item Value Reference Range Interpretation Comments Segs-Bands # (test code = Segs-Bands #) 3.6 1.5-8.1 N [facility] HospitalUaiialnFFYLERXBZB7100-22-89 08:00:00 Test Item Value Reference Range Interpretation Comments Lymphocytes # (test code = Lymphocytes 3.1 1.0-5.5 N #) [facility] HospitalVampyyjEVDSZIMSVS3752-96-90 08:00:00 Test Item Value Reference Range Interpretation Comments Monocytes # (test code 0.6 See_Comment N [Aut omated message] The = Monocytes #) system which generated this result tra nsmitted reference range : <=0.8. The reference r charan was not used to int erpret this result as normal/abnormal . [facility] HospitalMdxhhifFETPOHPVLF0060-08-32 08:00:00 Test Item Value Reference Range Interpretation Comments Eosinophils # (test code 0.1 See_Comment N [A utomated message] The = Eosinophils #) system whic h generated this result tra nsmitted reference range : <=0.5. The reference r charan was not used to int erpret this result as normal/abnormal . [facility] HospitalPujvqxdZRBLVKNBIU7546-36-99 08:00:00 Test Item Value Reference Range Interpretation Comments Basophils # (test code 0.1 See_Comment N [Aut omated message] The = Basophils #) system which generated this result tra nsmitted reference range : <=0.2. The reference r charan was not used to int erpret this result as normal/abnormal . [facility] HospitalXuhxfdwZEIXCOGXNF8147-43-02 08:00:00 Test Item Value Reference Range Interpretation Comments Eosinophils (test code = 1.7 See_Comment N [A utomated message] The Eosinophils) system which ge nerated this result tra nsmitted reference range : <=4.0. The reference r charan was not used to int erpret this result as normal/abnormal . [facility] HospitalEqgtaadLFPPXBRGZE3629-06-89 08:00:00 Test Item Value Reference Range Interpretation Comments Monocytes (test code = Monocytes) 8.0 2.0-12.0 [facility]IvqnccwTURJDRENSQ9001-45-12 08:00:00 Test Item Value Reference Range Interpretation Comments Segs (test code = Segs) 48.0 45.0-75.0 N [facility] HospitalBxnvkveUNWEVJTLRN9720-69-41 08:00:00 Test Item Value Reference Range Interpretation Comments Lymphocytes (test code = Lymphocytes) 41.6 20.0-40.0 [facility] HospitalXnnukkkBGMGISBGSI5570-02-52 08:00:00 Test Item Value Reference Range Interpretation Comments RBC (test code = RBC) 3.87 4.20-5.40 [facility] HospitalHoeenziNXKBLNNNOZ9607-83-40 08:00:00 Test Item Value Reference Range Interpretation Comments WBC (test code = WBC) 7.4 3.7-10.4 N [facility] HospitalWzxqcfjRYPYIFMDEH5783-53-53 08:00:00 Test Item Value Reference Range Interpretation Comments Hgb (test code = Hgb) 11.9 12.0-16.0 L [facility] HospitalAdfeqekHXXVOMCHLX1246-91-73 08:00:00 Test Item Value Reference Range Interpretation Comments Hct (test code = Hct) 35.2 36.0-48.0 L [facility] HospitalJbdlcquFQXOFJNORV1019-11-42 08:00:00 Test Item Value Reference Range Interpretation Comments MCV (test code = MCV) 90.8 81.0-99.0 N [facility] HospitalVylecyjGDXUQOQTGY9079-23-41 08:00:00 Test Item Value Reference Range Interpretation Comments MCH (test code = MCH) 30.7 pg 27.0-31.0 N [facility] HospitalJweoapsDOTVRBBDJY9647-76-93 08:00:00 Test Item Value Reference Range Interpretation Comments RDW (test code = RDW) 13.3 11.5-14.5 N [facility] HospitalFcmdazjTKMJBDTABI0930-87-08 08:00:00 Test Item Value Reference Range Interpretation Comments MCHC (test code = MCHC) 33.9 32.0-36.0 N [facility] HospitalOlrsoabIKHVSVRZJT8510-00-43 08:00:00 Test Item Value Reference Range Interpretation Comments Platelet (test code = Platelet) 279 133-450 N [facility] HospitalXtsvjrkMYQAOAXYRI0658-23-02 08:00:00 Test Item Value Reference Range Interpretation Comments MPV (test code = MPV) 7.5 7.4-10.4 N [facility] HospitalHiyezggWRDHSZQTML3012-41-34 18:53:00 Test Item Value Reference Range Interpretation Comments MCHC (test code = MCHC) 33.5 32.0-36.0 N [facility] HospitalOlowapcBSTTCIWEZT5813-33-15 18:53:00 Test Item Value Reference Range Interpretation Comments MCH (test code = MCH) 29.8 pg 27.0-31.0 N [facility] HospitalJllspidCOFCHSTTIX5992-05-60 18:53:00 Test Item Value Reference Range Interpretation Comments Platelet (test code = Platelet) 305 133-450 N [facility] HospitalGkpidevLSUSITWJAX6851-99-09 18:53:00 Test Item Value Reference Range Interpretation Comments RDW (test code = RDW) 12.4 11.5-14.5 N [facility] HospitalKcflfymSLGUGGHCKF9784-70-31 18:53:00 Test Item Value Reference Range Interpretation Comments MCV (test code = MCV) 89.0 81.0-99.0 N [facility] HospitalCfmjxxvMELFFNMQTD9931-02-82 18:53:00 Test Item Value Reference Range Interpretation Comments Hgb (test code = Hgb) 13.3 12.0-16.0 N [facility] HospitalKwxiiooEWDIZQALDH1306-28-83 18:53:00 Test Item Value Reference Range Interpretation Comments RBC (test code = RBC) 4.45 4.20-5.40 N [facility] HospitalGksglhcUZAJLOZXLF3451-90-75 18:53:00 Test Item Value Reference Range Interpretation Comments Hct (test code = Hct) 39.6 36.0-48.0 N [facility] HospitalBmthwvfOWGUOMTJBB5262-86-67 18:53:00 Test Item Value Reference Range Interpretation Comments WBC (test code = WBC) 8.3 3.7-10.4 N [facility]YrxfmbsYSKZOQLQR7220-00-15 18:53:00 Test Item Value Reference Range Interpretation Comments eGFR (test code = eGFR) 96 [facility] HospitalTegwlczNPXRXCEJC7700-64-89 18:53:00 Test Item Value Reference Range Interpretation Comments Sodium Lvl (test code = Sodium Lvl) 140 135-145 N [facility] HospitalMkjesigRKRPXTLUR2985-59-31 18:53:00 Test Item Value Reference Range Interpretation Comments Potassium Lvl (test code = Potassium 3.9 3.5-5.1 N Lvl) [facility] HospitalOoxfxcxMBHZIOTUD0839-61-02 18:53:00 Test Item Value Reference Range Interpretation Comments Chloride Lvl (test code = Chloride Lvl) 105 95-109 N [facility] HospitalQyryhfzXTBMQIVYR3303-75-93 18:53:00 Test Item Value Reference Range Interpretation Comments CO2 (test code = CO2) 28 24-32 N [facility] HospitalFuzkyhmTAUVUCTZS0551-90-06 18:53:00 Test Item Value Reference Range Interpretation Comments Glucose Lvl (test code = Glucose Lvl) 92 70-99 N [facility] HospitalAodeireSHUAENKAD2831-42-90 18:53:00 Test Item Value Reference Range Interpretation Comments BUN (test code = BUN) 14 7-22 N [facility] HospitalDvwkuxnCUBBLWFLP1808-32-59 18:53:00 Test Item Value Reference Range Interpretation Comments Creatinine Lvl (test code = Creatinine 0.7 0.5-1.4 N Lvl) [facility] HospitalBcygqtbHKSDZHZPS8391-06-68 18:53:00 Test Item Value Reference Range Interpretation Comments Calcium Lvl (test code = Calcium Lvl) 9.1 8.5-10.5 N [facility] HospitalKxtwsmsRIWHKJQDN3004-33-43 18:53:00 Test Item Value Reference Range Interpretation Comments AGAP (test code = AGAP) 10.9 10.0-20.0 N [facility] HospitalCwxdqgySYCLIOWNST1555-92-18 18:53:00 Test Item Value Reference Range Interpretation Comments Basophils # (test code 0.1 See_Comment N [Aut omated message] The = Basophils #) system which generated this result tra nsmitted reference range : <=0.2. The reference r charan was not used to int erpret this result as normal/abnormal . [facility] HospitalCdcfhcbSXUDXGADXS5295-19-50 18:53:00 Test Item Value Reference Range Interpretation Comments Lymphocytes # (test code = Lymphocytes 2.8 1.0-5.5 N #) [facility] HospitalOlytenrFOAEPOEJRQ2071-55-63 18:53:00 Test Item Value Reference Range Interpretation Comments Eosinophils # (test code 0.1 See_Comment N [A utomated message] The = Eosinophils #) system whic h generated this result tra nsmitted reference range : <=0.5. The reference r charan was not used to int erpret this result as normal/abnormal . [facility] HospitalTddzrjgQNXKARICYJ1738-53-74 18:53:00 Test Item Value Reference Range Interpretation Comments Monocytes # (test code 0.7 See_Comment N [Aut omated message] The = Monocytes #) system which generated this result tra nsmitted reference range : <=0.8. The reference r charan was not used to int erpret this result as normal/abnormal . [facility] HospitalNgsnywzUFYZARXPQY4592-15-95 18:53:00 Test Item Value Reference Range Interpretation Comments Segs-Bands # (test code = Segs-Bands #) 4.6 1.5-8.1 N [facility] HospitalOkoagfwVVPZAMAMIK2467-79-86 18:53:00 Test Item Value Reference Range Interpretation Comments Basophils (test code = 1.0 See_Comment N [Aut omated message] The Basophils) system which ge nerated this result tra nsmitted reference range : <=1.0. The reference r charan was not used to int erpret this result as normal/abnormal . [facility] HospitalSlwhyovFGPXKTSYEV4093-01-24 18:53:00 Test Item Value Reference Range Interpretation Comments Lymphocytes (test code = Lymphocytes) 34.0 20.0-40.0 N [facility] HospitalHzuijhpSBEVAJYUZP6522-54-01 18:53:00 Test Item Value Reference Range Interpretation Comments Eosinophils (test code = 1.3 See_Comment N [A utomated message] The Eosinophils) system which ge nerated this result tra nsmitted reference range : <=4.0. The reference r charan was not used to int erpret this result as normal/abnormal . [facility] HospitalHftkkpnWENKPQGMWF4144-47-95 18:53:00 Test Item Value Reference Range Interpretation Comments Monocytes (test code = Monocytes) 8.4 2.0-12.0 N [facility] HospitalBiwfjotNUALUXNUVA8986-44-74 18:53:00 Test Item Value Reference Range Interpretation Comments Segs (test code = Segs) 55.3 45.0-75.0 N [facility] HospitalArifcvgZGLAMVSCBW8634-87-45 18:53:00 Test Item Value Reference Range Interpretation Comments PTT (test code = PTT) 27.3 s 22.9-35.8 N [facility] HospitalFosmwspPHKQMRZDAY2885-43-78 18:53:00 Test Item Value Reference Range Interpretation Comments PT (test code = PT) 13.3 s 12.0-14.7 N [facility] HospitalWmddhuiVTPTTOSGCC0225-14-55 18:53:00 Test Item Value Reference Range Interpretation Comments INR (test code = INR) 1.02 0.85-1.17 N [facility] HospitalZmiqmgkZMYGPJUNTQ0152-84-59 18:53:00 Test Item Value Reference Range Interpretation Comments MPV (test code = MPV) 7.2 7.4-10.4 L [facility] HospitalKdomzhiYYTQOPVBZW3623-86-00 18:53:00 Test Item Value Reference Range Interpretation Comments MCHC (test code = MCHC) 33.5 32.0-36.0 N [facility] HospitalIdzvlozUFWFXEAVAB3286-01-50 18:53:00 Test Item Value Reference Range Interpretation Comments MCH (test code = MCH) 29.8 pg 27.0-31.0 N [facility] HospitalChfknyaITNTXBKQVX7615-29-39 18:53:00 Test Item Value Reference Range Interpretation Comments Platelet (test code = Platelet) 305 133-450 N [facility] HospitalYolkgtvSAHYTUSHBV2196-55-45 18:53:00 Test Item Value Reference Range Interpretation Comments RDW (test code = RDW) 12.4 11.5-14.5 N [facility] HospitalMvaqjtjLTCFZKAKTT1899-44-23 18:53:00 Test Item Value Reference Range Interpretation Comments MCV (test code = MCV) 89.0 81.0-99.0 N [facility] HospitalAngrgabGYABJGACLO6695-07-64 18:53:00 Test Item Value Reference Range Interpretation Comments Hgb (test code = Hgb) 13.3 12.0-16.0 N [facility] HospitalErdfokqEDGBJVCUGC6510-70-74 18:53:00 Test Item Value Reference Range Interpretation Comments RBC (test code = RBC) 4.45 4.20-5.40 N [facility] HospitalLmazjavCXJQCNKCFM0579-58-85 18:53:00 Test Item Value Reference Range Interpretation Comments Hct (test code = Hct) 39.6 36.0-48.0 N [facility] HospitalQsydliaAFBADYCQTG7592-97-97 18:53:00 Test Item Value Reference Range Interpretation Comments WBC (test code = WBC) 8.3 3.7-10.4 N [facility] HospitalWzommxgWUJMIREAP7387-40-03 18:53:00 Test Item Value Reference Range Interpretation Comments eGFR (test code = eGFR) 96 [facility] HospitalHazwqxwLBEBRYVZG5631-16-45 18:53:00 Test Item Value Reference Range Interpretation Comments Sodium Lvl (test code = Sodium Lvl) 140 135-145 N [facility] HospitalFrxktluQPIPYEAWA7342-10-45 18:53:00 Test Item Value Reference Range Interpretation Comments Potassium Lvl (test code = Potassium 3.9 3.5-5.1 N Lvl) [facility] HospitalDsfihjuSIHQSJDUL9775-06-62 18:53:00 Test Item Value Reference Range Interpretation Comments Chloride Lvl (test code = Chloride Lvl) 105 95-109 N [facility] HospitalGgjegdxNBUNDNYVB7130-36-91 18:53:00 Test Item Value Reference Range Interpretation Comments CO2 (test code = CO2) 28 24-32 N [facility] HospitalTbgopznVOXELSTHF9736-23-43 18:53:00 Test Item Value Reference Range Interpretation Comments Glucose Lvl (test code = Glucose Lvl) 92 70-99 N [facility] HospitalDbdgxfrDNYDWMGAS9194-08-81 18:53:00 Test Item Value Reference Range Interpretation Comments BUN (test code = BUN) 14 7-22 N [facility] HospitalGukcujdBZBKEKQGR1440-37-56 18:53:00 Test Item Value Reference Range Interpretation Comments Creatinine Lvl (test code = Creatinine 0.7 0.5-1.4 N Lvl) [facility] HospitalTrzzvrhYXDSVVRVD5384-01-51 18:53:00 Test Item Value Reference Range Interpretation Comments Calcium Lvl (test code = Calcium Lvl) 9.1 8.5-10.5 N [facility] HospitalTyieejqHWANXCNIZ7262-59-86 18:53:00 Test Item Value Reference Range Interpretation Comments AGAP (test code = AGAP) 10.9 10.0-20.0 N [facility] HospitalXopahnzPNPKXQBCMI4552-51-21 18:53:00 Test Item Value Reference Range Interpretation Comments Basophils # (test code 0.1 See_Comment N [Aut omated message] The = Basophils #) system which generated this result tra nsmitted reference range : <=0.2. The reference r charan was not used to int erpret this result as normal/abnormal . [facility] HospitalNvjbadmIGVAXGFDCE1687-99-00 18:53:00 Test Item Value Reference Range Interpretation Comments Lymphocytes # (test code = Lymphocytes 2.8 1.0-5.5 N #) [facility] HospitalWjjieryNAKWHGGLSX5371-69-81 18:53:00 Test Item Value Reference Range Interpretation Comments Eosinophils # (test code 0.1 See_Comment N [A utomated message] The = Eosinophils #) system whic h generated this result tra nsmitted reference range : <=0.5. The reference r charan was not used to int erpret this result as normal/abnormal . [facility] HospitalIgsgxsnLVGDQNQBMU6516-40-50 18:53:00 Test Item Value Reference Range Interpretation Comments Monocytes # (test code 0.7 See_Comment N [Aut omated message] The = Monocytes #) system which generated this result tra nsmitted reference range : <=0.8. The reference r charan was not used to int erpret this result as normal/abnormal . [facility] HospitalXhfrbzoPUEGIZUFGN3500-68-81 18:53:00 Test Item Value Reference Range Interpretation Comments Segs-Bands # (test code = Segs-Bands #) 4.6 1.5-8.1 N [facility] HospitalXthfzbjCSVWHGJYPP1636-84-14 18:53:00 Test Item Value Reference Range Interpretation Comments Basophils (test code = 1.0 See_Comment N [Aut omated message] The Basophils) system which ge nerated this result tra nsmitted reference range : <=1.0. The reference r charan was not used to int erpret this result as normal/abnormal . [facility] HospitalOthpsfaDXJWJZRBGJ2570-83-49 18:53:00 Test Item Value Reference Range Interpretation Comments Lymphocytes (test code = Lymphocytes) 34.0 20.0-40.0 N [facility] HospitalQfdxvsmTDSDNIRHDP9756-67-81 18:53:00 Test Item Value Reference Range Interpretation Comments Eosinophils (test code = 1.3 See_Comment N [A utomated message] The Eosinophils) system which ge nerated this result tra nsmitted reference range : <=4.0. The reference r charan was not used to int erpret this result as normal/abnormal . [facility] HospitalKcrydzpYTJXOKBIVJ6258-90-38 18:53:00 Test Item Value Reference Range Interpretation Comments Monocytes (test code = Monocytes) 8.4 2.0-12.0 N [facility] HospitalYozhseqUKCWVLLDXY5831-16-42 18:53:00 Test Item Value Reference Range Interpretation Comments Segs (test code = Segs) 55.3 45.0-75.0 N [facility] HospitalKbtnpurFDPZLRVDSM0920-96-02 18:53:00 Test Item Value Reference Range Interpretation Comments PTT (test code = PTT) 27.3 s 22.9-35.8 N [facility] HospitalImlntwqQZOABDFFUE8899-74-26 18:53:00 Test Item Value Reference Range Interpretation Comments PT (test code = PT) 13.3 s 12.0-14.7 N [facility] HospitalObpeewrWGVFTABGJU4248-33-93 18:53:00 Test Item Value Reference Range Interpretation Comments INR (test code = INR) 1.02 0.85-1.17 N [facility] HospitalFewshbgZMSHERNRXC3670-48-59 18:53:00 Test Item Value Reference Range Interpretation Comments MPV (test code = MPV) 7.2 7.4-10.4 L [facility]
[2022-06-28 20:18] LABS: Absolute Lymphocytes (CBC) 2.6 K/uL (0.7-4.9); Hematocrit 39.2 % (36.0-45.0); Lymphocytes % 25.5 % (15.3-44.8); MPV 7.5 fL (7.6-11.3); Protime INR 1.09
[2022-06-28 20:38] LABS: ALT/SGPT 20 U/L (13-56); Albumin 3.6 g/dL (3.4-5.0); Alkaline Phosphatase 95 U/L (45-117); BUN Blood Urea Nitrogen 23 mg/dL (7-18); Bicarbonate 25 mmol/L (21-32); Bilirubin Total 0.2 mg/dL (0.2-1.0); Glomerular Filtration Rate 82 ml/min (=/>90); Glucose Level 107 mg/dL (74-106); NT PRO-BNP 319 pg/mL (<125); Protein, Total 7.4 g/dL (6.4-8.2); Sodium Level 142 mmol/L (136-145); Troponin High Sensitivity 8.3 pg/mL (<58.9)
[2022-06-28 20:45] LABS: AST/SGOT 24 U/L (15-37); Bilirubin Direct < 0.1 mg/dL (0-0.2); Magnesium 2.1 mg/dL (1.6-2.4); Potassium 3.7 mmol/L (3.5-5.1)
[2022-06-28 21:51] LABS: Urine Blood Negative (Negative); Urine Glucose Negative (Negative); Urine Protein Trace (Negative); Urine Specific Gravity 1.025 (1.005-1.030); Urine pH 5.5 (5.0-7.0)
--- NOTE | 2022-06-28 22:10 | RAD REPORT ---
EXAM DESCRIPTION: Shanika Single View06/28/2022 9:21 pm CLINICAL HISTORY: Syncope COMPARISON: April 2022 FINDINGS: The lungs appear clear of acute infiltrate. The heart is normal size IMPRESSION: No acute abnormalities displayed
--- NOTE | 2022-06-28 22:14 | RAD REPORT ---
EXAM DESCRIPTION: CT - Head Brain Wo Cont - 06/28/2022 9:55 pm CLINICAL HISTORY: Alteration of awareness/confusion/syncope COMPARISON: April 2022 TECHNIQUE: Computed axial tomography of the head was obtained. IV contrast was not requested. All CT scans are performed using dose optimization technique as appropriate and may include automated exposure control or mA/KV adjustment according to patient size. FINDINGS: An intracranial bleed is not seen The ventricles are normal in caliber No extra-axial fluid collection is noted. 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 Fluid within the sinuses/ mastoids is not seen. IMPRESSION: No acute intracranial abnormality is seen If patient's symptoms persist MRI of the brain would be recommended
[2022-06-28 22:21] LABS: Urine Bacteria None Seen /HPF (<20); Urine Mucus Slight /HPF (None Seen); Urine RBC <5 /HPF (None Seen)
--- NOTE | 2022-06-28 22:40 | EDPHYS ---
Physician Documentation [facility] Name: Jeni Johnson Age: 67 yrs Sex: Female : 1955 Arrival Date: 06/28/2022 Time: 19:25 Bed 15 Private MD: ED Physician Henny Cunningham HPI: 06/28 19:50 This 67 yrs old Female presents to ER via EMS with complaints of Syncope. cp 19:50 The patient has experienced syncope, lost consciousness. Onset: The symptoms/episode cp began/occurred just prior to arrival. Duration: This was a single episode, that lasted an unknown period of time. Context: the episode(s) was witnessed, by a friend, occurred mormonism, occurred while the patient was sitting, Just prior to the episode the patient experienced no apparent symptoms. 19:50 Associated injury: The patient did not suffer any apparent associated injury. cp Associated signs and symptoms: Pertinent positives: nausea, 1 episode of vomiting. Historical: - Allergies: 19:46 No Known Allergies; jb4 - Home Meds: 19:46 lisinopril 10 mg Oral tab 1 tab once daily [Active]; jb4 - PMHx: 19:46 Hypertension; jb4 - Immunization history:: Adult Immunizations unknown. - Social history:: Smoking status: unknown. ROS: 19:55 Constitutional: Negative for body aches, chills, fever, poor PO intake. cp 19:55 Eyes: Negative for injury, pain, redness, and discharge. cp 19:55 ENT: Negative for drainage from ear(s), ear pain, sore throat, difficulty swallowing, cp difficulty handling secretions. 19:55 Neck: Negative for pain with movement, pain at rest, stiffness. 19:55 Cardiovascular: Negative for chest pain, edema, palpitations. 19:55 Respiratory: Negative for cough, shortness of breath, wheezing. 19:55 Abdomen/GI: Positive for nausea, vomiting, Negative for abdominal pain, diarrhea, constipation, black/tarry stool, rectal bleeding. 19:55 Back: Negative for pain at rest, pain with movement. 19:55 Neuro: Positive for syncope, Negative for altered mental status, dizziness, headache, weakness. 19:55 All other systems are negative. Exam: 20:00 Constitutional: The patient appears in no acute distress, alert, awake, cp non-diaphoretic, non-toxic, well developed, well nourished. 20:00 Head/Face: Normocephalic, atraumatic. cp 20:00 Eyes: Periorbital structures: appear normal, Pupils: equal, round, and reactive to light and accomodation, Extraocular movements: intact throughout, Conjunctiva: normal, no exudate, no injection, Sclera: no appreciated abnormality, Lids and lashes: appear normal, bilaterally. 20:00 ENT: External ear(s): are unremarkable, Ear canal(s): are normal, clear, TM's: dullness, bilaterally, Nose: is normal, Mouth: Lips: moist, Oral mucosa: pink and intact, moist, Posterior pharynx: is normal, airway is patent, no erythema, no exudate. 20:00 Neck: C-spine: vertebral tenderness, is not appreciated, crepitus, is not appreciated, ROM/movement: is normal, is supple, without pain, no range of motions limitations. 20:00 Chest/axilla: Inspection: normal, Palpation: crepitus, is not appreciated, tenderness, is not appreciated. 20:00 Cardiovascular: Rate: normal, Rhythm: regular, Edema: is not appreciated, JVD: is not appreciated. 20:00 Respiratory: the patient does not display signs of respiratory distress, Respirations: normal, no use of accessory muscles, no retractions, labored breathing, is not present, Breath sounds: are clear throughout, no decreased breath sounds, no stridor, no wheezing. 20:00 Abdomen/GI: Inspection: abdomen appears normal, Bowel sounds: active, all quadrants, Palpation: abdomen is soft and non-tender, in all quadrants. 20:00 Neuro: Orientation: to person, place \T\ time. Mentation: is normal, Cerebellar function: Romberg testing is negative, normal finger to nose testing, heel to metzger testing is normal, Motor: moves all fours, strength is normal, Sensation: is normal. 22:36 ECG was reviewed by the Attending Physician. cp Vital Signs: 19:25 BP 181 / 92; Pulse 63; Resp 16; Temp 98.4(O); Pulse Ox 99% on R/A; Weight 64.86 kg (R); jb4 Height 5 ft. 2 in. (157.48 cm) (R); Pain 0/10; 20:00 BP 131 / 80 LA Supine (auto/reg); Pulse 80; Resp 18; Pulse Ox 98% on R/A; jb4 20:01 BP 158 / 75 LA Sitting (auto/reg); Pulse 80; Resp 16; Pulse Ox 98% on R/A; jb4 20:02 BP 146 / 74 LA Standing (auto/reg); Pulse 80; Resp 16; Pulse Ox 99% on R/A; jb4 21:16 BP 150 / 81; Pulse 69; Resp 13; Pulse Ox 100% on R/A; jb4 22:30 BP 153 / 82; Pulse 70; Resp 16; Pulse Ox 99% on R/A; jb4 19:25 Body Mass Index 26.15 (64.86 kg, 157.48 cm) jb4 MDM: 19:30 Patient medically screened. cp 20:00 Differential Diagnosis: cardiac arrhythmia, drug effect, GI bleed, idiopathic syncope, cp seizure, vasovagal episode. 22:38 Data reviewed: vital signs, nurses notes, lab test result(s), EKG, radiologic studies, cp CT scan, plain films. Consideration of Admission/Observation Escalation of care including admission/observation considered. Test considered but Not performed: Other Details cardiac echo. 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 Refusal of service: The patient/guardian displays adequate decision making capability and despite a detailed discussion of alternatives, benefits, risks, and consequences refuses: Admission to the hospital for further work-up and treatment. 06/28 19:43 Order name: Basic Metabolic Panel; Complete Time: 20:48 cp 06/28 20:49 Interpretation: Normal except: CL 111; GLUC 107; BUN 23; GFR 82. cp 06/28 19:43 Order name: CBC with Diff; Complete Time: 20:48 cp 06/28 19:43 Order name: LFT's; Complete Time: 20:48 cp 06/28 19:43 Order name: Magnesium; Complete Time: 20:48 cp 06/28 19:43 Order name: NT PRO-BNP; Complete Time: 20:48 cp 06/28 19:43 Order name: PT-INR; Complete Time: 20:48 cp 06/28 19:43 Order name: Troponin HS; Complete Time: 20:48 cp /04 20:49 Interpretation: Reviewed. cp 02 19:43 Order name: XRAY Chest (1 view); Complete Time: 22:24 cp 06/28 19:43 Order name: EKG; Complete Time: 19:44 cp 06/28 19:43 Order name: Urine Microscopic Only; Complete Time: 22:24 cp / 21:15 Order name: CT Head Brain wo Cont; Complete Time: 22:24 ds4 06/28 22:24 Interpretation: Report reviewed. cp 06/28 21:51 Order name: Urine Dipstick-Ancillary; Complete Time: 22:24 EDMS 06/28 19:43 Order name: Orthostatics; Complete Time: 20:09 cp 06/28 19:43 Order name: Cardiac monitoring; Complete Time: 20:51 cp 06/28 19:43 Order name: EKG - Nurse/Tech; Complete Time: 20:51 cp 06/28 19:43 Order name: IV Saline Lock; Complete Time: 20:09 cp 06/28 19:43 Order name: Labs collected and sent; Complete Time: 20:09 cp 06/28 19:43 Order name: O2 Per Protocol; Complete Time: 20:09 cp 06/28 19:43 Order name: O2 Sat Monitoring; Complete Time: 20:09 cp 06/28 19:43 Order name: Urine Dipstick-Ancillary (obtain specimen); Complete Time: 21:48 cp EC:36 Rate is 69 beats/min. Rhythm is regular. AK interval is normal. QRS interval is normal. cp QT interval is normal. T waves are Inverted in lead aVR. Interpreted by me. Reviewed by me. Administered Medications: 20:09 Not Given (Patient Refused): Zofran (Ondansetron) 4 mg IVP once; over 2 minutes jb4 Disposition: 06/29 06:48 I reviewed the patient's care provided by the Advanced Practice Provider and agree with sd2 the diagnosis and treatment plan. Disposition Summary: 06/28/22 22:39 Discharge Ordered Location: Home cp Problem: new cp Symptoms: have improved cp Condition: Stable cp Diagnosis - Syncope cp Followup: cp - With: Honorio Blake MD - When: 2 - 3 days - Reason: Recheck today's complaints Discharge Instructions: - Discharge Summary Sheet cp - Syncope cp - Aspirin and Your Heart cp Forms: - Medication Reconciliation Form cp - Thank You Letter cp - Antibiotic Education cp - Prescription Opioid Use cp Signatures: Dispatcher [employer] EDMS Jd Taveras PA PA cp Bryson, James, RN RN jb4 Henny Cunningham MD MD sd2 Corrections: (The following items were deleted from the chart) 06/28 22:35 22:34 This 67 yrs old Female presents to ER via EMS with complaints of cp Syncope. cp
--- NOTE | 2022-06-28 22:40 | ER ---
Nurse's Notes [facility] Name: Jeni Johnson Age: 67 yrs Sex: Female : 1955 Arrival Date: 06/28/2022 Time: 19:25 Bed 15 Private MD: Diagnosis: Syncope Presentation: 06/28 19:25 Chief complaint: EMS states: Pt was at [employer] and passed out. After passing out pt jb4 vomited on herself. BGL was 107. Pt is now A\T\O x4. 19:25 Coronavirus screen: At this time, the client does not indicate any symptoms associated jb4 with coronavirus-19. Ebola Screen: No symptoms or risks identified at this time. Initial Sepsis Screen: Does the patient meet any 2 criteria? No. Patient's initial sepsis screen is negative. Does the patient have a suspected source of infection? No. Patient's initial sepsis screen is negative. Risk Assessment: Do you want to hurt yourself or someone else? Patient reports no desire to harm self or others. Onset of symptoms was June 28, 2022. Transition of care: patient was not received from another setting of care. 19:25 Method Of Arrival: EMS: [facility] jb4 19:25 Acuity: CHET 3 jb4 Historical: - Allergies: 19:46 No Known Allergies; jb4 - Home Meds: 19:46 lisinopril 10 mg Oral tab 1 tab once daily [Active]; jb4 - PMHx: 19:46 Hypertension; jb4 - Immunization history:: Adult Immunizations unknown. - Social history:: Smoking status: unknown. Screenin:48 [facility] ED Fall Risk Assessment (Adult) History of falling in the last 3 months, jb4 including since admission No falls in past 3 months (0 pts) Confusion or Disorientation No (0 pts) Score/Fall Risk Level 0 - 2 = Low Risk Oriented to surroundings, Maintained a safe environment. Abuse screen: Denies threats or abuse. Nutritional screening: No deficits noted. Tuberculosis screening: No symptoms or risk factors identified. Assessment: 19:25 General: Appears in no apparent distress. comfortable, Behavior is calm, cooperative, jb4 appropriate for age. Pain: Denies pain. Neuro: Level of Consciousness is awake, alert, obeys commands, Oriented to person, place, time, situation. Cardiovascular: Patient's skin is warm and dry. Respiratory: Airway is patent Respiratory effort is even, unlabored, Respiratory pattern is regular, symmetrical. GI: No signs and/or symptoms were reported involving the gastrointestinal system. Patient currently denies nausea, vomiting. : No signs and/or symptoms were reported regarding the genitourinary system. EENT: No signs and/or symptoms were reported regarding the EENT system. Derm: Skin is intact, Skin is pink, warm \T\ dry. Musculoskeletal: Circulation, motion, and sensation intact. Range of motion: intact in all extremities. 20:30 Reassessment: Patient appears in no apparent distress at this time. Patient and/or jb4 family updated on plan of care and expected duration. Pain level reassessed. Patient is alert, oriented x 3, equal unlabored respirations, skin warm/dry/pink. 21:30 Reassessment: Patient appears in no apparent distress at this time. Patient and/or jb4 family updated on plan of care and expected duration. Pain level reassessed. Patient is alert, oriented x 3, equal unlabored respirations, skin warm/dry/pink. 22:59 Reassessment: Patient appears in no apparent distress at this time. Patient and/or jb4 family updated on plan of care and expected duration. Pain level reassessed. Patient is alert, oriented x 3, equal unlabored respirations, skin warm/dry/pink. Vital Signs: 19:25 BP 181 / 92; Pulse 63; Resp 16; Temp 98.4(O); Pulse Ox 99% on R/A; Weight 64.86 kg (R); jb4 Height 5 ft. 2 in. (157.48 cm) (R); Pain 0/10; 20:00 BP 131 / 80 LA Supine (auto/reg); Pulse 80; Resp 18; Pulse Ox 98% on R/A; jb4 20:01 BP 158 / 75 LA Sitting (auto/reg); Pulse 80; Resp 16; Pulse Ox 98% on R/A; jb4 20:02 BP 146 / 74 LA Standing (auto/reg); Pulse 80; Resp 16; Pulse Ox 99% on R/A; jb4 21:16 BP 150 / 81; Pulse 69; Resp 13; Pulse Ox 100% on R/A; jb4 22:30 BP 153 / 82; Pulse 70; Resp 16; Pulse Ox 99% on R/A; jb4 19:25 Body Mass Index 26.15 (64.86 kg, 157.48 cm) jb4 ED Course: 19:25 Patient arrived in ED. jb4 19:26 Jd Taveras PA is PHCP. cp 19:26 Henny Cunningham MD is Attending Physician. cp 19:44 Torey Zeng, RN is Primary Nurse. jb4 19:46 Triage completed. jb4 19:46 Arm band placed on right wrist. jb4 19:48 Patient has correct armband on for positive identification. Bed in low position. Call jb4 light in reach. Side rails up X 1. Client placed on continuous cardiac and pulse oximetry monitoring. NIBP monitoring applied. 21:23 XRAY Chest (1 view) In Process Unspecified. EDMS 21:57 CT Head Brain wo Cont In Process Unspecified. EDMS 22:39 Honorio Blake MD is Referral Physician. cp 23:00 No provider procedures requiring assistance completed. IV discontinued, intact, jb4 bleeding controlled, No redness/swelling at site. Pressure dressing applied. Administered Medications: 20:09 Not Given (Patient Refused): Zofran (Ondansetron) 4 mg IVP once; over 2 minutes jb4 Medication: 22:30 VIS not applicable for this client. jb4 Outcome: 22:39 Discharge ordered by . cp 23:00 Discharged to home ambulatory, with family. jb4 23:00 Condition: stable 23:00 Discharge instructions given to patient, family, Instructed on discharge instructions, follow up and referral plans. Demonstrated understanding of instructions, follow-up care. 23:01 Patient left the ED. jb4 Signatures: Dispatcher [employer] EDOR Jd Taveras PA PA cp Torey Zeng, RN RN jb4
[2022-06-28 23:17] VITALS: TEMP 98.4
[2022-06-28 23:24] VITALS: BP 153/82; O2SAT 99
== END 2022-06-28 23:01 | disposition home or self-care (01) ==
LOC: ER 19:18
DX: R55 Syncope and collapse (principal); R11.2 Nausea with vomiting, unspecified; I10 Essential (primary) hypertension
CPT/HCPCS: 36415; 70450; 71045; 80048; 80076; 81003; 81015; 83735; 83880; 84484; 85025; 85610; 93005; 99283

== ENCOUNTER 2022-08-11 11:28 | Emergency (ER) | payer OTHER ==
--- OUTSIDE RECORDS SUMMARY | 2022-08-11 11:51 | XMS REPORT | Continuity of Care Document ---
:1955 Author Organization [facility] t Address [address] [address] Care Team Providers Name Role Phone Lab, [...] 18:02:00 l Active 00:00: Mateusz 02/06/2013 00 [facility] TIA TIA Diagnosis Active 2013-02-07 Mem oria Active 02-06 12:05:00 l 02/06/2013 00:00: Edmundo georges [address] TRANS TRANS Diagnosis Active 2013-02-07 Mem oria CEREB CEREB 12:05:00 l ISCHEMIA ISCHEMIA Edmundo georges NEC NEC Active [facility] Arthritis Arthritis Problem Resolve 2019-07-23 Memoria (disorder) (disorder) d 22:45:28 l Resolved [place] Problem 07/23/2019 [facility] Hyperlipid Hyperlipi Problem [...] 2013-02-09 Memoria Resolved d 21:14:51 l Problem [place] 02/09/2013 [facility] Hyperlipid Hyperlipi Problem Resolve 2013-02-09 Memoria emia demia d 21:14:51 l Resolved Mateusz Problem 02/09/2013 [facility] LASIK LASIK Problem Resolve 2013-02-09 Jn sal Resolved d 21:14:51 l Problem [place] 02/09/2013 [facility] Allergies, Adverse Reactions, Alerts Allergy Allergy Status Severity Reaction(s) Onset Inactive Treating Comm ents Source Name Type Date Date Clinician No Known No Known Active Memori a Medicati Medicati l on on [place] Allergie Allergie s s NO KNOWN Drug Active [facility] ALLERGIE Class ity of [facility] Social History Social Habit Start Date Stop Date Quantity Comments Source Sex Assigned At [facility] Exposure to Yes [facility] SARS-CoV-2 [facility] (event) Branch Alcohol intake 2015-04-09 2015-04-09 Current University of 00:00:00 00:00:00 non-drinker of [facility] alcohol Branch (finding) Smoking Status Start Date Stop Date Source Current every day smoker 2015-04-09 00:00:00 [facility] Medications Ordered Filled Start Stop Current Ordering Indication Dosage Frequency Signature Comments Components Source Medication Medication Date Date Medication? Clinician (SIG) Name Name HUSSEIN 20 2014-05 Yes 20mg Take 20 mg U nivers mg tablet 0-26 by mouth ity of 00:00: at [place] 00 bedtime. Medical Branch atorvastati Yes Pay[place] 80 mg, 1 Memoria n 80 mg 9-16 Joellen tab, PO, l oral tablet 18:23: Brown Daily, 30 [place] 46 tab, Substituti on Allowed, TAB atorvastati Yes [place] 80 mg, 1 Memoria n 80 mg 9-16 Joellen tab, PO, l oral tablet 18:23: Brown Daily, 30 Mateusz 46 tab, Substituti on Allowed, TAB atorvastati Yes Payton 80 mg, 1 Memoria n 80 mg 9-16 Joellen tab, PO, l oral tablet 18:23: Brown Daily, 30 [place] 46 tab, Substituti on Allowed, TAB aspirin 81 Yes [place] 81 mg, 1 Memoria mg tablet, 02-07 Joellen tab, PO, l enteric 18:23: Brown Daily, 30 Herm aleksandra coated 38 tab, Substituti on Allowed, ECTAB aspirin 81 0 Yes Payton 81 mg, 1 Memoria mg tablet, 9- Joellen tab, PO, l enteric 18:23: Brown Daily, 30 Herm aleksandra coated 38 tab, Substituti on Allowed, ECTAB aspirin 81 Yes Payton 81 mg, 1 Memoria mg tablet, 02-07 Joellen tab, PO, l enteric 18:23: Brown Daily, 30 Herm aleksandra coated 38 tab, Substituti on Allowed, ECTAB atorvastati 0 No Peace 80 mg, 1 M emoria n -16 Luis tab, l 14:00: Leon Route: PO, Edmundo n 00 Drug form: TAB, Daily, Dosing Weight 72.727, kg, Start date: 02/07/13 9:00:00, Duration: 30 day, Stop date: 03/08/13 9:00:00 aspirin 0 No Peace 81 mg, 1 Memor ia 02-07 Luis tab, l 14:00: Leon Route: PO, Edmundo n 00 Drug form: ECTAB, Daily, Dosing Weight 72.727, kg, Start date: 02/07/13 9:00:00, Duration: 30 day, Stop date: 03/08/13 9:00:00 atorvastati 0 No Peace 80 mg, 1 M emoria [...] No Peace 81 mg, 1 Memor ia 02-07 Luis tab, l 14:00: Leon Route: PO, Edmundo n 00 Drug form: ECTAB, Daily, Dosing Weight 72.727, kg, Start date: 02/07/13 9:00:00, Duration: 30 day, Stop date: 03/08/13 9:00:00 heparin 2012-0 No Peace 5,000 Memoria -16 Luis unit, 1 l 13:00: Leon mL, Route: Edmundo n 00 SUB-Q, Drug form: INJ, Q8H, Dosing Weight 72.727, kg, Start date: 02/07/13 8:00:00, Duration: 30 day, Stop date: 03/09/13 0:00:00 heparin 2012-0 No Peace 5,000 Memoria -16 Luis unit, [...] 30 day, Stop date: 03/09/13 0:00:00 Saline 2012-0 No Lien 5 ml, Memoria Flush 0.9% 02-07 Yoshii-Con Route: l 02:00: treras IVP, Drug Edmundo n 00 Form: INJ, Dosing Weight 72.727, kg, Q12H, Start date: 02/06/13 21:00:00, Duration: 30 day, Stop date: 03/08/13 9:00:00 Saline 2012-0 No October 27 ml, Memoria Flush 0.9% 9-16 Yoshii-Con Route: l 02:00: treras IVP, Drug Edmundo n 00 Form: INJ, Dosing Weight 72.727, kg, Q12H, Start date: 02/06/13 21:00:00, Duration: 30 day, Stop date: 03/08/13 9:00:00 Saline 2012-0 No October 27 ml, Memoria Flush 0.9% 9-16 Yoshii-Con Route: l 02:00: treras IVP, Drug Edmundo n 00 Form: INJ, Dosing Weight 72.727, kg, Q12H, Start date: 02/06/13 21:00:00, Duration: 30 day, Stop date: 03/08/13 9:00:00 Zantac 2012-0 Yes Substituti Memor ia 9-15 on Allowed l 22:49: [place] 00 Zantac 0 Yes Substituti Memor ia 9-15 on Allowed l 22:49: [place] 00 Zantac 2012-0 Yes Substituti Memor ia 9-15 on Allowed l 22:49: Mateusz 00 Multiple Yes 1 cap, PO, Mem oria Vitamins 9-15 Daily, 30 l oral 22:48: cap, [place] capsule 47 Substituti on Allowed, Maintenanc e, CAP Multiple Yes 1 cap, PO, Mem oria Vitamins 9-15 Daily, 30 l oral 22:48: cap, [place] capsule 47 Substituti on Allowed, Maintenanc e, CAP Multiple Yes 1 cap, PO, Mem oria Vitamins 9-15 Daily, 30 l oral 22:48: cap, Mateusz capsule 47 Substituti on Allowed, Maintenanc e, CAP Saline 2012-0 No October 27 ml, Memoria Flush 0.9% 9-15 Yoshii-Con Route: l 22:09: treras IVP, Drug Edmundo n 00 Form: INJ, Dosing Weight 72.727, kg, PRN, PRN Line Flush, Start date: 02/06/13 17:09:00, Duration: 30 day, Stop date: 03/08/13 17:08:00 labetalol 2012-0 No October 10 mg, 2 Jn sal 9-15 Yoshii-Con mL, Route: l 22:09: treras IVP, Drug Edmundo n 00 form: INJ, Q10Min, Dosing Weight 72.727, kg, PRN Hypertensi on, Start date: 02/06/13 17:09:00, Duration: 30 day, Stop date: 03/08/13 17:08:00, For SBP > 180mmHg and/or DBP > 105mmHg Sodium 2012-0 No Payton 1,000 mL, Mem oria Chloride 9-15 Joellen Rate: 100 l 0.9% IV 22:09: Brown ml/hr, Mateusz 1,000 mL 00 Infuse over: 10 hr, Route: IV, Dosing Weight 72.727 kg, Total Volume: 1,000, Start date: 02/06/13 17:09:00, Stop date: 03/08/13 17:08:00 Saline 2012-0 No October 5 ml, Memoria Flush 0.9% 9-15 Yoshii-Con Route: l 22:09: treras IVP, Drug Edmundo n 00 Form: INJ, Dosing Weight 72.727, kg, PRN, PRN Line Flush, Start date: 02/06/13 17:09:00, Duration: 30 day, Stop date: 03/08/13 17:08:00 labetalol 2012-0 No October 10 mg, 2 Jn sal 9-15 Yoshii-Con mL, Route: l 22:09: treras IVP, Drug Edmundo n 00 form: INJ, Q10Min, Dosing Weight 72.727, kg, PRN Hypertensi on, Start date: 02/06/13 17:09:00, Duration: 30 day, Stop date: 03/08/13 17:08:00, For SBP > 180mmHg and/or DBP > 105mmHg Sodium 2012-0 No Payton 1,000 mL, Mem oria Chloride [...] 02-06 Anderson Route: l 19:37: IVP, Drug [place] 00 Form: SOLN, Dosing Weight 72.727, kg, ONCALL, STAT, Start date: 02/06/13 14:37:00, Duration: 1 doses or times, Dose = 2.2ml/kg, Max dose = 100ml -- "To be infused by Radiology Staff ONLY"Dose = 2.2ml/kg, Max dose = 100ml -- "To be infused by Radiology Staff ONLY" Omnipaque No Miriam 85 mL, Jn sal 350mg/ml 02-06 Anderson Route: l 19:37: IVP, Drug [place] 00 Form: SOLN, Dosing Weight 72.727, kg, [...] Diastolic (mm Hg) 2013-02-07 17:00:00 Mem orial Mateusz Heart Rate 2013-02-07 17:00:00 Memorial Mateusz Respitory Rate 2013-02-07 17:00:00 Memori al Mateusz Temperature Oral (F) 2013-02-07 17:00:00 97.0 F Memorial Mateusz Systolic (mm Hg) 2013-02-07 17:00:00 Jn rial Mateusz Systolic (mm Hg) 2013-02-07 12:00:00 Jn rial Mateusz Diastolic (mm Hg) 2013-02-07 12:00:00 Mem orial [place] Respitory Rate 2013-02-07 12:00:00 Memori al Mateusz Temperature Oral (F) 2013-02-07 12:00:00 96.3 F Memorial Mateusz Heart Rate 2013-02-07 12:00:00 [facility] [place] Heart Rate 2013-02-07 08:51:00 [facility] [place] Temperature Oral (F) 2013-02-07 08:51:00 97.8 F [facility] [place] Systolic (mm Hg) 2013-02-07 08:51:00 Jn rial Mateusz Diastolic (mm Hg) 2013-02-07 08:51:00 Mem orial Maetusz Respitory Rate 2013-02-07 00:41:00 Memori al Mateusz Weight 2013-02-06 17:49:00 [facility] [place] Height 2013-02-06 17:49:00 157.48 cm [facility] Mateusz Procedures Procedure Date / Time Performed Performing Clinician Anusha Augustine [place] ROMAN [facility] [place] Encounters Start End Encounter Admission Attending Care Care Encounter Source Date/Time Date/Time Type Type Clinicians Facility Department ID 2020-01-06 2020-01-06 Laboratory Lab, [facility] [id number] 09:23:20 09:43:20 Only Fam Pob I Health [id number] [place] [id number] Professio [id number] [place] [address] [address] 2020-01-06 2020-01-06 Laboratory Lab, [facility] Fam Pob I [facility] [id number]. [id number] Univers 09:23:20 09:43:20 Only Anene, [facility] [id number] ity of [place] [id number] [place] as Professio [id number] Me dical [address] Office [address] 2020-01-06 2020-01-06 Outpatient R [facility] [id number] Univers 09:00:00 09:00:00 ity of [facility] 2019-07-21 2019-07-21 Ambulatory nullFlavo MNA [id number] Memoria 19:45:00 19:45:00 Pre-Reg r Neurology 00 l Joseph [place] 2019-07-21 2019-07-21 Ambulatory nullFlavo MNA [id number] Memoria 19:45:00 19:45:00 Pre-Reg r Neurology 00 l Joseph [place] 2019-07-21 2019-07-21 Outpatient [id number] 13:45:00 13:45:00 [place] 2013-02-06 2013-02-07 OU nullFlavo [facility] [id number] Memoria 17:09:00 15:00:00 r Medical 58 l [place] 2013-02-06 2013-02-07 OU nullFlavo [facility] [id number] Memoria 17:09:00 15:00:00 r [place] [address] l [facility] Results Test Description Test Time Test Comments Results Result Comments Source Thyroid Stimulating Hormone 2018-11-22 22:27:55 Test Item Value Reference Range Interpretation Comme nts TSH (test code = TSH) 0.445 mIU/mL 0.270-4.200 Erythrocyte Sedimentation Rate [id number] 22:20:13 Test Item Value Reference Range Interpretation Comments ESR STAT (test code = ESR STAT) 8 mm/hr 0-20 Comprehensive Metabolic [id number] 21:59:49 Test Item Value Reference Range Interpretation [...] A/G 1.6 ratio N Ratio) Comprehensive Metabolic [id number] 21:59:49 Test Item Value Reference Range Interpretation [...] the National Kidney Foundation, http://nkdep.ni h.gov Lipid [id number] 21:59:49 Test Item Value Reference Range Interpretation Comments Cholesterol Total 294 mg/dL 0-200 H RISK OF HE ART (test code = DISEASEPublishe d by Cholesterol Total) [employer] Sowmya lyte Optimal Borderl ine [...] is greater than 40 0. Comprehensive Metabolic [id number] 21:59:49 Test Item Value Reference Range Interpretation [...] Foundation, http://nkdep.ni h.gov Complete Blood Count with [id number] 21:52:58 Test Item Value Reference Range Interpretation [...] code = IPF) 0 % N Automated [id number] 21:52:58 Test Item Value Reference Range Interpretation Comments Neutro Auto (test code = Neutro 62.7 % 36.0-70.0 Auto) Lymph Auto (test code = Lymph Auto) 28.3 % 12.0-44.0 Crittenden Auto (test code = Crittenden Auto) 7.6 % 0.0-11.0 Eos, Auto (test code = Eos, Auto) 0.7 % 0.0-7.0 Basophil Auto (test code = Basophil 0.3 % 0.0-2.0 Auto) Neutro Absolute (test code = Neutro 5.7 x10 1.6-7.4 Absolute) Lymph Absolute (test code = Lymph 2.56 x10 .50-4.60 Absolute) Cr[place]enden Absolute (test code = Cr[place]enden .69 x10 .00-1.20 Absolute) Eos Absolute (test code = Eos 0.06 x10 0.00-0.74 Absolute) Baso Absolute (test code = Baso 0.03 x10 0.00-0.21 Absolute) Pro B Natriuretic [id number] 21:52:58 Test Item Value Reference Range Interpretation Comments NT-proBNP (test code = NT-proBNP) 80 pg/mL 0-124 IG [id number] 21:52:58 Test Item Value Reference Range Interpretation Comments IG (test code = IG) 0.4 % 0.0-5.0 IG Abs (test code = IG Abs) 0 x10 N [id number] 12:35:11 Test Item Value Reference Range Interpretation Comments LDL Direct (test code = LDL Direct) [facility]wgfwajBUWYPAALB0836-52-70 12:35:11 Test Item Value Reference Range Interpretation Comments LDL Direct (test code = LDL Direct) 144 [facility] CenterJoretvwRNLHDKUCO2376-88-14 12:35:11 Test Item Value Reference Range Interpretation Comments LDL Direct (test code = LDL Direct) 144 [facility] CenterWyskfecBBVGUUXDUM5496-34-20 08:00:00 Test Item Value Reference Range Interpretation Comments Segs (test code = Segs) 48.0 45.0-75.0 N [facility]CbdvpgqCMNWCWZDPW5345-50-32 08:00:00 Test Item Value Reference Range Interpretation Comments Lymphocytes (test code = Lymphocytes) 41.6 20.0-40.0 H [facility] RockLlndnhwVBRNEFZOCW8194-22-85 08:00:00 Test Item Value Reference Range Interpretation Comments RBC (test code = RBC) 3.87 4.20-5.40 L [facility] Tyl[id number] 08:00:00 Test Item Value Reference Range Interpretation Comments WBC (test code = WBC) 7.4 3.7-10.4 N [facility] Tyl[id number] 08:00:00 Test Item Value Reference Range Interpretation Comments Hgb (test code = Hgb) 11.9 12.0-16.0 L [facility] TylerQxcixvaJBEXLBCARJ4892-94-33 08:00:00 Test Item Value Reference Range Interpretation Comments Hct (test code = Hct) 35.2 36.0-48.0 L [facility] TylerYxrulkjWHTYKADXYY4452-62-03 08:00:00 Test Item Value Reference Range Interpretation Comments MCV (test code = MCV) 90.8 81.0-99.0 N [facility] TylerWqqidumOGVCPVWJJQ5143-83-68 08:00:00 Test Item Value Reference Range Interpretation Comments MCH (test code = MCH) 30.7 pg 27.0-31.0 N [facility] TylerZlcqsluSJQPEXBPPT6188-53-43 08:00:00 Test Item Value Reference Range Interpretation Comments RDW (test code = RDW) 13.3 11.5-14.5 N [facility] TylerAadahqlRYDAZDDVNV1821-72-39 08:00:00 Test Item Value Reference Range Interpretation Comments MCHC (test code = MCHC) 33.9 32.0-36.0 N [facility] TylerKumewzlFNHLSDGOPJ4646-90-69 08:00:00 Test Item Value Reference Range Interpretation Comments Platelet (test code = Platelet) 279 133-450 N [facility] TylerLyahrqhMSNYSLBKKL0825-18-52 08:00:00 Test Item Value Reference Range Interpretation Comments MPV (test code = MPV) 7.5 7.4-10.4 N [facility] HospitalBvltzkoGDXDTGFDQ3937-51-36 08:00:00 Test Item Value Reference Range Interpretation Comments AGAP (test code = AGAP) 13.1 10.0-20.0 N [facility] HospitalIezsqntTLUENBZZC2981-11-66 08:00:00 Test Item Value Reference Range Interpretation Comments eGFR (test code = eGFR) 96 [facility] HospitalAjffvgwBUZYKEBLO0302-53-25 08:00:00 Test Item Value Reference Range Interpretation Comments Creatinine Lvl (test code = Creatinine 0.7 0.5-1.4 N Lvl) [facility] HospitalHauyadfVRRZXIGHJ9423-45-04 08:00:00 Test Item Value Reference Range Interpretation Comments BUN (test code = BUN) 18 7-22 N [facility] HospitalJsvendlJMWZZJWJS0514-51-05 08:00:00 Test Item Value Reference Range Interpretation Comments Glucose Lvl (test code = Glucose Lvl) 101 70-99 H [facility] HospitalPvymtpjUUEJEZDJF9051-02-04 08:00:00 Test Item Value Reference Range Interpretation Comments Sodium Lvl (test code = Sodium Lvl) 142 135-145 N [facility] HospitalJvpxvdwEXOCAMVMR7283-92-53 08:00:00 Test Item Value Reference Range Interpretation Comments Calcium Lvl (test code = Calcium Lvl) 8.3 8.5-10.5 L [facility] HospitalRsdkqjkCLSSAUFRC9517-17-28 08:00:00 Test Item Value Reference Range Interpretation Comments CO2 (test code = CO2) 23 24-32 L [facility] HospitalLicyjgoRADNKTLIR7040-11-38 08:00:00 Test Item Value Reference Range Interpretation Comments Chloride Lvl (test code = Chloride Lvl) 110 95-109 H [facility] HospitalUddmdkyNGVZTMBXV5450-81-18 08:00:00 Test Item Value Reference Range Interpretation Comments Potassium Lvl (test code = Potassium 4.1 3.5-5.1 N Lvl) [facility] HospitalZomlmbqYWXCLWHHR2567-92-04 08:00:00 Test Item Value Reference Range Interpretation Comments LDL (test code = LDL) See Note mg/dL 5*NA*(02/07/2013 03:00:00) [facility] Hospital[id number] 08:00:00 Test Item Value Reference Range Interpretation Comments CHD Risk (test code = CHD Risk) 8.45 3.90-5.80 H [facility] Hospi[id number] 08:00:00 Test Item Value Reference Range Interpretation Comments HDL (test code = HDL) 29 L [facility] HospitalUtrulxkSCSFGFIEC6571-19-45 08:00:00 Test Item Value Reference Range Interpretation Comments Trig (test code = Trig) 531 H [facility] HospitalTrtkcxuICOWHNYYH9669-74-36 08:00:00 Test Item Value Reference Range Interpretation Comments Chol (test code = Chol) 245 H [facility] TylerCdrhhpjTMIVAZMCMV9868-11-48 08:00:00 Test Item Value Reference Range Interpretation Comments Basophils (test code = 0.7 See_Comment N [Aut omated message] The Basophils) system which ge nerated this result tra nsmitted reference range : <=1.0. The reference r charan was not used to int erpret this result as normal/abnormal . [facility] TylerLygfqvqDQMJSZHPZZ2686-84-75 08:00:00 Test Item Value Reference Range Interpretation Comments Segs-Bands # (test code = Segs-Bands #) 3.6 1.5-8.1 N [facility] TylerZcrbdouSZJURQIJQU0860-52-42 08:00:00 Test Item Value Reference Range Interpretation Comments Lymphocytes # (test code = Lymphocytes 3.1 1.0-5.5 N #) [facility] TylerOqgaqxpFCDMXGSUJA5530-82-12 08:00:00 Test Item Value Reference Range Interpretation Comments Monocytes # (test code 0.6 See_Comment N [Aut omated message] The = Monocytes #) system which generated this result tra nsmitted reference range : <=0.8. The reference r charna was not used to int erpret this result as normal/abnormal . [facility] Tyl[id number] 08:00:00 Test Item Value Reference Range Interpretation Comments Eosinophils # (test code 0.1 See_Comment N [A utomated message] The = Eosinophils #) system whic h generated this result tra nsmitted reference range : <=0.5. The reference r charan was not used to int erpret this result as normal/abnormal . [facility] TylerYinqpsyKBACVDQMFY6777-44-59 08:00:00 Test Item Value Reference Range Interpretation Comments Basophils # (test code 0.1 See_Comment N [Aut omated message] The = Basophils #) system which generated this result tra nsmitted reference range : <=0.2. The reference r charan was not used to int erpret this result as normal/abnormal . [facility] TylerCafjxqiRWXCZXAYWM6438-79-89 08:00:00 Test Item Value Reference Range Interpretation Comments Eosinophils (test code = 1.7 See_Comment N [A utomated message] The Eosinophils) system which ge nerated this result tra nsmitted reference range : <=4.0. The reference r charan was not used to int erpret this result as normal/abnormal . [facility] TylerBtwalkmXPXUWZOJAH9682-29-31 08:00:00 Test Item Value Reference Range Interpretation Comments Monocytes (test code = Monocytes) 8.0 2.0-12.0 N [facility] TylerVeunbdhSMJCKIWVJM7113-98-24 08:00:00 Test Item Value Reference Range Interpretation Comments Segs (test code = Segs) 48.0 45.0-75.0 N [facility] TylerDzlhaqjLFVMFDDDSS6179-67-17 08:00:00 Test Item Value Reference Range Interpretation Comments Lymphocytes (test code = Lymphocytes) 41.6 20.0-40.0 H [facility] TylerWbiikwkNCVHTPDWSP9827-75-15 08:00:00 Test Item Value Reference Range Interpretation Comments RBC (test code = RBC) 3.87 4.20-5.40 L [facility] TylerS[id number] 08:00:00 Test Item Value Reference Range Interpretation Comments WBC (test code = WBC) 7.4 3.7-10.4 N [facility] Tyl[id number] 08:00:00 Test Item Value Reference Range Interpretation Comments Hgb (test code = Hgb) 11.9 12.0-16.0 L [facility] TylerRewmrstZFPYSJLEXH9910-20-25 08:00:00 Test Item Value Reference Range Interpretation Comments Hct (test code = Hct) 35.2 36.0-48.0 L [facility] TylerErclsdiEDNLXQVKKO9935-51-03 08:00:00 Test Item Value Reference Range Interpretation Comments MCV (test code = MCV) 90.8 81.0-99.0 N [facility] TylerZyvephvAWGFUOARMC2820-27-37 08:00:00 Test Item Value Reference Range Interpretation Comments MCH (test code = MCH) 30.7 pg 27.0-31.0 N [facility] TylerBzeyfrcYMWWAEYTPB9973-51-34 08:00:00 Test Item Value Reference Range Interpretation Comments RDW (test code = RDW) 13.3 11.5-14.5 N [facility] TylerJymciuaDGMSYSWQPZ5540-52-55 08:00:00 Test Item Value Reference Range Interpretation Comments MCHC (test code = MCHC) 33.9 32.0-36.0 N [facility] TylerVzohdszNWXLAOJFRD9871-29-44 08:00:00 Test Item Value Reference Range Interpretation Comments Platelet (test code = Platelet) 279 133-450 N [facility] TylerJvwwnjgAPNGLMRRDT8898-94-48 08:00:00 Test Item Value Reference Range Interpretation Comments MPV (test code = MPV) 7.5 7.4-10.4 N [facility] HospitalNqaaiwiHIKPUSOCC1948-70-94 08:00:00 Test Item Value Reference Range Interpretation Comments AGAP (test code = AGAP) 13.1 10.0-20.0 N [facility] HospitalDvjhfddYGRADQZDP5009-21-12 08:00:00 Test Item Value Reference Range Interpretation Comments eGFR (test code = eGFR) 96 [facility] HospitalAuabtjkCWARRDGCI3513-83-92 08:00:00 Test Item Value Reference Range Interpretation Comments Creatinine Lvl (test code = Creatinine 0.7 0.5-1.4 N Lvl) [facility] HospitalZhimqnhUTKGMZMXD2350-85-95 08:00:00 Test Item Value Reference Range Interpretation Comments BUN (test code = BUN) 18 7-22 N [facility] HospitalJufnydiFHBNNJFZX4863-14-81 08:00:00 Test Item Value Reference Range Interpretation Comments Glucose Lvl (test code = Glucose Lvl) 101 70-99 H [facility] HospitalFboahsrDIVNNZIJP7204-87-77 08:00:00 Test Item Value Reference Range Interpretation Comments Sodium Lvl (test code = Sodium Lvl) 142 135-145 N [facility] HospitalZxkpkvwGRDATYAZX3206-44-40 08:00:00 Test Item Value Reference Range Interpretation Comments Calcium Lvl (test code = Calcium Lvl) 8.3 8.5-10.5 L [facility] Hospital[id number] 08:00:00 Test Item Value Reference Range Interpretation Comments CO2 (test code = CO2) 23 24-32 L [facility] HospitalEtansucDOJIPPOCP9105-88-39 08:00:00 Test Item Value Reference Range Interpretation Comments Chloride Lvl (test code = Chloride Lvl) 110 95-109 H [facility] HospitalQslllowWYLEQEXNI1477-57-51 08:00:00 Test Item Value Reference Range Interpretation Comments Potassium Lvl (test code = Potassium 4.1 3.5-5.1 N Lvl) [facility] HospitalTmjzpucAPLXJXRLR1364-28-06 08:00:00 Test Item Value Reference Range Interpretation Comments LDL (test code = LDL) See Note mg/dL 5*NA*(02/07/2013 03:00:00) [facility] HospitalWflgzcsFXNCGLWEG6870-80-33 08:00:00 Test Item Value Reference Range Interpretation Comments CHD Risk (test code = CHD Risk) 8.45 3.90-5.80 H [facility] HospitalUtkrzcdBKGHCTYIE2314-83-18 08:00:00 Test Item Value Reference Range Interpretation Comments HDL (test code = HDL) 29 L [facility] HospitalRotozqmXLFQPKRHV9008-85-97 08:00:00 Test Item Value Reference Range Interpretation Comments Trig (test code = Trig) [facility]ZisvdiqVIBNYVOKD2370-94-44 08:00:00 Test Item Value Reference Range Interpretation Comments Chol (test code = Chol) [address] H [facility] TylerWifxwlsYALROILBYW5287-61-06 08:00:00 Test Item Value Reference Range Interpretation Comments Basophils (test code = 0.7 See_Comment N [Aut omated message] The Basophils) system which ge nerated this result tra nsmitted reference range : <=1.0. The reference r charan was not used to int erpret this result as normal/abnormal . [facility] TylerYulziqySEDNVUFQHO3221-40-88 08:00:00 Test Item Value Reference Range Interpretation Comments Segs-Bands # (test code = Segs-Bands #) 3.6 1.5-8.1 N [facility] TylerVfwfehmJCOOMCWKKW6246-46-94 08:00:00 Test Item Value Reference Range Interpretation Comments Lymphocytes # (test code = Lymphocytes 3.1 1.0-5.5 N #) [facility] TylerVvdurtxMSCKVSJBIT5945-79-30 08:00:00 Test Item Value Reference Range Interpretation Comments Monocytes # (test code 0.6 See_Comment N [Aut omated message] The = Monocytes #) system which generated this result tra nsmitted reference range : <=0.8. The reference r charan was not used to int erpret this result as normal/abnormal . [facility] TylerPnrnnqsXGXVBZSGAH7242-37-55 08:00:00 Test Item Value Reference Range Interpretation Comments Eosinophils # (test code 0.1 See_Comment N [A utomated message] The = Eosinophils #) system whic h generated this result tra nsmitted reference range : <=0.5. The reference r charan was not used to int erpret this result as normal/abnormal . [facility] TylerWbwfmwsPGHFLSOECY0885-35-52 08:00:00 Test Item Value Reference Range Interpretation Comments Basophils # (test code 0.1 See_Comment N [Aut omated message] The = Basophils #) system which generated this result tra nsmitted reference range : <=0.2. The reference r charan was not used to int erpret this result as normal/abnormal . [facility] TylerVnfgurdMMUVWHWHKS8745-02-39 08:00:00 Test Item Value Reference Range Interpretation Comments Eosinophils (test code = 1.7 See_Comment N [A utomated message] The Eosinophils) system which ge nerated this result tra nsmitted reference range : <=4.0. The reference r charan was not used to int erpret this result as normal/abnormal . [facility] TylerSmvbxzpWDPCDXEXFK9632-72-60 08:00:00 Test Item Value Reference Range Interpretation Comments Monocytes (test code = Monocytes) 8.0 2.0-12.0 N [facility] TylerNtflwgwVTCJFFPBAE0541-77-46 08:00:00 Test Item Value Reference Range Interpretation Comments Segs (test code = Segs) 48.0 45.0-75.0 N [facility] TylerScmtsetNITVNQECLV6899-27-10 08:00:00 Test Item Value Reference Range Interpretation Comments Lymphocytes (test code = Lymphocytes) 41.6 20.0-40.0 H [facility] TylerTwoilrwHYZGXCQLVY0898-37-58 08:00:00 Test Item Value Reference Range Interpretation Comments RBC (test code = RBC) 3.87 4.20-5.40 L [facility] TylerZziwleuXJKVCFRKTT6553-07-18 08:00:00 Test Item Value Reference Range Interpretation Comments WBC (test code = WBC) 7.4 3.7-10.4 N [facility] TylerEklctqxNFLLJAQFDX1876-02-27 08:00:00 Test Item Value Reference Range Interpretation Comments Hgb (test code = Hgb) 11.9 12.0-16.0 L [facility] TylerPefcnotZOJQWHUBEL1873-55-20 08:00:00 Test Item Value Reference Range Interpretation Comments Hct (test code = Hct) 35.2 36.0-48.0 L [facility] TylerQvbbpnbTCSSQUKOJR5812-83-09 08:00:00 Test Item Value Reference Range Interpretation Comments MCV (test code = MCV) 90.8 81.0-99.0 N [facility] TylerKkarpagBRENJXAQAA3133-93-28 08:00:00 Test Item Value Reference Range Interpretation Comments MCH (test code = MCH) 30.7 pg 27.0-31.0 N [facility] TylerWlsfihjYKOOOPZMJY5088-19-30 08:00:00 Test Item Value Reference Range Interpretation Comments RDW (test code = RDW) 13.3 11.5-14.5 N [facility] TylerShgznomJZYTHSAFJB6077-36-45 08:00:00 Test Item Value Reference Range Interpretation Comments MCHC (test code = MCHC) 33.9 32.0-36.0 N [facility] TylerLsenocjPNESQCFWBU2329-54-57 08:00:00 Test Item Value Reference Range Interpretation Comments Platelet (test code = Platelet) 279 133-450 N [facility] TylerBvcfnvjEVPYUHWGGG6492-26-01 08:00:00 Test Item Value Reference Range Interpretation Comments MPV (test code = MPV) 7.5 7.4-10.4 N [facility] HospitalPkwjetmIBMBGMFTN7340-88-77 08:00:00 Test Item Value Reference Range Interpretation Comments AGAP (test code = AGAP) 13.1 10.0-20.0 N [facility] HospitalDujvyseXNWCOZYHG3297-67-87 08:00:00 Test Item Value Reference Range Interpretation Comments eGFR (test code = eGFR) 96 [facility] HospitalImlfndnMGPWSYTIU0310-10-53 08:00:00 Test Item Value Reference Range Interpretation Comments Creatinine Lvl (test code = Creatinine 0.7 0.5-1.4 N Lvl) [facility] HospitalXhlehqwBIIWFXXZS0457-27-79 08:00:00 Test Item Value Reference Range Interpretation Comments BUN (test code = BUN) 18 7-22 N [facility] HospitalRuxjxokPAIGSKQAN9971-72-55 08:00:00 Test Item Value Reference Range Interpretation Comments Glucose Lvl (test code = Glucose Lvl) 101 70-99 H [facility] HospitalSktowlaWNIEFLUSB6568-54-68 08:00:00 Test Item Value Reference Range Interpretation Comments Sodium Lvl (test code = Sodium Lvl) 142 135-145 N [facility] HospitalHkgxkgjGEJLAMNFN4967-68-40 08:00:00 Test Item Value Reference Range Interpretation Comments Calcium Lvl (test code = Calcium Lvl) 8.3 8.5-10.5 L [facility] HospitalBgelvfxYMJHVKHBJ3572-71-72 08:00:00 Test Item Value Reference Range Interpretation Comments CO2 (test code = CO2) 23 24-32 L [facility] HospitalOwgggrqXRQBNRYRP2557-96-65 08:00:00 Test Item Value Reference Range Interpretation Comments Chloride Lvl (test code = Chloride Lvl) 110 95-109 H [facility] HospitalRepvjxvJJXFQSYPS5621-14-15 08:00:00 Test Item Value Reference Range Interpretation Comments Potassium Lvl (test code = Potassium 4.1 3.5-5.1 N Lvl) [facility] HospitalSvrdqntIXXRRCQWS1763-28-16 08:00:00 Test Item Value Reference Range Interpretation Comments LDL (test code = LDL) See Note mg/dL 5*NA*(02/07/2013 03:00:00) [facility] HospitalXygjqslAXZEUNUWP4172-48-82 08:00:00 Test Item Value Reference Range Interpretation Comments CHD Risk (test code = CHD Risk) 8.45 3.90-5.80 H [facility] HospitalQbnccoaFSRXLGVUQ2772-70-63 08:00:00 Test Item Value Reference Range Interpretation Comments HDL (test code = HDL) 29 L [facility] HospitalRaneeftHJFRFXQIG3948-37-45 08:00:00 Test Item Value Reference Range Interpretation Comments Trig (test code = Trig) 531 H [facility] HospitalWzsishiLIIFBLJOG3539-74-83 08:00:00 Test Item Value Reference Range Interpretation Comments Chol (test code = Chol) 245 H [facility] TylerGwtxbnuUCNTOYDWLX7316-46-64 08:00:00 Test Item Value Reference Range Interpretation Comments Basophils (test code = 0.7 See_Comment N [Aut omated message] The Basophils) system which ge nerated this result tra nsmitted reference range : <=1.0. The reference r charan was not used to int erpret this result as normal/abnormal . [facility] TylerTbhsokqOYEUFUFXLD8894-90-17 08:00:00 Test Item Value Reference Range Interpretation Comments Segs-Bands # (test code = Segs-Bands #) 3.6 1.5-8.1 N [facility] TylerFyurljxATXAMKGMMQ9022-13-98 08:00:00 Test Item Value Reference Range Interpretation Comments Lymphocytes # (test code = Lymphocytes 3.1 1.0-5.5 N #) [facility] TylerZovtrgzQNFCTMRKKH3987-27-44 08:00:00 Test Item Value Reference Range Interpretation Comments Monocytes # (test code 0.6 See_Comment N [Aut omated message] The = Monocytes #) system which generated this result tra nsmitted reference range : <=0.8. The reference r charan was not used to int erpret this result as normal/abnormal . [facility] TylerXiiymdwFPHWJZDGQD1247-06-59 08:00:00 Test Item Value Reference Range Interpretation Comments Eosinophils # (test code 0.1 See_Comment N [A utomated message] The = Eosinophils #) system whic h generated this result tra nsmitted reference range : <=0.5. The reference r charan was not used to int erpret this result as normal/abnormal . [facility] TylerPwnbxfrSDDWQNSQEW7810-58-71 08:00:00 Test Item Value Reference Range Interpretation Comments Basophils # (test code 0.1 See_Comment N [Aut omated message] The = Basophils #) system which generated this result tra nsmitted reference range : <=0.2. The reference r charan was not used to int erpret this result as normal/abnormal . [facility] TylerBhoizftXDFWWLXMEN6220-45-24 08:00:00 Test Item Value Reference Range Interpretation Comments Eosinophils (test code = 1.7 See_Comment N [A utomated message] The Eosinophils) system which ge nerated this result tra nsmitted reference range : <=4.0. The reference r charan was not used to int erpret this result as normal/abnormal . [facility] TylerLwpieivQQXTIAYEVN1659-39-24 08:00:00 Test Item Value Reference Range Interpretation Comments Monocytes (test code = Monocytes) 8.0 2.0-12.0 N [facility] HospitalDwkwpitJRWZPBWZY2692-45-74 18:53:00 Test Item Value Reference Range Interpretation Comments eGFR (test code = eGFR) 96 [facility] HospitalIxftejtYSGTOHMNU6296-18-82 18:53:00 Test Item Value Reference Range Interpretation Comments Sodium Lvl (test code = Sodium Lvl) 140 135-145 N [facility] HospitalHbrayolPPXGHSUBN4507-51-29 18:53:00 Test Item Value Reference Range Interpretation Comments Potassium Lvl (test code = Potassium 3.9 3.5-5.1 N Lvl) [facility] HospitalVllkduxUUPZTSNTY5801-01-85 18:53:00 Test Item Value Reference Range Interpretation Comments Chloride Lvl (test code = Chloride Lvl) 105 95-109 N [facility] HospitalZmyfplnGICANQYWL6619-28-10 18:53:00 Test Item Value Reference Range Interpretation Comments CO2 (test code = CO2) 28 24-32 N [facility] HospitalIswbzdoAWHHVEYJE9133-24-45 18:53:00 Test Item Value Reference Range Interpretation Comments Glucose Lvl (test code = Glucose Lvl) 92 70-99 N [facility] HospitalHoedtrfMVATXQCOZ1211-57-23 18:53:00 Test Item Value Reference Range Interpretation Comments BUN (test code = BUN) 14 7-22 N [facility] HospitalOtgasifWZVOVEKVO1445-50-86 18:53:00 Test Item Value Reference Range Interpretation Comments Creatinine Lvl (test code = Creatinine 0.7 0.5-1.4 N Lvl) [facility] HospitalVmzjbumPCYOUKTMH4631-56-41 18:53:00 Test Item Value Reference Range Interpretation Comments Calcium Lvl (test code = Calcium Lvl) 9.1 8.5-10.5 N [facility] HospitalZlxwfckISETPMWOX2278-71-72 18:53:00 Test Item Value Reference Range Interpretation Comments AGAP (test code = AGAP) 10.9 10.0-20.0 N [facility] TylerAnsdtlqEPYEAOXAIE4030-65-97 18:53:00 Test Item Value Reference Range Interpretation Comments Basophils # (test code 0.1 See_Comment N [Aut omated message] The = Basophils #) system which generated this result tra nsmitted reference range : <=0.2. The reference r charan was not used to int erpret this result as normal/abnormal . [facility] TylerYhhsvoiRCREJMJWNV7878-64-86 18:53:00 Test Item Value Reference Range Interpretation Comments Lymphocytes # (test code = Lymphocytes 2.8 1.0-5.5 N #) [facility] TylerIbhgdbfKTQBHENAQK7896-85-67 18:53:00 Test Item Value Reference Range Interpretation Comments Eosinophils # (test code 0.1 See_Comment N [A utomated message] The = Eosinophils #) system whic h generated this result tra nsmitted reference range : <=0.5. The reference r charan was not used to int erpret this result as normal/abnormal . [facility] TylerJxoqyewTSYTUGKPKB8559-83-81 18:53:00 Test Item Value Reference Range Interpretation Comments Monocytes # (test code 0.7 See_Comment N [Aut omated message] The = Monocytes #) system which generated this result tra nsmitted reference range : <=0.8. The reference r charan was not used to int erpret this result as normal/abnormal . [facility] TylerHjpqtxbOCQYCYLDOM6171-18-24 18:53:00 Test Item Value Reference Range Interpretation Comments Segs-Bands # (test code = Segs-Bands #) 4.6 1.5-8.1 N [facility] TylerFxhfxomBWNSIQMUON5760-11-39 18:53:00 Test Item Value Reference Range Interpretation Comments Basophils (test code = 1.0 See_Comment N [Aut omated message] The Basophils) system which ge nerated this result tra nsmitted reference range : <=1.0. The reference r charan was not used to int erpret this result as normal/abnormal . [facility] TylerXwlmrxeAFIPJYGZVL5620-02-83 18:53:00 Test Item Value Reference Range Interpretation Comments Lymphocytes (test code = Lymphocytes) 34.0 20.0-40.0 N [facility] TylerUhfiadlJYFLPYOHEN0167-22-76 18:53:00 Test Item Value Reference Range Interpretation Comments Eosinophils (test code = 1.3 See_Comment N [A utomated message] The Eosinophils) system which ge nerated this result tra nsmitted reference range : <=4.0. The reference r charan was not used to int erpret this result as normal/abnormal . [facility] TylerQcycolgYSEDOXHXKY2368-61-26 18:53:00 Test Item Value Reference Range Interpretation Comments Monocytes (test code = Monocytes) 8.4 2.0-12.0 N [facility] TylerYxqaycyQTQGEMVJPZ5077-90-25 18:53:00 Test Item Value Reference Range Interpretation Comments Segs (test code = Segs) 55.3 45.0-75.0 N [facility] TylerXxznouzOZQTUBOGAY7528-64-62 18:53:00 Test Item Value Reference Range Interpretation Comments PTT (test code = PTT) 27.3 s 22.9-35.8 N [facility] TylerUglwgvtFZNPBFJITD1902-74-52 18:53:00 Test Item Value Reference Range Interpretation Comments PT (test code = PT) 13.3 s 12.0-14.7 N [facility] TylerEmdiphgGIQTNNZAOD6363-07-33 18:53:00 Test Item Value Reference Range Interpretation Comments INR (test code = INR) 1.02 0.85-1.17 N [facility] TylerBycgjqkQFPYIIJRGL0652-62-69 18:53:00 Test Item Value Reference Range Interpretation Comments MPV (test code = MPV) 7.2 7.4-10.4 L [facility] TylerHifyoxyGFBOXZFSNV0633-52-18 18:53:00 Test Item Value Reference Range Interpretation Comments MCHC (test code = MCHC) 33.5 32.0-36.0 N [facility] TylerCqcyobxPOAVJZHQEH4228-80-99 18:53:00 Test Item Value Reference Range Interpretation Comments MCH (test code = MCH) 29.8 pg 27.0-31.0 N [facility] TylerQzbgawfCYISLYKEAW6045-41-07 18:53:00 Test Item Value Reference Range Interpretation Comments Platelet (test code = Platelet) 305 133-450 N [facility] TylerDvrocneXPUJMCLOMH8686-38-75 18:53:00 Test Item Value Reference Range Interpretation Comments RDW (test code = RDW) 12.4 11.5-14.5 N [facility] TylerHposgixWVCHNXPUYA7547-64-75 18:53:00 Test Item Value Reference Range Interpretation Comments MCV (test code = MCV) 89.0 81.0-99.0 N [facility] TylerLozlrghCVDKKRXIEP9581-85-07 18:53:00 Test Item Value Reference Range Interpretation Comments Hgb (test code = Hgb) 13.3 12.0-16.0 N [facility] TylerKlxffpiJJYVIMTTVM0834-05-99 18:53:00 Test Item Value Reference Range Interpretation Comments RBC (test code = RBC) 4.45 4.20-5.40 N [facility] TylerXecjbneMVQXAXEERX5214-96-72 18:53:00 Test Item Value Reference Range Interpretation Comments Hct (test code = Hct) 39.6 36.0-48.0 N [facility] TylerNwsbbflCWOVMABWHX2171-32-95 18:53:00 Test Item Value Reference Range Interpretation Comments WBC (test code = WBC) 8.3 3.7-10.4 N [facility] HospitalAnurypbWHANPDEZF9561-32-99 18:53:00 Test Item Value Reference Range Interpretation Comments eGFR (test code = eGFR) 96 [facility] HospitalAeroiubUDNMPSICX5062-98-55 18:53:00 Test Item Value Reference Range Interpretation Comments Sodium Lvl (test code = Sodium Lvl) 140 135-145 N [facility] HospitalZinsjrwWUVGFUUNG8897-90-04 18:53:00 Test Item Value Reference Range Interpretation Comments Potassium Lvl (test code = Potassium 3.9 3.5-5.1 N Lvl) [facility] HospitalAweesoiPQMASHOKX6097-00-04 18:53:00 Test Item Value Reference Range Interpretation Comments Chloride Lvl (test code = Chloride Lvl) 105 95-109 N [facility] HospitalImesemgBERISWJWN7957-26-18 18:53:00 Test Item Value Reference Range Interpretation Comments CO2 (test code = CO2) 28 24-32 N [facility] HospitalUbeshnhMLQCAUYIO6815-44-94 18:53:00 Test Item Value Reference Range Interpretation Comments Glucose Lvl (test code = Glucose Lvl) 92 70-99 N [facility] HospitalHrntyrxQSIOWALGH5211-20-51 18:53:00 Test Item Value Reference Range Interpretation Comments BUN (test code = BUN) 14 7-22 N [facility] HospitalFskzgekRVOCGDHGD9927-36-28 18:53:00 Test Item Value Reference Range Interpretation Comments Creatinine Lvl (test code = Creatinine 0.7 0.5-1.4 N Lvl) [facility] HospitalJbmgejeZSNHNPJXN9975-14-24 18:53:00 Test Item Value Reference Range Interpretation Comments Calcium Lvl (test code = Calcium Lvl) 9.1 8.5-10.5 N [facility] HospitalXzgnlngIYOTJIOQE0455-27-84 18:53:00 Test Item Value Reference Range Interpretation Comments AGAP (test code = AGAP) 10.9 10.0-20.0 N [facility] TylerXbjdcgqCPKLAZLRSP5702-17-06 18:53:00 Test Item Value Reference Range Interpretation Comments Basophils # (test code 0.1 See_Comment N [Aut omated message] The = Basophils #) system which generated this result tra nsmitted reference range : <=0.2. The reference r charan was not used to int erpret this result as normal/abnormal . [facility] TylerGjhptpuVRLXXOLJNM3430-06-81 18:53:00 Test Item Value Reference Range Interpretation Comments Lymphocytes # (test code = Lymphocytes 2.8 1.0-5.5 N #) [facility] TylerTvupjxiRLDPAGKRLB6290-84-95 18:53:00 Test Item Value Reference Range Interpretation Comments Eosinophils # (test code 0.1 See_Comment N [A utomated message] The = Eosinophils #) system whic h generated this result tra nsmitted reference range : <=0.5. The reference r charan was not used to int erpret this result as normal/abnormal . [facility] TylerWwouxpgKNVFWIPVAA9119-41-06 18:53:00 Test Item Value Reference Range Interpretation Comments Monocytes # (test code 0.7 See_Comment N [Aut omated message] The = Monocytes #) system which generated this result tra nsmitted reference range : <=0.8. The reference r charan was not used to int erpret this result as normal/abnormal . [facility] TylerEsjteoqRFTUDSVIBY1068-62-28 18:53:00 Test Item Value Reference Range Interpretation Comments Segs-Bands # (test code = Segs-Bands #) 4.6 1.5-8.1 N [facility] TylerFwuvoevELFEKPCKZY2382-44-91 18:53:00 Test Item Value Reference Range Interpretation Comments Basophils (test code = 1.0 See_Comment N [Aut omated message] The Basophils) system which ge nerated this result tra nsmitted reference range : <=1.0. The reference r charan was not used to int erpret this result as normal/abnormal . [facility] TylerQvvcovuQRYMJOACYI9111-15-26 18:53:00 Test Item Value Reference Range Interpretation Comments Lymphocytes (test code = Lymphocytes) 34.0 20.0-40.0 N [facility] TylerYwofdhaLXIKKFEXVO1410-20-20 18:53:00 Test Item Value Reference Range Interpretation Comments Eosinophils (test code = 1.3 See_Comment N [A utomated message] The Eosinophils) system which ge nerated this result tra nsmitted reference range : <=4.0. The reference r charan was not used to int erpret this result as normal/abnormal . [facility] TylerSnbqulhLLNVSDIUXQ7252-44-39 18:53:00 Test Item Value Reference Range Interpretation Comments Monocytes (test code = Monocytes) 8.4 2.0-12.0 N [facility] TylerDjfdnaqAHUJRYFRUV0097-85-03 18:53:00 Test Item Value Reference Range Interpretation Comments Segs (test code = Segs) 55.3 45.0-75.0 N [facility] TylerIlvneszHKIAHYBIGP7797-32-34 18:53:00 Test Item Value Reference Range Interpretation Comments PTT (test code = PTT) 27.3 s 22.9-35.8 N [facility] TylerDhwdlnvBOWKEPESFG8693-17-11 18:53:00 Test Item Value Reference Range Interpretation Comments PT (test code = PT) 13.3 s 12.0-14.7 N [facility] TylerGoowxugQKXMTIFOTH6943-79-05 18:53:00 Test Item Value Reference Range Interpretation Comments INR (test code = INR) 1.02 0.85-1.17 N [facility] TylerZkwrcanBCPBYGFNWZ8286-84-51 18:53:00 Test Item Value Reference Range Interpretation Comments MPV (test code = MPV) 7.2 7.4-10.4 L [facility] TylerGxnxnmiLJTBMFOVRH8523-07-57 18:53:00 Test Item Value Reference Range Interpretation Comments MCHC (test code = MCHC) 33.5 32.0-36.0 N [facility] TylerLpzlgntYIBTDADBXU8556-69-09 18:53:00 Test Item Value Reference Range Interpretation Comments MCH (test code = MCH) 29.8 pg 27.0-31.0 N [facility] TylerGosjbgiDEVPLSDQBY7821-72-65 18:53:00 Test Item Value Reference Range Interpretation Comments Platelet (test code = Platelet) 305 133-450 N [facility] TylerCgszzncJOCGUWBFVG0077-88-59 18:53:00 Test Item Value Reference Range Interpretation Comments RDW (test code = RDW) 12.4 11.5-14.5 N [facility] TylerOigdmcrTGBZBRDANC4154-12-81 18:53:00 Test Item Value Reference Range Interpretation Comments MCV (test code = MCV) 89.0 81.0-99.0 N [facility] TylerKmhhuenJDEQYYKCIO1110-52-89 18:53:00 Test Item Value Reference Range Interpretation Comments Hgb (test code = Hgb) 13.3 12.0-16.0 N [facility] TylerVfvauctENZWQNHOMZ7148-74-51 18:53:00 Test Item Value Reference Range Interpretation Comments RBC (test code = RBC) 4.45 4.20-5.40 N [facility] TylerTtmwneqDBEXGIBGYW0118-44-68 18:53:00 Test Item Value Reference Range Interpretation Comments Hct (test code = Hct) 39.6 36.0-48.0 N [facility] TylerWcwxufjNPJQZGBDKP2808-21-97 18:53:00 Test Item Value Reference Range Interpretation Comments WBC (test code = WBC) 8.3 3.7-10.4 N [facility] HospitalPchcgopIQGWHIUCE8193-77-03 18:53:00 Test Item Value Reference Range Interpretation Comments eGFR (test code = eGFR) 96 [facility] HospitalPgkxdmkMIESPKYKE4717-00-84 18:53:00 Test Item Value Reference Range Interpretation Comments Sodium Lvl (test code = Sodium Lvl) 140 135-145 N [facility] HospitalAiglccrYKCMBKLSU4023-87-97 18:53:00 Test Item Value Reference Range Interpretation Comments Potassium Lvl (test code = Potassium 3.9 3.5-5.1 N Lvl) [facility] HospitalIuudbuuWGWQYSNFF5188-35-79 18:53:00 Test Item Value Reference Range Interpretation Comments Chloride Lvl (test code = Chloride Lvl) 105 95-109 N [facility] HospitalZcriaqmMTVJCRTXX3681-65-16 18:53:00 Test Item Value Reference Range Interpretation Comments CO2 (test code = CO2) 28 24-32 N [facility] HospitalLzoexmrRYNPYBUYM4716-60-09 18:53:00 Test Item Value Reference Range Interpretation Comments Glucose Lvl (test code = Glucose Lvl) 92 70-99 N [facility] HospitalVfsvwevEIHATYBOU3023-48-76 18:53:00 Test Item Value Reference Range Interpretation Comments BUN (test code = BUN) 14 7-22 N [id number] 18:53:00 Test Item Value Reference Range Interpretation Comments Creatinine Lvl (test code = Creatinine 0.7 0.5-1.4 N Lvl) [id number] 18:53:00 Test Item Value Reference Range Interpretation Comments Calcium Lvl (test code = Calcium Lvl) 9.1 8.5-10.5 N [facility] HospitalBtcltjgTQSEYTPHY8865-72-59 18:53:00 Test Item Value Reference Range Interpretation Comments AGAP (test code = AGAP) 10.9 10.0-20.0 N [id number] 18:53:00 Test Item Value Reference Range Interpretation Comments Basophils # (test code 0.1 See_Comment N [Aut omated message] The = Basophils #) system which generated this result tra nsmitted reference range : <=0.2. The reference r charan was not used to int erpret this result as normal/abnormal . [facility] [id number] 18:53:00 Test Item Value Reference Range Interpretation Comments Lymphocytes # (test code = Lymphocytes 2.8 1.0-5.5 N #) [facility] [id number] 18:53:00 Test Item Value Reference Range Interpretation Comments Eosinophils # (test code 0.1 See_Comment N [A utomated message] The = Eosinophils #) system whic h generated this result tra nsmitted reference range : <=0.5. The reference r charan was not used to int erpret this result as normal/abnormal . [facility] [id number] 18:53:00 Test Item Value Reference Range Interpretation Comments Monocytes # (test code 0.7 See_Comment N [Aut omated message] The = Monocytes #) system which generated this result tra nsmitted reference range : <=0.8. The reference r charan was not used to int erpret this result as normal/abnormal . [facility] [id number] 18:53:00 Test Item Value Reference Range Interpretation Comments Segs-Bands # (test code = Segs-Bands #) 4.6 1.5-8.1 N [facility] [id number] 18:53:00 Test Item Value Reference Range Interpretation Comments Basophils (test code = 1.0 See_Comment N [Aut omated message] The Basophils) system which ge nerated this result tra nsmitted reference range : <=1.0. The reference r charan was not used to int erpret this result as normal/abnormal . [facility] [id number] 18:53:00 Test Item Value Reference Range Interpretation Comments Lymphocytes (test code = Lymphocytes) 34.0 20.0-40.0 N [facility] [id number] 18:53:00 Test Item Value Reference Range Interpretation Comments Eosinophils (test code = 1.3 See_Comment N [A utomated message] The Eosinophils) system which ge nerated this result tra nsmitted reference range : <=4.0. The reference r charan was not used to int erpret this result as normal/abnormal . [facility] [id number] 18:53:00 Test Item Value Reference Range Interpretation Comments Monocytes (test code = Monocytes) 8.4 2.0-12.0 N [facility] [id number] 18:53:00 Test Item Value Reference Range Interpretation Comments Segs (test code = Segs) 55.3 45.0-75.0 N [facility] [id number] 18:53:00 Test Item Value Reference Range Interpretation Comments PTT (test code = PTT) 27.3 s 22.9-35.8 N [facility] [id number] 18:53:00 Test Item Value Reference Range Interpretation Comments PT (test code = PT) 13.3 s 12.0-14.7 N [facility] [id number] 18:53:00 Test Item Value Reference Range Interpretation Comments INR (test code = INR) 1.02 0.85-1.17 N [facility] [id number] 18:53:00 Test Item Value Reference Range Interpretation Comments MPV (test code = MPV) 7.2 7.4-10.4 L [facility] [id number] 18:53:00 Test Item Value Reference Range Interpretation Comments MCHC (test code = MCHC) 33.5 32.0-36.0 N [facility] [id number] 18:53:00 Test Item Value Reference Range Interpretation Comments MCH (test code = MCH) 29.8 pg 27.0-31.0 N [facility] [id number] 18:53:00 Test Item Value Reference Range Interpretation Comments Platelet (test code = Platelet) 305 133-450 N [facility] [id number] 18:53:00 Test Item Value Reference Range Interpretation Comments RDW (test code = RDW) 12.4 11.5-14.5 N [facility] [id number] 18:53:00 Test Item Value Reference Range Interpretation Comments MCV (test code = MCV) 89.0 81.0-99.0 N [facility] [id number] 18:53:00 Test Item Value Reference Range Interpretation Comments Hgb (test code = Hgb) 13.3 12.0-16.0 N [facility] [id number] 18:53:00 Test Item Value Reference Range Interpretation Comments RBC (test code = RBC) 4.45 4.20-5.40 N [facility] [id number] 18:53:00 Test Item Value Reference Range Interpretation Comments Hct (test code = Hct) 39.6 36.0-48.0 N [facility] [id number] 18:53:00 Test Item Value Reference Range Interpretation Comments WBC (test code = WBC) 8.3 3.7-10.4 N [facility]
--- NOTE | 2022-08-11 12:43 | RAD REPORT ---
EXAM DESCRIPTION: RAD - Pelvis - 08/11/2022 12:28 pm CLINICAL HISTORY: Pelvic pain status post injury FINDINGS: No fracture or dislocation is seen. The bones are osteoporotic If the patient continues to have symptoms to suggest an occult fracture then MRI would be recommended
--- NOTE | 2022-08-11 12:43 | RAD REPORT ---
EXAM DESCRIPTION: RAD - Hip Right 2 View - 08/11/2022 12:28 pm CLINICAL HISTORY: Right hip pain FINDINGS: Bones are osteoporotic. No fracture or dislocation seen. If patient continues to have symptoms to suggest an occult fracture MRI would recommended
--- NOTE | 2022-08-11 12:58 | EDPHYS ---
Physician Documentation [facility] Name: Jeni Johnson Age: 67 yrs Sex: Female : 1955 Arrival Date: 08/11/2022 Time: 11:32 Bed IW1 Private MD: Logan Lemus E ED Physician Kayode Benitez HPI: 08/11 11:42 This 67 yrs old Female presents to ER via Unassigned with complaints of Fall bs3 Injury, Hip Pain, Trouble Walking. 11:42 67-year-old female history of hypertension presents status post fall this past Thursday bs3 she was going through a door and the dog attempted to go through the door at the same time and she tripped and fell landing on her right hip and hitting her head no LOC confusion or amnesia and no headache however since then she has had some right hip pain she has slight pain with ambulation but is able to ambulate no numbness tingling or weakness denies any back pain any urinary symptoms or anything else bothering her of note she was recently started on antibiotics for a GI infection (h pylori). Historical: - Allergies: 11:44 No Known Allergies; iw - PMHx: 11:44 Hypertension; H Pyloi; iw - PSHx: 11:44 None; iw - Social history:: Smoking status: . ROS: 11:42 Constitutional: Negative for fever, chills bs3 11:42 All other systems are negative. Exam: 11:42 Constitutional: This is a well developed, well nourished patient who is awake, alert, bs3 and in no acute distress. Head/Face: Normocephalic, atraumatic. Eyes: Pupils equal round and reactive to light, extra-ocular motions intact. Lids and lashes normal. ENT: mmm, no posterior phyarngeal erythema Neck: Trachea midline, no thyromegaly, no neck stiffness Chest/axilla: Normal chest wall appearance and motion. Nontender with no deformity. No lesions are appreciated. Cardiovascular: Regular rate and rhythm with a normal S1 and S2. symmetric pulses in upper extremities Respiratory: Lungs have equal breath sounds bilaterally, clear to auscultation, no respiratory distress Abdomen/GI: Soft, non-tender, no rebound or guarding Back: No spinal tenderness. No costovertebral tenderness. Full range of motion. Skin: Warm, dry with normal turgor. Normal color with no rashes, no lesions, and no evidence of cellulitis. MS/ Extremity: Pulses equal, no cyanosis. Neurovascular intact. Full, normal range of motion. Patient is able to walk but walks with slight limp Neuro: Awake and alert, GCS 15, oriented to person, place, time, and situation. Cranial nerves II-XII grossly intact. Motor strength 5/5 in all extremities. Sensory grossly intact. Vital Signs: 11:44 BP 144 / 88; Pulse 75; Resp 16; Temp 98.5; Pulse Ox 100% on R/A; Weight 60.78 kg; iw Height 5 ft. 2 in. ; Pain 8/10; 11:44 Body Mass Index 24.51 (60.78 kg, 157.48 cm) iw 11:44 Pain Scale: Adult iw MDM: 11:33 Patient medically screened. bs3 11:42 Differential diagnosis: abrasion, contusion, fracture, sprain, strain. Data reviewed: bs3 vital signs, nurses notes. 11:44 ED course: We will get x-rays and reassess given that she is able to ambulate I do not bs3 suspect an occult fracture. 12:55 Independent interpretation of the following test(s) in the Emergency Department X-Ray: bs3 My interpretation is No acute fracture. ED course: Patient reassessed able to ambulate discussed at length with patient and family unlikely fracture given no significant pain with ambulation advised rest follow-up with her neurologist tomorrow as scheduled return precautions given recommended MRI for persistent symptoms. 08/11 11:40 Order name: Hip Right 2 View XRAY; Complete Time: 12:44 bs3 08/11 11:40 Order name: Pelvis XRAY; Complete Time: 12:44 bs3 Administered Medications: No medications were administered Disposition Summary: 08/11/22 12:57 Discharge Ordered Location: Home bs3 Condition: Stable bs3 Diagnosis - Pain in right hip bs3 Followup: bs3 - With: Logan Lemus MD - When: 1 week - Reason: Re-evaluation by your physician Discharge Instructions: - Discharge Summary Sheet bs3 - Hip Pain bs3 Forms: - Medication Reconciliation Form bs3 - Thank You Letter bs3 - Antibiotic Education bs3 - Prescription Opioid Use bs3 Signatures: Dispatcher [employer] Ella Noel, RN RN Kayode Chacko MD MD bs3
--- NOTE | 2022-08-11 12:58 | ER ---
Nurse's Notes [facility] Name: Jeni Johnson Age: 67 yrs Sex: Female : 1955 Arrival Date: 08/11/2022 Time: 11:32 Bed IW1 Private MD: Logan Lemus E Diagnosis: Pain in right hip Presentation: 08/11 11:43 Chief complaint: Patient's son or daughter states: fell Thursday and now has right hip iw pain, she tripped over the dog. 11:43 Acuity: CHET 4 iw 11:43 Method Of Arrival: Ambulatory iw Historical: - Allergies: 11:44 No Known Allergies; iw - PMHx: 11:44 Hypertension; H Pyloi; iw - PSHx: 11:44 None; iw - Social history:: Smoking status: . Vital Signs: 11:44 BP 144 / 88; Pulse 75; Resp 16; Temp 98.5; Pulse Ox 100% on R/A; Weight 60.78 kg; iw Height 5 ft. 2 in. ; Pain 8/10; 11:44 Body Mass Index 24.51 (60.78 kg, 157.48 cm) iw 11:44 Pain Scale: Adult iw ED Course: 11:32 Patient arrived in ED. am2 11:32 Logan Lemus MD is Private Physician. am2 11:33 Kayode Benitez MD is Attending Physician. bs3 11:43 Triage completed. iw 11:45 Arm band placed on. iw 12:30 Hip Right 2 View XRAY In Process Unspecified. EDMS 12:30 Pelvis XRAY In Process Unspecified. EDMS 12:57 Logan Lemus MD is Referral Physician. bs3 13:02 Ella Padilla RN is Primary Nurse. iw Administered Medications: No medications were administered Outcome: 12:57 Discharge ordered by . bs3 13:02 Patient left the ED. iw Signatures: Dispatcher [employer] EDMS Ella Padilla, NYLA RN Blanca Alfonso am2 Kayode Benitez MD MD bs3
[2022-08-11 13:54] VITALS: BP 144/88; TEMP 98.5; O2SAT 100
== END 2022-08-11 13:02 | disposition home or self-care (01) ==
LOC: ER 11:28
DX: M25.551 Pain in right hip (principal)
CPT/HCPCS: 72170

== ENCOUNTER 2023-01-24 18:12 | Emergency (ER) | payer OTHER ==
--- OUTSIDE RECORDS SUMMARY | 2023-01-24 18:20 | XMS REPORT | Continuity of Care Document ---
:1955 Author Organization [facility] t Address [address] [facility] [address] [place] [address] Care Team Providers Name Role Phone Gunnar Bowers Attending Clinician Lab, Adc Fam Pob I Attending Clinician Unavailable Beatrice Anguiano Attending Clinician Payers Payer Name Policy Type Policy Number Effective Date Expiration Date S ource Problems Condition Condition Condition Status Onset Resolution Last Treating Co mments Source Name Details Category Date Date Treatment Clinician Date SUB ACUTE SUB ACUTE Diagnosis Active 2013-02-06 Memoria MCA STROKE MCA STROKE 02-06 18:02:00 l Active 00:00: Mateusz 02/06/2013 00 [facility] TIA TIA Diagnosis Active 2013-02-07 Mem oria Active 02-06 12:05:00 l 02/06/2013 00:00: Edmundo georges [address] TRANS TRANS Diagnosis Active 2013-02-07 Mem oria CEREB CEREB 12:05:00 l ISCHEMIA ISCHEMIA Edmundo georges NEC NEC Active [facility] Arthritis Arthritis Problem Resolve 2019-07-23 Memoria (disorder) (disorder) d 22:45:28 l Resolved Mateusz Problem 07/23/2019 [facility] Hyperlipid Hyperlipi Problem Resolve 2019-07-23 Memoria emia demia d 22:45:28 l (disorder) (disorder) He rmann Resolved Problem 07/23/2019 [facility] Laser Laser Problem Resolve 2019-07-23 Jn sal assisted assisted d 22:45:28 l in situ in situ [place] keratomile keratomile usis usis (procedure (procedure ) ) Resolved Problem 07/23/2019 [facility] Arthritis Arthritis Problem Resolve 2013-02-09 Memoria Resolved d 21:14:51 l Problem [place] 02/09/2013 [facility] Hyperlipid Hyperlipi Problem Resolve 2013-02-09 Memoria emia demia d 21:14:51 l Resolved Mateusz Problem 02/09/2013 [facility] LASIK LASIK Problem Resolve 2013-02-09 Jn sal Resolved d 21:14:51 l Problem [place] 02/09/2013 [facility] Cerebrovas Cerebrova Problem Active 2022-08-31 Memoria cular scular 11:39:54 l accident accident Edmundo n (disorder) (disorder) Active Problem 08/31/2022 [facility] [place] Hypertensi Hypertens Problem Active 2022-08-31 Memoria ve praneeth 11:39:54 l disorder, disorder, Herm aleksandra systemic systemic arterial arterial (disorder) (disorder) Active Problem 08/31/2022 [facility] [place] Syncope Syncope Problem Active 2022-08-31 Me moria (disorder) (disorder) 11:39:54 l Active Mateusz Problem 08/31/2022 [facility] [place] Allergies, Adverse Reactions, Alerts Allergy Allergy Status Severity Reaction(s) Onset Inactive Treating Comm ents Source Name Type Date Date Clinician NO KNOWN Drug Active Univers ALLERGIE Class ity of [facility] No Known No Known Active Memori a Medicati Medicati l on on Mateusz Allergie Allergie s s Social History Social Habit Start Date Stop Date Quantity Comments Source Sex Assigned At [facility]it y [facility] Exposure to Yes University SARS-CoV-2 [facility] (event) Branch Alcohol intake 2015-04-09 2015-04-09 Current University of 00:00:00 00:00:00 non-drinker of [facility] alcohol Branch (finding) Smoking Status Start Date Stop Date Source Tobacco smoking status 2022-08-13 19:59:57 Maria Elenaor pauline Child Medications Ordered Filled Start Stop Current Ordering Indication Dosage Frequency Signature Comments Components Source Medication Medication Date Date Medication? Clinician (SIG) Name Name aspirin 81 Yes 81 mg = 1 Me moria mg tablet, 3-22 tab, PO, l enteric 20:54: Daily, # Edmundo n coated 00 90 tab, 3 Refill(s) lisinopril Yes 0 Memoria 20 mg oral 3-22 Refill(s) l tablet 20:52: Mateusz 00 CRESTOR 20 2014-05 Yes 20mg Take 20 mg U nivers mg tablet 0-26 by mouth ity of 00:00: at [place] 00 bedtime. Medical Branch atorvastati Yes Payton 80 mg, 1 Memoria n 80 mg -16 Joellen tab, PO, l oral tablet 18:23: Brown Daily, 30 [place] 46 tab, Substituti on Allowed, TAB atorvastati Yes Payton 80 mg, 1 Memoria n 80 mg - Joellen tab, PO, l oral tablet 18:23: Brown Daily, 30 [place] 46 tab, Substituti on Allowed, TAB atorvastati Yes Payton 80 mg, 1 Memoria n 80 mg 02-07 Joellen tab, PO, l oral tablet 18:23: Brown Daily, 30 Mateusz 46 tab, Substituti on Allowed, TAB atorvastati Yes Payton 80 mg, 1 Memoria n 80 mg - Joellen tab, PO, l oral tablet 18:23: Brown Daily, 30 [place] 46 tab, Substituti on Allowed, TAB aspirin [...] 81 mg, 1 Memoria mg tablet, 02-07 Jeollen tab, PO, l enteric 18:23: Brown Daily, 30 Herm aleksandra coated 38 tab, Substituti on Allowed, ECTAB atorvastati No Peace 80 mg, 1 M emoria n 9-16 Luis tab, l 14:00: Leon Route: PO, Edmundo n 00 Drug form: TAB, Daily, Dosing Weight 72.727, kg, Start date: 02/07/13 9:00:00, Duration: 30 day, Stop date: 03/08/13 9:00:00 aspirin 2013-0 No Peace 81 mg, 1 Memor ia -16 Luis tab, l 14:00: Leon Route: PO, Edmundo n 00 Drug form: ECTAB, Daily, Dosing Weight 72.727, kg, Start date: 02/07/13 9:00:00, Duration: 30 day, Stop date: 03/08/13 9:00:00 atorvastati 2013-0 No Peace 80 mg, 1 M emoria n 9-16 Luis tab, l 14:00: Leon Route: PO, Edmundo n 00 Drug form: TAB, Daily, Dosing Weight 72.727, kg, Start date: 02/07/13 9:00:00, Duration: 30 day, Stop date: 03/08/13 9:00:00 aspirin 2013-0 No Peace 81 mg, 1 Memor ia -16 Luis tab, l 14:00: Leon Route: PO, Edmundo n 00 Drug form: ECTAB, Daily, Dosing Weight 72.727, kg, Start date: 02/07/13 9:00:00, Duration: 30 day, Stop date: 03/08/13 9:00:00 atorvastati 2013-0 No Peace 80 mg, 1 Sheri espinosaria n -16 Luis tab, l 14:00: Leon Route: PO, Edmundo n 00 Drug form: TAB, Daily, Dosing Weight 72.727, kg, Start date: 02/07/13 9:00:00, Duration: 30 day, Stop date: 03/08/13 9:00:00 aspirin 2013-0 No Peace 81 mg, 1 Memor ia 9-16 Luis tab, l 14:00: Leon Route: PO, Edmundo n 00 Drug form: ECTAB, Daily, Dosing Weight 72.727, kg, Start date: 02/07/13 9:00:00, Duration: 30 day, Stop date: 03/08/13 9:00:00 atorvastati 2012-0 No Peace 80 mg, 1 M emoria [...] 9:00:00 heparin 2012-0 No Peace 5,000 Memoria 9-16 [...] Stop date: 03/09/13 0:00:00 Saline 2012-0 No October 27 ml, Memoria Flush 0.9% 9-16 Yoshii-Con Route: l 02:00: treras IVP, Drug Edmundo n 00 Form: INJ, Dosing Weight 72.727, kg, Q12H, Start date: 02/06/13 21:00:00, Duration: 30 day, Stop date: 03/08/13 9:00:00 Saline 2012-0 No October 5 ml, Memoria [...] date: 03/08/13 9:00:00 Saline 2012-0 No October 5 ml, Memoria Flush 0.9% 9-16 Yoshii-Con Route: l 02:00: treras IVP, Drug Edmundo n 00 Form: INJ, Dosing Weight 72.727, kg, Q12H, Start date: 02/06/13 21:00:00, Duration: 30 day, Stop date: 03/08/13 9:00:00 Zantac Yes Substituti Memor ia 9-15 on Allowed l 22:49: Mateusz Zantac Yes Substituti Memor ia 9-15 on Allowed l 22:49: Mateusz Zantac Yes Substituti Memor ia 9-15 on Allowed l 22:49: Mateusz ntac Yes Substituti Memor ia 9-15 on Allowed l 22:49: Mateusz Zantac Yes Substituti Memor ia 9-15 on Allowed l 22:49: [place] 00 Multiple Yes 1 cap, PO, Mem oria Vitamins 9-15 Daily, 30 l oral 22:48: cap, Mateusz capsule 47 Substituti on Allowed, Maintenanc e, CAP Multiple Yes 1 cap, PO, Mem oria Vitamins 9-15 Daily, 30 l oral 22:48: cap, [place] capsule 47 Substituti on Allowed, Maintenanc e, CAP Multiple Yes 1 cap, PO, Mem oria Vitamins 9-15 Daily, 30 l oral 22:48: cap, Mateusz capsule 47 Substituti on Allowed, Maintenanc e, CAP Multiple Yes 1 cap, PO, Mem oria Vitamins 9-15 Daily, 30 l oral 22:48: cap, [place] capsule 47 Substituti on Allowed, Maintenanc e, CAP Multiple Yes 1 cap, PO, Mem oria Vitamins 9-15 Daily, 30 l oral 22:48: cap, [place] capsule 47 Substituti on Allowed, Maintenanc e, CAP Saline No October 5 ml, Memoria Flush 0.9% 9-15 Yoshii-Con Route: l 22:09: treras IVP, Drug Edmundo n 00 Form: INJ, Dosing Weight 72.727, kg, PRN, PRN Line Flush, Start date: 02/06/13 17:09:00, Duration: 30 day, Stop date: 03/08/13 17:08:00 labetalol October 10 mg, 2 Jn sal -15 Yoshii-Con mL, Route: l 22:09: treras IVP, Drug Edmundo n 00 form: INJ, Q10Min, Dosing Weight 72.727, kg, PRN Hypertensi on, Start date: 02/06/13 17:09:00, Duration: 30 day, Stop date: 03/08/13 17:08:00, For SBP > 180mmHg and/or DBP > 105mmHg Sodium No Payton 1,000 mL, Mem oria Chloride -15 Joellen Rate: 100 l 0.9% IV 22:09: Brown ml/hr, Mateusz 1,000 mL 00 Infuse over: 10 hr, Route: IV, Dosing Weight 72.727 kg, Total Volume: 1,000, Start date: 02/06/13 17:09:00, Stop date: 03/08/13 17:08:00 Saline No October 5 ml, Memoria Flush 0.9% 02-06 Yoshii-Con Route: l 22:09: treras IVP, Drug Edmundo n 00 Form: INJ, Dosing Weight 72.727, kg, PRN, PRN Line Flush, Start date: 02/06/13 17:09:00, Duration: 30 day, Stop date: 03/08/13 17:08:00 Saline No October 5 ml, Memoria Flush 0.9% 02-06 Yoshii-Con Route: l 22:09: treras IVP, Drug Edmundo n 00 Form: INJ, Dosing Weight 72.727, kg, PRN, PRN Line Flush, Start date: 02/06/13 17:09:00, Duration: 30 day, Stop date: 03/08/13 17:08:00 labetalol October 10 mg, 2 Jn sal - Yoshii-Con mL, Route: l 22:09: treras IVP, Drug Edmundo n 00 form: INJ, Q10Min, Dosing Weight 72.727, kg, PRN Hypertensi on, Start date: 02/06/13 17:09:00, Duration: 30 day, Stop date: 03/08/13 17:08:00, For SBP > 180mmHg and/or DBP > 105mmHg Sodium No Payton 1,000 mL, Mem oria Chloride 02-06 Joellen Rate: 100 l 0.9% IV 22:09: Brown ml/hr, [place] 1,000 mL 00 Infuse over: 10 hr, Route: IV, Dosing Weight 72.727 kg, Total Volume: 1,000, Start date: 02/06/13 17:09:00, Stop date: 03/08/13 17:08:00 labetalol October 10 mg, 2 Jn sal 02-06 [...] No Payton 1,000 mL, Mem oria Chloride -15 Joellen Rate: 100 l 0.9% IV 22:09: Brown ml/hr, Mateusz 1,000 mL 00 Infuse over: 10 hr, Route: IV, Dosing Weight 72.727 kg, Total Volume: 1,000, Start date: 02/06/13 17:09:00, Stop date: 03/08/13 17:08:00 Omnipaque 2012-0 No Miriam 85 mL, Jn sal 350mg/ml 02-06 Anderson Route: l 19:37: IVP, Drug Mateusz Form: SOLN, Dosing Weight 72.727, kg, ONCALL, STAT, Start date: 02/06/13 14:37:00, Duration: 1 doses or times, Dose = 2.2ml/kg, Max dose = 100ml -- "To be infused by Radiology Staff ONLY"Dose = 2.2ml/kg, Max dose = 100ml -- "To be infused by Radiology Staff ONLY" Omnipaque 2013-0 No Miriam 85 mL, Jn sal 350mg/ml 02-06 Anderson Route: l 19:37: IVP, Drug [place] Form: SOLN, Dosing Weight 72.727, kg, ONCALL, STAT, Start date: 02/06/13 14:37:00, Duration: 1 doses or times, Dose = 2.2ml/kg, Max dose = 100ml -- "To be infused by Radiology Staff ONLY"Dose = 2.2ml/kg, Max dose = 100ml -- "To be infused by Radiology Staff ONLY" Omnipaque 2012-0 No Miriam 85 mL, Jn sal 350mg/ml 02-06 Anderson Route: l 19:37: IVP, Drug [place] Form: SOLN, Dosing Weight 72.727, kg, ONCALL, STAT, Start date: 02/06/13 14:37:00, Duration: 1 doses or times, Dose = 2.2ml/kg, Max dose = 100ml -- "To be infused by Radiology Staff ONLY"Dose = 2.2ml/kg, Max dose = 100ml -- "To be infused by Radiology Staff ONLY" Omnipaque 2013-0 No Miriam 85 mL, Jn sal 350mg/ml 02-06 Anderson Route: l 19:37: IVP, Drug [place] Form: SOLN, Dosing Weight 72.727, kg, ONCALL, STAT, Start date: 02/06/13 14:37:00, Duration: 1 doses or times, Dose = 2.2ml/kg, Max dose = 100ml -- "To be infused by Radiology Staff ONLY"Dose = 2.2ml/kg, Max dose = 100ml -- "To be infused by Radiology Staff ONLY" Vital Signs Vital Name Observation Time Observation Value Comments Source Systolic (mm Hg) 2022-08-13 19:52:00 Jn rial Mateusz Diastolic (mm Hg) 2022-08-13 19:52:00 Mem orial [place] Heart Rate 2022-08-13 19:52:00 [facility] [place] Height 2022-08-13 19:52:00 4 [ft_i] [facility] [place] Weight 2022-08-13 19:52:00 [facility] [place] BMI Calculated 2022-08-13 19:52:00 Memori al [place] Diastolic (mm Hg) 2013-02-07 17:00:00 Mem orial [place] Heart Rate 2013-02-07 17:00:00 Memorial Mateusz Respitory Rate 2013-02-07 17:00:00 Memori al [place] Temperature Oral (F) 2013-02-07 17:00:00 97.0 F [facility] Mateusz Systolic (mm Hg) 2013-02-07 17:00:00 Jn rial Mateusz Systolic (mm Hg) 2013-02-07 12:00:00 Jn rial Mateusz Diastolic (mm Hg) 2013-02-07 12:00:00 Mem orial [place] Respitory Rate 2013-02-07 12:00:00 Memori al Mateusz Temperature Oral (F) 2013-02-07 12:00:00 96.3 F [facility] [place] Heart Rate 2013-02-07 12:00:00 [facility] [place] Heart Rate 2013-02-07 08:51:00 [facility] [place] Temperature Oral (F) 2013-02-07 08:51:00 97.8 F [facility] [place] Systolic (mm Hg) 2013-02-07 08:51:00 Jn rial Mateusz Diastolic (mm Hg) 2013-02-07 08:51:00 Mem orial Mateusz Respitory Rate 2013-02-07 00:41:00 Memori al Mateusz Weight 2013-02-06 17:49:00 [facility] [place]z Height 2013-02-06 17:49:00 157.48 cm [facility] Mateusz Procedures Procedure Date / Time Performed Performing Clinician Anusha Augustine Mateusz ABEL [facility] [place] Encounters Start End Encounter Admission Attending Care Care Encounter Source Date/Time Date/Time Type Type Clinicians Facility Department ID 2022-08-28 2022-08-29 Outpatient [facility] MNA [id number] Memoria 18:00:00 04:59:59 Neurology 02 l [place] Mateusz 2022-08-28 2022-08-28 Outpatient HAYDE BowersSCHBARBARA GEOSCHER [id number] 13:00:00 23:59:59 Gunnar 02 [place] 2022-08-13 2022-08-14 Outpatient [facility] [place] [id number] Memoria 20:00:00 04:59:59 Neurology 01 l [place] Mateusz 2022-08-13 2022-08-13 [id number] 15:00:00 23:59:59 Gunnar 01 [place] 2020-01-06 2020-01-06 Laboratory Lab, [facility] [id number] 09:23:20 09:43:20 Only Fam Pob I Health [id number] [place] [id number] Professio [phone] [place] [id number] Office [address] [facility] 2020-01-06 2020-01-06 Laboratory Lab, [facility] Fam Pob I [facility] [id number] Univers 09:23:20 09:43:20 Only Anene, Beat[facility] [id number] ity of [place] [id number] [place] as Professio [id number] Sc dical [address] Office Building [facility] 2020-01-06 2020-01-06 Outpatient R [facility] [id number] Univers 09:00:00 09:00:00 ity of [facility] 2019-07-21 2019-07-21 Ambulatory nullFlavo MNA [id number] Memoria 19:45:00 19:45:00 Pre-Reg r Neurology 00 l [place] 2019-07-21 2019-07-21 Ambulatory nullFlavo MNA [id number] Memoria 19:45:00 19:45:00 Pre-Reg r Neurology 00 l Hai Mateusz 2019-07-21 2019-07-21 Outpatient HAYDE BowersSCHER GEOSCHER [id number] 13:45:00 13:45:00 Gunnar 00 [place] 2013-02-06 2013-02-07 OU nullFlavo [facility] [id number] Memoria 17:09:00 15:00:00 r Medical 58 l [facility] 2013-02-06 2013-02-07 OU nullFlavo [facility] [id number] Memoria 17:09:00 15:00:00 r Medical 58 l [facility] Results Test Description Test Time Test Comments Results Result Comments Source Thyroid Stimulating Hormone 2018-11-22 22:27:55 Test Item Value Reference Range Interpretation Comme nts TSH (test code = TSH) 0.445 mIU/mL 0.270-4.200 Erythrocyte Sedimentation Rate [id number] 22:20:13 Test Item Value Reference Range Interpretation Comments ESR STAT (test code = ESR STAT) 8 mm/hr 0-20 Comprehensive Metabolic [id number] 21:59:49 Test Item Value Reference Range Interpretation [...] A/G 1.6 ratio N Ratio) Comprehensive Metabolic [id number] 21:59:49 Test Item Value Reference Range Interpretation [...] the National Kidney Foundation, http://nkdep.ni h.gov Lipid [id number] 21:59:49 Test Item Value Reference Range Interpretation Comments Cholesterol Total 294 mg/dL 0-200 H RISK OF HE ART (test code = DISEASEPublishe d by Cholesterol Total) [employer] Sowmya lyte Optimal Borderl ine [...] is greater than 40 0. Comprehensive Metabolic [id number] 21:59:49 Test Item Value Reference Range Interpretation [...] Foundation, http://nkdep.ni h.gov Complete Blood Count with [id number] 21:52:58 Test Item Value Reference Range Interpretation [...] code = IPF) 0 % N Automated [id number] 21:52:58 Test Item Value Reference Range Interpretation Comments Neutro Auto (test code = Neutro 62.7 % 36.0-70.0 Auto) Lymph Auto (test code = Lymph Auto) 28.3 % 12.0-44.0 [place] Auto (test code = [place] Auto) 7.6 % 0.0-11.0 Eos, Auto (test code = Eos, Auto) 0.7 % 0.0-7.0 Basophil Auto (test code = Basophil 0.3 % 0.0-2.0 Auto) Neutro Absolute (test code = Neutro 5.7 x10 1.6-7.4 Absolute) Lymph Absolute (test code = Lymph 2.56 x10 .50-4.60 Absolute) [place] Absolute (test code = [place] .69 x10 .00-1.20 Absolute) Eos Absolute (test code = Eos 0.06 x10 0.00-0.74 Absolute) Baso Absolute (test code = Baso 0.03 x10 0.00-0.21 Absolute) Pro B Natriuretic [id number] 21:52:58 Test Item Value Reference Range Interpretation Comments NT-proBNP (test code = NT-proBNP) 80 pg/mL 0-124 IG [id number] 21:52:58 Test Item Value Reference Range Interpretation Comments IG (test code = IG) 0.4 % 0.0-5.0 IG Abs (test code = IG Abs) 0 x10 N [id number] 12:35:11 Test Item Value Reference Range Interpretation Comments LDL Direct (test code = LDL Direct) 144 H [facility]MvwgdrsZXQTFKBMP5770-14-80 12:35:11 Test Item Value Reference Range Interpretation Comments LDL Direct (test code = LDL Direct) [address] [facility], [id number] 12:35:11 Test Item Value Reference Range Interpretation Comments LDL Direct (test code = LDL Direct) [address] [facility], [id number] 12:35:11 Test Item Value Reference Range Interpretation Comments LDL Direct (test code = LDL Direct) 144 H [facility]PO[facility]NHQP6472[facility]26-29 08:00:00 Test Item Value Reference Range Interpretation Comments Monocytes (test code = Monocytes) 8.0 2.0-12.0 N [facility] HospitalBpzzkqwSSKNQJQQFV7228-45-74 08:00:00 Test Item Value Reference Range Interpretation Comments Segs (test code = Segs) 48.0 45.0-75.0 N [facility]ubQTEXWGBTQW9915-67-04 08:00:00 Test Item Value Reference Range Interpretation Comments Lymphocytes (test code = Lymphocytes) 41.6 20.0-40.0 H [facility] CenterNsdqbjlNOAWHTQQHZ1227-83-15 08:00:00 Test Item Value Reference Range Interpretation Comments RBC (test code = RBC) 3.87 4.20-5.40 L [facility] CenterQrybyivNNGVGSQUZU6744-34-26 08:00:00 Test Item Value Reference Range Interpretation Comments WBC (test code = WBC) 7.4 3.7-10.4 N [facility] CenterXmbndwgWDEETORBYL2162-61-34 08:00:00 Test Item Value Reference Range Interpretation Comments Hgb (test code = Hgb) 11.9 12.0-16.0 L [facility] C[id number] 08:00:00 Test Item Value Reference Range Interpretation Comments Hct (test code = Hct) 35.2 36.0-48.0 L [facility] CenterXqlbctoITGZDHBCDN3338-14-39 08:00:00 Test Item Value Reference Range Interpretation Comments MCV (test code = MCV) 90.8 81.0-99.0 N [facility] CenterWysxplcKBGMXFZBQS7627-66-14 08:00:00 Test Item Value Reference Range Interpretation Comments MCH (test code = MCH) 30.7 pg 27.0-31.0 N [facility] CenterCrvtpduOWUNPLFLNI4434-98-74 08:00:00 Test Item Value Reference Range Interpretation Comments RDW (test code = RDW) 13.3 11.5-14.5 N [facility] CenterAafckcrCYBDNFLVJF2071-60-64 08:00:00 Test Item Value Reference Range Interpretation Comments MCHC (test code = MCHC) 33.9 32.0-36.0 N [facility] CenterYrnlqeaJXXKFPPYUQ1139-20-66 08:00:00 Test Item Value Reference Range Interpretation Comments Platelet (test code = Platelet) 279 133-450 N [facility] CenterFswnujhBAHOFIHVXA6450-28-33 08:00:00 Test Item Value Reference Range Interpretation Comments MPV (test code = MPV) 7.5 7.4-10.4 N [facility]ale[id number] 08:00:00 Test Item Value Reference Range Interpretation Comments AGAP (test code = AGAP) 13.1 10.0-20.0 N [facility]alePoxypioCBXRPPTJN0359-31-37 08:00:00 Test Item Value Reference Range Interpretation Comments eGFR (test code = eGFR) 96 [id number] 08:00:00 Test Item Value Reference Range Interpretation Comments Creatinine Lvl (test code = Creatinine 0.7 0.5-1.4 N Lvl) [id number] 08:00:00 Test Item Value Reference Range Interpretation Comments BUN (test code = BUN) 18 7-22 N [id number] 08:00:00 Test Item Value Reference Range Interpretation Comments Glucose Lvl (test code = Glucose Lvl) 101 70-99 H [facility]valeIzddwqdSQLDZLKOU1332-45-59 08:00:00 Test Item Value Reference Range Interpretation Comments Sodium Lvl (test code = Sodium Lvl) 142 135-145 N [facility]valeKittfxhYSBPBPPFG3236-07-52 08:00:00 Test Item Value Reference Range Interpretation Comments Calcium Lvl (test code = Calcium Lvl) 8.3 8.5-10.5 L [facility]valeHvyfsheJOXRRLIOX5626-29-56 08:00:00 Test Item Value Reference Range Interpretation Comments CO2 (test code = CO2) 23 24-32 L [facility]v[id number] 08:00:00 Test Item Value Reference Range Interpretation Comments Chloride Lvl (test code = Chloride Lvl) 110 95-109 H [facility] SunnyvaleGlwkmdpGCNGOJVYJ5598-71-20 08:00:00 Test Item Value Reference Range Interpretation Comments Potassium Lvl (test code = Potassium 4.1 3.5-5.1 N Lvl) [facility]v[id number] 08:00:00 Test Item Value Reference Range Interpretation Comments LDL (test code = LDL) See Note mg/dL 5*NA*(02/07/2013 03:00:00) [id number] 08:00:00 Test Item Value Reference Range Interpretation Comments CHD Risk (test code = CHD Risk) 8.45 3.90-5.80 H [facility] SunnyvaleCimxkytEPUHIGLSP0749-79-12 08:00:00 Test Item Value Reference Range Interpretation Comments HDL (test code = HDL) 29 L [facility] SunnyvaleJuxanmpPIZKKSVNO5617-95-44 08:00:00 Test Item Value Reference Range Interpretation Comments Trig (test code = Trig) 531 H [facility] SunnyvaleHbqbeysTQVZLQHHU0955-31-53 08:00:00 Test Item Value Reference Range Interpretation Comments Chol (test code = Chol) 245 H [facility] CenterCpoawfcWJGHHBTKLQ7242-73-08 08:00:00 Test Item Value Reference Range Interpretation Comments Basophils (test code = 0.7 See_Comment N [Aut omated message] The Basophils) system which ge nerated this result tra nsmitted reference range : <=1.0. The reference r charan was not used to int erpret this result as normal/abnormal . [facility] CenterPychfxtCJIDXXGXFZ3425-15-65 08:00:00 Test Item Value Reference Range Interpretation Comments Segs-Bands # (test code = Segs-Bands #) 3.6 1.5-8.1 N [facility] CenterTgyxtjgIKJOZWTTEM6600-47-87 08:00:00 Test Item Value Reference Range Interpretation Comments Lymphocytes # (test code = Lymphocytes 3.1 1.0-5.5 N #) [facility] CenterXshtrpeJZUFZUGYLV9147-18-88 08:00:00 Test Item Value Reference Range Interpretation Comments Monocytes # (test code 0.6 See_Comment N [Aut omated message] The = Monocytes #) system which generated this result tra nsmitted reference range : <=0.8. The reference r charan was not used to int erpret this result as normal/abnormal . [facility] CenterPsghxeeNHLKQKDZNN3751-72-99 08:00:00 Test Item Value Reference Range Interpretation Comments Eosinophils # (test code 0.1 See_Comment N [A utomated message] The = Eosinophils #) system whic h generated this result tra nsmitted reference range : <=0.5. The reference r charan was not used to int erpret this result as normal/abnormal . [facility] CenterCbcrhieTZXPAHQGOY6933-55-15 08:00:00 Test Item Value Reference Range Interpretation Comments Basophils # (test code 0.1 See_Comment N [Aut omated message] The = Basophils #) system which generated this result tra nsmitted reference range : <=0.2. The reference r charan was not used to int erpret this result as normal/abnormal . [facility] CenterGqqpmfmGHXZXWVCTA2300-56-62 08:00:00 Test Item Value Reference Range Interpretation Comments Eosinophils (test code = 1.7 See_Comment N [A utomated message] The Eosinophils) system which ge nerated this result tra nsmitted reference range : <=4.0. The reference r charan was not used to int erpret this result as normal/abnormal . [facility]DmubnulOTLPUVIFJA3451-57-84 08:00:00 Test Item Value Reference Range Interpretation Comments Monocytes (test code = Monocytes) 8.0 2.0-12.0 N [facility] CenterJpfsapzNXQNWOQKVU2939-78-08 08:00:00 Test Item Value Reference Range Interpretation Comments Segs (test code = Segs) 48.0 45.0-75.0 N [facility] CenterKxoiofuXUHDFIDGHD3244-48-38 08:00:00 Test Item Value Reference Range Interpretation Comments Lymphocytes (test code = Lymphocytes) 41.6 20.0-40.0 H [facility] CenterPoddbqiUIKWTXMOOP8590-45-92 08:00:00 Test Item Value Reference Range Interpretation Comments RBC (test code = RBC) 3.87 4.20-5.40 L [facility] CenterUzpmyiiXBMIKJSQQC6201-45-73 08:00:00 Test Item Value Reference Range Interpretation Comments WBC (test code = WBC) 7.4 3.7-10.4 N [facility] CenterJbfhfgiZNSCYUEHOR0394-85-86 08:00:00 Test Item Value Reference Range Interpretation Comments Hgb (test code = Hgb) 11.9 12.0-16.0 L [facility] CenterYznijxnWQRHGRQIJD5955-51-90 08:00:00 Test Item Value Reference Range Interpretation Comments Hct (test code = Hct) 35.2 36.0-48.0 L [facility] CenterFdageqfXESLHJYBPC2243-60-34 08:00:00 Test Item Value Reference Range Interpretation Comments MCV (test code = MCV) 90.8 81.0-99.0 N [facility] CenterTyzcuczYYSCVUJFRP6799-89-86 08:00:00 Test Item Value Reference Range Interpretation Comments MCH (test code = MCH) 30.7 pg 27.0-31.0 N [facility] CenterUdaykwnTAPWBTBRDQ9848-38-49 08:00:00 Test Item Value Reference Range Interpretation Comments RDW (test code = RDW) 13.3 11.5-14.5 N [facility] CenterJsrinxoRTLWUHIIBK8403-91-34 08:00:00 Test Item Value Reference Range Interpretation Comments MCHC (test code = MCHC) 33.9 32.0-36.0 N [facility] CenterSeiohbuPROPRFZCOB1323-39-35 08:00:00 Test Item Value Reference Range Interpretation Comments Platelet (test code = Platelet) 279 133-450 N [facility] CenterLbpypzxANWKAKABQD0767-73-25 08:00:00 Test Item Value Reference Range Interpretation Comments MPV (test code = MPV) 7.5 7.4-10.4 N [facility]aleZsfstevAKCLFIERQ4236-63-94 08:00:00 Test Item Value Reference Range Interpretation Comments AGAP (test code = AGAP) 13.1 10.0-20.0 N [facility]aleEwsieorMLFMKSCOH0620-10-99 08:00:00 Test Item Value Reference Range Interpretation Comments eGFR (test code = eGFR) 96 [facility]aleAsxpoyhZAGYUUOIF9769-15-55 08:00:00 Test Item Value Reference Range Interpretation Comments Creatinine Lvl (test code = Creatinine 0.7 0.5-1.4 N Lvl) [facility]aleQlvpkutUBRTSMTRD8071-16-60 08:00:00 Test Item Value Reference Range Interpretation Comments BUN (test code = BUN) 18 7-22 N [facility]aleArerngkDBDVDECFH7025-35-22 08:00:00 Test Item Value Reference Range Interpretation Comments Glucose Lvl (test code = Glucose Lvl) 101 70-99 H [facility]aleGcturnxRVZWJHTIE7626-77-45 08:00:00 Test Item Value Reference Range Interpretation Comments Sodium Lvl (test code = Sodium Lvl) 142 135-145 N [facility]aleTkjoywqUSYYCRUFN0171-86-30 08:00:00 Test Item Value Reference Range Interpretation Comments Calcium Lvl (test code = Calcium Lvl) 8.3 8.5-10.5 L [facility]aleZncmbbcVZIFYFCBH0683-19-46 08:00:00 Test Item Value Reference Range Interpretation Comments CO2 (test code = CO2) 23 24-32 L [facility]aleKgcjwhsDXUKIEGUP7737-21-33 08:00:00 Test Item Value Reference Range Interpretation Comments Chloride Lvl (test code = Chloride Lvl) 110 95-109 H [facility]aleFbxdofkUDSDVFTOM5060-42-23 08:00:00 Test Item Value Reference Range Interpretation Comments Potassium Lvl (test code = Potassium 4.1 3.5-5.1 N Lvl) [facility]aleFyptvvnYBVDZJDST0658-70-45 08:00:00 Test Item Value Reference Range Interpretation Comments LDL (test code = LDL) See Note mg/dL 5*NA*(02/07/2013 03:00:00) [facility]aleNhsajzkQJXOPYPIH2159-67-55 08:00:00 Test Item Value Reference Range Interpretation Comments CHD Risk (test code = CHD Risk) 8.45 3.90-5.80 H [facility]aleMvhhapiRSOYNFKKN0514-19-77 08:00:00 Test Item Value Reference Range Interpretation Comments HDL (test code = HDL) 29 L [facility]aleRbsjyyhXFVZSCBZD5238-44-11 08:00:00 Test Item Value Reference Range Interpretation Comments Trig (test code = Trig) 531 H [facility]aleUlkgxzsHHTWSKAWP8626-83-34 08:00:00 Test Item Value Reference Range Interpretation Comments Chol (test code = Chol) 245 H [facility] CenterKgbkzvtETEVFHBDYV7108-27-59 08:00:00 Test Item Value Reference Range Interpretation Comments Basophils (test code = 0.7 See_Comment N [Aut omated message] The Basophils) system which ge nerated this result tra nsmitted reference range : <=1.0. The reference r charan was not used to int erpret this result as normal/abnormal . [facility] CenterHmexjuhFUUHVVKLSL9170-23-06 08:00:00 Test Item Value Reference Range Interpretation Comments Segs-Bands # (test code = Segs-Bands #) 3.6 1.5-8.1 N [facility] CenterRvytxnyFVIYDCHIPW4854-59-80 08:00:00 Test Item Value Reference Range Interpretation Comments Lymphocytes # (test code = Lymphocytes 3.1 1.0-5.5 N #) [facility] CenterJuhtcczZCTITZLAFT9985-69-56 08:00:00 Test Item Value Reference Range Interpretation Comments Monocytes # (test code 0.6 See_Comment N [Aut omated message] The = Monocytes #) system which generated this result tra nsmitted reference range : <=0.8. The reference r charan was not used to int erpret this result as normal/abnormal . [facility] CenterBivujllCMEXSOVRPS1470-71-55 08:00:00 Test Item Value Reference Range Interpretation Comments Eosinophils # (test code 0.1 See_Comment N [A utomated message] The = Eosinophils #) system whic h generated this result tra nsmitted reference range : <=0.5. The reference r charan was not used to int erpret this result as normal/abnormal . [facility] CenterIruhahcTYUZBPBVWB2545-79-64 08:00:00 Test Item Value Reference Range Interpretation Comments Basophils # (test code 0.1 See_Comment N [Aut omated message] The = Basophils #) system which generated this result tra nsmitted reference range : <=0.2. The reference r charan was not used to int erpret this result as normal/abnormal . [facility] CenterZskzcsiJPQUFVKZIZ5984-24-44 08:00:00 Test Item Value Reference Range Interpretation Comments Eosinophils (test code = 1.7 See_Comment N [A utomated message] The Eosinophils) system which ge nerated this result tra nsmitted reference range : <=4.0. The reference r charan was not used to int erpret this result as normal/abnormal . [facility] CenterCjmbwmsDGULRJIVOH2789-67-17 08:00:00 Test Item Value Reference Range Interpretation Comments Monocytes (test code = Monocytes) 8.0 2.0-12.0 N [facility] CenterRqqxqkxXSUOXVXDWE9051-23-54 08:00:00 Test Item Value Reference Range Interpretation Comments Segs (test code = Segs) 48.0 45.0-75.0 N [facility] CenterFqffcngTJJUCMJHWD7856-92-48 08:00:00 Test Item Value Reference Range Interpretation Comments Lymphocytes (test code = Lymphocytes) 41.6 20.0-40.0 H [facility] CenterBbdgnpcAQAFHBCEPB8230-55-46 08:00:00 Test Item Value Reference Range Interpretation Comments RBC (test code = RBC) 3.87 4.20-5.40 L [facility] CenterAhjoxfyYVWJQNOQTC7441-32-07 08:00:00 Test Item Value Reference Range Interpretation Comments WBC (test code = WBC) 7.4 3.7-10.4 N [facility] CenterWplwcsvOYEVDEEMPA9783-00-03 08:00:00 Test Item Value Reference Range Interpretation Comments Hgb (test code = Hgb) 11.9 12.0-16.0 L [facility] CenterRhtzgqfVWNPMLGSLC8568-42-27 08:00:00 Test Item Value Reference Range Interpretation Comments Hct (test code = Hct) 35.2 36.0-48.0 L [facility] CenterNdnsovyGWPQDETARZ4999-66-57 08:00:00 Test Item Value Reference Range Interpretation Comments MCV (test code = MCV) 90.8 81.0-99.0 N [facility] CenterGdzqdzfMEIVVHYWHW1940-16-24 08:00:00 Test Item Value Reference Range Interpretation Comments MCH (test code = MCH) 30.7 pg 27.0-31.0 N [facility] CenterBzfwsqvJRMCOJQDXE2045-93-66 08:00:00 Test Item Value Reference Range Interpretation Comments RDW (test code = RDW) 13.3 11.5-14.5 N [facility] CenterRdsrvsgGOFMTVSEZQ1947-25-31 08:00:00 Test Item Value Reference Range Interpretation Comments MCHC (test code = MCHC) 33.9 32.0-36.0 N [facility] CenterMtgmlatTQQVHXKUUA3953-10-08 08:00:00 Test Item Value Reference Range Interpretation Comments Platelet (test code = Platelet) 279 133-450 N [facility] CenterMzsyabbPVHMUVUVOW5222-57-19 08:00:00 Test Item Value Reference Range Interpretation Comments MPV (test code = MPV) 7.5 7.4-10.4 N [facility]aleIceqqeoKCNENMEMW6591-74-81 08:00:00 Test Item Value Reference Range Interpretation Comments AGAP (test code = AGAP) 13.1 10.0-20.0 N [facility]aleEmrlikbVMHZLZOIZ3511-11-47 08:00:00 Test Item Value Reference Range Interpretation Comments eGFR (test code = eGFR) 96 [facility]alePwzzifnQYBPVIZFD3205-58-93 08:00:00 Test Item Value Reference Range Interpretation Comments Creatinine Lvl (test code = Creatinine 0.7 0.5-1.4 N Lvl) [facility]aleXyituplBIUOSJEGF8580-78-49 08:00:00 Test Item Value Reference Range Interpretation Comments BUN (test code = BUN) 18 7-22 N [facility]aleWknadroVSPIYWFGM7746-80-05 08:00:00 Test Item Value Reference Range Interpretation Comments Glucose Lvl (test code = Glucose Lvl) 101 70-99 H [facility]aleWgdbrboMFDQVNWZS5756-99-73 08:00:00 Test Item Value Reference Range Interpretation Comments Sodium Lvl (test code = Sodium Lvl) 142 135-145 N [facility]aleRsepzswIVPVCKASX5741-78-38 08:00:00 Test Item Value Reference Range Interpretation Comments Calcium Lvl (test code = Calcium Lvl) 8.3 8.5-10.5 L [facility]aleRqjnlwwKYHLBHMVT4396-91-32 08:00:00 Test Item Value Reference Range Interpretation Comments CO2 (test code = CO2) 23 24-32 L [facility]aleGdqlitaFNJOXQCTT6284-11-91 08:00:00 Test Item Value Reference Range Interpretation Comments Chloride Lvl (test code = Chloride Lvl) 110 95-109 H [facility]aleCdeqaqyZGEMTQLIX7023-48-43 08:00:00 Test Item Value Reference Range Interpretation Comments Potassium Lvl (test code = Potassium 4.1 3.5-5.1 N Lvl) [facility]aleQhnhfaqLLUMMDJKE6694-52-47 08:00:00 Test Item Value Reference Range Interpretation Comments LDL (test code = LDL) See Note mg/dL 5*NA*(02/07/2013 03:00:00) [facility]valeMqisorgIGLYILMOH2455-36-32 08:00:00 Test Item Value Reference Range Interpretation Comments CHD Risk (test code = CHD Risk) 8.45 3.90-5.80 H [facility]aleQdrsgjdOQBNWNPXO1805-14-73 08:00:00 Test Item Value Reference Range Interpretation Comments HDL (test code = HDL) 29 L [facility]aleEerhtrxOMLFZZKNK5579-99-62 08:00:00 Test Item Value Reference Range Interpretation Comments Trig (test code = Trig) 531 H [facility]aleEuygaqaBKRVHSSLD0784-35-88 08:00:00 Test Item Value Reference Range Interpretation Comments Chol (test code = Chol) 245 H [facility] CenterFrguutaLRCSGLJWBI3192-79-17 08:00:00 Test Item Value Reference Range Interpretation Comments Basophils (test code = 0.7 See_Comment N [Aut omated message] The Basophils) system which ge nerated this result tra nsmitted reference range : <=1.0. The reference r charan was not used to int erpret this result as normal/abnormal . [facility] CenterLucqpspUDFFUHLNLL2101-61-25 08:00:00 Test Item Value Reference Range Interpretation Comments Segs-Bands # (test code = Segs-Bands #) 3.6 1.5-8.1 N [facility] CenterWzwpkivMFTXDSIQBJ9673-81-36 08:00:00 Test Item Value Reference Range Interpretation Comments Lymphocytes # (test code = Lymphocytes 3.1 1.0-5.5 N #) [facility] CenterYknjvwlWOOTHDJGJZ5049-02-53 08:00:00 Test Item Value Reference Range Interpretation Comments Monocytes # (test code 0.6 See_Comment N [Aut omated message] The = Monocytes #) system which generated this result tra nsmitted reference range : <=0.8. The reference r charan was not used to int erpret this result as normal/abnormal . [facility] CenterPizfmlsOHAXFRQUTH1624-08-29 08:00:00 Test Item Value Reference Range Interpretation Comments Eosinophils # (test code 0.1 See_Comment N [A utomated message] The = Eosinophils #) system whic h generated this result tra nsmitted reference range : <=0.5. The reference r charan was not used to int erpret this result as normal/abnormal . [facility] CenterDfiorwvDFVMGXJXYE0173-81-23 08:00:00 Test Item Value Reference Range Interpretation Comments Basophils # (test code 0.1 See_Comment N [Aut omated message] The = Basophils #) system which generated this result tra nsmitted reference range : <=0.2. The reference r charan was not used to int erpret this result as normal/abnormal . [facility] CenterPhvzhfzAFLLUENXDY3370-79-02 08:00:00 Test Item Value Reference Range Interpretation Comments Eosinophils (test code = 1.7 See_Comment N [A utomated message] The Eosinophils) system which ge nerated this result tra nsmitted reference range : <=4.0. The reference r charan was not used to int erpret this result as normal/abnormal . [facility] CenterUzaahlvDRRROKTXEE8057-27-90 08:00:00 Test Item Value Reference Range Interpretation Comments Monocytes (test code = Monocytes) 8.0 2.0-12.0 N [facility] CenterDsxvaadKRXSNEWXIT6606-18-87 08:00:00 Test Item Value Reference Range Interpretation Comments Segs (test code = Segs) 48.0 45.0-75.0 N [facility] CenterYdmaropMYZYZXKEVW0454-90-50 08:00:00 Test Item Value Reference Range Interpretation Comments Lymphocytes (test code = Lymphocytes) 41.6 20.0-40.0 H [facility] CenterXnpdokyULLJJJSNXS0319-90-76 08:00:00 Test Item Value Reference Range Interpretation Comments RBC (test code = RBC) 3.87 4.20-5.40 L [facility] CenterXlsrkurQMLFQBNFHA5691-58-38 08:00:00 Test Item Value Reference Range Interpretation Comments WBC (test code = WBC) 7.4 3.7-10.4 N [facility] CenterWfmocdlKOHDLGPKXU7472-16-37 08:00:00 Test Item Value Reference Range Interpretation Comments Hgb (test code = Hgb) 11.9 12.0-16.0 L [facility] CenterOhabmshDTQWFPKFYV9041-78-03 08:00:00 Test Item Value Reference Range Interpretation Comments Hct (test code = Hct) 35.2 36.0-48.0 L [facility] CenterCqqespxTXVQIVFJIU9395-13-65 08:00:00 Test Item Value Reference Range Interpretation Comments MCV (test code = MCV) 90.8 81.0-99.0 N [facility] CenterFxxlyseQBCATGZCLA4743-36-79 08:00:00 Test Item Value Reference Range Interpretation Comments MCH (test code = MCH) 30.7 pg 27.0-31.0 N [facility] CenterHnomvcnXMUEVGTERN9633-58-91 08:00:00 Test Item Value Reference Range Interpretation Comments RDW (test code = RDW) 13.3 11.5-14.5 N [facility] CenterSdzfenbGWFAAUVJHO9739-65-61 08:00:00 Test Item Value Reference Range Interpretation Comments MCHC (test code = MCHC) 33.9 32.0-36.0 N [facility] CenterLsgngqxVMZTPKQDRG3343-36-03 08:00:00 Test Item Value Reference Range Interpretation Comments Platelet (test code = Platelet) 279 133-450 N [facility] CenterWbakgejEIDOOOMBHZ3025-64-00 08:00:00 Test Item Value Reference Range Interpretation Comments MPV (test code = MPV) 7.5 7.4-10.4 N [facility]aleIhdwfmwYMYZFYSLQ5436-56-71 08:00:00 Test Item Value Reference Range Interpretation Comments AGAP (test code = AGAP) 13.1 10.0-20.0 N [facility]aleTpvvrjcPHBTQKZUP7456-60-70 08:00:00 Test Item Value Reference Range Interpretation Comments eGFR (test code = eGFR) 96 [facility]valeFhbyjelQHUTIOFZC2250-01-29 08:00:00 Test Item Value Reference Range Interpretation Comments Creatinine Lvl (test code = Creatinine 0.7 0.5-1.4 N Lvl) [facility]aleGjwqnunRGFUASKJT4069-77-51 08:00:00 Test Item Value Reference Range Interpretation Comments BUN (test code = BUN) 18 7-22 N [facility]valeQzjbpuwKHLTHPMOX9266-26-14 08:00:00 Test Item Value Reference Range Interpretation Comments Glucose Lvl (test code = Glucose Lvl) 101 70-99 H [facility]aleAjgfpryJXPLRVLDP5086-25-12 08:00:00 Test Item Value Reference Range Interpretation Comments Sodium Lvl (test code = Sodium Lvl) 142 135-145 N [facility]valeOcapuyzPMVCMRJWK4434-77-64 08:00:00 Test Item Value Reference Range Interpretation Comments Calcium Lvl (test code = Calcium Lvl) 8.3 8.5-10.5 L [facility]aleFdgbefoRENXGAPAW9805-50-55 08:00:00 Test Item Value Reference Range Interpretation Comments CO2 (test code = CO2) 23 24-32 L [facility]aleGuvbykwZZRWUTMNF9317-66-24 08:00:00 Test Item Value Reference Range Interpretation Comments Chloride Lvl (test code = Chloride Lvl) 110 95-109 H [facility]valeTejoixfSVUVYDNZB0162-79-23 08:00:00 Test Item Value Reference Range Interpretation Comments Potassium Lvl (test code = Potassium 4.1 3.5-5.1 N Lvl) [facility]aleKoplnrgXMDCWNIOY5808-82-52 08:00:00 Test Item Value Reference Range Interpretation Comments LDL (test code = LDL) See Note mg/dL 5*NA*(02/07/2013 03:00:00) [facility]aleCnpsspvXHJMOOGEU4776-55-70 08:00:00 Test Item Value Reference Range Interpretation Comments CHD Risk (test code = CHD Risk) 8.45 3.90-5.80 H [facility]aleKsuuehvIYDYKUGEN2017-30-20 08:00:00 Test Item Value Reference Range Interpretation Comments HDL (test code = HDL) 29 L [facility]aleCphsguwYLJBVNANC3304-45-02 08:00:00 Test Item Value Reference Range Interpretation Comments Trig (test code = Trig) 531 H [facility]aleXfwjpsjNXMQVRIJI5413-44-83 08:00:00 Test Item Value Reference Range Interpretation Comments Chol (test code = Chol) 245 H [facility] CenterXcvnfiqEZAOGUEBBR5468-28-80 08:00:00 Test Item Value Reference Range Interpretation Comments Basophils (test code = 0.7 See_Comment N [Aut omated message] The Basophils) system which ge nerated this result tra nsmitted reference range : <=1.0. The reference r charan was not used to int erpret this result as normal/abnormal . [facility] CenterKpqysaxHFQZEWENHJ0017-46-99 08:00:00 Test Item Value Reference Range Interpretation Comments Segs-Bands # (test code = Segs-Bands #) 3.6 1.5-8.1 N [facility] CenterKgkhuwqBOSTGZTEDD8826-46-44 08:00:00 Test Item Value Reference Range Interpretation Comments Lymphocytes # (test code = Lymphocytes 3.1 1.0-5.5 N #) [facility] CenterCxqrissKWBMUMCSDM1650-24-20 08:00:00 Test Item Value Reference Range Interpretation Comments Monocytes # (test code 0.6 See_Comment N [Aut omated message] The = Monocytes #) system which generated this result tra nsmitted reference range : <=0.8. The reference r charan was not used to int erpret this result as normal/abnormal . [facility] CenterHgbdijlCCIQFSSXQZ7531-63-19 08:00:00 Test Item Value Reference Range Interpretation Comments Eosinophils # (test code 0.1 See_Comment N [A utomated message] The = Eosinophils #) system whic h generated this result tra nsmitted reference range : <=0.5. The reference r charan was not used to int erpret this result as normal/abnormal . [facility] CenterUoqrwllGCKRQEETPT1300-51-38 08:00:00 Test Item Value Reference Range Interpretation Comments Basophils # (test code 0.1 See_Comment N [Aut omated message] The = Basophils #) system which generated this result tra nsmitted reference range : <=0.2. The reference r charan was not used to int erpret this result as normal/abnormal . [facility] CenterPghlygaCZZATTPHZU1208-87-00 08:00:00 Test Item Value Reference Range Interpretation Comments Eosinophils (test code = 1.7 See_Comment N [A utomated message] The Eosinophils) system which ge nerated this result tra nsmitted reference range : <=4.0. The reference r charan was not used to int erpret this result as normal/abnormal . [facility]aleYdospnhBKBHMLJJM1712-33-59 18:53:00 Test Item Value Reference Range Interpretation Comments eGFR (test code = eGFR) 96 [facility]valeTeooxguFOEYPWJYP5156-44-51 18:53:00 Test Item Value Reference Range Interpretation Comments Sodium Lvl (test code = Sodium Lvl) 140 135-145 N [facility]valeMpedzcjPPDEGKJNL4758-98-20 18:53:00 Test Item Value Reference Range Interpretation Comments Potassium Lvl (test code = Potassium 3.9 3.5-5.1 N Lvl) [facility]valeOklkfzkHPHBQNXBE3172-78-65 18:53:00 Test Item Value Reference Range Interpretation Comments Chloride Lvl (test code = Chloride Lvl) 105 95-109 N [facility]valeUfqwmufQKHFVENAI5635-36-98 18:53:00 Test Item Value Reference Range Interpretation Comments CO2 (test code = CO2) 28 24-32 N [facility]valeJclmakySVOFSXINB6788-14-82 18:53:00 Test Item Value Reference Range Interpretation Comments Glucose Lvl (test code = Glucose Lvl) 92 70-99 N [facility]valeHbyplclMGSHNMOHN2987-03-76 18:53:00 Test Item Value Reference Range Interpretation Comments BUN (test code = BUN) 14 7-22 N [facility]aleGwilwxhABTQTLBZU9920-03-99 18:53:00 Test Item Value Reference Range Interpretation Comments Creatinine Lvl (test code = Creatinine 0.7 0.5-1.4 N Lvl) [facility]aleKqcmjtvIYDQKDZGS7387-95-60 18:53:00 Test Item Value Reference Range Interpretation Comments Calcium Lvl (test code = Calcium Lvl) 9.1 8.5-10.5 N [facility]valeRfmlglhCGGWZOTUY3793-77-73 18:53:00 Test Item Value Reference Range Interpretation Comments AGAP (test code = AGAP) 10.9 10.0-20.0 N [facility] CenterIcmaeleJTJUGVSUKX6902-64-08 18:53:00 Test Item Value Reference Range Interpretation Comments Basophils # (test code 0.1 See_Comment N [Aut omated message] The = Basophils #) system which generated this result tra nsmitted reference range : <=0.2. The reference r charan was not used to int erpret this result as normal/abnormal . [facility] CenterPgtqlcoPKZPLVYXPK2151-08-25 18:53:00 Test Item Value Reference Range Interpretation Comments Lymphocytes # (test code = Lymphocytes 2.8 1.0-5.5 N #) [facility] CenterLdyfrcaHIWPXGLWPI4121-34-83 18:53:00 Test Item Value Reference Range Interpretation Comments Eosinophils # (test code 0.1 See_Comment N [A utomated message] The = Eosinophils #) system whic h generated this result tra nsmitted reference range : <=0.5. The reference r charan was not used to int erpret this result as normal/abnormal . [facility] CenterLvidhqbACCBJFCTTL1519-27-04 18:53:00 Test Item Value Reference Range Interpretation Comments Monocytes # (test code 0.7 See_Comment N [Aut omated message] The = Monocytes #) system which generated this result tra nsmitted reference range : <=0.8. The reference r charan was not used to int erpret this result as normal/abnormal . [facility]EruhgvgSBDOXPOADX3327-88-28 18:53:00 Test Item Value Reference Range Interpretation Comments Segs-Bands # (test code = Segs-Bands #) 4.6 1.5-8.1 N [facility] CenterFcqxaalOPXKHQODPB4510-22-12 18:53:00 Test Item Value Reference Range Interpretation Comments Basophils (test code = 1.0 See_Comment N [Aut omated message] The Basophils) system which ge nerated this result tra nsmitted reference range : <=1.0. The reference r charan was not used to int erpret this result as normal/abnormal . [facility] CenterWcqdlfaDGJVGXCJBG3828-70-74 18:53:00 Test Item Value Reference Range Interpretation Comments Lymphocytes (test code = Lymphocytes) 34.0 20.0-40.0 N [facility] CenterFpmogtfORMIRAQJXF6566-53-36 18:53:00 Test Item Value Reference Range Interpretation Comments Eosinophils (test code = 1.3 See_Comment N [A utomated message] The Eosinophils) system which ge nerated this result tra nsmitted reference range : <=4.0. The reference r charan was not used to int erpret this result as normal/abnormal . [facility] CenterBoyucfgJAHCICYXNG0817-72-94 18:53:00 Test Item Value Reference Range Interpretation Comments Monocytes (test code = Monocytes) 8.4 2.0-12.0 N [facility] CenterCtgyxksCHJXWMVXSK2221-94-28 18:53:00 Test Item Value Reference Range Interpretation Comments Segs (test code = Segs) 55.3 45.0-75.0 N [facility] CenterVjjnxlaHWTUMFEUSM3187-86-87 18:53:00 Test Item Value Reference Range Interpretation Comments PTT (test code = PTT) 27.3 s 22.9-35.8 N [facility] CenterZtpnhotSXOOQDCQSQ9273-21-83 18:53:00 Test Item Value Reference Range Interpretation Comments PT (test code = PT) 13.3 s 12.0-14.7 N [facility] CenterGhxrrojKYUWNJISBI5457-71-05 18:53:00 Test Item Value Reference Range Interpretation Comments INR (test code = INR) 1.02 0.85-1.17 N [facility] CenterBwqchtuPXRYDUBMZU0321-54-56 18:53:00 Test Item Value Reference Range Interpretation Comments MPV (test code = MPV) 7.2 7.4-10.4 L [facility] CenterLvnttbjFPGLAIECSC8989-22-58 18:53:00 Test Item Value Reference Range Interpretation Comments MCHC (test code = MCHC) 33.5 32.0-36.0 N [facility] CenterYsulwscORLPEHQMJK3893-04-02 18:53:00 Test Item Value Reference Range Interpretation Comments MCH (test code = MCH) 29.8 pg 27.0-31.0 N [facility] CenterCknkiliUHRROQHYYL6496-86-04 18:53:00 Test Item Value Reference Range Interpretation Comments Platelet (test code = Platelet) 305 133-450 N [facility] CenterPushrpkMXYROUXHVE5749-20-01 18:53:00 Test Item Value Reference Range Interpretation Comments RDW (test code = RDW) 12.4 11.5-14.5 N [facility] CenterDonibvdGLCBFIXXQG9778-54-93 18:53:00 Test Item Value Reference Range Interpretation Comments MCV (test code = MCV) 89.0 81.0-99.0 N [facility] CenterFczogfwCUSEVIJQCH0155-96-99 18:53:00 Test Item Value Reference Range Interpretation Comments Hgb (test code = Hgb) 13.3 12.0-16.0 N [facility] CenterTrzbzmzFXXOBDEHOP1339-93-13 18:53:00 Test Item Value Reference Range Interpretation Comments RBC (test code = RBC) 4.45 4.20-5.40 N [place] [address]-09-15 18:53:00 Test Item Value Reference Range Interpretation Comments Hct (test code = Hct) 39.6 36.0-48.0 N [facility] CenterFfvjwpeWTWDSMFOYA8769-90-26 18:53:00 Test Item Value Reference Range Interpretation Comments WBC (test code = WBC) 8.3 3.7-10.4 N [facility]aleBtmkmtpJOJYKLKGF0680-41-53 18:53:00 Test Item Value Reference Range Interpretation Comments eGFR (test code = eGFR) 96 [facility]aleXudfkrzVIRPNUIYS1929-22-86 18:53:00 Test Item Value Reference Range Interpretation Comments Sodium Lvl (test code = Sodium Lvl) 140 135-145 N [facility]aleSohkaffGAJQSMCTL0232-95-96 18:53:00 Test Item Value Reference Range Interpretation Comments Potassium Lvl (test code = Potassium 3.9 3.5-5.1 N Lvl) [facility]aleSeavqhcCQKLSJAHI5295-78-49 18:53:00 Test Item Value Reference Range Interpretation Comments Chloride Lvl (test code = Chloride Lvl) 105 95-109 N [facility]aleXvzgkgnTFJNUXCOY6867-54-15 18:53:00 Test Item Value Reference Range Interpretation Comments CO2 (test code = CO2) 28 24-32 N [facility]aleQtmnsviZDQTPFVCU4356-65-17 18:53:00 Test Item Value Reference Range Interpretation Comments Glucose Lvl (test code = Glucose Lvl) 92 70-99 N [facility]aleDdwzlavFZNMURUSF4482-45-86 18:53:00 Test Item Value Reference Range Interpretation Comments BUN (test code = BUN) 14 7-22 N [facility]aleEcanwejKBBEPPMTI1786-64-36 18:53:00 Test Item Value Reference Range Interpretation Comments Creatinine Lvl (test code = Creatinine 0.7 0.5-1.4 N Lvl) [facility]aleObbjwyeCTTOIYTPY0273-67-23 18:53:00 Test Item Value Reference Range Interpretation Comments Calcium Lvl (test code = Calcium Lvl) 9.1 8.5-10.5 N [facility]aleZyqdjgnVWLEVVQBO9262-05-86 18:53:00 Test Item Value Reference Range Interpretation Comments AGAP (test code = AGAP) 10.9 10.0-20.0 N [facility]EbzualoEINAEQYURB5032-21-37 18:53:00 Test Item Value Reference Range Interpretation Comments Basophils # (test code 0.1 See_Comment N [Aut omated message] The = Basophils #) system which generated this result tra nsmitted reference range : <=0.2. The reference r charan was not used to int erpret this result as normal/abnormal . [facility] CenterWpxgezoKUTQBLCOPF6463-05-14 18:53:00 Test Item Value Reference Range Interpretation Comments Lymphocytes # (test code = Lymphocytes 2.8 1.0-5.5 N #) [facility] CenterNkgbpmwROHMPMHGCQ1203-70-06 18:53:00 Test Item Value Reference Range Interpretation Comments Eosinophils # (test code 0.1 See_Comment N [A utomated message] The = Eosinophils #) system whic h generated this result tra nsmitted reference range : <=0.5. The reference r charan was not used to int erpret this result as normal/abnormal . [facility] CenterBuchpdeGZJFQUWMCC4832-73-64 18:53:00 Test Item Value Reference Range Interpretation Comments Monocytes # (test code 0.7 See_Comment N [Aut omated message] The = Monocytes #) system which generated this result tra nsmitted reference range : <=0.8. The reference r charan was not used to int erpret this result as normal/abnormal . [facility] CenterDdwekrdVBRDNQIFTL0117-74-81 18:53:00 Test Item Value Reference Range Interpretation Comments Segs-Bands # (test code = Segs-Bands #) 4.6 1.5-8.1 N [facility] CenterIbvhhgbIEEGYTUULF8079-70-22 18:53:00 Test Item Value Reference Range Interpretation Comments Basophils (test code = 1.0 See_Comment N [Aut omated message] The Basophils) system which ge nerated this result tra nsmitted reference range : <=1.0. The reference r charan was not used to int erpret this result as normal/abnormal . [facility] CenterHpihnnxTPKXODAMLY8872-65-24 18:53:00 Test Item Value Reference Range Interpretation Comments Lymphocytes (test code = Lymphocytes) 34.0 20.0-40.0 N [facility] CenterCqrzejiCHAZQDGPTH1022-80-99 18:53:00 Test Item Value Reference Range Interpretation Comments Eosinophils (test code = 1.3 See_Comment N [A utomated message] The Eosinophils) system which ge nerated this result tra nsmitted reference range : <=4.0. The reference r charan was not used to int erpret this result as normal/abnormal . [facility] CenterIjfoeebRUBIYAPJTX2467-38-77 18:53:00 Test Item Value Reference Range Interpretation Comments Monocytes (test code = Monocytes) 8.4 2.0-12.0 N [facility] CenterQshjjemDKSGRBKJHU6692-05-35 18:53:00 Test Item Value Reference Range Interpretation Comments Segs (test code = Segs) 55.3 45.0-75.0 N [facility] CenterQulnuuwAONKORNZWI4708-97-23 18:53:00 Test Item Value Reference Range Interpretation Comments PTT (test code = PTT) 27.3 s 22.9-35.8 N [facility] CenterUsabolePRILPCDGFR4197-74-93 18:53:00 Test Item Value Reference Range Interpretation Comments PT (test code = PT) 13.3 s 12.0-14.7 N [facility] CenterGypsoxiPBQPVNDBAK2138-11-88 18:53:00 Test Item Value Reference Range Interpretation Comments INR (test code = INR) 1.02 0.85-1.17 N [facility] CenterHarbtllEMHEQNUPMZ7624-06-69 18:53:00 Test Item Value Reference Range Interpretation Comments MPV (test code = MPV) 7.2 7.4-10.4 L [facility] CenterEnubuzlTYOOIQEDIO5720-08-28 18:53:00 Test Item Value Reference Range Interpretation Comments MCHC (test code = MCHC) 33.5 32.0-36.0 N [facility] CenterRcnxcefVPAJNYDKTT0527-02-48 18:53:00 Test Item Value Reference Range Interpretation Comments MCH (test code = MCH) 29.8 pg 27.0-31.0 N [facility] CenterIysarbwUXAIZCGZBS5815-09-67 18:53:00 Test Item Value Reference Range Interpretation Comments Platelet (test code = Platelet) 305 133-450 N [facility] CenterMzzqvirTBXIXZATRE4046-73-85 18:53:00 Test Item Value Reference Range Interpretation Comments RDW (test code = RDW) 12.4 11.5-14.5 N [facility] CenterKcvmbncDSZCXUAOAM7364-78-82 18:53:00 Test Item Value Reference Range Interpretation Comments MCV (test code = MCV) 89.0 81.0-99.0 N [facility] CenterRfejwtiZQHXDEDEOC6320-29-05 18:53:00 Test Item Value Reference Range Interpretation Comments Hgb (test code = Hgb) 13.3 12.0-16.0 N [facility] CenterXllckkkHZEGYGOIWS6741-40-38 18:53:00 Test Item Value Reference Range Interpretation Comments RBC (test code = RBC) 4.45 4.20-5.40 N [facility] CenterOtowtifDPLYLLBUPB4411-70-93 18:53:00 Test Item Value Reference Range Interpretation Comments Hct (test code = Hct) 39.6 36.0-48.0 N [facility] CenterBvqtvdfXSYLDUJKGS4025-39-47 18:53:00 Test Item Value Reference Range Interpretation Comments WBC (test code = WBC) 8.3 3.7-10.4 N [facility]aleNiktziwFEKZHSYRE3825-52-90 18:53:00 Test Item Value Reference Range Interpretation Comments eGFR (test code = eGFR) 96 [facility]aleIwfybdjIHWULSIKK0296-75-84 18:53:00 Test Item Value Reference Range Interpretation Comments Sodium Lvl (test code = Sodium Lvl) 140 135-145 N [facility]aleAhviiysRBKGPBLAQ3063-91-94 18:53:00 Test Item Value Reference Range Interpretation Comments Potassium Lvl (test code = Potassium 3.9 3.5-5.1 N Lvl) [facility]aleZdgvvgjPCVCFRRNK9906-25-34 18:53:00 Test Item Value Reference Range Interpretation Comments Chloride Lvl (test code = Chloride Lvl) 105 95-109 N [facility]aleKfzbqyzDKUHZAHNG0275-88-12 18:53:00 Test Item Value Reference Range Interpretation Comments CO2 (test code = CO2) 28 24-32 N [facility]aleDmdoksxVXTLUZOCF9315-28-03 18:53:00 Test Item Value Reference Range Interpretation Comments Glucose Lvl (test code = Glucose Lvl) 92 70-99 N [facility]aleUiuylikWEEZVBDWA8683-51-01 18:53:00 Test Item Value Reference Range Interpretation Comments BUN (test code = BUN) 14 7-22 N [facility]aleAayyzalMHLCVENHP7390-53-51 18:53:00 Test Item Value Reference Range Interpretation Comments Creatinine Lvl (test code = Creatinine 0.7 0.5-1.4 N Lvl) [facility]aleWhjrqkdNVQONVVFG7345-69-18 18:53:00 Test Item Value Reference Range Interpretation Comments Calcium Lvl (test code = Calcium Lvl) 9.1 8.5-10.5 N [facility]aleJakbifxJHYYKZZTZ8452-24-01 18:53:00 Test Item Value Reference Range Interpretation Comments AGAP (test code = AGAP) 10.9 10.0-20.0 N [facility] CenterOqxaqdwCIKKZSURQW3311-37-03 18:53:00 Test Item Value Reference Range Interpretation Comments Basophils # (test code 0.1 See_Comment N [Aut omated message] The = Basophils #) system which generated this result tra nsmitted reference range : <=0.2. The reference r charan was not used to int erpret this result as normal/abnormal . [facility] CenterQtkkaepWBOGSMWSHI8393-01-17 18:53:00 Test Item Value Reference Range Interpretation Comments Lymphocytes # (test code = Lymphocytes 2.8 1.0-5.5 N #) [facility] CenterBzttdgfQRITWPGDDA3282-53-22 18:53:00 Test Item Value Reference Range Interpretation Comments Eosinophils # (test code 0.1 See_Comment N [A utomated message] The = Eosinophils #) system whic h generated this result tra nsmitted reference range : <=0.5. The reference r charan was not used to int erpret this result as normal/abnormal . [facility] CenterDfxgdebYJMTLCUUJY4312-43-52 18:53:00 Test Item Value Reference Range Interpretation Comments Monocytes # (test code 0.7 See_Comment N [Aut omated message] The = Monocytes #) system which generated this result tra nsmitted reference range : <=0.8. The reference r charan was not used to int erpret this result as normal/abnormal . [facility] CenterEnfxkorGWEAIFBERE9643-71-42 18:53:00 Test Item Value Reference Range Interpretation Comments Segs-Bands # (test code = Segs-Bands #) 4.6 1.5-8.1 N [facility] CenterNknnjwaKTXABQJHEA6195-51-16 18:53:00 Test Item Value Reference Range Interpretation Comments Basophils (test code = 1.0 See_Comment N [Aut omated message] The Basophils) system which ge nerated this result tra nsmitted reference range : <=1.0. The reference r charan was not used to int erpret this result as normal/abnormal . [facility] CenterGefsffmYGPQWUWWQN1956-49-56 18:53:00 Test Item Value Reference Range Interpretation Comments Lymphocytes (test code = Lymphocytes) 34.0 20.0-40.0 N [facility] CenterEsbhmjrUOKSMXITCZ9729-76-61 18:53:00 Test Item Value Reference Range Interpretation Comments Eosinophils (test code = 1.3 See_Comment N [A utomated message] The Eosinophils) system which ge nerated this result tra nsmitted reference range : <=4.0. The reference r charan was not used to int erpret this result as normal/abnormal . [facility] CenterWgvuvtmMQXPTRPCRX3753-46-14 18:53:00 Test Item Value Reference Range Interpretation Comments Monocytes (test code = Monocytes) 8.4 2.0-12.0 N [facility] CenterRqqjdyzXDPXQQEPYK0642-97-97 18:53:00 Test Item Value Reference Range Interpretation Comments Segs (test code = Segs) 55.3 45.0-75.0 N [facility] CenterZttiqkhCQQESNZAHF8581-08-66 18:53:00 Test Item Value Reference Range Interpretation Comments PTT (test code = PTT) 27.3 s 22.9-35.8 N [facility] CenterHnzrhkwHVKPNGQTLB4537-11-79 18:53:00 Test Item Value Reference Range Interpretation Comments PT (test code = PT) 13.3 s 12.0-14.7 N [facility] CenterUywpudhFOTYQOGQWB2346-58-71 18:53:00 Test Item Value Reference Range Interpretation Comments INR (test code = INR) 1.02 0.85-1.17 N [facility] CenterTsugpmuDTHFWAYFPH3854-11-52 18:53:00 Test Item Value Reference Range Interpretation Comments MPV (test code = MPV) 7.2 7.4-10.4 L [facility] CenterWxghkbgSROEQFNHDB3688-56-75 18:53:00 Test Item Value Reference Range Interpretation Comments MCHC (test code = MCHC) 33.5 32.0-36.0 N [facility] CenterDjxyrtbWQLCJCCUYN9428-07-75 18:53:00 Test Item Value Reference Range Interpretation Comments MCH (test code = MCH) 29.8 pg 27.0-31.0 N [facility] CenterTklqzhqFMKXEXAXKS3565-62-42 18:53:00 Test Item Value Reference Range Interpretation Comments Platelet (test code = Platelet) 305 133-450 N [facility] CenterXewxflaULGSERKBYQ3363-90-66 18:53:00 Test Item Value Reference Range Interpretation Comments RDW (test code = RDW) 12.4 11.5-14.5 N [facility] CenterDwifnghVFNQQKFMVG2967-97-76 18:53:00 Test Item Value Reference Range Interpretation Comments MCV (test code = MCV) 89.0 81.0-99.0 N [facility] CenterRqgzhxjLEESDZVVYJ4985-05-44 18:53:00 Test Item Value Reference Range Interpretation Comments Hgb (test code = Hgb) 13.3 12.0-16.0 N [facility] CenterSpdhxipFHAKRRLHET2496-61-23 18:53:00 Test Item Value Reference Range Interpretation Comments RBC (test code = RBC) 4.45 4.20-5.40 N [facility] CenterLkfmeyxFWQXGAMZLG5594-74-46 18:53:00 Test Item Value Reference Range Interpretation Comments Hct (test code = Hct) 39.6 36.0-48.0 N [facility] CenterClxbrzsZABZFPLNIZ3864-73-12 18:53:00 Test Item Value Reference Range Interpretation Comments WBC (test code = WBC) 8.3 3.7-10.4 N [facility] CenterMkajtpzTZEYAPSPCE9731-71-92 18:53:00 Test Item Value Reference Range Interpretation Comments MCV (test code = MCV) 89.0 81.0-99.0 N [facility] CenterViofhzbDEYTRPPIVN8410-07-95 18:53:00 Test Item Value Reference Range Interpretation Comments Hgb (test code = Hgb) 13.3 12.0-16.0 N [facility] CenterFgdbcquBWEVNCUYAR2866-15-86 18:53:00 Test Item Value Reference Range Interpretation Comments RBC (test code = RBC) 4.45 4.20-5.40 N [facility] CenterVonnyxpFZDBJWZHLS3202-09-68 18:53:00 Test Item Value Reference Range Interpretation Comments Hct (test code = Hct) 39.6 36.0-48.0 N [facility] CenterPnbnmtgYNMXXMSBAN8202-55-64 18:53:00 Test Item Value Reference Range Interpretation Comments WBC (test code = WBC) 8.3 3.7-10.4 N [facility]aleQwepmcjSIQFMIMUH3290-08-49 18:53:00 Test Item Value Reference Range Interpretation Comments eGFR (test code = eGFR) 96 [facility]aleOdtwqidVXWKOJZCE5803-69-94 18:53:00 Test Item Value Reference Range Interpretation Comments Sodium Lvl (test code = Sodium Lvl) 140 135-145 N [facility]aleUgyvuqkTOJEAQFAA8140-65-78 18:53:00 Test Item Value Reference Range Interpretation Comments Potassium Lvl (test code = Potassium 3.9 3.5-5.1 N Lvl) [facility]aleLdhtqoqYSVBSVLUU5152-91-30 18:53:00 Test Item Value Reference Range Interpretation Comments Chloride Lvl (test code = Chloride Lvl) 105 95-109 N [facility]aleCgmddicMEHOBDQTI4504-30-68 18:53:00 Test Item Value Reference Range Interpretation Comments CO2 (test code = CO2) 28 24-32 N [facility]valeLuqabheLDDUFGXXS0547-44-10 18:53:00 Test Item Value Reference Range Interpretation Comments Glucose Lvl (test code = Glucose Lvl) 92 70-99 N [facility]aleYcsknzmANYCAMVBU8310-74-23 18:53:00 Test Item Value Reference Range Interpretation Comments BUN (test code = BUN) 14 7-22 N [facility]aleXwghkjiURDLAKRRX2590-73-17 18:53:00 Test Item Value Reference Range Interpretation Comments Creatinine Lvl (test code = Creatinine 0.7 0.5-1.4 N Lvl) [facility]aleTowkrytAUBWDRRWP8876-67-67 18:53:00 Test Item Value Reference Range Interpretation Comments Calcium Lvl (test code = Calcium Lvl) 9.1 8.5-10.5 N [facility]aleGyteoacVJYKYLPTL6234-28-16 18:53:00 Test Item Value Reference Range Interpretation Comments AGAP (test code = AGAP) 10.9 10.0-20.0 N [facility] CenterAyobkyrZOZQACCEWD9245-94-27 18:53:00 Test Item Value Reference Range Interpretation Comments Basophils # (test code 0.1 See_Comment N [Aut omated message] The = Basophils #) system which generated this result tra nsmitted reference range : <=0.2. The reference r charan was not used to int erpret this result as normal/abnormal . [facility] CenterTtmwmfzTBEFCSFGOA3497-18-70 18:53:00 Test Item Value Reference Range Interpretation Comments Lymphocytes # (test code = Lymphocytes 2.8 1.0-5.5 N #) [facility] CenterOnntjkbAHIPXNBUUG8983-73-18 18:53:00 Test Item Value Reference Range Interpretation Comments Eosinophils # (test code 0.1 See_Comment N [A utomated message] The = Eosinophils #) system whic h generated this result tra nsmitted reference range : <=0.5. The reference r charan was not used to int erpret this result as normal/abnormal . [facility] CenterYazqgdoEFHHVVVVLI2036-12-52 18:53:00 Test Item Value Reference Range Interpretation Comments Monocytes # (test code 0.7 See_Comment N [Aut omated message] The = Monocytes #) system which generated this result tra nsmitted reference range : <=0.8. The reference r charan was not used to int erpret this result as normal/abnormal . [facility] CenterRgvfoasUCNEQLZHRD8208-85-14 18:53:00 Test Item Value Reference Range Interpretation Comments Segs-Bands # (test code = Segs-Bands #) 4.6 1.5-8.1 N [facility] CenterEefpkbjGLVLISWXGT1289-10-68 18:53:00 Test Item Value Reference Range Interpretation Comments Basophils (test code = 1.0 See_Comment N [Aut omated message] The Basophils) system which ge nerated this result tra nsmitted reference range : <=1.0. The reference r charan was not used to int erpret this result as normal/abnormal . [facility] CenterBbnzshyQMLIRADJOL3806-11-61 18:53:00 Test Item Value Reference Range Interpretation Comments Lymphocytes (test code = Lymphocytes) 34.0 20.0-40.0 N [facility] CenterPfnhhivQJPBKAWLGD9612-22-51 18:53:00 Test Item Value Reference Range Interpretation Comments Eosinophils (test code = 1.3 See_Comment N [A utomated message] The Eosinophils) system which ge nerated this result tra nsmitted reference range : <=4.0. The reference r charan was not used to int erpret this result as normal/abnormal . [facility] CenterSypteetADPVTBTVEK1486-58-84 18:53:00 Test Item Value Reference Range Interpretation Comments Monocytes (test code = Monocytes) 8.4 2.0-12.0 N [facility] CenterMqvtxysZEOGGTIRHA8495-44-28 18:53:00 Test Item Value Reference Range Interpretation Comments Segs (test code = Segs) 55.3 45.0-75.0 N [facility] CenterVfcipeeRYFPTHXMPO3084-09-81 18:53:00 Test Item Value Reference Range Interpretation Comments PTT (test code = PTT) 27.3 s 22.9-35.8 N [facility] CenterRqqgqvaJHZBBLTVTL9890-04-30 18:53:00 Test Item Value Reference Range Interpretation Comments PT (test code = PT) 13.3 s 12.0-14.7 N [facility] CenterOxyjxdhATIIHYZIAT0691-58-26 18:53:00 Test Item Value Reference Range Interpretation Comments INR (test code = INR) 1.02 0.85-1.17 N [facility] CenterTqpbhqoBYWMZLERWK6257-58-30 18:53:00 Test Item Value Reference Range Interpretation Comments MPV (test code = MPV) 7.2 7.4-10.4 L [facility] CenterFkzkterYSLVPKUAMR9287-92-68 18:53:00 Test Item Value Reference Range Interpretation Comments MCHC (test code = MCHC) 33.5 32.0-36.0 N [facility] CenterZfmqsgnOXVEUJUXGY5472-09-77 18:53:00 Test Item Value Reference Range Interpretation Comments MCH (test code = MCH) 29.8 pg 27.0-31.0 N [facility] CenterArfigzkJUITCQMIOL7516-81-48 18:53:00 Test Item Value Reference Range Interpretation Comments Platelet (test code = Platelet) 305 133-450 N [facility] CenterWloqhobVWTIIHQAUU5510-36-37 18:53:00 Test Item Value Reference Range Interpretation Comments RDW (test code = RDW) 12.4 11.5-14.5 N [facility] Notes Date/Time Note Provider Source 2013-02-07 EXAM: MRI BRAIN WITH AND WITHOUT CONTRAST [facility] 09:47:00-00:00 Center DATE: Feb 07, 2013 at 0940 hours [...] with recent infarct rather than demyelinating disease. 2013-02-06 EXAM: MRI BRAIN [facility] 18:49:00-00:00 Center DATE: Feb 06, 2013 dated 1839 [...] more acute lesion would possibly have this appe arance as well. There is a T2 hyperintense, [...] study may be indicated for further evaluation. 2013-02-06 CT ANGIOGRAM OF THE HEAD AND NECK [facility] 14:45:00-00:00 Center DATE: 05/08/2013 at 2:47 p.m. CLINICAL INFORMATION: Aphasia, dysarthria. TECHNIQUE: Axial images were obtained from the vertex through the upper [...]
[2023-01-24 18:47] LABS: Absolute Lymphocytes (CBC) 2.8 K/uL (0.7-4.9); Hematocrit 41.1 % (36.0-45.0); Lymphocytes % 25.1 % (15.3-44.8); MCV 87.7 fL (80-100); MPV 7.3 fL (7.6-11.3); Platelets 382 thou/uL (152-406); RBC Red Blood Cell Count 4.69 M/uL (3.86-4.86)
[2023-01-24 18:54] LABS: Potassium 3.5 mEq/L (3.5-5.1)
[2023-01-24] MEDS ORDERED: MORPHINE 4 MG/ML SYR ONE ×2 (19:09→21:37)
[2023-01-24] MEDS ORDERED: ONDANSETRON 4 MG/2 ML VIAL ONE ×2 (19:10→21:37)
--- NOTE | 2023-01-24 19:21 | EDPHYS ---
Physician Documentation [facility] Name: Jeni Johnson Age: 67 yrs Sex: Female : 1955 Arrival Date: 01/24/2023 Time: 18:12 Bed 7 Private MD: ED Physician Basilio Sotomayor HPI: 01/24 18:27 This 67 yrs old Female presents to ER via EMS with complaints of Fall Injury. kb 18:27 Details of fall: The patient fell from an upright position, while walking. Onset: The kb symptoms/episode began/occurred just prior to arrival. Associated injuries: The patient sustained right quadriceps and right hip, decreased range of motion, deformity, painful injury. Severity of symptoms: At their worst the symptoms were moderate, in the emergency department the symptoms are unchanged. The patient has not experienced similar symptoms in the past. The patient has not recently seen a physician. Pt tripped while walking outside and fell onto right hip. . Historical: - Allergies: 18:13 No Known Allergies; aa5 - Home Meds: 18:13 lisinopril 10 mg Oral tab 1 tab once daily [Active]; carvedilol oral [Active]; aa5 18:45 Cipro Oral [Active]; Methocarbamol Oral [Active]; aa5 - PMHx: 18:13 H Pyloi; Hypertension; aa5 - PSHx: 18:13 spinal fusion L4-L5; aa5 - Immunization history:: Adult Immunizations unknown. - Social history:: Smoking status: Patient reports the use of cigarette tobacco products, smokes one pack cigarettes per day. - Immunization history: Last tetanus immunization: unknown. ROS: 18:26 Constitutional: Negative for fever, chills, and weight loss. kb 18:26 MS/extremity: Positive for decreased range of motion, pain, of the right hip and right quadriceps. 18:26 All other systems are negative. Exam: 18:26 Constitutional: This is a well developed, well nourished patient who is awake, alert, kb and in no acute distress. Head/Face: Normocephalic, atraumatic. ENT: Moist Mucous membranes Cardiovascular: Regular rate and rhythm with a normal S1 and S2. No gallops, murmurs, or rubs. No pulse deficits. Respiratory: Respirations even and unlabored. No increased work of breathing. Talking in full sentences Abdomen/GI: Soft, non-tender. No distention Skin: Warm, dry with normal turgor. Normal color. Neuro: Awake and alert, GCS 15, oriented to person, place, time, and situation. Moves all extremities. Normal gait. 18:26 Musculoskeletal/extremity: Extremities: grossly normal except: noted in the right quadriceps and right hip: decreased ROM, pain, tenderness, ROM: intact in all extremities, Circulation is intact in all extremities. Sensation intact. Weight bearing: is unable to bear weight. Vital Signs: 18:13 BP 168 / 69; Pulse 69; Resp 18 S; Temp 98.1(O); Pulse Ox 98% on R/A; Weight 58.06 kg aa5 (M); Height 5 ft. 1 in. (R); 19:00 BP 132 / 71; Pulse 80; Resp 18; Pulse Ox 98% ; vc1 20:30 BP 143 / 80; Pulse 71; Resp 18; Pulse Ox 97% ; vc1 21:15 BP 137 / 70; Pulse 71; Resp 18; Pulse Ox 98% ; vc1 22:45 BP 109 / 56; Pulse 59; Resp 18; Pulse Ox 98% ; vc1 18:13 Body Mass Index 24.19 (58.06 kg, 154.94 cm) aa5 [place] Coma Score: 18:13 Eye Response: spontaneous(4). Motor Response: obeys commands(6). Verbal Response: aa5 oriented(5). Total: 15. Trauma Score (Adult): 18:13 Eye Response: spontaneous(1); Verbal Response: oriented(1); Motor Response: obeys aa5 commands(2); Systolic BP: > 89 mm Hg(4); Respiratory Rate: 10 to 29 per min(4); [place] Score: 15; Trauma Score: 12 MDM: 18:15 Patient medically screened. kb 18:28 Differential diagnosis: contusion, fracture. Data reviewed: vital signs, nurses notes. kb 18:28 Historians other than the Patient: EMS: [facility]. kb 19:20 Counseling: I had a detailed discussion with the patient and/or guardian regarding the kb historical points, exam findings, and any diagnostic results supporting the discharge/admit diagnosis, radiology results, the need for further work-up and treatment in the hospital. 19:30 ED course: Dr Ned accepts pt for transfer to [facility] . kb 01/24 18:15 Order name: CBC with Diff; Complete Time: 18:53 kb 01/24 18:15 Order name: Basic Metabolic Panel; Complete Time: 18:54 kb 01/24 18:15 Order name: Femur Right XRAY; Complete Time: 10:59 kb 01/24 20:01 Order name: Chest Single View; Complete Time: 10:59 EDMS 01/24 18:15 Order name: IV Start; Complete Time: 18:19 kb Administered Medications: 19:03 Drug: morphine IVP or IV 4 mg Route: IVP; Infused Over: 4 mins; Site: right antecubital;rs5 19:03 Drug: Ondansetron IVP 4 mg Route: IVP; Site: right antecubital; rs5 21:30 Drug: morphine IVP or IV 4 mg Route: IVP; Infused Over: 4 mins; Site: right antecubital;vc1 21:31 Drug: Ondansetron IVP 4 mg Route: IVP; Site: right antecubital; vc1 Disposition Summary: 01/24/23 19:20 Transfer Ordered Transfer Location: [facility] kb Reason: Higher level of care kb Condition: Stable kb Problem: new kb Symptoms: are unchanged kb Accepting Physician: Dr Marino(01/24/23 23:28) vc1 Diagnosis - Intertrochanteric Fracture - right hip kb - Fall on same level from slipping, tripping and stumbling without subsequent kb striking against object Forms: - Medication Reconciliation Form kb - SBAR form kb Signatures: Dispatcher [employer] EDMS Payton Toussaint, PRASAD-C [employer] SUPERVISOR-Mariam Mendes, RN RN aa5 Reina Alexander RN RN vc1 Rojas Cr RN RN rs5 Corrections: (The following items were deleted from the chart) 19:30 19:20 Dr palmer kb 20:01 18:16 Hip Right 2 View+RAD.RAD.BRZ ordered. EDMS EDMS 23:28 19:30 Dr Marino kb vc1
--- NOTE | 2023-01-24 19:21 | ER ---
Nurse's Notes [facility] Name: Jeni Johnson Age: 67 yrs Sex: Female : 1955 Arrival Date: 01/24/2023 Time: 18:12 Bed 7 Private MD: Diagnosis: Intertrochanteric Fracture - right hip;Fall on same level from slipping, tripping and stumbling without subsequent striking against object Presentation: 01/24 18:13 Chief complaint: EMS states: tripped and fell onto right hip. Pt reports having spinal aa5 fusion sx approximately 1 week ago. Right hip pain. 18:13 Coronavirus screen: At this time, the client does not indicate any symptoms associated aa5 with coronavirus-19. Ebola Screen: Patient denies travel to an Ebola-affected area in the 21 days before illness onset. Initial Sepsis Screen: Does the patient meet any 2 criteria? No. Patient's initial sepsis screen is negative. Does the patient have a suspected source of infection? No. Patient's initial sepsis screen is negative. Risk Assessment: Do you want to hurt yourself or someone else? Patient reports no desire to harm self or others. Onset of symptoms was January 24, 2023. 18:13 Acuity: CHET 2 aa5 18:13 Method Of Arrival: EMS: [facility] aa5 18:13 Care prior to arrival: IV initiated. 20 GA, in the left forearm. aa5 18:13 Mechanism of Injury: Fall from standing position. Trauma event details: Injury occurred aa5 in the [facility], Injury occurred: at home. Injury occurred: January 24, 2023. Trauma Activation: Alert Physician: ED Physician; Name: ; Notified At: ; Arrived At: Physician: General Surgeon; Name: ; Notified At: ; Arrived At: Physician: Radiology; Name: ; Notified At: ; Arrived At: Physician: Respiratory; Name: ; Notified At: ; Arrived At: Physician: Lab; Name: ; Notified At: ; Arrived At: Historical: - Allergies: 18:13 No Known Allergies; aa5 - Home Meds: 18:13 lisinopril 10 mg Oral tab 1 tab once daily [Active]; carvedilol oral [Active]; aa5 18:45 Cipro Oral [Active]; Methocarbamol Oral [Active]; aa5 - PMHx: 18:13 H Pyloi; Hypertension; aa5 - PSHx: 18:13 spinal fusion L4-L5; aa5 - Immunization history:: Adult Immunizations unknown. - Social history:: Smoking status: Patient reports the use of cigarette tobacco products, smokes one pack cigarettes per day. - Immunization history: Last tetanus immunization: unknown. Screenin:15 [facility] ED Fall Risk Assessment (Adult) History of falling in the last 3 months, aa5 including since admission Yes- single mechanical fall (1 pt) Confusion or Disorientation No (0 pts) Intoxicated or Sedated No (0 pts) Impaired Gait No (0 pts) Mobility Assist Device Used No (0 pt) Altered Elimination No (0 pt) Score/Fall Risk Level 0 - 2 = Low Risk Oriented to surroundings, Maintained a safe environment, Educated pt \T\ family on fall prevention, incl call for assistance when getting out of bed. Abuse screen: Denies threats or abuse. Nutritional screening: No deficits noted. Tuberculosis screening: No symptoms or risk factors identified. Primary Survey: 18:13 NO uncontrolled hemorrhage observed. A: The client is awake and alert. The airway is aa5 patent. Breathing/Chest: Spontaneous respiratory effort, equal unlabored respirations, breath sounds clear bilaterally, regular pattern, symmetrical chest rise and fall. Circulation: Skin color: pink. Disability Client is alert. Exposure/Environment: A warming method has been applied: A warm blanket has been provided to the patient. Secondary Survey: 18:13 HEENT: No deficits noted. Gastrointestinal: No deficits noted. : No signs and/or aa5 symptoms were reported regarding the genitourinary system. Musculoskeletal: Reports pain in right hip. Assessment: 18:13 General: Appears comfortable, Behavior is calm, cooperative. Pain: Complains of pain in aa5 right hip Pain currently is 5 out of 10 on a pain scale. Quality of pain is described as sharp, Is continuous. Neuro: Level of Consciousness is awake, alert, obeys commands, Oriented to person, place, time, situation. EENT: No signs and/or symptoms were reported regarding the EENT system. Cardiovascular: Patient's skin is warm and dry. Respiratory: Airway is patent Respiratory effort is even, unlabored, Respiratory pattern is regular, symmetrical. GI: No signs and/or symptoms were reported involving the gastrointestinal system. : No signs and/or symptoms were reported regarding the genitourinary system. Derm: Skin is pink, warm \T\ dry. Musculoskeletal: Right leg is shortened and externally rotated. Reports pain in right hip. 19:48 Reassessment: No changes from previously documented assessment. Patient and/or family vc1 updated on plan of care and expected duration. Pain level reassessed. 21:00 Reassessment: No changes from previously documented assessment. Patient and/or family vc1 updated on plan of care and expected duration. Pain level reassessed. 22:00 Reassessment: No changes from previously documented assessment. Patient and/or family vc1 updated on plan of care and expected duration. Pain level reassessed. 23:00 Reassessment: No changes from previously documented assessment. Patient and/or family vc1 updated on plan of care and expected duration. Pain level reassessed. Vital Signs: 18:13 BP 168 / 69; Pulse 69; Resp 18 S; Temp 98.1(O); Pulse Ox 98% on R/A; Weight 58.06 kg aa5 (M); Height 5 ft. 1 in. (R); 19:00 BP 132 / 71; Pulse 80; Resp 18; Pulse Ox 98% ; vc1 20:30 BP 143 / 80; Pulse 71; Resp 18; Pulse Ox 97% ; vc1 21:15 BP 137 / 70; Pulse 71; Resp 18; Pulse Ox 98% ; vc1 22:45 BP 109 / 56; Pulse 59; Resp 18; Pulse Ox 98% ; vc1 18:13 Body Mass Index 24.19 (58.06 kg, 154.94 cm) aa5 [place] Coma Score: 18:13 Eye Response: spontaneous(4). Motor Response: obeys commands(6). Verbal Response: aa5 oriented(5). Total: 15. Trauma Score (Adult): 18:13 Eye Response: spontaneous(1); Verbal Response: oriented(1); Motor Response: obeys aa5 commands(2); Systolic BP: > 89 mm Hg(4); Respiratory Rate: 10 to 29 per min(4); [place] Score: 15; Trauma Score: 12 ED Course: 18:13 Patient arrived in ED. hb 18:13 Arm band placed on. aa5 18:13 Patient has correct armband on for positive identification. Bed in low position. Call aa5 light in reach. Side rails up X2. Pulse ox on. NIBP on. 18:13 Patient maintains SpO2 saturation greater than 95% on room air. Thermoregulation: warm aa5 blanket given to patient. 18:15 Payton Toussaint [facility]C [facility]. kb 18:15 Basilio Sotomayor MD is Attending Physician. kb 18:16 Mariam Burns, [place] is Primary Nurse. aa5 18:19 Triage completed. aa5 18:20 Inserted saline lock: 20 gauge in right antecubital area, using aseptic technique. rs5 Blood collected. 19:00 Report given to [place]LA Walker and [place]LA Huang. aa5 19:26 called [facility] for Transfer. sm8 20:01 Chest Single View In Process Unspecified. EDMS 20:02 Femur Right XRAY In Process Unspecified. EDMS 20:31 Primary Nurse role handed off by Mariam Burns RN 23:27 No provider procedures requiring assistance completed. Patient transferred, IV remains vc1 in place. Administered Medications: 19:03 Drug: morphine IVP or IV 4 mg Route: IVP; Infused Over: 4 mins; Site: right antecubital;rs5 19:03 Drug: Ondansetron IVP 4 mg Route: IVP; Site: right antecubital; rs5 21:30 Drug: morphine IVP or IV 4 mg Route: IVP; Infused Over: 4 mins; Site: right antecubital;vc1 21:31 Drug: Ondansetron IVP 4 mg Route: IVP; Site: right antecubital; vc1 Medication: 21:16 VIS not applicable for this client. vc1 Outcome: 19:20 ER care complete, transfer ordered by . kb 23:28 Transferred by ground EMS to [facility], Transfer form completed. X-rays sent vc1 w/ patient. 23:28 Condition: stable 23:28 Instructed on the need for transfer. 23:28 Patient left the ED. vc1 Signatures: Dispatcher [employer] EDMS Payton Toussaint FNP-C FNP-Mariam Mendes RN RN aa5 Lou Martínez RN RN Radha Deras Reina Alexander RN RN vc1 Rojas Cr RN RN rs5 Yazan Grantlett sm8
--- NOTE | 2023-01-24 20:18 | RAD REPORT ---
EXAM DESCRIPTION: RAD - Femur Right - 01/24/2023 8:00 pm CLINICAL HISTORY: PAIN COMPARISON: No comparisons TECHNIQUE: Right femur, 2 views. FINDINGS: Buckled superiorly laterally angulated intertrochanteric fracture. There is no dislocation or periosteal reaction noted. No acute or suspicious bony finding. IMPRESSION: Buckled superiorly laterally angulated intertrochanteric fracture.
--- NOTE | 2023-01-24 20:19 | RAD REPORT ---
EXAM DESCRIPTION: RADChest Single View01/24/2023 8:00 pm CLINICAL HISTORY: PAIN COMPARISON: Chest Single View dated 06/28/2022; Chest Single View dated 05/07/2022; Chest Single View dated 09/24/2021; Chest Single View dated 05/25/2020 TECHNIQUE: Portable AP view of the chest. FINDINGS: The lungs are clear. No pneumothorax or effusion. The cardiomediastinal contours are unrem arkable. IMPRESSION: No acute cardiopulmonary process.
[2023-01-24 23:38] VITALS: TEMP 98.1
[2023-01-24 23:55] VITALS: O2SAT 98
[2023-01-24 23:56] VITALS: BP 109/56
== END 2023-01-24 23:28 | disposition short-term general hospital (02) ==
LOC: ER 18:12
DX: S72.141A Displaced intertrochanteric fracture of right femur, initial encounter for closed fracture (principal); W01.0XXA Fall on same level from slipping, tripping and stumbling without subsequent striking against object, initial encounter; I10 Essential (primary) hypertension; F17.210 Nicotine dependence, cigarettes, uncomplicated
CPT/HCPCS: 85025; 80048; 36415; 71045; 73552; 96375; 96374; 99285; J2405 ×2

== ENCOUNTER 2023-02-04 09:10 | Inpatient (IN) | payer OTHER ==
[2023-02-04 13:20] VITALS: BMI 22.1
--- OUTSIDE RECORDS SUMMARY | 2023-02-04 13:21 | XMS REPORT | Continuity of Care Document ---
:1955 Author Organization [facility] t Address [address] [facility] [address] [place] [address] Care Team Providers Name Role Phone EMRE [...] 18:02:00 l Active 00:00: Mateusz 02/06/2013 00 [facility] TIA TIA Diagnosis Active 2013-02-07 Mem oria Active 02-06 12:05:00 l 02/06/2013 00:00: Edmundo georges [address] TRANS TRANS Diagnosis Active 2013-02-07 Mem oria CEREB CEREB 12:05:00 l ISCHEMIA ISCHEMIA Edmundo georges NEC NEC Active [facility] Cerebrovas Cerebrova Problem Active 2022-08-31 Memoria cular scular 11:39:54 l accident accident Edmundo georges (disorder) (disorder) Active Problem 08/31/2022 [facility] [place] Hypertensi Problem Active 2022-08-31 M emoria ve Hypertensi 11:39:54 l disorder, ve Mateusz systemic disorder, arterial systemic (disorder) arterial (disorder) Active Problem 08/31/2022 [facility] [place] Syncope Syncope Problem Active 2022-08-31 Me moria (disorder) (disorder) 11:39:54 l Active [place] Problem 08/31/2022 [facility] [place] Arthritis Arthritis Problem Resolve 2019-07-23 Memoria (disorder) [...] Resolved d 21:14:51 l Problem Mateusz 02/09/2013 [facility] Hyperlipid Hyperlipi Problem Resolve 2013-02-09 Memoria emia demia d 21:14:51 l Resolved Mateusz Problem 02/09/2013 [facility] LASIK LASIK Problem Resolve 2013-02-09 Mem oria Resolved d 21:14:51 l Problem [place] 02/09/2013 [facility] Allergies, Adverse Reactions, Alerts Allergy Allergy Status Severity Reaction(s) Onset Inactive Treating Comm ents Source Name Type Date Date Clinician NO KNOWN Drug Active Univers ALLERGIE Class ity of S [facility] No Known No Known Active Memori a Medicati Medicati l on on Mateusz Allergie Allergie s s Social History Social Habit Start Date Stop Date Quantity Comments Source Sex Assigned At [facility] [place] Exposure to Yes [facility] SARS-CoV-2 [facility] (event) Branch Alcohol intake 2015-04-09 2015-04-09 Current University of 00:00:00 00:00:00 non-drinker of [facility] alcohol Branch (finding) Smoking Status Start Date [...] mg oral 3-22 Refill(s) l tablet 20:52: [place] 00 CRESTOR 20 2014-05 Yes 20mg Take [...] l oral tablet 18:23: Brown Daily, 30 [place] 46 tab, Substituti on Allowed, TAB atorvastati [...] Memor ia 9-15 on Allowed l 22:49: [place] Zantac Yes Substituti Memor ia 9-15 on Allowed l 22:49: [place] Zantac 2013-0 Yes Substituti Memor ia 9-15 on Allowed l 22:49: Mateusz 00 Zantac Yes Substituti Memor ia 9-15 on Allowed l 22:49: [place] 00 Multiple Yes 1 cap, PO, Mem oria Vitamins 9-15 Daily, 30 l oral 22:48: cap, [place] capsule 47 Substituti on Allowed, Maintenanc e, [...] 9-15 Daily, 30 l oral 22:48: cap, [place] capsule 47 Substituti on Allowed, Maintenanc e, [...] 100 l 0.9% IV 22:09: [place] ml/hr, [place] 1,000 mL 00 Infuse over: 10 hr, [...] 100 l 0.9% IV 22:09: [place] ml/hr, [place] 1,000 mL 00 Infuse over: 10 hr, [...] 100 l 0.9% IV 22:09: [place] ml/hr, [place] 1,000 mL 00 Infuse over: 10 hr, [...] Systolic (mm Hg) 2022-08-13 19:52:00 Jn rial [place] Diastolic (mm Hg) 2022-08-13 19:52:00 Mem orial [place] Heart Rate 2022-08-13 19:52:00 [facility] Height 2022-08-13 19:52:00 4 [ft_i] [facility] Weight 2022-08-13 19:52:00 [facility] BMI Calculated 2022-08-13 19:52:00 Memori al [place] Diastolic (mm Hg) 2013-02-07 17:00:00 Mem orial Mate[facility] Heart Rate 2013-02-07 17:00:00 [facility] [place] Respitory Rate 2013-02-07 17:00:00 Memori al [place]us[place] Temperature Oral (F) 2013-02-07 17:00:00 97.0 F [facility] Systolic (mm Hg) 2013-02-07 17:00:00 Jn rial [place] Systolic (mm Hg) 2013-02-07 12:00:00 Jn rial [place] Diastolic (mm Hg) 2013-02-07 12:00:00 Mem orial Mateusz Respitory Rate 2013-02-07 12:00:00 Memori al [place] Temperature Oral (F) 2013-02-07 12:00:00 96.3 F [facility] [place] Heart Rate 2013-02-07 12:00:00 [facility] [place] Heart Rate 2013-02-07 08:51:00 [facility] Amteus[facility] Temperature Oral (F) 2013-02-07 08:51:00 97.8 F [facility] Systolic (mm Hg) 2013-02-07 08:51:00 Jn rial Mateusz Diastolic (mm Hg) 2013-02-07 08:51:00 Mem orial [place] Respitory Rate 2013-02-07 00:41:00 Memori al Mateus[facility] Weight 2013-02-06 17:49:00 [facility] [place] Height 2013-02-06 17:49:00 157.48 cm [facility] [place] Procedures Procedure Date / Time Performed Performing Clinician Anusha ROMAN [facility] Encounters Start End Encounter Admission Attending Care Care Encounter Source Date/Time Date/Time Type Type Clinicians Facility Department ID 2023-01-25 2023-01-29 Inpatient E TYRESE GILL MED [id number] [facility] 03:43:00 17:10:00 SHIFA 46 2022-08-28 2022-08-29 Outpatient MHJYOTI NCBernardo [id number] Memoria 18:00:00 04:59:59 Neurology 02 l Hai Huffann 2022-08-13 2022-08-14 Outpatient [facility] [id number] Memoria 20:00:00 04:59:59 Neurology 01 l [place] Mateusz 2020-01-06 2020-01-06 Laboratory Lab, [facility] [id number] 09:23:20 09:43:20 Only Fam Pob I Health [id number] [place] [id number] Professio [phone] [place] [address] [address] 2020-01-06 2020-01-06 Laboratory Lab, [facility] Fam Pob I [facility] [id number] Univers 09:23:20 09:43:20 Only Anene, [facility] [id number] ity of [place] [id number] [place] as Professio [phone] Hi dical [place] [address] Branch [address] 2020-01-06 2020-01-06 Outpatient R [facility] [id number] Univers 09:00:00 09:00:00 ity of [facility] 2019-07-21 2019-07-21 Ambulatory nullFlavo MNA [id number] Memoria 19:45:00 19:45:00 Pre-Reg r Neurology 00 l Hai Child 2013-02-06 2013-02-07 OU nullFlavo [facility] [id number] Memoria 17:09:00 15:00:00 r Medical 58 l [facility] Results Test Description Test Time Test Comments Results Result Comments Source Thyroid Stimulating Hormone 2018-11-22 22:27:55 Test Item Value Reference Range Interpretation Comme nts TSH (test code = TSH) 0.445 mIU/mL 0.270-4.200 Erythrocyte Sedimentation Rate [id number] 22:20:13 Test Item Value Reference Range Interpretation Comments ESR STAT (test code = ESR STAT) 8 mm/hr 0-20 Comprehensive Metabolic [id number] 21:59:49 Test Item Value Reference Range Interpretation [...] A/G 1.6 ratio N Ratio) Comprehensive Metabolic [id number] 21:59:49 Test Item Value Reference Range Interpretation [...] the National Kidney Foundation, http://nkdep.ni h.gov Lipid [id number] 21:59:49 Test Item Value Reference Range Interpretation Comments Cholesterol Total 294 mg/dL 0-200 H RISK OF HE ART (test code = DISEASEPublishe d by Cholesterol Total) [place] [employer] Sowmya lyte Optimal Borderl ine [...] is greater than 40 0. Comprehensive Metabolic [id number] 21:59:49 Test Item Value Reference Range Interpretation [...] ag e have not been validated by [facility] MDRD study and should be interpreted [...] ag e have not been validated by [facility] MDRD study and should be interpreted wit h caution. eGFR R esult Interpretation: eGFR > or = 60 is in the Normal RangeeGF R < 60 may mean kid helio diseaseeGFR < 1 5 may mean kidney failure Rang es recommended by the National Kidney Foundation, http://nkdep.ni h.gov Complete Blood Count with [id number] 21:52:58 Test Item Value Reference Range Interpretation [...] code = IPF) 0 % N Automated Uovbpxxesgsg7526-05-14 21:52:58 Test Item Value Reference Range Interpretation Comments Neutro Auto (test code = Neutro 62.7 % 36.0-70.0 Auto) Lymph Auto (test code = Lymph Auto) 28.3 % 12.0-44.0 [place] Auto (test code = [place] Auto) 7.6 % 0.0-11.0 Eos, Auto (test code = Eos, Auto) 0.7 % 0.0-7.0 Basophil Auto (test code = Basophil 0.3 % 0.0-2.0 Auto) Neutro Absolute (test code = Neutro 5.7 x10 1.6-7.4 Absolute) Lymph Absolute (test code = Lymph 2.56 x10 .50-4.60 Absolute) [place] Absolute (test code = [place] .69 x10 .00-1.20 Absolute) Eos Absolute (test code = Eos 0.06 x10 0.00-0.74 Absolute) Baso Absolute (test code = Baso 0.03 x10 0.00-0.21 Absolute) Pro B Natriuretic [id number] 21:52:58 Test Item Value Reference Range Interpretation Comments NT-proBNP (test code = NT-proBNP) 80 pg/mL 0-124 IG [id number] 21:52:58 Test Item Value Reference Range Interpretation Comments IG (test code = IG) 0.4 % 0.0-5.0 IG Abs (test code = IG Abs) 0 x10 N [id number] 12:35:11 Test Item Value Reference Range Interpretation Comments LDL Direct (test code = LDL Direct) 144 H [facility] CampusIadzgaaZLKUONVVK0235-62-97 12:35:11 Test Item Value Reference Range Interpretation Comments LDL Direct (test code = LDL Direct) 144 H [facility] CampusNskeuekMLZGBYLLT3910-31-89 12:35:11 Test Item Value Reference Range Interpretation Comments LDL Direct (test code = LDL Direct) 144 H [facility]he[facility]pvAZPTWVXWI[facility]25[facility]98-88 12:35:11 Test Item Value Reference Range Interpretation Comments LDL Direct (test code = LDL Direct) 144 H [facility] WestDpmndjsIRJGLLIBT9063-28-93 08:00:00 Test Item Value Reference Range Interpretation Comments Potassium Lvl (test code = Potassium 4.1 3.5-5.1 N Lvl) [facility]Gkry[facility]ubLGEYFVOJK6883-98-11 08:00:00 Test Item Value Reference Range Interpretation Comments LDL (test code = LDL) See Note mg/dL 5*NA*(02/07/2013 03:00:00) [facility] HospitalAeqtwjkACQOQDXMP4320-64-11 08:00:00 Test Item Value Reference Range Interpretation Comments CHD Risk (test code = CHD Risk) 8.45 3.90-5.80 H [facility] CampusEricinvNKTUZBPNM8383-47-96 08:00:00 Test Item Value Reference Range Interpretation Comments HDL (test code = HDL) 29 L [facility] WestQotcjunUGLLYJRSK3938-57-93 08:00:00 Test Item Value Reference Range Interpretation Comments Trig (test code = Trig) 531 H [facility] CampusXrgbfffQGXBDLYSG2399-19-83 08:00:00 Test Item Value Reference Range Interpretation Comments Chol (test code = Chol) 245 H [facility] AmericaBxxvpwjQOLIGAULSM3963-50-47 08:00:00 Test Item Value Reference Range Interpretation Comments Basophils (test code = 0.7 See_Comment N [Aut omated message] The Basophils) system which ge nerated this result tra nsmitted reference range : <=1.0. The reference r charan was not used to int erpret this result as normal/abnormal . [facility] AmericaXpwyssmKAWJNRCFOW8897-61-09 08:00:00 Test Item Value Reference Range Interpretation Comments Segs-Bands # (test code = Segs-Bands #) 3.6 1.5-8.1 N [facility] AmericaXwcpprsNVBVCNFAIU9339-66-38 08:00:00 Test Item Value Reference Range Interpretation Comments Lymphocytes # (test code = Lymphocytes 3.1 1.0-5.5 N #) [facility] AmericaIqytvugVQOCMGKVCK0504-51-46 08:00:00 Test Item Value Reference Range Interpretation Comments Monocytes # (test code 0.6 See_Comment N [Aut omated message] The = Monocytes #) system which generated this result tra nsmitted reference range : <=0.8. The reference r charan was not used to int erpret this result as normal/abnormal . [facility] AmericaXyofxydZOVKDQEKXP4596-50-79 08:00:00 Test Item Value Reference Range Interpretation Comments Eosinophils # (test code 0.1 See_Comment N [A utomated message] The = Eosinophils #) system ic h generated this result tra nsmitted reference range : <=0.5. The reference r charan was not used to int erpret this result as normal/abnormal . [facility] AmericaVjweyfjKPWEHWRZIK0135-60-81 08:00:00 Test Item Value Reference Range Interpretation Comments Basophils # (test code 0.1 See_Comment N [Aut omated message] The = Basophils #) system which generated this result tra nsmitted reference range : <=0.2. The reference r charan was not used to int erpret this result as normal/abnormal . [facility] AmericaZtlhrbbCMEGOQLWFR3793-88-32 08:00:00 Test Item Value Reference Range Interpretation Comments Eosinophils (test code = 1.7 See_Comment N [A utomated message] The Eosinophils) system which ge nerated this result tra nsmitted reference range : <=4.0. The reference r charan was not used to int erpret this result as normal/abnormal . [facility] AmericaTskwrviNCYCXARJEI7016-68-39 08:00:00 Test Item Value Reference Range Interpretation Comments Monocytes (test code = Monocytes) 8.0 2.0-12.0 N [facility] AmericaAnrgrzlPUCIJJZRAR0270-80-73 08:00:00 Test Item Value Reference Range Interpretation Comments Segs (test code = Segs) 48.0 45.0-75.0 N [facility] AmericaKvmmmwyVPJLYCZXST8174-80-94 08:00:00 Test Item Value Reference Range Interpretation Comments Lymphocytes (test code = Lymphocytes) 41.6 20.0-40.0 H [facility] AmericaFkazowmADNQKFFGCN6630-87-76 08:00:00 Test Item Value Reference Range Interpretation Comments RBC (test code = RBC) 3.87 4.20-5.40 L [facility] AmericaOhgjymgAQEKCYAIWY8418-75-64 08:00:00 Test Item Value Reference Range Interpretation Comments WBC (test code = WBC) 7.4 3.7-10.4 N [facility] AmericaQnuoefhTWHEVTCVRN6550-24-37 08:00:00 Test Item Value Reference Range Interpretation Comments Hgb (test code = Hgb) 11.9 12.0-16.0 L [facility] AmericaSttjpqhNAPUSETAAJ5913-68-26 08:00:00 Test Item Value Reference Range Interpretation Comments Hct (test code = Hct) 35.2 36.0-48.0 L [facility] AmericaZbzuakqSHSDGYPQHW0852-05-00 08:00:00 Test Item Value Reference Range Interpretation Comments MCV (test code = MCV) 90.8 81.0-99.0 N [facility] AmericaCypeyxwDISYQFKVFZ4575-02-27 08:00:00 Test Item Value Reference Range Interpretation Comments MCH (test code = MCH) 30.7 pg 27.0-31.0 N [facility] AmericaLtyajrrIZZUJKEDWQ0889-06-11 08:00:00 Test Item Value Reference Range Interpretation Comments RDW (test code = RDW) 13.3 11.5-14.5 N [facility] AmericaXligivlYUWKYGVXAY7161-52-84 08:00:00 Test Item Value Reference Range Interpretation Comments MCHC (test code = MCHC) 33.9 32.0-36.0 N [facility] AmericaWepzfcbZGYZBUDUEI8756-61-36 08:00:00 Test Item Value Reference Range Interpretation Comments Platelet (test code = Platelet) 279 133-450 N [facility] AmericaVjfbqrnIEXVLHKKRK9066-04-52 08:00:00 Test Item Value Reference Range Interpretation Comments MPV (test code = MPV) 7.5 7.4-10.4 N [facility] CampusFijrbpzJSEHHWKQO8370-69-82 08:00:00 Test Item Value Reference Range Interpretation Comments AGAP (test code = AGAP) 13.1 10.0-20.0 N [facility] CampusFqgdrygBYJAIORGJ5362-21-61 08:00:00 Test Item Value Reference Range Interpretation Comments eGFR (test code = eGFR) 96 [facility] CampusHjsvnmnSQHTWUCJX5150-54-23 08:00:00 Test Item Value Reference Range Interpretation Comments Creatinine Lvl (test code = Creatinine 0.7 0.5-1.4 N Lvl) [facility] CampusCvffqanHNLJQLLEJ3398-68-12 08:00:00 Test Item Value Reference Range Interpretation Comments BUN (test code = BUN) 18 7-22 N [facility] CampusAftlgsdXAGUUJPBA3960-08-14 08:00:00 Test Item Value Reference Range Interpretation Comments Glucose Lvl (test code = Glucose Lvl) 101 70-99 H [facility] CampusQswvuklZMUSZUQOR4393-04-52 08:00:00 Test Item Value Reference Range Interpretation Comments AGAP (test code = AGAP) 13.1 10.0-20.0 N [facility] CampusMruzbwkRRMNMRZTA6892-94-64 08:00:00 Test Item Value Reference Range Interpretation Comments eGFR (test code = eGFR) 96 [facility] CampusQwuztqePSHSBMMLZ8591-68-51 08:00:00 Test Item Value Reference Range Interpretation Comments Sodium Lvl (test code = Sodium Lvl) 142 135-145 N [facility] CampusFvvaysiWECAQMXNM8663-52-08 08:00:00 Test Item Value Reference Range Interpretation Comments Creatinine Lvl (test code = Creatinine 0.7 0.5-1.4 N Lvl) [facility] CampusHevtwtsZRDMJBBVH1731-12-90 08:00:00 Test Item Value Reference Range Interpretation Comments BUN (test code = BUN) 18 7-22 N [facility] CampusAhawduaMQLJYYAKZ7094-28-80 08:00:00 Test Item Value Reference Range Interpretation Comments Glucose Lvl (test code = Glucose Lvl) 101 70-99 H [facility] CampusVxrimxwCOTGOMRVT2839-29-28 08:00:00 Test Item Value Reference Range Interpretation Comments Sodium Lvl (test code = Sodium Lvl) 142 135-145 N [facility] CampusPfkyhgyLNEXNGVGI5340-41-65 08:00:00 Test Item Value Reference Range Interpretation Comments Calcium Lvl (test code = Calcium Lvl) 8.3 8.5-10.5 L [facility] CampusEhiotpzCNRGECVLV0233-73-86 08:00:00 Test Item Value Reference Range Interpretation Comments CO2 (test code = CO2) 23 24-32 L [facility] CampusUbfvvmqKLBHCYMPV8633-68-36 08:00:00 Test Item Value Reference Range Interpretation Comments Chloride Lvl (test code = Chloride Lvl) 110 95-109 H [facility] CampusVwxgcuvPAVSTKDMG7068-83-00 08:00:00 Test Item Value Reference Range Interpretation Comments Potassium Lvl (test code = Potassium 4.1 3.5-5.1 N Lvl) [facility] CampusSfirguiNEBIRDWUA0073-43-24 08:00:00 Test Item Value Reference Range Interpretation Comments LDL (test code = LDL) See Note mg/dL 5*NA*(02/07/2013 03:00:00) [facility] CampusPooplyfMZZZRFWZD6399-90-71 08:00:00 Test Item Value Reference Range Interpretation Comments CHD Risk (test code = CHD Risk) 8.45 3.90-5.80 H [facility] CampusEynfndrCGIVHGSXO9370-03-30 08:00:00 Test Item Value Reference Range Interpretation Comments Calcium Lvl (test code = Calcium Lvl) 8.3 8.5-10.5 L [facility] CampusLgnjqhuQBUOKUSXO0036-00-21 08:00:00 Test Item Value Reference Range Interpretation Comments HDL (test code = HDL) 29 L [facility] CampusKagnfuaJRNKRYNSM7284-90-05 08:00:00 Test Item Value Reference Range Interpretation Comments Trig (test code = Trig) 531 H [facility] CampusAaryyjmMYUKXRVUN1297-64-80 08:00:00 Test Item Value Reference Range Interpretation Comments Chol (test code = Chol) 245 H [facility] AmericaGmmlhsiJLYCFKHITX4925-13-96 08:00:00 Test Item Value Reference Range Interpretation Comments Basophils (test code = 0.7 See_Comment N [Aut omated message] The Basophils) system which ge nerated this result tra nsmitted reference range : <=1.0. The reference r charan was not used to int erpret this result as normal/abnormal . [facility] AmericaDpardmoYZDAUJTEIQ7209-39-27 08:00:00 Test Item Value Reference Range Interpretation Comments Segs-Bands # (test code = Segs-Bands #) 3.6 1.5-8.1 N [facility] AmericaPuomdjnJSHWYEIRPM7301-89-22 08:00:00 Test Item Value Reference Range Interpretation Comments Lymphocytes # (test code = Lymphocytes 3.1 1.0-5.5 N #) [facility] AmericaJuxxkmkIIKCXIPIFP1536-72-88 08:00:00 Test Item Value Reference Range Interpretation Comments Monocytes # (test code 0.6 See_Comment N [Aut omated message] The = Monocytes #) system which generated this result tra nsmitted reference range : <=0.8. The reference r charan was not used to int erpret this result as normal/abnormal . [facility] AmericaXhpwnyxZOUCTAULVN9372-02-31 08:00:00 Test Item Value Reference Range Interpretation Comments Eosinophils # (test code 0.1 See_Comment N [A utomated message] The = Eosinophils #) system whic h generated this result tra nsmitted reference range : <=0.5. The reference r charan was not used to int erpret this result as normal/abnormal . [facility] AmericaRyeomkiMKCQJEKYHM1118-96-28 08:00:00 Test Item Value Reference Range Interpretation Comments Basophils # (test code 0.1 See_Comment N [Aut omated message] The = Basophils #) system which generated this result tra nsmitted reference range : <=0.2. The reference r charan was not used to int erpret this result as normal/abnormal . [facility] AmericaBcliycsWJXXPKIHWL2959-84-92 08:00:00 Test Item Value Reference Range Interpretation Comments Eosinophils (test code = 1.7 See_Comment N [A utomated message] The Eosinophils) system which ge nerated this result tra nsmitted reference range : <=4.0. The reference r charan was not used to int erpret this result as normal/abnormal . [facility] CampusBisddqtLSNXCZLSQ3568-78-43 08:00:00 Test Item Value Reference Range Interpretation Comments CO2 (test code = CO2) 23 24-32 L [facility] AmericaMtdzvoqGJDIIBOSPO1155-52-13 08:00:00 Test Item Value Reference Range Interpretation Comments Monocytes (test code = Monocytes) 8.0 2.0-12.0 N [facility] AmericaTbueqxzEOMCWWOYJO4145-10-65 08:00:00 Test Item Value Reference Range Interpretation Comments Segs (test code = Segs) 48.0 45.0-75.0 N [facility] AmericaSyljeybEVZEWHHNJU6360-11-39 08:00:00 Test Item Value Reference Range Interpretation Comments Lymphocytes (test code = Lymphocytes) 41.6 20.0-40.0 H [facility] AmericaVijfztxYWAYBQUUXE2046-66-55 08:00:00 Test Item Value Reference Range Interpretation Comments RBC (test code = RBC) 3.87 4.20-5.40 L [facility] AmericaMiagvqnLFNAREWHLJ6578-99-90 08:00:00 Test Item Value Reference Range Interpretation Comments WBC (test code = WBC) 7.4 3.7-10.4 N [facility] AmericaVtbmoonLHAYOBOZFF0453-22-36 08:00:00 Test Item Value Reference Range Interpretation Comments Hgb (test code = Hgb) 11.9 12.0-16.0 L [facility] AmericaNxxdpdvRHHTHKIQVM3250-69-28 08:00:00 Test Item Value Reference Range Interpretation Comments Hct (test code = Hct) 35.2 36.0-48.0 L [facility] AmericaKgagashCEBFPCAIQJ2887-98-91 08:00:00 Test Item Value Reference Range Interpretation Comments MCV (test code = MCV) 90.8 81.0-99.0 N [facility] AmericaZpdiuyxIIQRBJPCYN4757-03-37 08:00:00 Test Item Value Reference Range Interpretation Comments MCH (test code = MCH) 30.7 pg 27.0-31.0 N [facility] AmericaYwmhjyoFTOFYBDZRG1373-03-92 08:00:00 Test Item Value Reference Range Interpretation Comments RDW (test code = RDW) 13.3 11.5-14.5 N [facility] CampusYwlpeugWGTBSCTHN7569-10-16 08:00:00 Test Item Value Reference Range Interpretation Comments Chloride Lvl (test code = Chloride Lvl) 110 95-109 H [facility] AmericaNthhapuCTXPGWQOXL1201-49-13 08:00:00 Test Item Value Reference Range Interpretation Comments MCHC (test code = MCHC) 33.9 32.0-36.0 N [facility] AmericaBspdllmVOQYOQTLMD9986-45-72 08:00:00 Test Item Value Reference Range Interpretation Comments Platelet (test code = Platelet) 279 133-450 N [facility] AmericaTdanujeINPMCJKHAN3973-27-15 08:00:00 Test Item Value Reference Range Interpretation Comments MPV (test code = MPV) 7.5 7.4-10.4 N [facility] [facility] CampusWxhmojwTKXLEFSMQ2835-34-01 08:00:00 Test Item Value Reference Range Interpretation Comments Potassium Lvl (test code = Potassium 4.1 3.5-5.1 N Lvl) [facility] CampusAfgbffaUTCXPZOEN7774-25-40 08:00:00 Test Item Value Reference Range Interpretation Comments LDL (test code = LDL) See Note mg/dL 5*NA*(02/07/2013 03:00:00) [facility] CampusMirncmpGDWUIOEHA8852-55-65 08:00:00 Test Item Value Reference Range Interpretation Comments CHD Risk (test code = CHD Risk) 8.45 3.90-5.80 H [facility] CampusNplyowwTMASECCYY9576-20-69 08:00:00 Test Item Value Reference Range Interpretation Comments HDL (test code = HDL) 29 L [facility] CampusBtskufuSYWLEMZJZ7713-46-23 08:00:00 Test Item Value Reference Range Interpretation Comments Trig (test code = Trig) 531 H [facility] CampusBguikbvLWYLNXSVV4598-28-99 08:00:00 Test Item Value Reference Range Interpretation Comments Chol (test code = Chol) 245 H [facility] AmericaCvawbbaEHVYIWVIYV9846-69-83 08:00:00 Test Item Value Reference Range Interpretation Comments Basophils (test code = 0.7 See_Comment N [Aut omated message] The Basophils) system which ge nerated this result tra nsmitted reference range : <=1.0. The reference r charan was not used to int erpret this result as normal/abnormal . [facility] AmericaRbnsofvLIGNAQRKQV3086-39-55 08:00:00 Test Item Value Reference Range Interpretation Comments Segs-Bands # (test code = Segs-Bands #) 3.6 1.5-8.1 N [facility] AmericaLcgdkdyUPKFLUUZNL3992-12-99 08:00:00 Test Item Value Reference Range Interpretation Comments Lymphocytes # (test code = Lymphocytes 3.1 1.0-5.5 N #) [facility] AmericaOtpnkzzAGVRFLZIAG2358-32-22 08:00:00 Test Item Value Reference Range Interpretation Comments Monocytes # (test code 0.6 See_Comment N [Aut omated message] The = Monocytes #) system which generated this result tra nsmitted reference range : <=0.8. The reference r charan was not used to int erpret this result as normal/abnormal . [facility] AmericaTfvmjkqOTLCGEJKSZ1915-87-13 08:00:00 Test Item Value Reference Range Interpretation Comments Eosinophils # (test code 0.1 See_Comment N [A utomated message] The = Eosinophils #) system whic h generated this result tra nsmitted reference range : <=0.5. The reference r charan was not used to int erpret this result as normal/abnormal . [facility] AmericaCkpbyjeBBPSJBERFX9980-15-13 08:00:00 Test Item Value Reference Range Interpretation Comments Basophils # (test code 0.1 See_Comment N [Aut omated message] The = Basophils #) system which generated this result tra nsmitted reference range : <=0.2. The reference r charan was not used to int erpret this result as normal/abnormal . [facility] AmericaHkjkadrTOBWOSNADD9651-11-89 08:00:00 Test Item Value Reference Range Interpretation Comments Eosinophils (test code = 1.7 See_Comment N [A utomated message] The Eosinophils) system which ge nerated this result tra nsmitted reference range : <=4.0. The reference r charan was not used to int erpret this result as normal/abnormal . [facility] AmericaOqhkolcWRLJFRETDZ6328-93-02 08:00:00 Test Item Value Reference Range Interpretation Comments Monocytes (test code = Monocytes) 8.0 2.0-12.0 N [facility] AmericaIyatlrgVPIFSZOUAU0312-92-36 08:00:00 Test Item Value Reference Range Interpretation Comments Segs (test code = Segs) 48.0 45.0-75.0 N [facility] AmericaRmsxqqeEELMUZMUMY0283-03-51 08:00:00 Test Item Value Reference Range Interpretation Comments Lymphocytes (test code = Lymphocytes) 41.6 20.0-40.0 H [facility] AmericaYyqplnlCLUJUYXQQM9784-35-99 08:00:00 Test Item Value Reference Range Interpretation Comments RBC (test code = RBC) 3.87 4.20-5.40 L [facility] AmericaMrfzcpfUYQQAGCEHP0021-48-48 08:00:00 Test Item Value Reference Range Interpretation Comments WBC (test code = WBC) 7.4 3.7-10.4 N [facility] AmericaMzpcywdKXOSFZTJKN9733-76-36 08:00:00 Test Item Value Reference Range Interpretation Comments Hgb (test code = Hgb) 11.9 12.0-16.0 L [facility] AmericaFcyqfreSLVFXCJRSE9147-54-47 08:00:00 Test Item Value Reference Range Interpretation Comments Hct (test code = Hct) 35.2 36.0-48.0 L [facility] AmericaSamosbdXSXYLEEVBJ0284-96-66 08:00:00 Test Item Value Reference Range Interpretation Comments MCV (test code = MCV) 90.8 81.0-99.0 N [facility] AmericaWkagrrgBKOTGTYVUH9806-79-64 08:00:00 Test Item Value Reference Range Interpretation Comments MCH (test code = MCH) 30.7 pg 27.0-31.0 N [facility] AmericaBwewtxtFVGXCBCHXZ7307-48-41 08:00:00 Test Item Value Reference Range Interpretation Comments RDW (test code = RDW) 13.3 11.5-14.5 N [facility] AmericaUiwrvphZZXGLOUPXZ1163-32-55 08:00:00 Test Item Value Reference Range Interpretation Comments MCHC (test code = MCHC) 33.9 32.0-36.0 N [facility] AmericaJazytylIARXXNTZMA5464-90-42 08:00:00 Test Item Value Reference Range Interpretation Comments Platelet (test code = Platelet) 279 133-450 N [facility] AmericaWhjtxvhERTPEIXPZC4688-55-99 08:00:00 Test Item Value Reference Range Interpretation Comments MPV (test code = MPV) 7.5 7.4-10.4 N [facility] CampusIfdhewjUFPNCKMYR7944-09-62 08:00:00 Test Item Value Reference Range Interpretation Comments AGAP (test code = AGAP) 13.1 10.0-20.0 N [facility] CampusUokviviTPSVMQMVS4439-20-51 08:00:00 Test Item Value Reference Range Interpretation Comments eGFR (test code = eGFR) 96 [facility] CampusZevwicwILNKPMHVH3335-68-73 08:00:00 Test Item Value Reference Range Interpretation Comments Creatinine Lvl (test code = Creatinine 0.7 0.5-1.4 N Lvl) [facility] CampusHkubzmyUVDOGMBQQ3099-64-06 08:00:00 Test Item Value Reference Range Interpretation Comments BUN (test code = BUN) 18 7-22 N [facility] CampusSumavioEEOGKRLAC5777-40-58 08:00:00 Test Item Value Reference Range Interpretation Comments Glucose Lvl (test code = Glucose Lvl) 101 70-99 H [facility] CampusNnqrmqwYVLQXWVQO4704-92-69 08:00:00 Test Item Value Reference Range Interpretation Comments Sodium Lvl (test code = Sodium Lvl) 142 135-145 N [facility] CampusSgkreerKJWOMAYVL5374-58-96 08:00:00 Test Item Value Reference Range Interpretation Comments Calcium Lvl (test code = Calcium Lvl) 8.3 8.5-10.5 L [facility] CampusWaftdlzKNFXFNLLC2119-72-58 08:00:00 Test Item Value Reference Range Interpretation Comments CO2 (test code = CO2) 23 24-32 L [facility] CampusUkjhnlgAYQUYEMXS4782-06-32 08:00:00 Test Item Value Reference Range Interpretation Comments Chloride Lvl (test code = Chloride Lvl) 110 95-109 H [facility] CampusBtqalucLRHMQHJHE4230-46-48 08:00:00 Test Item Value Reference Range Interpretation Comments Potassium Lvl (test code = Potassium 4.1 3.5-5.1 N Lvl) [facility] CampusNpzwxdbNDEQHFMOI3470-48-17 08:00:00 Test Item Value Reference Range Interpretation Comments LDL (test code = LDL) See Note mg/dL 5*NA*(02/07/2013 03:00:00) [facility] CampusKnflesmQHARDVMPO9954-32-54 08:00:00 Test Item Value Reference Range Interpretation Comments CHD Risk (test code = CHD Risk) 8.45 3.90-5.80 H [facility] CampusIvsphehGMWVLKTMP4825-82-86 08:00:00 Test Item Value Reference Range Interpretation Comments HDL (test code = HDL) 29 L [facility] CampusNdqznefTTAXVVWXN5649-47-34 08:00:00 Test Item Value Reference Range Interpretation Comments Trig (test code = Trig) 531 H [facility] CampusAzdveiaOWKHJSOVR9911-01-59 08:00:00 Test Item Value Reference Range Interpretation Comments Chol (test code = Chol) 245 H [facility] AmericaTfjtbpiDEABLEHBPO9006-30-22 08:00:00 Test Item Value Reference Range Interpretation Comments Basophils (test code = 0.7 See_Comment N [Aut omated message] The Basophils) system which ge nerated this result tra nsmitted reference range : <=1.0. The reference r charan was not used to int erpret this result as normal/abnormal . [facility] AmericaPnquxuiTBHPCDLXPQ5324-18-60 08:00:00 Test Item Value Reference Range Interpretation Comments Segs-Bands # (test code = Segs-Bands #) 3.6 1.5-8.1 N [facility] AmericaTisuqqrBGEQUILCQS6726-58-97 08:00:00 Test Item Value Reference Range Interpretation Comments Lymphocytes # (test code = Lymphocytes 3.1 1.0-5.5 N #) [facility] AmericaElxnzxgXOCOSKRAZQ8483-93-98 08:00:00 Test Item Value Reference Range Interpretation Comments Monocytes # (test code 0.6 See_Comment N [Aut omated message] The = Monocytes #) system which generated this result tra nsmitted reference range : <=0.8. The reference r charan was not used to int erpret this result as normal/abnormal . [facility] AmericaJbzmmsxLUKVAJLWSQ4813-42-74 08:00:00 Test Item Value Reference Range Interpretation Comments Eosinophils # (test code 0.1 See_Comment N [A utomated message] The = Eosinophils #) system wh h generated this result tra nsmitted reference range : <=0.5. The reference r charan was not used to int erpret this result as normal/abnormal . [facility] AmericaCziubsiHKTZACUBFR7332-33-48 08:00:00 Test Item Value Reference Range Interpretation Comments Basophils # (test code 0.1 See_Comment N [Aut omated message] The = Basophils #) system which generated this result tra nsmitted reference range : <=0.2. The reference r charan was not used to int erpret this result as normal/abnormal . [facility] AmericaVmslhqhWMQJIIJTKS2483-13-26 08:00:00 Test Item Value Reference Range Interpretation Comments Eosinophils (test code = 1.7 See_Comment N [A utomated message] The Eosinophils) system which ge nerated this result tra nsmitted reference range : <=4.0. The reference r charan was not used to int erpret this result as normal/abnormal . [facility] AmericaXupmdtxGNWXWJEEEO2773-11-26 08:00:00 Test Item Value Reference Range Interpretation Comments Monocytes (test code = Monocytes) 8.0 2.0-12.0 N [facility] AmericaZtdpanfGYVLJQQZPT7302-37-46 08:00:00 Test Item Value Reference Range Interpretation Comments Segs (test code = Segs) 48.0 45.0-75.0 N [facility] AmericaIxtnoqbVWPADIGHGM1567-69-51 08:00:00 Test Item Value Reference Range Interpretation Comments Lymphocytes (test code = Lymphocytes) 41.6 20.0-40.0 H [facility] AmericaSbvijcjACFYUGYXYX4454-89-69 08:00:00 Test Item Value Reference Range Interpretation Comments RBC (test code = RBC) 3.87 4.20-5.40 L [facility] AmericaYtxyvbwYUAEFBIYIV3201-09-45 08:00:00 Test Item Value Reference Range Interpretation Comments WBC (test code = WBC) 7.4 3.7-10.4 N [facility] AmericaXsdacneZXPFLGQBXP6823-44-05 08:00:00 Test Item Value Reference Range Interpretation Comments Hgb (test code = Hgb) 11.9 12.0-16.0 L [facility] AmericaLzvdyswBCYIPLPKLH1528-16-09 08:00:00 Test Item Value Reference Range Interpretation Comments Hct (test code = Hct) 35.2 36.0-48.0 L [facility] AmericaZlmiehcIAZZXFHKDM0904-05-27 08:00:00 Test Item Value Reference Range Interpretation Comments MCV (test code = MCV) 90.8 81.0-99.0 N [facility] AmericaRjqekmvMANYGYYPSO6629-86-10 08:00:00 Test Item Value Reference Range Interpretation Comments MCH (test code = MCH) 30.7 pg 27.0-31.0 N [facility] AmericaRxteicjZGWFMZHGBY8881-27-79 08:00:00 Test Item Value Reference Range Interpretation Comments RDW (test code = RDW) 13.3 11.5-14.5 N [facility] AmericaDqcguhrWBZDDBGYTI9160-52-62 08:00:00 Test Item Value Reference Range Interpretation Comments MCHC (test code = MCHC) 33.9 32.0-36.0 N [facility] AmericaYptsvooMNZUUCQCMZ1846-99-81 08:00:00 Test Item Value Reference Range Interpretation Comments Platelet (test code = Platelet) 279 133-450 N [facility] AmericaDruurfoGWPRWQIYPV5678-02-37 08:00:00 Test Item Value Reference Range Interpretation Comments MPV (test code = MPV) 7.5 7.4-10.4 N [facility] CampusYnruprrQUOMFYKNQ5205-55-49 08:00:00 Test Item Value Reference Range Interpretation Comments AGAP (test code = AGAP) 13.1 10.0-20.0 N [facility] CampusErtpgmkXQNHDPIFI5962-60-09 08:00:00 Test Item Value Reference Range Interpretation Comments eGFR (test code = eGFR) 96 [facility] CampusGscotozXKRJWJXGM3475-58-91 08:00:00 Test Item Value Reference Range Interpretation Comments Creatinine Lvl (test code = Creatinine 0.7 0.5-1.4 N Lvl) [facility] CampusDsjhfqiNTTGCKQSJ4695-50-02 08:00:00 Test Item Value Reference Range Interpretation Comments BUN (test code = BUN) 18 7-22 N [facility] CampusGxuguqvIRSNQEYCX0179-47-81 08:00:00 Test Item Value Reference Range Interpretation Comments Glucose Lvl (test code = Glucose Lvl) 101 70-99 H [facility] CampusCouzluoBPBTGXYJL3934-38-77 08:00:00 Test Item Value Reference Range Interpretation Comments Sodium Lvl (test code = Sodium Lvl) 142 135-145 N [facility] CampusJsbiviaTEWANFLSG4161-92-48 08:00:00 Test Item Value Reference Range Interpretation Comments Calcium Lvl (test code = Calcium Lvl) 8.3 8.5-10.5 L [facility] CampusImvhsweLNJNLTAZH4360-02-55 08:00:00 Test Item Value Reference Range Interpretation Comments CO2 (test code = CO2) 23 24-32 L [facility] CampusOdwihqrXNLHKXLAL7446-25-85 08:00:00 Test Item Value Reference Range Interpretation Comments Chloride Lvl (test code = Chloride Lvl) 110 95-109 H [facility] CampusOijpizkNXFQRZAGY7088-25-54 18:53:00 Test Item Value Reference Range Interpretation Comments eGFR (test code = eGFR) 96 [facility] CampusEssusadBUPZYDCUL7735-52-45 18:53:00 Test Item Value Reference Range Interpretation Comments Sodium Lvl (test code = Sodium Lvl) 140 135-145 N [facility] CampusJgpzdkcSAKFRIXHN6163-47-65 18:53:00 Test Item Value Reference Range Interpretation Comments Potassium Lvl (test code = Potassium 3.9 3.5-5.1 N Lvl) [facility] CampusQujjeyfNLQSCUJBO8719-77-09 18:53:00 Test Item Value Reference Range Interpretation Comments Chloride Lvl (test code = Chloride Lvl) 105 95-109 N [facility] CampusKkdlovyWAFKSJCPI6542-27-54 18:53:00 Test Item Value Reference Range Interpretation Comments CO2 (test code = CO2) 28 24-32 N [facility] CampusQvsqhzhWABKSSMRU5813-30-29 18:53:00 Test Item Value Reference Range Interpretation Comments Glucose Lvl (test code = Glucose Lvl) 92 70-99 N [facility] CampusSumjczqBNMWWFUJN4511-65-50 18:53:00 Test Item Value Reference Range Interpretation Comments BUN (test code = BUN) 14 7-22 N [facility] CampusKqfumpaRIOFQAGAR7935-05-11 18:53:00 Test Item Value Reference Range Interpretation Comments Creatinine Lvl (test code = Creatinine 0.7 0.5-1.4 N Lvl) [facility] CampusJsrpcfpXPQVZWUMR3776-81-23 18:53:00 Test Item Value Reference Range Interpretation Comments Calcium Lvl (test code = Calcium Lvl) 9.1 8.5-10.5 N [facility] CampusYensqvgQHRDOOUVD4591-51-30 18:53:00 Test Item Value Reference Range Interpretation Comments AGAP (test code = AGAP) 10.9 10.0-20.0 N [facility] AmericaYtpyzukEFLDCWBKZK4398-22-36 18:53:00 Test Item Value Reference Range Interpretation Comments Basophils # (test code 0.1 See_Comment N [Aut omated message] The = Basophils #) system which generated this result tra nsmitted reference range : <=0.2. The reference r charan was not used to int erpret this result as normal/abnormal . [facility] AmericaFscmozcKIPNEXIBHD0799-15-46 18:53:00 Test Item Value Reference Range Interpretation Comments Lymphocytes # (test code = Lymphocytes 2.8 1.0-5.5 N #) [facility] AmericaGsfzverWRXCXDXIOX0464-52-82 18:53:00 Test Item Value Reference Range Interpretation Comments Eosinophils # (test code 0.1 See_Comment N [A utomated message] The = Eosinophils #) system whic h generated this result tra nsmitted reference range : <=0.5. The reference r charan was not used to int erpret this result as normal/abnormal . [facility] AmericaEcdlbynTDBMOWIMMA0085-11-98 18:53:00 Test Item Value Reference Range Interpretation Comments Monocytes # (test code 0.7 See_Comment N [Aut omated message] The = Monocytes #) system which generated this result tra nsmitted reference range : <=0.8. The reference r charan was not used to int erpret this result as normal/abnormal . [facility] AmericaDaljnyvHYFZIAWRSJ6875-53-74 18:53:00 Test Item Value Reference Range Interpretation Comments Segs-Bands # (test code = Segs-Bands #) 4.6 1.5-8.1 N [facility] AmericaVlnbdnpIAUGJGUYHU5055-45-26 18:53:00 Test Item Value Reference Range Interpretation Comments Basophils (test code = 1.0 See_Comment N [Aut omated message] The Basophils) system which ge nerated this result tra nsmitted reference range : <=1.0. The reference r charan was not used to int erpret this result as normal/abnormal . [facility] AmericaNhrkzqxKKNPJCPTSI8495-95-28 18:53:00 Test Item Value Reference Range Interpretation Comments Lymphocytes (test code = Lymphocytes) 34.0 20.0-40.0 N [facility] AmericaDjgghbyLXSXUDJQHV5823-46-94 18:53:00 Test Item Value Reference Range Interpretation Comments Eosinophils (test code = 1.3 See_Comment N [A utomated message] The Eosinophils) system which ge nerated this result tra nsmitted reference range : <=4.0. The reference r charan was not used to int erpret this result as normal/abnormal . [facility] AmericaSaywgnfOWKHQBNGFX8112-90-01 18:53:00 Test Item Value Reference Range Interpretation Comments Monocytes (test code = Monocytes) 8.4 2.0-12.0 N [facility] AmericaYigfiexFGPOLYZPRG6736-23-40 18:53:00 Test Item Value Reference Range Interpretation Comments Segs (test code = Segs) 55.3 45.0-75.0 N [facility] AmericaNhckwruZAMBEMQKBD1540-46-40 18:53:00 Test Item Value Reference Range Interpretation Comments PTT (test code = PTT) 27.3 s 22.9-35.8 N [facility] AmericaNmphajpTRIRAILAFF3077-20-74 18:53:00 Test Item Value Reference Range Interpretation Comments PT (test code = PT) 13.3 s 12.0-14.7 N [facility] AmericaIytrshfEGKGPXPPDU9448-19-69 18:53:00 Test Item Value Reference Range Interpretation Comments INR (test code = INR) 1.02 0.85-1.17 N [facility] AmericaWzthnwvOJMFENTQMS5174-10-78 18:53:00 Test Item Value Reference Range Interpretation Comments MPV (test code = MPV) 7.2 7.4-10.4 L [facility] AmericaKlngchvUIFICVVSKG9121-14-48 18:53:00 Test Item Value Reference Range Interpretation Comments MCHC (test code = MCHC) 33.5 32.0-36.0 N [facility] AmericaOstoiibSKIVMWCHNY0509-98-09 18:53:00 Test Item Value Reference Range Interpretation Comments MCH (test code = MCH) 29.8 pg 27.0-31.0 N [facility] AmericaSmjxnjxNMYTALUDPS3474-50-39 18:53:00 Test Item Value Reference Range Interpretation Comments Platelet (test code = Platelet) 305 133-450 N [facility] AmericaLqgfxnfZTYXJHAJMA1399-99-76 18:53:00 Test Item Value Reference Range Interpretation Comments RDW (test code = RDW) 12.4 11.5-14.5 N [facility] AmericaZldevcnRDGZQARSFK0209-06-03 18:53:00 Test Item Value Reference Range Interpretation Comments MCV (test code = MCV) 89.0 81.0-99.0 N [facility] AmericaThtbwyiAZYTEKLYLC4372-39-21 18:53:00 Test Item Value Reference Range Interpretation Comments Hgb (test code = Hgb) 13.3 12.0-16.0 N [facility] AmericaAxisxkoITBTDGQTNI5723-39-04 18:53:00 Test Item Value Reference Range Interpretation Comments RBC (test code = RBC) 4.45 4.20-5.40 N [facility] AmericaErpmohbCDNMLXYAKZ3601-28-79 18:53:00 Test Item Value Reference Range Interpretation Comments Hct (test code = Hct) 39.6 36.0-48.0 N [facility] AmericaOdepeyoGDFWWNCWHX6484-48-76 18:53:00 Test Item Value Reference Range Interpretation Comments WBC (test code = WBC) 8.3 3.7-10.4 N [facility] CampusMktugkxTXNUSYZTK8559-32-34 18:53:00 Test Item Value Reference Range Interpretation Comments eGFR (test code = eGFR) 96 [facility] CampusAauhepuVBPUFSZLX3724-11-40 18:53:00 Test Item Value Reference Range Interpretation Comments Sodium Lvl (test code = Sodium Lvl) 140 135-145 N [facility] CampusWrrxcziXGCPBICTV5194-00-41 18:53:00 Test Item Value Reference Range Interpretation Comments Potassium Lvl (test code = Potassium 3.9 3.5-5.1 N Lvl) [facility] CampusWsccddpPVZYAFJOD4025-94-70 18:53:00 Test Item Value Reference Range Interpretation Comments Chloride Lvl (test code = Chloride Lvl) 105 95-109 N [facility] CampusMzuheuiOGSHTPNAD7348-01-44 18:53:00 Test Item Value Reference Range Interpretation Comments CO2 (test code = CO2) 28 24-32 N [facility] CampusVcwckjvERMWOZRWV7122-20-18 18:53:00 Test Item Value Reference Range Interpretation Comments Glucose Lvl (test code = Glucose Lvl) 92 70-99 N [facility] CampusIqihikzXVWBHAHBQ3936-48-31 18:53:00 Test Item Value Reference Range Interpretation Comments BUN (test code = BUN) 14 7-22 N [facility] CampusOojgwykOTOGWIENE0934-78-26 18:53:00 Test Item Value Reference Range Interpretation Comments Creatinine Lvl (test code = Creatinine 0.7 0.5-1.4 N Lvl) [facility] CampusEdglkjvPBLANTKRL1227-83-99 18:53:00 Test Item Value Reference Range Interpretation Comments Calcium Lvl (test code = Calcium Lvl) 9.1 8.5-10.5 N [facility] CampusWqxzngmYIHGZBLEB2158-17-64 18:53:00 Test Item Value Reference Range Interpretation Comments AGAP (test code = AGAP) 10.9 10.0-20.0 N [facility] AmericaWtexbaiBQBKFRGUYK0168-13-85 18:53:00 Test Item Value Reference Range Interpretation Comments Basophils # (test code 0.1 See_Comment N [Aut omated message] The = Basophils #) system which generated this result tra nsmitted reference range : <=0.2. The reference r charan was not used to int erpret this result as normal/abnormal . [facility] AmericaXpzuraaIAKCVGYPPW3314-14-05 18:53:00 Test Item Value Reference Range Interpretation Comments Lymphocytes # (test code = Lymphocytes 2.8 1.0-5.5 N #) [facility] AmericaTxasojsSRCRKHZGNC1412-34-37 18:53:00 Test Item Value Reference Range Interpretation Comments Eosinophils # (test code 0.1 See_Comment N [A utomated message] The = Eosinophils #) system whic h generated this result tra nsmitted reference range : <=0.5. The reference r charan was not used to int erpret this result as normal/abnormal . [facility] AmericaGbzuaaeADCESDRYNN0033-37-57 18:53:00 Test Item Value Reference Range Interpretation Comments Monocytes # (test code 0.7 See_Comment N [Aut omated message] The = Monocytes #) system which generated this result tra nsmitted reference range : <=0.8. The reference r charan was not used to int erpret this result as normal/abnormal . [facility] AmericaOnovgzbPEPYLHGODU8578-39-44 18:53:00 Test Item Value Reference Range Interpretation Comments Segs-Bands # (test code = Segs-Bands #) 4.6 1.5-8.1 N [facility] AmericaEfunbasHYFIBGXJRR2949-45-76 18:53:00 Test Item Value Reference Range Interpretation Comments Basophils (test code = 1.0 See_Comment N [Aut omated message] The Basophils) system which ge nerated this result tra nsmitted reference range : <=1.0. The reference r charan was not used to int erpret this result as normal/abnormal . [facility] AmericaBxprhhgDROISWVCZR5093-70-69 18:53:00 Test Item Value Reference Range Interpretation Comments Lymphocytes (test code = Lymphocytes) 34.0 20.0-40.0 N [facility] AmericaYqwxkfzPZDVMDNPDX4971-92-33 18:53:00 Test Item Value Reference Range Interpretation Comments Eosinophils (test code = 1.3 See_Comment N [A utomated message] The Eosinophils) system which ge nerated this result tra nsmitted reference range : <=4.0. The reference r charan was not used to int erpret this result as normal/abnormal . [facility] AmericaZabjjoeOZLFXKREQZ4536-78-38 18:53:00 Test Item Value Reference Range Interpretation Comments Monocytes (test code = Monocytes) 8.4 2.0-12.0 N [facility] AmericaHgkkwqbHEBERKJHYP9740-16-36 18:53:00 Test Item Value Reference Range Interpretation Comments Segs (test code = Segs) 55.3 45.0-75.0 N [facility] AmericaRgeieeeFHTBUVVFWS8278-20-50 18:53:00 Test Item Value Reference Range Interpretation Comments PTT (test code = PTT) 27.3 s 22.9-35.8 N [facility] AmericaOeazfpiDTIZYRQFZK9758-05-54 18:53:00 Test Item Value Reference Range Interpretation Comments PT (test code = PT) 13.3 s 12.0-14.7 N [facility] AmericaIsxbongBZIBDIAGKN7977-55-74 18:53:00 Test Item Value Reference Range Interpretation Comments INR (test code = INR) 1.02 0.85-1.17 N [facility] AmericaMiosfokRLCOXHTLOU2385-38-88 18:53:00 Test Item Value Reference Range Interpretation Comments MPV (test code = MPV) 7.2 7.4-10.4 L [facility] AmericaSclmlyxJBDOTEXBFL6712-06-22 18:53:00 Test Item Value Reference Range Interpretation Comments MCHC (test code = MCHC) 33.5 32.0-36.0 N [facility] AmericaCwyvhqoUFXOKIIBOI3332-43-35 18:53:00 Test Item Value Reference Range Interpretation Comments MCH (test code = MCH) 29.8 pg 27.0-31.0 N [facility] AmericaAqvxrcfDFQVBNERRW5350-87-30 18:53:00 Test Item Value Reference Range Interpretation Comments Platelet (test code = Platelet) 305 133-450 N [facility] AmericaTimtjpgNNYAYKGAYO2530-80-95 18:53:00 Test Item Value Reference Range Interpretation Comments RDW (test code = RDW) 12.4 11.5-14.5 N [facility] AmericaNwfkxomWVZWOADRXC7080-29-37 18:53:00 Test Item Value Reference Range Interpretation Comments MCV (test code = MCV) 89.0 81.0-99.0 N [facility] AmericaYkuklsxKIYCOXABTI6136-55-01 18:53:00 Test Item Value Reference Range Interpretation Comments Hgb (test code = Hgb) 13.3 12.0-16.0 N [facility] AmericaDcackwjQGHUKRPOEY3550-06-56 18:53:00 Test Item Value Reference Range Interpretation Comments RBC (test code = RBC) 4.45 4.20-5.40 N [facility] AmericaHplyqhxCFTWSLFXYY2114-51-26 18:53:00 Test Item Value Reference Range Interpretation Comments Hct (test code = Hct) 39.6 36.0-48.0 N [facility] AmericaCnqtnxpUZCVVMILXR3120-82-59 18:53:00 Test Item Value Reference Range Interpretation Comments WBC (test code = WBC) 8.3 3.7-10.4 N [facility] CampusZifzexnALVTNWYHI8899-03-83 18:53:00 Test Item Value Reference Range Interpretation Comments eGFR (test code = eGFR) 96 [facility] CampusPhxekkfGZCHFRFEO0280-59-25 18:53:00 Test Item Value Reference Range Interpretation Comments Sodium Lvl (test code = Sodium Lvl) 140 135-145 N [facility] CampusEibqpadQYQJOCANY2619-56-48 18:53:00 Test Item Value Reference Range Interpretation Comments Potassium Lvl (test code = Potassium 3.9 3.5-5.1 N Lvl) [facility] CampusQwpaqkmSSDCETQQW5901-10-53 18:53:00 Test Item Value Reference Range Interpretation Comments Chloride Lvl (test code = Chloride Lvl) 105 95-109 N [facility] CampusHjcyhkdWIHYWRZLF6355-02-69 18:53:00 Test Item Value Reference Range Interpretation Comments CO2 (test code = CO2) 28 24-32 N [facility] CampusCyehhedXVMRBOIKU8071-96-02 18:53:00 Test Item Value Reference Range Interpretation Comments Glucose Lvl (test code = Glucose Lvl) 92 70-99 N [facility] CampusYtbfykbRUJPFPIQF5324-20-15 18:53:00 Test Item Value Reference Range Interpretation Comments BUN (test code = BUN) 14 7-22 N [facility] CampusMlqcsfdYJYSHEMGP5649-23-26 18:53:00 Test Item Value Reference Range Interpretation Comments Creatinine Lvl (test code = Creatinine 0.7 0.5-1.4 N Lvl) [facility] CampusXuefnoxGGXBDMWZW7029-68-59 18:53:00 Test Item Value Reference Range Interpretation Comments Calcium Lvl (test code = Calcium Lvl) 9.1 8.5-10.5 N [facility] CampusUgxdjnrYQWQVCWBP0948-52-40 18:53:00 Test Item Value Reference Range Interpretation Comments AGAP (test code = AGAP) 10.9 10.0-20.0 N [facility] AmericaPjzdahfBYBGEAUGOF4630-61-18 18:53:00 Test Item Value Reference Range Interpretation Comments Basophils # (test code 0.1 See_Comment N [Aut omated message] The = Basophils #) system which generated this result tra nsmitted reference range : <=0.2. The reference r charan was not used to int erpret this result as normal/abnormal . [facility] AmericaDsfxiecAJNPZQFQZP4735-35-45 18:53:00 Test Item Value Reference Range Interpretation Comments Lymphocytes # (test code = Lymphocytes 2.8 1.0-5.5 N #) [facility] AmericaIztbhxhBYVSCSKUKJ1257-01-25 18:53:00 Test Item Value Reference Range Interpretation Comments Eosinophils # (test code 0.1 See_Comment N [A utomated message] The = Eosinophils #) system whic h generated this result tra nsmitted reference range : <=0.5. The reference r charan was not used to int erpret this result as normal/abnormal . [facility] AmericaQvgdoyiSIHDSCYPYX2385-68-05 18:53:00 Test Item Value Reference Range Interpretation Comments Monocytes # (test code 0.7 See_Comment N [Aut omated message] The = Monocytes #) system which generated this result tra nsmitted reference range : <=0.8. The reference r charan was not used to int erpret this result as normal/abnormal . [facility] AmericaVxuasmhWYFJUPBQEX9299-92-68 18:53:00 Test Item Value Reference Range Interpretation Comments Segs-Bands # (test code = Segs-Bands #) 4.6 1.5-8.1 N [facility] AmericaIdjifyrXKLJBXBKAT2161-29-48 18:53:00 Test Item Value Reference Range Interpretation Comments Basophils (test code = 1.0 See_Comment N [Aut omated message] The Basophils) system which ge nerated this result tra nsmitted reference range : <=1.0. The reference r charan was not used to int erpret this result as normal/abnormal . [facility] AmericaKltnbmbSVKSEFDLRE0765-53-85 18:53:00 Test Item Value Reference Range Interpretation Comments Lymphocytes (test code = Lymphocytes) 34.0 20.0-40.0 N [facility] AmericaRnyntzuGBSBALWGVV9937-66-13 18:53:00 Test Item Value Reference Range Interpretation Comments Eosinophils (test code = 1.3 See_Comment N [A utomated message] The Eosinophils) system which ge nerated this result tra nsmitted reference range : <=4.0. The reference r charan was not used to int erpret this result as normal/abnormal . [facility] AmericaIbqztxqJBRBQXNTCY9352-98-36 18:53:00 Test Item Value Reference Range Interpretation Comments Monocytes (test code = Monocytes) 8.4 2.0-12.0 N [facility] AmericaThxdbmlSHDTORYUDD8708-86-50 18:53:00 Test Item Value Reference Range Interpretation Comments Segs (test code = Segs) 55.3 45.0-75.0 N [facility] AmericaUrpiqxrQZBJQYWTYR7200-92-06 18:53:00 Test Item Value Reference Range Interpretation Comments PTT (test code = PTT) 27.3 s 22.9-35.8 N [facility] AmericaMezwmzePGTJMYUEXA2760-65-07 18:53:00 Test Item Value Reference Range Interpretation Comments PT (test code = PT) 13.3 s 12.0-14.7 N [facility] AmericaPwhvobjNPDRDSPIAS4600-27-94 18:53:00 Test Item Value Reference Range Interpretation Comments INR (test code = INR) 1.02 0.85-1.17 N [facility] AmericaNwtjrklWHCPCXTJEC8652-74-51 18:53:00 Test Item Value Reference Range Interpretation Comments MPV (test code = MPV) 7.2 7.4-10.4 L [facility] AmericaRglwpwbYTKJXHBXOT5927-21-12 18:53:00 Test Item Value Reference Range Interpretation Comments MCHC (test code = MCHC) 33.5 32.0-36.0 N [facility] AmericaRuasbzoUVLAJMHJFV3116-70-78 18:53:00 Test Item Value Reference Range Interpretation Comments MCH (test code = MCH) 29.8 pg 27.0-31.0 N [facility] AmericaRqljpvmRROFNWHGWO0744-11-39 18:53:00 Test Item Value Reference Range Interpretation Comments Platelet (test code = Platelet) 305 133-450 N [facility] AmericaSaobxbzTXWILWPEVM4177-13-10 18:53:00 Test Item Value Reference Range Interpretation Comments RDW (test code = RDW) 12.4 11.5-14.5 N [facility] AmericaVyqcioqDACANMGVJV5160-10-79 18:53:00 Test Item Value Reference Range Interpretation Comments MCV (test code = MCV) 89.0 81.0-99.0 N [facility] AmericaZzvoycjMGSHVGEEJO5336-94-31 18:53:00 Test Item Value Reference Range Interpretation Comments Hgb (test code = Hgb) 13.3 12.0-16.0 N [facility] AmericaOyklknqBWHKYETYBO1882-25-66 18:53:00 Test Item Value Reference Range Interpretation Comments RBC (test code = RBC) 4.45 4.20-5.40 N [facility] AmericaKjaaagiUQHQXRGZHI6352-90-73 18:53:00 Test Item Value Reference Range Interpretation Comments Hct (test code = Hct) 39.6 36.0-48.0 N [facility] AmericaSkdvzogFDKDIRLALA4337-58-46 18:53:00 Test Item Value Reference Range Interpretation Comments WBC (test code = WBC) 8.3 3.7-10.4 N [facility] CampusFilmicgKHUIZCQQA4013-78-58 18:53:00 Test Item Value Reference Range Interpretation Comments eGFR (test code = eGFR) 96 [facility] CampusCyoownsSCKGCPBAD8501-80-90 18:53:00 Test Item Value Reference Range Interpretation Comments Sodium Lvl (test code = Sodium Lvl) 140 135-145 N [facility] CampusWmozakzVPDBSCAZR3861-96-94 18:53:00 Test Item Value Reference Range Interpretation Comments Potassium Lvl (test code = Potassium 3.9 3.5-5.1 N Lvl) [facility] CampusGjrtoueOBUTQIBYV5402-36-50 18:53:00 Test Item Value Reference Range Interpretation Comments Chloride Lvl (test code = Chloride Lvl) 105 95-109 N [facility] CampusLmcgxrdXXBLJIQSR0577-02-70 18:53:00 Test Item Value Reference Range Interpretation Comments CO2 (test code = CO2) 28 24-32 N [facility] CampusWethujwXTSIIAQVD9270-42-63 18:53:00 Test Item Value Reference Range Interpretation Comments Glucose Lvl (test code = Glucose Lvl) 92 70-99 N [facility] CampusCmfltwgPYQNAZZYW9991-17-49 18:53:00 Test Item Value Reference Range Interpretation Comments BUN (test code = BUN) 14 7-22 N [facility] CampusAkdwhwwVESJCEJAP5097-57-47 18:53:00 Test Item Value Reference Range Interpretation Comments Creatinine Lvl (test code = Creatinine 0.7 0.5-1.4 N Lvl) [facility] CampusDqztixrBEDOJLVSP7833-30-78 18:53:00 Test Item Value Reference Range Interpretation Comments Calcium Lvl (test code = Calcium Lvl) 9.1 8.5-10.5 N [facility] CampusMogvvhrQJURUACHC4087-65-95 18:53:00 Test Item Value Reference Range Interpretation Comments AGAP (test code = AGAP) 10.9 10.0-20.0 N [facility] AmericaXzprdtsRRGLGYEDQL5247-84-52 18:53:00 Test Item Value Reference Range Interpretation Comments Basophils # (test code 0.1 See_Comment N [Aut omated message] The = Basophils #) system which generated this result tra nsmitted reference range : <=0.2. The reference r charan was not used to int erpret this result as normal/abnormal . [facility] AmericaDqsxnozDKFVPVNTNZ7000-64-22 18:53:00 Test Item Value Reference Range Interpretation Comments Lymphocytes # (test code = Lymphocytes 2.8 1.0-5.5 N #) [facility] AmericaRcqtlwdPYFWOBLTXA1502-98-73 18:53:00 Test Item Value Reference Range Interpretation Comments Eosinophils # (test code 0.1 See_Comment N [A utomated message] The = Eosinophils #) system whic h generated this result tra nsmitted reference range : <=0.5. The reference r charan was not used to int erpret this result as normal/abnormal . [facility] AmericaNzbgoefCZXGDXWOLV7036-43-92 18:53:00 Test Item Value Reference Range Interpretation Comments Monocytes # (test code 0.7 See_Comment N [Aut omated message] The = Monocytes #) system which generated this result tra nsmitted reference range : <=0.8. The reference r charan was not used to int erpret this result as normal/abnormal . [facility] AmericaWflronzTVMBDYUFNU3048-02-31 18:53:00 Test Item Value Reference Range Interpretation Comments Segs-Bands # (test code = Segs-Bands #) 4.6 1.5-8.1 N [facility] AmericaKmansjmHYXXCCSVNH6484-57-54 18:53:00 Test Item Value Reference Range Interpretation Comments Basophils (test code = 1.0 See_Comment N [Aut omated message] The Basophils) system which ge nerated this result tra nsmitted reference range : <=1.0. The reference r charan was not used to int erpret this result as normal/abnormal . [facility] AmericaEuilagkPFHVYXJLXE0989-09-51 18:53:00 Test Item Value Reference Range Interpretation Comments Lymphocytes (test code = Lymphocytes) 34.0 20.0-40.0 N [facility] AmericaMtnunwyDQHJLNCBLU9206-55-10 18:53:00 Test Item Value Reference Range Interpretation Comments Eosinophils (test code = 1.3 See_Comment N [A utomated message] The Eosinophils) system which ge nerated this result tra nsmitted reference range : <=4.0. The reference r charan was not used to int erpret this result as normal/abnormal . [facility] AmericaKmxvyfyQPRXIYPNWC1888-75-63 18:53:00 Test Item Value Reference Range Interpretation Comments Monocytes (test code = Monocytes) 8.4 2.0-12.0 N [facility] AmericaKleyvaqXYUGJDKOKH6433-49-14 18:53:00 Test Item Value Reference Range Interpretation Comments Segs (test code = Segs) 55.3 45.0-75.0 N [facility] AmericaRkqhlllZTQPPOTDYE6053-29-70 18:53:00 Test Item Value Reference Range Interpretation Comments PTT (test code = PTT) 27.3 s 22.9-35.8 N [facility] AmericaXfhvjlyPUUAFAANBY0495-61-60 18:53:00 Test Item Value Reference Range Interpretation Comments PT (test code = PT) 13.3 s 12.0-14.7 N [facility] AmericaTdwpvgeEIVJZAATPN2264-18-76 18:53:00 Test Item Value Reference Range Interpretation Comments INR (test code = INR) 1.02 0.85-1.17 N [facility] AmericaKakxxzaPASOUTDQIB5999-19-58 18:53:00 Test Item Value Reference Range Interpretation Comments MPV (test code = MPV) 7.2 7.4-10.4 L [facility] AmericaQlkghguOJUBMNNAXD0802-68-42 18:53:00 Test Item Value Reference Range Interpretation Comments MCHC (test code = MCHC) 33.5 32.0-36.0 N [facility] AmericaDpjtiqlLWMFGQNYMY2593-06-74 18:53:00 Test Item Value Reference Range Interpretation Comments MCH (test code = MCH) 29.8 pg 27.0-31.0 N [facility] AmericaTdrfbztZELAEQFBYZ5782-89-30 18:53:00 Test Item Value Reference Range Interpretation Comments Platelet (test code = Platelet) 305 133-450 N [facility] AmericaVxlerdlJFHOTEUZGX9524-91-34 18:53:00 Test Item Value Reference Range Interpretation Comments RDW (test code = RDW) 12.4 11.5-14.5 N [facility] AmericaStaxsnoCCUKJIXXDB7960-40-13 18:53:00 Test Item Value Reference Range Interpretation Comments MCV (test code = MCV) 89.0 81.0-99.0 N [facility] AmericaBivpohoZPZLRNXMTB3755-73-88 18:53:00 Test Item Value Reference Range Interpretation Comments Hgb (test code = Hgb) 13.3 12.0-16.0 N [facility] AmericaEmuiklrMGOBDQDEVD9288-86-03 18:53:00 Test Item Value Reference Range Interpretation Comments RBC (test code = RBC) 4.45 4.20-5.40 N [facility] AmericaIqysaqkYVHKIWYBWI7644-93-67 18:53:00 Test Item Value Reference Range Interpretation Comments Hct (test code = Hct) 39.6 36.0-48.0 N [facility] AmericaIesmyfqTIIBHEYGKR6419-97-84 18:53:00 Test Item Value Reference Range Interpretation Comments WBC (test code = WBC) 8.3 3.7-10.4 N [facility] Notes Date/Time Note Provider Source 2013-02-07 EXAM: MRI BRAIN WITH AND WITHOUT CONTRAST [facility] 09:47:00-00:00 Center DATE: Feb 07, 2013 [...] than demyelinating disease. 2013-02-06 EXAM: MRI BRAIN [facility] 18:49:00-00:00 Center DATE: Feb 06, 2013 [...] CT ANGIOGRAM OF THE HEAD AND NECK [facility] 14:45:00-00:00 Center DATE: 05/08/2013 at 2:47 [...]
[2023-02-04] MEDS: carvediloL 3.125 MG TAB PO SCH (16:52)
[2023-02-04] MEDS: APIXABAN 2.5 MG TABLET PO SCH (19:48)
[2023-02-04] MEDS: GABAPENTIN 100 MG CAP PO SCH (19:48)
[2023-02-04] MEDS: MAGNESIUM OXIDE 400 MG TAB PO SCH (19:49)
[2023-02-04 21:44] LABS: Calcium Oxalate Crystals- Ur Few /HPF (None Seen); Specific Gravity 1.028 (1.005-1.030); Urine Bacteria None Seen /HPF (<20); Urine Bilirubin NEGATIVE (Negative); Urine Blood Negative (Negative); Urine Clarity Clear (Clear); Urine Color Yellow (Yellow); Urine Glucose NEGATIVE (Negative); Urine Mucus 1+ /HPF (None Seen); Urine Protein TRACE (Negative); Urine RBC None Seen /HPF (None Seen); Urine Urobilinogen Normal (Normal); Urine pH 5.5 (5.0-7.0)
--- NOTE | 2023-02-04 23:03 | HP ---
Date of Admission: 02/04/2023 Time Of Service: 1:30 p.m. Chief Complaint: Fell and broke the right hip and a lot weaker. History Of Present Illness: Ms. Johnson is a 67-year-old, right-handed, patient with hypert ension, dyslipidemia, daily smoker, depression, arthritis, who was previously living independently wi th a roommate when on the January 25, she slipped and fell. She stepped on the grass, but fell and hit her right side on concrete. She initially came to [facility], was x-rayed and found to have a right femur intertrochanteric fracture. She was transferred to [facility] for higher level of care where she underwent right femur CMN and was discharged to senior living facili . While there, she did have elevated white count around 16.6, hemoglobin slightly low at 9.3, and she began physical therapy. However, she did not thrive, had significant weakness, and was only able to ambulate around 25 feet and would have dizziness. She did have a drop of hemoglobin and hematocr it over 8. However, she did not have any repeat check of her hemoglobin and hematocrit. She also wa s malnourished and has lost some weight after her hip surgery and required careful management of her nutritional status. She continued vilazodone for depression and she was put on ferrous sulfate for t he anemia. As a result of her failure to thrive and improve to return to a formally independent leve l of functioning, she was determined to require more aggressive therapy to help her recover. She als o requires monitoring for chronic anemia and risk of falling and to address her risk of deep vein thr ombosis and manage hypertension and dyslipidemia. She was determined, therefore, to be a candidate f or inpatient rehabilitation was admitted to the inpatient rehabilitation unit for physical and occupa tional therapy along with senior living and daily physician evaluation and management. Past Medical History: Hypertension, dyslipidemia, daily smoker, depression, arthritis. Past Surgical History: LASIK; L4-5 laminectomy done for spinal stenosis, and on the January 25, rig ht femur intertrochanteric fracture surgery. Allergies: NO KNOWN DRUG ALLERGIES. X-ray And Imaging: On 01/25, she had an x-ray of the right femur showing an intertrochanteric fractu re. Medications: Tylenol 500 mg every 4 hours as needed, Eliquis 2.5 mg twice daily, Coreg 3.125 mg twic e daily, ferrous sulfate 325 mg daily, gabapentin 100 mg twice daily. She has a lidocaine patch on t he right thigh, lisinopril 5 mg daily, magnesium oxide 400 mg twice daily, melatonin 3 mg at bedtime, Robaxin 500 mg every 6 hours as needed, Hemocyte Plus 1 tablet daily, Senokot S 2 at bedtime. Family History: Noncontributory. Social History: No alcohol, tobacco, or IV drug use. Lives in a single-family home. Laboratory Studies: White blood cell count currently 9, hemoglobin 8.9, hematocrit 25.8, platelets 5 50. Sodium 138, potassium 3.8, glucose 103, BUN 20, creatinine 0.71, calcium 9.0. Albumin 2.6. Review of Systems: Ms. Johnson reports moderate pain around 6/10 in the right hip, especially with weightbearing. Some mild muscle spasms and myalgias. Otherwise, no rash. No other complaints, such as psychiatric issue s. No gastrointestinal or genitourinary complaints. No fevers or chills. Mood is stable despite he r diagnosis of depression and she is on antidepressants. Physical Examination: Vital Signs: Blood pressure 153/65, pulse of 82, respiratory rate 16, temperature 97.3, oxygen satur ation 95% room air. Weight 117 pounds, height 5 feet 1 inch, BMI 22.1. General: Ms. Johnson is resting comfortably in bed. HEENT: She is normocephalic, atraumatic. Sclerae anicteric. Oropharynx is pink and moist. Neck: Supple. Chest: Clear. Heart: Regular. Extremities: Show no significant clubbing, cyanosis, or edema. Neurological: Alert, oriented to person, place, situation. Follows commands appropriately. The rig ht lower extremity and giveaway weakness given the patient's recent fracture and surgery. Otherwise, no focal neurological deficits in terms of sensation, coordination, balance, gait. Current Level Of Functioning: Currently, for eating, standby assistance as well for oral hygiene, to ilet hygiene, showering moderate assistance. Upper body dressing, contact guard assistance. Lower b amber dressing, moderate assistance. Donning and doffing footwear, moderate assistance. For sit-to-st and, moderate assistance, transfer from bed to chair and chair to bed, moderate assistance. Toilet t ransfer, moderate assistance. Ambulation, moderate assistance, only 25 feet. Able to ambulate. Whe elchair mobilization, moderate assistance covering 50 feet. Steps, she has a total assistance for 1 step. Rehabilitation And Medical Assessment And Plan: Ms. Johnson was admitted to the inpatient rehabilita on unit with impairment category 07 orthopedic lower extremity fracture. Her impairment group code is 08.11 status post unilateral hip fracture. Her etiologic diagnosis is right intertrochanteric fr acture. Her other comorbidities, decreased physical functioning, depression, hypertension, postopera tive anemia, elevated platelets, and low white blood cell count. Plan: 1.She will have physical and occupational therapy for 3 hours a day, 5/7 days. 2.For hypertension, Coreg 3.125 mg twice daily along with Prinivil 5 mg daily. 3.For constipation, Senokot S 2 at night. 4.For anemia, Hemocyte Plus and ferrous sulfate. 5.For muscle spasms, magnesium oxide 400 mg twice daily and Robaxin 500 mg every 6 hours as needed. 6.Lidocaine patch as needed. 7.Eliquis 2.5 mg twice daily for DVT prophylaxis. 8.Tylenol also will be used for pain and if need be tramadol in addition to gabapentin 100 mg twice daily. Impact Of Comorbidities: She did have a significant drop in her hemoglobin and hematocrit after surg jamshid. She will have a repeat hemoglobin hematocrit and if need be, transfusions will be done as appro priate if the hemoglobin drops below 7. She also has a fall risk, fall precautions adhered to all ti mes, gait belt and walker when ambulating. If need be, chair alarm or bed alarm will be applied. Ot herwise, she does have depression. She is on antidepressants and there is a risk of constipation and risk of deep vein thrombosis that mitigated with medications as noted. Rehab Specific Plan: 1.Ms. Johnson will have physical and occupational therapy 3 hours a day, 5/7 days. If need be, [facility] Therapy will be involved for half an hour a day, 5 of 7 days. 2.She will have senior living on continuous daily basis. 3.Physician evaluation daily. 4.Ms. Johnson and family have a good understanding of the benefits of interdisciplinary inpatient re habilitation and she has a potential to make good improvement requiring at least 2 disciplines includ ing the physical and occupational therapy and potentially speech therapy. If need be services from [facility] will be consulted. Given her complex medical condition and risk of further complications, rehabilitation cannot be safely or affectively carried out as a lower level facility s uch as senior living, which she already demonstrated as she failed to thrive while in skilled nursi ng. Barriers To Discharge: 1.Currently, with history of anemia, may require further evaluation such as a GI workup if bleeding continues. Currently, bleeding is stabilized. 2.Length of stay around 11-12 days. Disposition: Home with family. Prognosis: Good. Rehabilitation Goals: 1.Become independent with upper and lower body dressing. 2.Independent with transferring from bed to chair to toilet to wheelchair. 3.Independent with showering and performing all activities of daily living. 4.Independent mobilizing with a rolling walker 500 feet. 5.Independent going up and down 15 steps. 6.Independent with all cognitive functioning. 7.The above goals were reviewed with Ms. Johnson and she is in agreement. I acknowledge I personally performed a full physical examination on Ms. Johnson no later than 24 hour s after admission to the inpatient rehabilitation facility and determined that she is able to tolerat e the above course of treatment at an intensive level for reasonable period of time. A detailed aimee vidualized plan of care for her will be completed by hospital day 4 based on the preadmission screen, history and physical, and therapy evaluations. TIFFANY/DANIEL Voice ID: [id number]
[2023-02-05 03:37] LABS: Absolute Lymphocytes (CBC) 1.8 K/uL (0.7-4.9); Hematocrit 22.2 % (36.0-45.0); Lymphocytes % 23.4 % (15.3-44.8); MCV 89.3 fL (80-100); MPV 6.4 fL (7.6-11.3); Platelets 482 thou/uL (152-406); RBC Red Blood Cell Count 2.48 M/uL (3.86-4.86)
[2023-02-05 04:08] LABS: Albumin 2.2 g/dL (3.4-5.0); Magnesium 2.3 mg/dL (1.6-2.4); Potassium 3.7 mEq/L (3.5-5.1); Prealbumin 15.6 mg/dL (20-40)
[2023-02-05] MEDS: carvediloL 3.125 MG TAB PO SCH ×2 (05:13→17:02)
[2023-02-05] MEDS ORDERED: VILAZODONE 20 MG PO SCH (08:00)
[2023-02-05] MEDS: LIDOCAINE 4% PATCH TOP SCH (08:12)
[2023-02-05] MEDS: GABAPENTIN 100 MG CAP PO SCH ×2 (08:12→19:21)
[2023-02-05] MEDS: FE SULF/FA/VIT B COMP & C TAB PO SCH (08:12)
[2023-02-05] MEDS: FERROUS SULFATE 325 MG TAB PO SCH (08:12)
[2023-02-05] MEDS: lisinopriL 5 MG TAB PO SCH (08:13)
[2023-02-05] MEDS: APIXABAN 2.5 MG TABLET PO SCH ×2 (08:13→19:21)
[2023-02-05] MEDS: ACETAMINOPHEN 500 MG TAB PO PRN (08:13)
[2023-02-05] MEDS: MAGNESIUM OXIDE 400 MG TAB PO SCH ×2 (08:13→19:21)
[2023-02-05] MEDS: methocarbamoL 500 MG TAB PO PRN (13:30)
--- NOTE | 2023-02-05 20:34 | PN ---
Date of Progress Note: 02/05/2023 Time Of Service: 1:55 p.m. Subjective: Ms. Johnson is doing well. She has no new complaints. Pain while in bed 2/10, while am bulating is 7-8/10, but that is mitigated by her pain medications. Mild muscle spasms. She says she slept well. No issues with bowel movements. No other issues on subjective. Review of Systems: No fevers, chills, nausea, vomiting. No significant myalgias or arthralgias. No rash. No headache. Physical Examination: Vital Signs: Blood pressure 132/68, pulse 74, respiratory rate 16, temperature 97.0, oxygen saturati on 97%. General: Ms. Johnson is resting comfortably in bed. She is in no acute distress. HEENT: She is normocephalic, atraumatic. Sclerae anicteric. Oropharynx is moist and pink. Neck: Supple. Chest: Clear. Heart: Regular. Extremities: No significant clubbing, cyanosis, or edema. The right hip intertrochanteric fracture surgical site has good hemostasis. Laboratory Studies: Complete blood count differential shows a slightly low hemoglobin of 7.9, white blood cell count is also 7.9, platelets 482. Sodium 139, potassium 3.7, chloride 109 carbon dioxide 25, BUN 15, creatinine 0.64. Prealbumin 15.6, albumin 2.2. Urinalysis shows esterase 25, trace prot ein, otherwise normal. X-rays/imaging: No new x-rays or imaging. Medications: Tylenol Extra Strength 500 mg every 4 hours as needed, Eliquis 2.5 mg twice daily, Core g 3.125 mg twice daily, ferrous sulfate 325 mg daily, gabapentin 100 mg twice daily, lidocaine patch apply topically daily, Prinivil 5 mg daily, magnesium oxide 400 mg twice daily, melatonin 3 at bedtim e, Robaxin 500 mg every 6 hours, Hemocyte Plus 1 tablet daily, Senokot S 2 at bedtime. Current Functional Status: Today, she was able to ambulate 50 feet with minimum assistance using a r olling walker. In the afternoon, she ambulated 50 feet twice and another 30 feet with minimal assist ance using a rolling walker. She self propels wheelchair 100 feet with minimum assistance. Supine-t o-sit transfers done with minimum assistance. Koe-aa-otvbp transfers also with minimum assistance. With her occupational therapy, bathing supervision, upper body dressing requires supervision, lower b amber dressing, supervision. Progress Towards Rehabilitation Goals: Ms. Johnson is making good progress towards her goals of mobi lizing 250 feet with a wheelchair and beginning to do more than household distances with a rolling wa lker with modified independence. Also, she is doing well with cognitive functioning and no issues an d is at modified independence. Assessment: Ms. Johnson is a 67-year-old patient in the rehabilitation unit with a right femur inter trochanteric fracture status post surgical repair. She has comorbid depression, hypertension, postop erative anemia, elevated platelets, decrease in physical functioning. Plan: 1.Continue with physical and occupational therapy 3 hours a day, 5/7 days. 2.For her hypertension, Coreg and Prinivil. 3.For her constipation, Senokot. 4.For her anemia, Hemocyte Plus, ferrous sulfate. She will be followed to see if the transfusion is required. 5.For muscle spasms, Robaxin and magnesium and will continue lidocaine patch as appropriate. For DV T prophylaxis, Eliquis 2.5 mg twice daily. Again, Tylenol, tramadol, and gabapentin for pain. Comorbidities That Continue To Impact Rehabilitation Process: Currently, she has significant anemia. However, she has Hemocyte Plus and iron and ferrous sulfate. She will have as appropriate repeat h emoglobin, hematocrit, and may receive a unit or 2 of blood if need be. Otherwise, she has antidepressants for depression and bowel movements are doing well. LB/MODL Voice ID: [id number] Report ID: [id number]
[2023-02-06] MEDS: methocarbamoL 500 MG TAB PO PRN ×2 (05:10→11:58)
[2023-02-06] MEDS: carvediloL 3.125 MG TAB PO SCH ×2 (05:11→16:50)
[2023-02-06] MEDS: FE SULF/FA/VIT B COMP & C TAB PO SCH (07:45)
[2023-02-06] MEDS: MAGNESIUM OXIDE 400 MG TAB PO SCH ×2 (07:46→19:38)
[2023-02-06] MEDS: FERROUS SULFATE 325 MG TAB PO SCH (07:46)
[2023-02-06] MEDS: GABAPENTIN 100 MG CAP PO SCH ×2 (07:46→19:38)
[2023-02-06] MEDS: APIXABAN 2.5 MG TABLET PO SCH ×2 (07:46→19:37)
[2023-02-06] MEDS: lisinopriL 5 MG TAB PO SCH (07:46)
[2023-02-06] MEDS: LIDOCAINE 4% PATCH TOP SCH (07:50)
[2023-02-06] MEDS: ACETAMINOPHEN 500 MG TAB PO PRN (07:52)
--- NOTE | 2023-02-06 13:41 | P.RH.PN ---
Estimated Length of Stay: 13 Expected Discharge Date: 02/19/23 Discharge Disposition Plan: Home Family Support: Yes Long-Term Goal: Mobility, Transfers, Self Care Vital Signs: Last Vital Signs Temp 97.2 F 02/06/23 07:30 Pulse 77 02/06/23 07:46 Resp 17 02/06/23 11:58 BP 133/69 02/06/23 07:46 Pulse Ox 97 02/06/23 11:58 Laboratory: Laboratory Last Values WBC 7.90 thou/uL (4.3-10.9) 02/05/23 03:18 RBC 2.48 M/uL (3.86-4.86) L 02/05/23 03:18 Hgb 7.9 g/dL (12.0-15.0) L D 02/05/23 03:18 Hct 22.2 % (36.0-45.0) L 02/05/23 03:18 MCV 89.3 fL (80-100) 02/05/23 03:18 MCH 32.0 pg (27.0-35.0) 02/05/23 03:18 MCHC 35.8 g/dL (32.0-36.0) 02/05/23 03:18 RDW 15.1 % (12.1-15.2) 02/05/23 03:18 Plt Count 482 thou/uL (152-406) H 02/05/23 03:18 MPV 6.4 fL (7.6-11.3) L 02/05/23 03:18 Neutrophils % 64.3 % (41.7-73.7) 02/05/23 03:18 Lymphocytes % 23.4 % (15.3-44.8) 02/05/23 03:18 Monocytes % 10.3 % (3.3-12.3) 02/05/23 03:18 Eosinophils % 1.5 % (0-4.4) 02/05/23 03:18 Basophils % 0.5 % (0-1.3) 02/05/23 03:18 Absolute Neutrophils 5.1 K/uL (1.8-8.0) 02/05/23 03:18 Absolute Lymphocytes 1.8 K/uL (0.7-4.9) 02/05/23 03:18 Absolute Monocytes 0.8 K/uL (0.1-1.3) 02/05/23 03:18 Absolute Eosinophils 0.1 K/uL (0-0.5) 02/05/23 03:18 Absolute Basophils 0.0 K/uL (0-0.5) 02/05/23 03:18 Sodium 139 mEq/L (136-145) 02/05/23 03:18 Potassium 3.7 mEq/L (3.5-5.1) 02/05/23 03:18 Chloride 109 mEq/L (98-107) H 02/05/23 03:18 Carbon Dioxide 25 mEq/L (21-32) 02/05/23 03:18 Anion Gap 8.7 mEq/L (5.0-15.0) 02/05/23 03:18 BUN 15 mg/dL (7-18) 02/05/23 03:18 Creatinine 0.64 mg/dL (0.55-1.02) 02/05/23 03:18 Est GFR (CKD-EPI) 97 ml/min (=/>90) 02/05/23 03:18 Glucose 100 mg/dL (74-106) 02/05/23 03:18 Calcium 8.1 mg/dL (8.5-10.1) L D 02/05/23 03:18 Magnesium 2.3 mg/dL (1.6-2.4) 02/05/23 03:18 Albumin 2.2 g/dL (3.4-5.0) L 02/05/23 03:18 Prealbumin 15.6 mg/dL (20-40) L 02/05/23 03:18 Urine Color Yellow (Yellow) 02/04/23 21:00 Urine Clarity Clear (Clear) 02/04/23 21:00 Urine pH 5.5 (5.0-7.0) 02/04/23 21:00 Ur Specific Beaman 1.028 (1.005-1.030) 02/04/23 21:00 Glucose (UA)(Auto) Negative (Negative) 02/04/23 21:00 Urine Ketones Negative (Negative) 02/04/23 21:00 Urine Blood Negative (Negative) 02/04/23 21:00 Urine Nitrite Negative (Negative) 02/04/23 21:00 Urine Bilirubin Negative (Negative) 02/04/23 21:00 Urine Urobilinogen Normal (Normal) 02/04/23 21:00 Ur Leukocyte Esterase 25 Jayson/uL (Negative) H 02/04/23 21:00 Urine RBC None seen /HPF (None Seen) 02/04/23 21:00 Urine WBC <5 /HPF (<5) 02/04/23 21:00 Ur Squamous Epith Cells <5 /HPF (None Seen) 02/04/23 21:00 Calcium Oxalate Crystal Few /HPF (None Seen) 02/04/23 21:00 Amorphous Crystals Trace /HPF (None Seen) 02/04/23 21:00 Urine Bacteria None seen /HPF (<20) 02/04/23 21:00 Urine Mucus 1+ /HPF (None Seen) 02/04/23 21:00 Urine Culture Reflexed Not needed 02/04/23 21:00 Urine Total Protein Trace (Negative) H 02/04/23 21:00 Weight: 117 lb 1.6 oz Wound Present: No Closed Surgical Incision Present: No Negative Pressure Wound Therapy Present: No Physician Update: Labs were reviewed and are stable. Mild malnutrition, will add ensure plus. BIMS 13, SLUMS 17. She may require and ENT evaluation. Incentive spirometry. Met 3 ot 4 goals, walked 100' with min assistance using a walker. Up and down 10 steps. Fatigue easily. Max assistance with foot wear. 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 Please see the Rehabilitation Signature page for all necessary signatures.
[2023-02-06] MEDS: TRAMADOL HCL 50 MG TAB PO PRN (14:31)
[2023-02-06] MEDS: ENSURE HIGH PROTEIN 237 ML CAN PO SCH (19:38)
[2023-02-06] MEDS: DOCUSATE NA/SENNA CONC 1 TAB PO PRN (19:38)
[2023-02-06] MEDS: MELATONIN 3 MG TABLET PO PRN (19:38)
[2023-02-07] MEDS: carvediloL 3.125 MG TAB PO SCH ×2 (05:16→17:04)
[2023-02-07] MEDS: LIDOCAINE 4% PATCH TOP SCH (08:05)
[2023-02-07] MEDS: APIXABAN 2.5 MG TABLET PO SCH ×2 (08:05→20:21)
[2023-02-07] MEDS: FE SULF/FA/VIT B COMP & C TAB PO SCH (08:06)
[2023-02-07] MEDS: GABAPENTIN 100 MG CAP PO SCH ×2 (08:06→20:22)
[2023-02-07] MEDS: FERROUS SULFATE 325 MG TAB PO SCH (08:06)
[2023-02-07] MEDS: ENSURE HIGH PROTEIN 237 ML CAN PO SCH ×2 (08:06→20:22)
[2023-02-07] MEDS: MAGNESIUM OXIDE 400 MG TAB PO SCH ×2 (08:06→20:21)
[2023-02-07] MEDS: lisinopriL 5 MG TAB PO SCH (08:08)
[2023-02-07] MEDS: TRAMADOL HCL 50 MG TAB PO PRN ×2 (08:24→18:27)
[2023-02-07] MEDS: DOCUSATE NA/SENNA CONC 1 TAB PO PRN (20:21)
[2023-02-07] MEDS: methocarbamoL 500 MG TAB PO PRN (20:21)
[2023-02-07] MEDS: MELATONIN 3 MG TABLET PO PRN (20:22)
[2023-02-08] MEDS: carvediloL 3.125 MG TAB PO SCH ×2 (05:04→16:59)
[2023-02-08] MEDS: TRAMADOL HCL 50 MG TAB PO PRN ×2 (07:27→16:59)
[2023-02-08] MEDS: FERROUS SULFATE 325 MG TAB PO SCH (07:28)
[2023-02-08] MEDS: GABAPENTIN 100 MG CAP PO SCH ×2 (07:29→19:26)
[2023-02-08] MEDS: MAGNESIUM OXIDE 400 MG TAB PO SCH ×2 (07:29→19:26)
[2023-02-08] MEDS: FE SULF/FA/VIT B COMP & C TAB PO SCH (07:29)
[2023-02-08] MEDS: lisinopriL 5 MG TAB PO SCH (07:29)
[2023-02-08] MEDS: APIXABAN 2.5 MG TABLET PO SCH ×2 (07:29→19:27)
[2023-02-08] MEDS: LIDOCAINE 4% PATCH TOP SCH (07:30)
[2023-02-08] MEDS: ENSURE HIGH PROTEIN 237 ML CAN PO SCH ×2 (07:30→19:27)
[2023-02-08] MEDS: MAGNESIUM HYDROXIDE 8% 30 ML PO PRN (14:07)
[2023-02-08] MEDS: MELATONIN 3 MG TABLET PO PRN (19:27)
--- NOTE | 2023-02-08 20:14 | PN ---
Date of Progress Note: 02/08/2023 Time Of Service: 2 p.m. Subjective: Ms. Johnson is resting comfortably in bed. She is in no acute distress. She is happy w ith therapy so far and beginning to make good progress. Review of Systems: No fevers or chills. No nausea or vomiting. No myalgias, arthralgias, or rash. The right hip surgi jordan site has good hemostasis. No significant or worsening edema in the right lower extremity. Physical Examination: Vital Signs: Blood pressure 130/65, pulse 67, respiratory rate 16, temperature 97, oxygen saturation 99%. General: Ms. Johnson is resting comfortably, in no acute distress. HEENT: She is normocephalic, atraumatic. Sclerae anicteric. Oropharynx moist. Neck: Supple. Chest: Clear. Heart: Regular. Extremities: Showed no significant edema or cyanosis except some mild expected postoperative slight swelling in the right lower extremity. Laboratory Studies: No new laboratory studies. X-rays/imaging: No new x-rays or imaging. Medications: Have been reviewed and remained unchanged. She does have medications for her significa nt anemia which is ferrous sulfate and Hemocyte Plus. She still has Eliquis 2.5 mg twice daily for h er DVT prophylaxis. Has gabapentin for neuropathic pain. Prinivil for hypertension. Senokot S for constipation. Ultram for pain. Robaxin for muscle spasms, and Ensure High protein for mild malnutri tion. She does take Coreg 3.125 mg twice daily for hypertension. Current Functional Status: Ms. Johnson was able to ambulate 100 feet, 200 feet, another 60 feet twic e, and 65 feet twice with contact guard assistance. She required frequent cuing. Stand pivot transf ers from bed to wheelchair done with contact guard assistance. From wheelchair to toilet with contac t guard assistance. Supine to sit from edge of bed with minimum assistance. Today, slipping-on shoe s with supervision and supervision for use of a towel to catch crumbs when feeding herself. Complete d ball balancing and tossing while seated on the mat 2 sets of 30 with rest breaks. Progress Towards Rehabilitation Goals: Ms. Johnson is making great progress towards her goals of bec oming independent with upper and lower body dressing, transferring, toileting, showering, ambulating 250 feet with modified independence, up and down 10 steps with modified independence and to continue performing cognitive functioning independently. Assessment And Plan: Ms. Johnson is a 67-year-old patient in the rehabilitation unit with a right fe mur fracture that is an intertrochanteric fracture, status post open reduction and internal fixation. She is doing very well with physical and occupational therapy. She has comorbid depression, hypert ension, postoperative anemia, malnutrition, elevated platelets, decrease in physical functioning. Plan: 1.Continue with physical and occupational therapy 3 hours a day, 5 of 7 days. 2.Medications that are listed above, she will continue for hypertension, for constipation, for malnu trition, for anemia, for muscle spasms, for neuropathic pain, for insomnia and constipation. She marii l also continue Eliquis for DVT prophylaxis. Comorbidities That Continue To Impact Rehabilitation: Currently, the biggest issue is her anemia. S he did receive blood prior to coming in. Her hemoglobin on 02/05 is 7.9. It will be checked again t omorrow and as needed she will receive blood transfusion. TIFFANY/DANIEL Voice ID: [id number] Report ID: [id number]
[2023-02-09] MEDS: carvediloL 3.125 MG TAB PO SCH ×2 (04:49→16:58)
[2023-02-09] MEDS: APIXABAN 2.5 MG TABLET PO SCH ×2 (07:38→19:44)
[2023-02-09] MEDS: FE SULF/FA/VIT B COMP & C TAB PO SCH (07:38)
[2023-02-09] MEDS: lisinopriL 5 MG TAB PO SCH (07:38)
[2023-02-09] MEDS: GABAPENTIN 100 MG CAP PO SCH ×2 (07:38→19:44)
[2023-02-09] MEDS: LIDOCAINE 4% PATCH TOP SCH (07:38)
[2023-02-09] MEDS: FERROUS SULFATE 325 MG TAB PO SCH (07:38)
[2023-02-09] MEDS: MAGNESIUM OXIDE 400 MG TAB PO SCH ×2 (07:39→19:43)
[2023-02-09] MEDS: ENSURE HIGH PROTEIN 237 ML CAN PO SCH ×2 (07:39→19:44)
[2023-02-09] MEDS: TRAMADOL HCL 50 MG TAB PO PRN (08:00)
[2023-02-09] MEDS: ACETAMINOPHEN 500 MG TAB PO PRN (11:11)
[2023-02-09] MEDS: methocarbamoL 500 MG TAB PO PRN (12:04)
[2023-02-09] MEDS: ONDANSETRON 4 MG (ODT) TAB PO PRN (12:05)
[2023-02-09] MEDS ORDERED: HYDROCODONE/APAP 5/325 MG TAB PO PRN (12:59)
[2023-02-09] MEDS: HYDROCODONE/APAP 5/325 MG TAB PO PRN (14:50)
[2023-02-09] MEDS: MELATONIN 3 MG TABLET PO PRN (19:46)
--- NOTE | 2023-02-10 01:49 | PN ---
Date of Progress Note: 02/09/2023 Stdr-bq-Edjn Progress Note Visit Time Of Service: 1:50 p.m. Subjective: Ms. Johnson is resting comfortably in a chair beside the bed. She has no complaints. S he did say the pain did go when ambulating up to 7/10 and she did have a patch on the right knee and will have pain medications adjusted accordingly. Otherwise, no complaints. She did say aside from t hat, that there were some muscle spasms at night in the legs. Review of Systems: Has some myalgias, arthralgias, and muscle spasms. No rash. No psychiatric issues. No genitourinar y or gastrointestinal active issues. Physical Examination: Vital Signs: Blood pressure 140/71, pulse of 89, respiratory rate 16, temperature 97.3. General: Ms. Johnson is sitting in a chair beside bed, watching and looking outside the window. She is in no significant distress. HEENT: She appears normocephalic and atraumatic. Sclerae anicteric. Oropharynx moist. Neck: Supple. Chest: Clear. Extremities: She does have good hemostasis at the right hip surgical site and no significant edema n oted in that extremity. Laboratory Studies: White blood cell count 7.9, hemoglobin 7.9, platelets 482. Sodium 139, potassiu m 3.7, BUN 15, creatinine 0.64, prealbumin 15.6, albumin 2.2. X-rays/imaging: No new x-rays or imaging. Medications: Medications have been reviewed and she has Ultram 50 mg every 6 hours and Athelstane added 5 /325 every 6 hours for pain. She has also gabapentin 100 mg twice daily. Other medications have rem ain unchanged. Current Functional Status: Today, she did show complete improvement with her transfers and placement with supine to sit, bed mobility as well as supervision for toileting and [id number]-qg-[id number] transfers. T nissa, she ambulated 75 feet 5 times and 50 feet 3 times with contact guard assistance. She ascended and descended 10 steps with bilateral handrails and contact guard assistance. She mobilized wheelcha ir 350 feet with multiple rest breaks. Progress Towards Rehabilitation Goals: Ms. Johnson is making great progress, although she was somewh at limited by pain in that will be mitigated by adjusting pain medications. She is ambulating well, moving wheelchair well, transferring better. Assessment: Ms. Johnson is a 67-year-old patient in the rehabilitation unit with a right intertrocha nteric fracture, status post surgical repair. She has comorbid depression, hypertension, postoperati ve anemia, malnutrition, and decrease in physical functioning with insomnia. Plan: 1.Continue with physical and occupational therapy 3 hours a day, 5 of 7 days. 2.Continue with Tylenol Extra Strength 500 mg every 4 hours along with Athe[place]ane 5/325 and tramadol as n eeded for pain related to her hip fracture; ferrous sulfate and Hemocyte Plus for anemia; Coreg and l isinopril for hypertension; methocarbamol for muscle spasms along with magnesium oxide; and Zofran as needed for nausea. Comorbidities That Continue To Impact The Rehabilitation: Her pain level initially is somewhat of a mild hindrance, but again medications have been adjusted including the Athelstane along with gabapentin an d the goal is to get her pain level of 3 out of 10, so that she can participate without difficulties. Also, she had some muscle spasms and she has Robaxin and magnesium and those are helpful. TIFFANY/SOTOL Voice ID: [id number] Report ID: [id number]
[2023-02-10] MEDS: carvediloL 3.125 MG TAB PO SCH ×2 (05:15→17:15)
[2023-02-10] MEDS: LIDOCAINE 4% PATCH TOP SCH (07:22)
[2023-02-10] MEDS: lisinopriL 5 MG TAB PO SCH (07:24)
[2023-02-10] MEDS: GABAPENTIN 100 MG CAP PO SCH ×2 (07:24→19:23)
[2023-02-10] MEDS: FERROUS SULFATE 325 MG TAB PO SCH (07:24)
[2023-02-10] MEDS: HYDROCODONE/APAP 5/325 MG TAB PO PRN ×2 (07:24→12:37)
[2023-02-10] MEDS: FE SULF/FA/VIT B COMP & C TAB PO SCH (07:24)
[2023-02-10] MEDS: APIXABAN 2.5 MG TABLET PO SCH ×2 (07:24→19:23)
[2023-02-10] MEDS: ENSURE HIGH PROTEIN 237 ML CAN PO SCH ×2 (08:05→19:24)
[2023-02-10] MEDS: MAGNESIUM OXIDE 400 MG TAB PO SCH ×2 (08:05→19:24)
[2023-02-10] MEDS: ONDANSETRON 4 MG (ODT) TAB PO PRN (09:59)
--- NOTE | 2023-02-10 22:46 | PN ---
Date of Progress Note: 02/10/2023 Time Of Service: 1:45 p.m. Subjective: Ms. Johnson did report some muscle spasms and pain at night. She did have some pain as she mobilized. She has a right intertrochanteric fracture and has some pain again in the right knee. Review of Systems: As noted, she has myalgias and arthralgias on the right and some muscle spasms at night. No other po sitives on the systems review. Physical Examination: Vital Signs: Blood pressure 132/68, pulse 68, respiratory rate 16, temperature 97.8, oxygen saturati on 94%. General: Ms. Johnson is sitting in a chair in her room. She is in no acute distress. She appears n ormocephalic, atraumatic. HEENT: Sclerae anicteric. Oropharynx is moist. Neck: Supple. EXTREMITIES: Right intertrochanteric surgical site has good hemostasis. No significant edema or cya nosis noted in the extremities. Laboratory Studies: No new laboratory studies. X-ray imaging; no new x-rays or imaging. Medications: Today, Zofran given because of nausea. Her medications also include [place] 5/325 as she did have some significant pain as noted. She is on gabapentin 100 mg twice daily. For her anemia, ferrous sulfate and Hemocyte-Plus. For malnutrition, Ensure Enlive. Magnesium added for muscle spas Hypertension treated with Coreg. She does have Eliquis 2.5 mg twice daily for DVT risk reductio n. Current Functional Status: Today, with occupational therapy, she was independent with sit to stand t ransfers completed shower transfer independently with a grab bar. Ambulated from room to toilet with a rolling walker with standby assistance. She was educated on home safety. With physical therapy, she ambulated 75 feet twice, 100 feet once independently. She did need verbal cues to increase step length. She ascended and descended 15 steps and another 10 steps with bilateral handrails independen tly. With speech, she demonstrated naming skills by naming 5 items for concrete category in 1 minute . Working memory used with 50% accuracy and moderate assistance for 4 units of information. Progress Towards Rehabilitation Goals: Ms. Johnson is making excellent progress toward her goals of becoming independent with upper and lower body dressing, transferring, toileting, and showering, and ambulating 500 feet independently and up and down 15-20 steps independently. She is also doing very well to get toward independence with her cognitive functioning. Assessment: Ms. Johnson is a 67-year-old patient in the rehabilitation unit with a right intertrocha nteric hip fracture, status post open reduction and internal fixation. She has depression, hypertens ion, postoperative anemia, malnutrition, and insomnia along with surgical site pain. Plan: 1.Continue with physical, occupational, and speech therapy for 3.5 hours 5-7 days. 2.She will continue due to all of her comorbid condition medications which are listed above includin g [place], tramadol, Tylenol, ferrous sulfate, Hemocyte-Plus, Coreg, and lisinopril. She has methocarb checo and magnesium along with Zofran as needed. Comorbidities That Continue To Impact Rehabilitation: Currently, the pain is comorbid and she now myers s the [place] and gabapentin on board and that is very helpful. Muscle spasm is also an issue. She myers s magnesium and Robaxin and that is helpful, especially at nighttime to decrease muscle spasms. LB/MODL Voice ID: [id number] Report ID: [id number]
[2023-02-11] MEDS: carvediloL 3.125 MG TAB PO SCH ×2 (05:45→17:05)
[2023-02-11] MEDS: FE SULF/FA/VIT B COMP & C TAB PO SCH (08:05)
[2023-02-11] MEDS: lisinopriL 5 MG TAB PO SCH (08:05)
[2023-02-11] MEDS: MAGNESIUM OXIDE 400 MG TAB PO SCH ×2 (08:05→19:57)
[2023-02-11] MEDS: FERROUS SULFATE 325 MG TAB PO SCH (08:05)
[2023-02-11] MEDS: APIXABAN 2.5 MG TABLET PO SCH ×2 (08:05→19:57)
[2023-02-11] MEDS: GABAPENTIN 100 MG CAP PO SCH ×2 (08:05→19:57)
[2023-02-11] MEDS: ENSURE HIGH PROTEIN 237 ML CAN PO SCH ×2 (08:05→19:59)
[2023-02-11] MEDS: HYDROCODONE/APAP 5/325 MG TAB PO PRN (08:06)
[2023-02-11] MEDS: LIDOCAINE 4% PATCH TOP SCH (08:06)
--- NOTE | 2023-02-11 20:29 | RAD REPORT ---
EXAM DESCRIPTION: RAD - Knee Right 2 View - 02/11/2023 3:02 pm CLINICAL HISTORY: pain COMPARISON: No comparisons TECHNIQUE: Right knee, 3 views. FINDINGS: No fracture, dislocation or periosteal reaction.Small joint effusion seen. Mild tricompart mental osteoarthritic changes. Small rounded corticated osseous density along the posterior aspect of the intertrochanteric region, indeterminate and could relate to a meniscal ossicle. Vascular calcifi cations. Clinical concerns for internal derangement or occult bony injury could be further assessed with MR im aging. IMPRESSION: Small joint effusion. Degenerative changes as above. No acute osseous abnormality.
--- NOTE | 2023-02-11 23:29 | PN ---
Date of Progress Note: 02/11/2023 [id number] Progress Note Visit. Time Of Service: 1:49 p.m. Subjective: Ms. Johnson is doing very well today. She did have some improvement in her muscle spasm s in the right lower extremity and knee pain with pain patch, is doing fairly well, although she does have some pain there as she ambulates. Review of Systems: Mild myalgias, arthralgias, and spasms in the lower extremities, especially at nighttime, and again p ain in the right knee. She actually had an x-ray today of the right knee, the study report is tamara fernandes. Physical Examination: Vital Signs: Blood pressure 118/64, pulse 68, respiratory rate 16, temperature 97, ox saturation 98% . General: Ms. Johnson is resting in bed in between therapy sessions. HEENT: She is normocephalic, atraumatic. Sclerae anicteric. Oropharynx pink, moist. Neck: Supple. Chest: Clear. Heart: Regular. Extremities: Right hip surgical site has good hemostasis. There is a pain patch over the right knee . 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 Laboratory Studies: No new laboratory studies. X-rays: The right knee x-ray results are pending. Medications: Gabapentin is increased to 100 mg twice daily as well as Robaxin 500 mg 6 times daily f or muscle spasms. She continues the other medications as noted including Eliquis 2.5 mg twice daily for DVT prophylaxis and [place] 5/325 every 6 hours for pain. Current Functional Status: Today, she self pulled herself from the room to the toilet with independe nce and the toilet transfer twice with grab bars, so independently. She is actually ready to go home and will continue with aggressive therapy via Home Health. She is independent with toilet hygiene. With physical therapy, supine to sit transfers done independently, stand to pivot transfers with a r olling walker done independently. She ambulated 125 feet twice, another 150 feet once, another 100 f eet twice, and 100 feet independently with a rolling walker. She ascended and descended 15 steps wit h bilateral handrails independently. With speech, she demonstrated ability to sequence 4 units of in formation using working memory with 80% accuracy and minimum assistance. Progress Towards Rehabilitation Goals: Ms. Johnson has made excellent progress towards her rehabilit ation goals of becoming independent with upper and lower body dressing, transferring, toileting, show ering, and performing activities of daily living. She is ambulating now independently with a rolling walker at 250 feet and up and down 15 steps independently. She was performing cognitive functioning with modified independence. Assessment: Ms. Johnson is a 67-year-old patient in the rehabilitation unit with a right intertrocha nteric fracture, status post surgical repair. She has stable comorbidities, depression, hypertension , postoperative anemia, malnutrition, insomnia, right knee pain. She has a pending right knee x-ray. Plan: 1.For now, she will continue with physical, occupational, and speech therapy for 3.5 hours, 5 of 7 d ays. 2.Continue her comorbid condition medications as noted previously and she will have the right knee x -ray followed up. She is also going home tomorrow, will have home health to continue with physical a nd occupational therapy. Comorbidities That Continue To Impact Rehabilitation Process: Currently, the right knee pain is miti gated with pain patch. She also has muscle spasms, medicated by muscle relaxants and she will have D VT prophylaxis even going home. Otherwise, comorbidities do not negatively impact her rehabilitation pr ocess. LB/MODL Voice ID: [id number] Report ID: [id number]
[2023-02-12 04:24] LABS: Absolute Lymphocytes (CBC) 1.8 K/uL (0.7-4.9); MCV 90.8 fL (80-100); MPV 6.6 fL (7.6-11.3); Platelets 530 thou/uL (152-406); RBC Red Blood Cell Count 2.86 M/uL (3.86-4.86)
[2023-02-12 04:43] LABS: Albumin 2.6 g/dL (3.4-5.0); Magnesium 2.7 mg/dL (1.6-2.4); Potassium 4.2 mEq/L (3.5-5.1); Prealbumin 19.8 mg/dL (20-40)
[2023-02-12] MEDS: carvediloL 3.125 MG TAB PO SCH (05:05)
[2023-02-12 06:47] VITALS: BP 136/65; TEMP 97.2
[2023-02-12] MEDS: MAGNESIUM HYDROXIDE 8% 30 ML PO PRN (07:03)
[2023-02-12] MEDS: LIDOCAINE 4% PATCH TOP SCH (07:58)
[2023-02-12] MEDS: GABAPENTIN 100 MG CAP PO SCH (07:59)
[2023-02-12] MEDS: ENSURE HIGH PROTEIN 237 ML CAN PO SCH (07:59)
[2023-02-12] MEDS: FERROUS SULFATE 325 MG TAB PO SCH (07:59)
[2023-02-12] MEDS: APIXABAN 2.5 MG TABLET PO SCH (07:59)
[2023-02-12] MEDS: FE SULF/FA/VIT B COMP & C TAB PO SCH (07:59)
[2023-02-12] MEDS: lisinopriL 5 MG TAB PO SCH (07:59)
[2023-02-12] MEDS: MAGNESIUM OXIDE 400 MG TAB PO SCH (07:59)
== END 2023-02-12 10:00 | disposition home health service (06) | DRG 560 ==
LOC: 5TH 13:00
PROVIDERS: ADMIT Psychiatry & Neurology Neurology with Special Qualifications in Child Neurology; ATTEND Psychiatry & Neurology Neurology with Special Qualifications in Child Neurology
DX: S72.141D Displaced intertrochanteric fracture of right femur, subsequent encounter for closed fracture with routine healing (principal); E44.1 Mild protein-calorie malnutrition; F32.A Depression, unspecified; D64.9 Anemia, unspecified; I10 Essential (primary) hypertension; E78.5 Hyperlipidemia, unspecified; M19.90 Unspecified osteoarthritis, unspecified site; K59.00 Constipation, unspecified; M62.838 Other muscle spasm; G47.00 Insomnia, unspecified; F17.200 Nicotine dependence, unspecified, uncomplicated; Z68.22 Body mass index [BMI] 22.0-22.9, adult
CPT/HCPCS: 36415; 80048; 81001; 82040; 83735; 84134; 85025; 87086; 87088; 92523; 97010; 97110; 97116; 97129; 97162; 97165; 97530; 97542; 99284; J2001; Q0162

== ENCOUNTER 2023-02-04 10:47 | Emergency (ER) | payer OTHER ==
--- OUTSIDE RECORDS SUMMARY | 2023-02-04 10:53 | XMS REPORT | Continuity of Care Document ---
:1955 Author Organization [facility] t Address [address] [facility] [address] [place] [address] Care Team Providers Name Role Phone EMRE GILL Attending Clinician Unavailable Lab, Adc Fam Pob I Attending Clinician Unavailable Beatrice Anguiano Attending Clinician EMRE GILL Admitting Clinician Unavailable Payers Payer Name Policy Type Policy Number Effective Date Expiration Date S ource Problems Condition Condition Condition Status Onset Resolution Last Treating Co mments Source Name Details Category Date Date Treatment Clinician Date SUB ACUTE SUB ACUTE Diagnosis Active 2013-02-06 Memoria MCA STROKE MCA STROKE 02-06 18:02:00 l Active 00:00: Mateusz 02/06/2013 00 [facility] TIA TIA Diagnosis Active 2013-02-07 Mem oria Active 02-06 12:05:00 l 02/06/2013 00:00: Edmundo georges [address] TRANS TRANS Diagnosis Active 2013-02-07 Mem oria CEREB CEREB 12:05:00 l ISCHEMIA ISCHEMIA Edmundo georges NEC NEC Active [facility] Cerebrovas Cerebrova Problem Active 2022-08-31 Memoria cular scular 11:39:54 l accident accident Edmundo georges (disorder) (disorder) Active Problem 08/31/2022 [facility] [place] Hypertensi Hypertens Problem Active 2022-08-31 Memoria ve praneeth 11:39:54 l disorder, disorder, Herm aleksandra systemic systemic arterial arterial (disorder) (disorder) Active Problem 08/31/2022 [facility] [place] Syncope Syncope Problem Active 2022-08-31 Me moria (disorder) (disorder) 11:39:54 l Active Mateusz Problem 08/31/2022 [facility] [place] Arthritis Arthritis Problem Resolve 2019-07-23 Memoria (disorder) [...] Resolved d 21:14:51 l Problem Mateusz 02/09/2013 [facility] Hyperlipid Hyperlipi Problem Resolve 2013-02-09 Memoria emia demia d 21:14:51 l Resolved [place] Problem 02/09/2013 [facility] LASIK LASIK Problem Resolve 2013-02-09 Mem oria Resolved d 21:14:51 l Problem [place] 02/09/2013 [facility] Allergies, Adverse Reactions, Alerts Allergy Allergy Status Severity Reaction(s) Onset Inactive Treating Comm ents Source Name Type Date Date Clinician NO KNOWN Drug Active Univers ALLERGIE Class ity of [facility] No Known No Known Active Memori a Medicati Medicati l on on Mateusz Allergie Allergie s s Social History Social Habit Start Date Stop Date Quantity Comments Source Sex Assigned [facility] Exposure to Yes [facility] SARS-CoV-2 [facility] (event) Branch Alcohol intake 2015-04-09 2015-04-09 Current University of 00:00:00 00:00:00 non-drinker of [facility] alcohol Branch (finding) Smoking Status Start Date Stop Date Source Tobacco smoking status 2022-08-13 19:59:57 Quinn Child Medications Ordered Filled Start Stop Current Ordering Indication Dosage Frequency Signature Comments Components Source Medication Medication Date Date Medication? Clinician (SIG) Name Name aspirin 81 Yes 81 mg = 1 Me moria mg tablet, 3-22 tab, PO, l enteric 20:54: Daily, # Edmundo n coated 00 90 tab, 3 Refill(s) lisinopril Yes 0 Memoria 20 mg oral 3-22 Refill(s) l tablet 20:52: [place] 00 CRESTOR 20 2014-05 Yes 20mg Take [...] l oral tablet 18:23: Brown Daily, 30 [place] 46 tab, Substituti on Allowed, TAB atorvastati Yes Payton 80 mg, 1 Memoria n 80 mg 9-16 Joellen tab, PO, l oral tablet 18:23: Brown Daily, 30 Mateusz 46 tab, Substituti on Allowed, TAB aspirin 81 Yes Pay[place] 81 mg, 1 Memoria mg tablet, 9-16 Jeollen tab, PO, l enteric 18:23: Brown [...] 38 tab, Substituti on Allowed, ECTAB atorvastati 2012-0 No Peace 80 mg, 1 [...] 30 day, Stop date: 03/09/13 0:00:00 heparin No Peace 5,000 Memoria 9-16 Luis [...] date: 03/09/13 0:00:00 Saline 2012-0 No October 5 ml, Memoria [...] 30 day, Stop date: 03/08/13 9:00:00 Zantac 0 Yes Substituti Memor ia 9-15 on Allowed l 22:49: [place] Zantac Yes Substituti Memor ia 9-15 on Allowed l 22:49: [place] Zantac Yes Substituti Memor ia 9-15 on Allowed l 22:49: [place] Zantac 2013-0 Yes Substituti Memor ia 9-15 on Allowed l 22:49: [place] 00 Zantac Yes Substituti Memor ia 9-15 on Allowed l 22:49: Mateusz 00 Multiple Yes 1 cap, PO, Mem oria Vitamins 9-15 Daily, 30 l oral 22:48: cap, [place] capsule 47 Substituti on Allowed, Maintenanc e, CAP Multiple Yes 1 cap, PO, Mem oria Vitamins 9-15 Daily, 30 l oral 22:48: cap, Mateusz capsule 47 Substituti on Allowed, Maintenanc e, CAP Multiple Yes 1 cap, PO, Mem oria Vitamins 9-15 Daily, 30 l oral 22:48: cap, [place] capsule 47 Substituti on Allowed, Maintenanc e, CAP Multiple Yes 1 cap, PO, Mem oria Vitamins 9-15 Daily, 30 l oral 22:48: cap, Mateusz capsule 47 Substituti on Allowed, Maintenanc e, CAP Multiple Yes 1 cap, PO, Mem oria Vitamins 9-15 Daily, 30 l oral 22:48: cap, [place] capsule 47 Substituti on Allowed, Maintenanc e, [...] 100 l 0.9% IV 22:09: Brown ml/hr, [place] 1,000 mL 00 Infuse over: 10 hr, Route: IV, Dosing Weight 72.727 kg, Total Volume: 1,000, Start date: 02/06/13 17:09:00, Stop date: 03/08/13 17:08:00 Saline 2012-0 No October 5 ml, Memoria Flush 0.9% - Yoshii-Con Route: l 22:09: treras IVP, Drug Edmundo n 00 Form: INJ, Dosing Weight 72.727, kg, PRN, PRN Line Flush, Start date: 02/06/13 17:09:00, Duration: 30 day, Stop date: 03/08/13 17:08:00 Saline 2012- No October 5 ml, Memoria Flush 0.9% - Yoshii-Con Route: l 22:09: treras IVP, Drug [...] No Payton 1,000 mL, Mem oria Chloride - Joellen Rate: 100 l 0.9% IV 22:09: [...] be infused by Radiology Staff ONLY" Omnipaque 2012- No Miriam 85 mL, Jn [...] 02-06 Anderson Route: l 19:37: IVP, Drug [place] Form: SOLN, Dosing Weight 72.727, kg, ONCALL, [...] Diastolic (mm Hg) 2022-08-13 19:52:00 Mem orial Mateusz Heart Rate 2022-08-13 19:52:00 [facility] [place] Height 2022-08-13 19:52:00 4 [ft_i] [facility] [place] Weight 2022-08-13 19:52:00 [facility] [place] BMI Calculated 2022-08-13 19:52:00 Memori al [place] Diastolic (mm Hg) 2013-02-07 17:00:00 Mem orial [place] Heart Rate 2013-02-07 17:00:00 [facility] [place] Respitory Rate 2013-02-07 17:00:00 Memori al [place] Temperature Oral (F) 2013-02-07 17:00:00 97.0 F [facility] [place] Systolic (mm Hg) 2013-02-07 17:00:00 Jn rial Mateusz Systolic (mm Hg) 2013-02-07 12:00:00 Jn rial Mateusz Diastolic (mm Hg) 2013-02-07 12:00:00 Mem orial [place] Respitory Rate 2013-02-07 12:00:00 Memori al [place] Temperature Oral (F) 2013-02-07 12:00:00 96.3 F [facility] [place] Heart Rate 2013-02-07 12:00:00 [facility] [place] Heart Rate 2013-02-07 08:51:00 [facility] [place] Temperature Oral (F) 2013-02-07 08:51:00 97.8 F [facility] [place] Systolic (mm Hg) 2013-02-07 08:51:00 Jn rial [place] Diastolic (mm Hg) 2013-02-07 08:51:00 Mem orial [place] Respitory Rate 2013-02-07 00:41:00 Memori al [place] Weight 2013-02-06 17:49:00 [facility] [place] Height 2013-02-06 17:49:00 157.48 cm [facility] [place] Procedures Procedure Date / Time Performed Performing Clinician Anusha ROMAN [facility] [place] Encounters Start End Encounter Admission Attending Care Care Encounter Source Date/Time Date/Time Type Type Clinicians Facility Department ID 2023-01-25 2023-01-29 Inpatient E TYRESE GILL MED [id number] [facility] 03:43:00 17:10:00 SHIFA 46 2022-08-28 2022-08-29 Outpatient MHJYOTI PABernardo [id number] Memoria 18:00:00 04:59:59 Neurology 02 l Hai Huffann 2022-08-13 2022-08-14 Outpatient [facility] [id number] Memoria 20:00:00 04:59:59 Neurology 01 l [place] Mateusz 2020-01-06 2020-01-06 Laboratory Lab, [facility] [id number] 09:23:20 09:43:20 Only Fam Pob I Health [id number] [place] [id number] Professio [phone] [place] [address] [address] 2020-01-06 2020-01-06 Laboratory Lab, [facility] Fam Pob I [facility] [id number] Univers 09:23:20 09:43:20 Only Anene, Beatrice Health [id number] ity of [place] [id number] [place] as Professio [phone] [place] [address] Branch [address] 2020-01-06 2020-01-06 Outpatient R [facility] [id number] Univers 09:00:00 09:00:00 ity of [facility] 2019-07-21 2019-07-21 Ambulatory nullFlavo MNA [id number] Memoria 19:45:00 19:45:00 Pre-Reg r Neurology 00 l Hai Child 2013-02-06 2013-02-07 OU nullFlavo [facility] [id number] Memoria 17:09:00 15:00:00 r Medical 58 l [facility] Results Test Description Test Time Test Comments Results Result Comments Source Thyroid Stimulating Hormone 2018-11-22 22:27:55 Test Item Value Reference Range Interpretation Comme nts TSH (test code = TSH) 0.445 mIU/mL 0.270-4.200 Erythrocyte Sedimentation Rate [id number] 22:20:13 Test Item Value Reference Range Interpretation Comments ESR STAT (test code = ESR STAT) 8 mm/hr 0-20 Comprehensive Metabolic [id number] 21:59:49 Test Item Value Reference Range Interpretation [...] A/G 1.6 ratio N Ratio) Comprehensive Metabolic [id number] 21:59:49 Test Item Value Reference Range Interpretation [...] the National Kidney Foundation, http://nkdep.ni h.gov Lipid [id number] 21:59:49 Test Item Value Reference Range Interpretation Comments Cholesterol Total 294 mg/dL 0-200 H RISK OF HE ART (test code = DISEASEPublishe d by Cholesterol Total) [employer] Sowmya lyte Optimal Borderl ine [...] is greater than 40 0. Comprehensive Metabolic [id number] 21:59:49 Test Item Value Reference Range Interpretation [...] ag e have not been validated by [facility] MDRD study and should be interpreted wit [...] ag e have not been validated by [facility] MDRD study and should be interpreted wit h caution. eGFR R esult Interpretation: eGFR > or = 60 is in the Normal RangeeGF R < 60 may mean kid helio diseaseeGFR < 1 5 may mean kidney failure Rang es recommended by the National Kidney Foundation, http://nkdep.ni h.gov Complete Blood Count with [id number] 21:52:58 Test Item Value Reference Range Interpretation [...] code = IPF) 0 % N Automated [id number] 21:52:58 Test Item Value Reference Range Interpretation Comments Neutro Auto (test code = Neutro 62.7 % 36.0-70.0 Auto) Lymph Auto (test code = Lymph Auto) 28.3 % 12.0-44.0 [place] Auto (test code = [place] Auto) 7.6 % 0.0-11.0 Eos, Auto (test code = Eos, Auto) 0.7 % 0.0-7.0 Basophil Auto (test code = Basophil 0.3 % 0.0-2.0 Auto) Neutro Absolute (test code = Neutro 5.7 x10 1.6-7.4 Absolute) Lymph Absolute (test code = Lymph 2.56 x10 .50-4.60 Absolute) [place] Absolute (test code = [place] .69 x10 .00-1.20 Absolute) Eos Absolute (test code = Eos 0.06 x10 0.00-0.74 Absolute) Baso Absolute (test code = Baso 0.03 x10 0.00-0.21 Absolute) Pro B Natriuretic [id number] 21:52:58 Test Item Value Reference Range Interpretation Comments NT-proBNP (test code = NT-proBNP) 80 pg/mL 0-124 IG [id number] 21:52:58 Test Item Value Reference Range Interpretation Comments IG (test code = IG) 0.4 % 0.0-5.0 IG Abs (test code = IG Abs) 0 x10 N [id number] 12:35:11 Test Item Value Reference Range Interpretation Comments LDL Direct (test code = LDL Direct) [facility] 12:35:11 Test Item Value Reference Range Interpretation Comments LDL Direct (test code = LDL Direct) 144 H [facility]NeqghloSKTYHMHID2583-03-94 12:35:11 Test Item Value Reference Range Interpretation Comments LDL Direct (test code = LDL Direct) 144 H [facility] CenterYomwektAJYVMCDHS2695-13-39 12:35:11 Test Item Value Reference Range Interpretation Comments LDL Direct (test code = LDL Direct) 144 H [facility] CenterJygubplIWBRYALSG3081-34-88 08:00:00 Test Item Value Reference Range Interpretation Comments Potassium Lvl (test code = Potassium 4.1 3.5-5.1 N Lvl) [facility]36[facility] 08:00:00 Test Item Value Reference Range Interpretation Comments LDL (test code = LDL) See Note mg/dL 5*NA*(02/07/2013 03:00:00) [facility] HospitalKiwkdjoKYTGQGBYO4916-87-30 08:00:00 Test Item Value Reference Range Interpretation Comments CHD Risk (test code = CHD Risk) 8.45 3.90-5.80 H [facility]PyhbqxvTYWYNOOYY1076-13-69 08:00:00 Test Item Value Reference Range Interpretation Comments HDL (test code = HDL) 29 L [facility] CenterKdusmcxLJAMPRUHO0968-12-29 08:00:00 Test Item Value Reference Range Interpretation Comments Trig (test code = Trig) 531 H [facility] NorthwestXccgyykHYXPRZHJJ6744-72-91 08:00:00 Test Item Value Reference Range Interpretation Comments Chol (test code = Chol) 245 H [facility] CampusRwrkohkSTXHQVEXPY4979-32-74 08:00:00 Test Item Value Reference Range Interpretation Comments Basophils (test code = 0.7 See_Comment N [Aut omated message] The Basophils) system which ge nerated this result tra nsmitted reference range : <=1.0. The reference r charan was not used to int erpret this result as normal/abnormal . [facility] CampusGdanmfvCPELJOEGEI2335-62-24 08:00:00 Test Item Value Reference Range Interpretation Comments Segs-Bands # (test code = Segs-Bands #) 3.6 1.5-8.1 N [facility] CampusKnkitxgOXFCOVVZXO0908-22-23 08:00:00 Test Item Value Reference Range Interpretation Comments Lymphocytes # (test code = Lymphocytes 3.1 1.0-5.5 N #) [facility] CampusYxclmgkWGUXQCZEGU5753-32-95 08:00:00 Test Item Value Reference Range Interpretation Comments Monocytes # (test code 0.6 See_Comment N [Aut omated message] The = Monocytes #) system which generated this result tra nsmitted reference range : <=0.8. The reference r charan was not used to int erpret this result as normal/abnormal . [facility] CampusRiddrewUTAMZGEMEG8057-77-42 08:00:00 Test Item Value Reference Range Interpretation Comments Eosinophils # (test code 0.1 See_Comment N [A utomated message] The = Eosinophils #) system ic h generated this result tra nsmitted reference range : <=0.5. The reference r charan was not used to int erpret this result as normal/abnormal . [facility] CampusXumxxboGPLVOJFGMO4138-00-34 08:00:00 Test Item Value Reference Range Interpretation Comments Basophils # (test code 0.1 See_Comment N [Aut omated message] The = Basophils #) system which generated this result tra nsmitted reference range : <=0.2. The reference r charan was not used to int erpret this result as normal/abnormal . [facility] CampusScmagvwHSWNXLTYQX7549-07-10 08:00:00 Test Item Value Reference Range Interpretation Comments Eosinophils (test code = 1.7 See_Comment N [A utomated message] The Eosinophils) system which ge nerated this result tra nsmitted reference range : <=4.0. The reference r charan was not used to int erpret this result as normal/abnormal . [facility] CampusDsseisrQANSHQCFHY3169-36-12 08:00:00 Test Item Value Reference Range Interpretation Comments Monocytes (test code = Monocytes) 8.0 2.0-12.0 N [facility] CampusMhsrhgcJRBXMRQETT1585-72-13 08:00:00 Test Item Value Reference Range Interpretation Comments Segs (test code = Segs) 48.0 45.0-75.0 N [facility] CampusZjcctkkUWEAZFUCYE1204-00-11 08:00:00 Test Item Value Reference Range Interpretation Comments Lymphocytes (test code = Lymphocytes) 41.6 20.0-40.0 H [facility] CampusPhieqcuWWOPNYSRCM1758-86-68 08:00:00 Test Item Value Reference Range Interpretation Comments RBC (test code = RBC) 3.87 4.20-5.40 L [facility] CampusQsfdanqKZIMAVBMTP4736-89-14 08:00:00 Test Item Value Reference Range Interpretation Comments WBC (test code = WBC) 7.4 3.7-10.4 N [facility] CampusZwpfgwqQJHPFJPOPA9152-95-30 08:00:00 Test Item Value Reference Range Interpretation Comments Hgb (test code = Hgb) 11.9 12.0-16.0 L [facility] CampusPlcdsljTNIUBGVWAO0734-36-80 08:00:00 Test Item Value Reference Range Interpretation Comments Hct (test code = Hct) 35.2 36.0-48.0 L [facility] CampusFkilquwZGLFXQSXKW7854-82-48 08:00:00 Test Item Value Reference Range Interpretation Comments MCV (test code = MCV) 90.8 81.0-99.0 N [facility] CampusAariayaPMRAXKJUWH6501-32-18 08:00:00 Test Item Value Reference Range Interpretation Comments MCH (test code = MCH) 30.7 pg 27.0-31.0 N [facility] CampusHddpilkFYDTMWEWMJ2647-46-03 08:00:00 Test Item Value Reference Range Interpretation Comments RDW (test code = RDW) 13.3 11.5-14.5 N [facility] CampusBsyehcwORPUSWDNRC1306-94-38 08:00:00 Test Item Value Reference Range Interpretation Comments MCHC (test code = MCHC) 33.9 32.0-36.0 N [facility] CampusRvapzbfTRFQPGQLLI4632-16-26 08:00:00 Test Item Value Reference Range Interpretation Comments Platelet (test code = Platelet) 279 133-450 N [facility] CampusBneabrqISKTQYISGB2999-10-60 08:00:00 Test Item Value Reference Range Interpretation Comments MPV (test code = MPV) 7.5 7.4-10.4 N [facility] NorthwestNsbakazQTGEBFFFP4827-58-00 08:00:00 Test Item Value Reference Range Interpretation Comments AGAP (test code = AGAP) 13.1 10.0-20.0 N [facility] NorthwestWdbtdbqDYHLTTIRV9202-28-45 08:00:00 Test Item Value Reference Range Interpretation Comments eGFR (test code = eGFR) 96 [facility] NorthwestXiwutskMNDKWPFZH8104-00-50 08:00:00 Test Item Value Reference Range Interpretation Comments Creatinine Lvl (test code = Creatinine 0.7 0.5-1.4 N Lvl) [facility] NorthwestWfglxcxAGCJCWOFN6107-07-53 08:00:00 Test Item Value Reference Range Interpretation Comments BUN (test code = BUN) 18 7-22 N [facility] NorthwestOsxjesiMWSDYQISP9373-81-71 08:00:00 Test Item Value Reference Range Interpretation Comments Glucose Lvl (test code = Glucose Lvl) 101 70-99 H [facility] NorthwestDwvkrqyQXGLMJINT6240-07-91 08:00:00 Test Item Value Reference Range Interpretation Comments AGAP (test code = AGAP) 13.1 10.0-20.0 N [facility] NorthwestKsheqxyDINGRFHRK6952-48-95 08:00:00 Test Item Value Reference Range Interpretation Comments eGFR (test code = eGFR) 96 [facility] NorthwestSwafrlyCSCEGCEBM7091-11-10 08:00:00 Test Item Value Reference Range Interpretation Comments Sodium Lvl (test code = Sodium Lvl) 142 135-145 N [facility] NorthwestOmwtmszRZWVGNZLN5268-24-83 08:00:00 Test Item Value Reference Range Interpretation Comments Creatinine Lvl (test code = Creatinine 0.7 0.5-1.4 N Lvl) [facility] NorthwestIzkgqwqAYPSKJSDZ2671-02-07 08:00:00 Test Item Value Reference Range Interpretation Comments BUN (test code = BUN) 18 7-22 N [facility] NorthwestKbolpjxBLZSDOLWV7751-11-88 08:00:00 Test Item Value Reference Range Interpretation Comments Glucose Lvl (test code = Glucose Lvl) 101 70-99 H [facility] NorthwestVmvogzhBQPRJIGCE6819-78-32 08:00:00 Test Item Value Reference Range Interpretation Comments Sodium Lvl (test code = Sodium Lvl) 142 135-145 N [facility] NorthwestUxvhdiiEFTPVURHR8491-45-06 08:00:00 Test Item Value Reference Range Interpretation Comments Calcium Lvl (test code = Calcium Lvl) 8.3 8.5-10.5 L [facility] NorthwestJrqxhcmBPILZNUHD5342-75-02 08:00:00 Test Item Value Reference Range Interpretation Comments CO2 (test code = CO2) 23 24-32 L [facility] NorthwestTfqngrkLITRLQIYI7952-96-05 08:00:00 Test Item Value Reference Range Interpretation Comments Chloride Lvl (test code = Chloride Lvl) 110 95-109 H [facility] NorthwestJooyducOYGOTZBMY7807-13-25 08:00:00 Test Item Value Reference Range Interpretation Comments Potassium Lvl (test code = Potassium 4.1 3.5-5.1 N Lvl) [facility] NorthwestUjugsnrPYULDFNVO2599-27-12 08:00:00 Test Item Value Reference Range Interpretation Comments LDL (test code = LDL) See Note mg/dL 5*NA*(02/07/2013 03:00:00) [facility] NorthwestRyxauxtHHMMIIEIZ9294-58-06 08:00:00 Test Item Value Reference Range Interpretation Comments CHD Risk (test code = CHD Risk) 8.45 3.90-5.80 H [facility] NorthwestJlfjtrsWCECIXTUW2310-02-39 08:00:00 Test Item Value Reference Range Interpretation Comments Calcium Lvl (test code = Calcium Lvl) 8.3 8.5-10.5 L [facility] NorthwestMfttxsiENBLBPNYT6821-27-94 08:00:00 Test Item Value Reference Range Interpretation Comments HDL (test code = HDL) 29 L [facility] NorthwestIgjgncaPQJMCTZXN9648-14-82 08:00:00 Test Item Value Reference Range Interpretation Comments Trig (test code = Trig) 531 H [facility] NorthwestOuyhlpcZSIRSKJCY4524-52-55 08:00:00 Test Item Value Reference Range Interpretation Comments Chol (test code = Chol) 245 H [facility] CampusUdrprgoYZXNXPMLXY3687-11-93 08:00:00 Test Item Value Reference Range Interpretation Comments Basophils (test code = 0.7 See_Comment N [Aut omated message] The Basophils) system which ge nerated this result tra nsmitted reference range : <=1.0. The reference r charan was not used to int erpret this result as normal/abnormal . [facility] CampusPhulenrLSGIXMBOIN5645-23-97 08:00:00 Test Item Value Reference Range Interpretation Comments Segs-Bands # (test code = Segs-Bands #) 3.6 1.5-8.1 N [facility] CampusRttmbtgDQWRDKMOOT7890-64-05 08:00:00 Test Item Value Reference Range Interpretation Comments Lymphocytes # (test code = Lymphocytes 3.1 1.0-5.5 N #) [facility] CampusAvlveqsGNJEXPVYKR4369-56-85 08:00:00 Test Item Value Reference Range Interpretation Comments Monocytes # (test code 0.6 See_Comment N [Aut omated message] The = Monocytes #) system which generated this result tra nsmitted reference range : <=0.8. The reference r charan was not used to int erpret this result as normal/abnormal . [facility] CampusMufnwvcUIWERCARCN7383-29-79 08:00:00 Test Item Value Reference Range Interpretation Comments Eosinophils # (test code 0.1 See_Comment N [A utomated message] The = Eosinophils #) system whic h generated this result tra nsmitted reference range : <=0.5. The reference r charan was not used to int erpret this result as normal/abnormal . [facility] CampusMbxrfkpGGGWFVQDRK6722-14-55 08:00:00 Test Item Value Reference Range Interpretation Comments Basophils # (test code 0.1 See_Comment N [Aut omated message] The = Basophils #) system which generated this result tra nsmitted reference range : <=0.2. The reference r charan was not used to int erpret this result as normal/abnormal . [facility] CampusLujvrkgQCFIJQZNLC0981-75-19 08:00:00 Test Item Value Reference Range Interpretation Comments Eosinophils (test code = 1.7 See_Comment N [A utomated message] The Eosinophils) system which ge nerated this result tra nsmitted reference range : <=4.0. The reference r charan was not used to int erpret this result as normal/abnormal . [facility] NorthwestLqxaxnuIWFISTAMN3339-98-49 08:00:00 Test Item Value Reference Range Interpretation Comments CO2 (test code = CO2) 23 24-32 L [facility] CampusOrxmkslKRKRHIUIBR3064-02-84 08:00:00 Test Item Value Reference Range Interpretation Comments Monocytes (test code = Monocytes) 8.0 2.0-12.0 N [facility] CampusWkzbxtvETXRJZVIYA6210-58-43 08:00:00 Test Item Value Reference Range Interpretation Comments Segs (test code = Segs) 48.0 45.0-75.0 N [facility] [facility]CcxmkndEUMZXPPCEO7106-83-64 [facility]:00 Test Item Value Reference Range Interpretation Comments Lymphocytes (test code = Lymphocytes) 41.6 20.0-40.0 H [facility] CampusNdhskegRRTBNMXOLF0723-55-74 08:00:00 Test Item Value Reference Range Interpretation Comments RBC (test code = RBC) 3.87 4.20-5.40 L [facility] CampusBfxwsdgYRZQSPFFWM9921-19-79 08:00:00 Test Item Value Reference Range Interpretation Comments WBC (test code = WBC) 7.4 3.7-10.4 N [facility] CampusRniojoaOKWOHZDFYM1132-51-12 08:00:00 Test Item Value Reference Range Interpretation Comments Hgb (test code = Hgb) 11.9 12.0-16.0 L [facility] CampusLofiwdbVJAYNVISLK4076-08-49 08:00:00 Test Item Value Reference Range Interpretation Comments Hct (test code = Hct) 35.2 36.0-48.0 L [facility] CampusBddwbeoMNQDPKSYCT3165-44-13 08:00:00 Test Item Value Reference Range Interpretation Comments MCV (test code = MCV) 90.8 81.0-99.0 N [facility] CampusVqnttjgMOJUNJWIPV3234-61-48 08:00:00 Test Item Value Reference Range Interpretation Comments MCH (test code = MCH) 30.7 pg 27.0-31.0 N [facility] CampusRsrfbunVAGMNKAQYU8859-98-74 08:00:00 Test Item Value Reference Range Interpretation Comments RDW (test code = RDW) 13.3 11.5-14.5 N [facility]BPFBSABTI0695-48-30 08:00:00 Test Item Value Reference Range Interpretation Comments Chloride Lvl (test code = Chloride Lvl) 110 95-109 H [facility] CampusJezqfawQEWFSOAJVO6672-49-71 08:00:00 Test Item Value Reference Range Interpretation Comments MCHC (test code = MCHC) 33.9 32.0-36.0 N [facility] CampusAqloausVOKSIBKIKA6914-90-34 08:00:00 Test Item Value Reference Range Interpretation Comments Platelet (test code = Platelet) 279 133-450 N [facility] CampusYqrftshNSJTJYWWQR4605-19-96 08:00:00 Test Item Value Reference Range Interpretation Comments MPV (test code = MPV) 7.5 7.4-10.4 N [facility] NorthwestOfoujzsWXTHCQXHM9461-25-85 08:00:00 Test Item Value Reference Range Interpretation Comments Potassium Lvl (test code = Potassium 4.1 3.5-5.1 N Lvl) [facility] NorthwestMowwdzbODJJBWRWY6503-98-48 08:00:00 Test Item Value Reference Range Interpretation Comments LDL (test code = LDL) See Note mg/dL 5*NA*(02/07/2013 03:00:00) [facility] NorthwestQwjghcdDEJBHLKTW6592-41-94 08:00:00 Test Item Value Reference Range Interpretation Comments CHD Risk (test code = CHD Risk) 8.45 3.90-5.80 H [facility] NorthwestDqbwwimLZAZAHGBE6181-68-08 08:00:00 Test Item Value Reference Range Interpretation Comments HDL (test code = HDL) 29 L [facility] NorthwestYutrvbqICWVAQITV3996-19-61 08:00:00 Test Item Value Reference Range Interpretation Comments Trig (test code = Trig) 531 H [facility] NorthwestZurdtftDSYPDONJW3391-10-34 08:00:00 Test Item Value Reference Range Interpretation Comments Chol (test code = Chol) 245 H [facility] CampusKuoqvvqYNWCRYBJOT8021-79-16 08:00:00 Test Item Value Reference Range Interpretation Comments Basophils (test code = 0.7 See_Comment N [Aut omated message] The Basophils) system which ge nerated this result tra nsmitted reference range : <=1.0. The reference r charan was not used to int erpret this result as normal/abnormal . [facility] CampusTyieoetOBBJVMMATL4168-90-72 08:00:00 Test Item Value Reference Range Interpretation Comments Segs-Bands # (test code = Segs-Bands #) 3.6 1.5-8.1 N [facility] CampusWpkycqwTGWNIHOJSQ8594-96-61 08:00:00 Test Item Value Reference Range Interpretation Comments Lymphocytes # (test code = Lymphocytes 3.1 1.0-5.5 N #) [facility] CampusSuepnbsVJRNDPNKYS0863-49-18 08:00:00 Test Item Value Reference Range Interpretation Comments Monocytes # (test code 0.6 See_Comment N [Aut omated message] The = Monocytes #) system which generated this result tra nsmitted reference range : <=0.8. The reference r charan was not used to int erpret this result as normal/abnormal . [facility] CampusXscztecNHSNRUDXZQ4473-64-36 08:00:00 Test Item Value Reference Range Interpretation Comments Eosinophils # (test code 0.1 See_Comment N [A utomated message] The = Eosinophils #) system whic h generated this result tra nsmitted reference range : <=0.5. The reference r charan was not used to int erpret this result as normal/abnormal . [facility] CampusGtwtbgbCFBZRNLFCE0565-19-37 08:00:00 Test Item Value Reference Range Interpretation Comments Basophils # (test code 0.1 See_Comment N [Aut omated message] The = Basophils #) system which generated this result tra nsmitted reference range : <=0.2. The reference r charan was not used to int erpret this result as normal/abnormal . [facility] CampusVidmhfwPLBMEEVLZT1731-59-01 08:00:00 Test Item Value Reference Range Interpretation Comments Eosinophils (test code = 1.7 See_Comment N [A utomated message] The Eosinophils) system which ge nerated this result tra nsmitted reference range : <=4.0. The reference r charan was not used to int erpret this result as normal/abnormal . [facility] CampusPacvpzlQMUGRSMLNS3674-82-65 08:00:00 Test Item Value Reference Range Interpretation Comments Monocytes (test code = Monocytes) 8.0 2.0-12.0 N [facility] CampusPbjgpdcCIBXPAVYUK9991-11-45 08:00:00 Test Item Value Reference Range Interpretation Comments Segs (test code = Segs) 48.0 45.0-75.0 N [facility] CampusHmspagkTFBUMOKRGO0840-51-03 08:00:00 Test Item Value Reference Range Interpretation Comments Lymphocytes (test code = Lymphocytes) 41.6 20.0-40.0 H [facility] CampusSccgrquTDJJDOUCVP4332-94-64 08:00:00 Test Item Value Reference Range Interpretation Comments RBC (test code = RBC) 3.87 4.20-5.40 L [facility] CampusAgjydsrBHPJDMPOIR7678-69-02 08:00:00 Test Item Value Reference Range Interpretation Comments WBC (test code = WBC) 7.4 3.7-10.4 N [facility] CampusIzihvwqJWBUDIXYIT6565-35-92 08:00:00 Test Item Value Reference Range Interpretation Comments Hgb (test code = Hgb) 11.9 12.0-16.0 L [facility] CampusEggzoydRMGUAFRUTE1694-07-84 08:00:00 Test Item Value Reference Range Interpretation Comments Hct (test code = Hct) 35.2 36.0-48.0 L [facility] CampusHrdwqdrMQLIDOGQYZ7698-42-98 08:00:00 Test Item Value Reference Range Interpretation Comments MCV (test code = MCV) 90.8 81.0-99.0 N [facility] CampusZvibbauFLLWGEETEE7155-69-16 08:00:00 Test Item Value Reference Range Interpretation Comments MCH (test code = MCH) 30.7 pg 27.0-31.0 N [facility] CampusKynybmfDDKVNQVGJP8099-37-16 08:00:00 Test Item Value Reference Range Interpretation Comments RDW (test code = RDW) 13.3 11.5-14.5 N [facility] CampusZqcbcruJUHSRWUNSC7586-52-23 08:00:00 Test Item Value Reference Range Interpretation Comments MCHC (test code = MCHC) 33.9 32.0-36.0 N [facility] CampusZxjwoycSNFPVBWYZA9046-52-73 08:00:00 Test Item Value Reference Range Interpretation Comments Platelet (test code = Platelet) 279 133-450 N [facility] CampusUjyevjpILHHFKRRDO8873-72-93 08:00:00 Test Item Value Reference Range Interpretation Comments MPV (test code = MPV) 7.5 7.4-10.4 N [facility] NorthwestKbiwbheOAMAMDYSU0989-10-36 08:00:00 Test Item Value Reference Range Interpretation Comments AGAP (test code = AGAP) 13.1 10.0-20.0 N [facility] NorthwestCknwuziIFOILWLAK6265-64-92 08:00:00 Test Item Value Reference Range Interpretation Comments eGFR (test code = eGFR) 96 [facility] NorthwestZddkvuqIRJVNHNDC0793-79-10 08:00:00 Test Item Value Reference Range Interpretation Comments Creatinine Lvl (test code = Creatinine 0.7 0.5-1.4 N Lvl) [facility] NorthwestZvctgckSMVOTSNNB0854-54-52 08:00:00 Test Item Value Reference Range Interpretation Comments BUN (test code = BUN) 18 7-22 N [facility] NorthwestHuvvcgxYKHPGUQQZ3785-16-00 08:00:00 Test Item Value Reference Range Interpretation Comments Glucose Lvl (test code = Glucose Lvl) 101 70-99 H [facility] NorthwestEvevllhLMLUVDSZX6868-53-02 08:00:00 Test Item Value Reference Range Interpretation Comments Sodium Lvl (test code = Sodium Lvl) 142 135-145 N [facility] NorthwestKcwirxrCAJLOMRGO0141-27-32 08:00:00 Test Item Value Reference Range Interpretation Comments Calcium Lvl (test code = Calcium Lvl) 8.3 8.5-10.5 L [facility] NorthwestQvhafskBUYWPCIQU2570-70-07 08:00:00 Test Item Value Reference Range Interpretation Comments CO2 (test code = CO2) 23 24-32 L [facility] NorthwestOjimximJXJEQNCZG4382-01-22 08:00:00 Test Item Value Reference Range Interpretation Comments Chloride Lvl (test code = Chloride Lvl) 110 95-109 H [facility] NorthwestEmarrxdPNFUZEPXQ3464-04-03 08:00:00 Test Item Value Reference Range Interpretation Comments Potassium Lvl (test code = Potassium 4.1 3.5-5.1 N Lvl) [facility] NorthwestVhhyybaIRMOYHGPI2552-70-26 08:00:00 Test Item Value Reference Range Interpretation Comments LDL (test code = LDL) See Note mg/dL 5*NA*(02/07/2013 03:00:00) [facility] NorthwestFtgaeudOPVPLKNBA6641-40-52 08:00:00 Test Item Value Reference Range Interpretation Comments CHD Risk (test code = CHD Risk) 8.45 3.90-5.80 H [facility] NorthwestEahuwtrUKKFLOIRR3213-59-59 08:00:00 Test Item Value Reference Range Interpretation Comments HDL (test code = HDL) 29 L [facility] NorthwestIadsqkuIXDFHKBNC0977-26-37 08:00:00 Test Item Value Reference Range Interpretation Comments Trig (test code = Trig) 531 H [facility] NorthwestDhwifdrQEIVJVLOF2434-47-38 08:00:00 Test Item Value Reference Range Interpretation Comments Chol (test code = Chol) 245 H [facility] CampusHbyiogwOUJVREVYJG4126-45-82 08:00:00 Test Item Value Reference Range Interpretation Comments Basophils (test code = 0.7 See_Comment N [Aut omated message] The Basophils) system which ge nerated this result tra nsmitted reference range : <=1.0. The reference r charan was not used to int erpret this result as normal/abnormal . [facility] CampusRdrfhhuSCVEJPVDZF5907-82-10 08:00:00 Test Item Value Reference Range Interpretation Comments Segs-Bands # (test code = Segs-Bands #) 3.6 1.5-8.1 N [facility] CampusZsfugilEYUSOFBTVL5624-85-29 08:00:00 Test Item Value Reference Range Interpretation Comments Lymphocytes # (test code = Lymphocytes 3.1 1.0-5.5 N #) [facility] CampusGeekklgPANHZMNYNU0368-58-33 08:00:00 Test Item Value Reference Range Interpretation Comments Monocytes # (test code 0.6 See_Comment N [Aut omated message] The = Monocytes #) system which generated this result tra nsmitted reference range : <=0.8. The reference r charan was not used to int erpret this result as normal/abnormal . [facility] CampusIzidnfqVSJEMJODGP3156-81-27 08:00:00 Test Item Value Reference Range Interpretation Comments Eosinophils # (test code 0.1 See_Comment N [A utomated message] The = Eosinophils #) system wh h generated this result tra nsmitted reference range : <=0.5. The reference r charan was not used to int erpret this result as normal/abnormal . [facility] CampusXdqrjgkJSWXSTTJSF2569-44-99 08:00:00 Test Item Value Reference Range Interpretation Comments Basophils # (test code 0.1 See_Comment N [Aut omated message] The = Basophils #) system which generated this result tra nsmitted reference range : <=0.2. The reference r charan was not used to int erpret this result as normal/abnormal . [facility] CampusYdqskwjAOQYMWKNLP5652-97-21 08:00:00 Test Item Value Reference Range Interpretation Comments Eosinophils (test code = 1.7 See_Comment N [A utomated message] The Eosinophils) system which ge nerated this result tra nsmitted reference range : <=4.0. The reference r charan was not used to int erpret this result as normal/abnormal . [facility] CampusRrywjbjWLLPNWHIAW4271-10-00 08:00:00 Test Item Value Reference Range Interpretation Comments Monocytes (test code = Monocytes) 8.0 2.0-12.0 N [facility] CampusQcjzxtmIYLXEALERY2873-98-43 08:00:00 Test Item Value Reference Range Interpretation Comments Segs (test code = Segs) 48.0 45.0-75.0 N [facility] CampusJoyadrsPUYBIGFKMD3303-24-01 08:00:00 Test Item Value Reference Range Interpretation Comments Lymphocytes (test code = Lymphocytes) 41.6 20.0-40.0 H [facility] CampusZwibaqsUOAZSENPNK4741-00-86 08:00:00 Test Item Value Reference Range Interpretation Comments RBC (test code = RBC) 3.87 4.20-5.40 L [facility] CampusSyeyuanYVXODUZVZP2451-26-37 08:00:00 Test Item Value Reference Range Interpretation Comments WBC (test code = WBC) 7.4 3.7-10.4 N [facility] CampusWeyifthYVWTSVPREB3946-08-43 08:00:00 Test Item Value Reference Range Interpretation Comments Hgb (test code = Hgb) 11.9 12.0-16.0 L [facility] CampusOklvpfvCMQMUGAUQI7420-76-43 08:00:00 Test Item Value Reference Range Interpretation Comments Hct (test code = Hct) 35.2 36.0-48.0 L [facility] CampusEejskwpAFTPYGPZGS7799-42-08 08:00:00 Test Item Value Reference Range Interpretation Comments MCV (test code = MCV) 90.8 81.0-99.0 N [facility] CampusNnbpwvkAPTBQUFXHM6578-13-19 08:00:00 Test Item Value Reference Range Interpretation Comments MCH (test code = MCH) 30.7 pg 27.0-31.0 N [facility] CampusEccevdsJUIPZCDWRR9674-01-03 08:00:00 Test Item Value Reference Range Interpretation Comments RDW (test code = RDW) 13.3 11.5-14.5 N [facility] CampusTdkioxoETEKHQQXSW6486-37-63 08:00:00 Test Item Value Reference Range Interpretation Comments MCHC (test code = MCHC) 33.9 32.0-36.0 N [facility] CampusVoxcfneRTIJBWAQDL2687-38-54 08:00:00 Test Item Value Reference Range Interpretation Comments Platelet (test code = Platelet) 279 133-450 N [facility] CampusBpxhsydLFEATOCPBE5907-90-48 08:00:00 Test Item Value Reference Range Interpretation Comments MPV (test code = MPV) 7.5 7.4-10.4 N [facility] NorthwestKzktvdxLDZBAZEGP6660-77-12 08:00:00 Test Item Value Reference Range Interpretation Comments AGAP (test code = AGAP) 13.1 10.0-20.0 N [facility] NorthwestDhobanaPCTJBLSRO7589-70-52 08:00:00 Test Item Value Reference Range Interpretation Comments eGFR (test code = eGFR) 96 [facility] NorthwestAjvcgqmKIYGMPCUG2838-89-05 08:00:00 Test Item Value Reference Range Interpretation Comments Creatinine Lvl (test code = Creatinine 0.7 0.5-1.4 N Lvl) [facility] NorthwestMwkvwqaIRDBCCRKS4176-50-84 08:00:00 Test Item Value Reference Range Interpretation Comments BUN (test code = BUN) 18 7-22 N [facility] NorthwestEoowsobPMXZVXGCQ9067-20-84 08:00:00 Test Item Value Reference Range Interpretation Comments Glucose Lvl (test code = Glucose Lvl) 101 70-99 H [facility] NorthwestNplsgisYRXNVBIRQ1864-83-77 08:00:00 Test Item Value Reference Range Interpretation Comments Sodium Lvl (test code = Sodium Lvl) 142 135-145 N [facility] NorthwestFbfdsnqZMROOEWOB6829-99-20 08:00:00 Test Item Value Reference Range Interpretation Comments Calcium Lvl (test code = Calcium Lvl) 8.3 8.5-10.5 L [facility] NorthwestRcfgysdXHGKKMEUK0371-07-30 08:00:00 Test Item Value Reference Range Interpretation Comments CO2 (test code = CO2) 23 24-32 L [facility] NorthwestJtbjtjmETIPOZJTC9389-88-47 08:00:00 Test Item Value Reference Range Interpretation Comments Chloride Lvl (test code = Chloride Lvl) 110 95-109 H [facility] NorthwestJjmncwaBNFDLCNFQ7037-36-85 18:53:00 Test Item Value Reference Range Interpretation Comments eGFR (test code = eGFR) 96 [facility] NorthwestLtijdojYKDZBLLOL7561-61-67 18:53:00 Test Item Value Reference Range Interpretation Comments Sodium Lvl (test code = Sodium Lvl) 140 135-145 N [facility] NorthwestDjbjjfwLJMHLYAQM0040-13-37 18:53:00 Test Item Value Reference Range Interpretation Comments Potassium Lvl (test code = Potassium 3.9 3.5-5.1 N Lvl) [facility] NorthwestGgnqyspJEAZUYCFJ2457-36-28 18:53:00 Test Item Value Reference Range Interpretation Comments Chloride Lvl (test code = Chloride Lvl) 105 95-109 N [facility] NorthwestLutafrsZSWOCNHUW6323-32-39 18:53:00 Test Item Value Reference Range Interpretation Comments CO2 (test code = CO2) 28 24-32 N [facility] NorthwestWhtxmwcBNKHUXABV1939-01-31 18:53:00 Test Item Value Reference Range Interpretation Comments Glucose Lvl (test code = Glucose Lvl) 92 70-99 N [facility] NorthwestVanjtowNUJAGPJUT7745-97-69 18:53:00 Test Item Value Reference Range Interpretation Comments BUN (test code = BUN) 14 7-22 N [facility] NorthwestTgfpxdhFIBCPVOQC1155-42-86 18:53:00 Test Item Value Reference Range Interpretation Comments Creatinine Lvl (test code = Creatinine 0.7 0.5-1.4 N Lvl) [facility] NorthwestMkkzebxJGIEOPAZB1246-55-12 18:53:00 Test Item Value Reference Range Interpretation Comments Calcium Lvl (test code = Calcium Lvl) 9.1 8.5-10.5 N [facility] NorthwestKrptcrzXDZDFTROA8604-37-25 18:53:00 Test Item Value Reference Range Interpretation Comments AGAP (test code = AGAP) 10.9 10.0-20.0 N [facility] CampusQrphifuYOWTTFKTTT3905-09-83 18:53:00 Test Item Value Reference Range Interpretation Comments Basophils # (test code 0.1 See_Comment N [Aut omated message] The = Basophils #) system which generated this result tra nsmitted reference range : <=0.2. The reference r charan was not used to int erpret this result as normal/abnormal . [facility] CampusJotfyorDRSGMMCWAB5268-67-85 18:53:00 Test Item Value Reference Range Interpretation Comments Lymphocytes # (test code = Lymphocytes 2.8 1.0-5.5 N #) [facility] CampusLpqwtpbFWNYJAIJGF4052-68-69 18:53:00 Test Item Value Reference Range Interpretation Comments Eosinophils # (test code 0.1 See_Comment N [A utomated message] The = Eosinophils #) system whic h generated this result tra nsmitted reference range : <=0.5. The reference r charan was not used to int erpret this result as normal/abnormal . [facility] CampusHcubmvsQGKAVMTZGM5479-90-65 18:53:00 Test Item Value Reference Range Interpretation Comments Monocytes # (test code 0.7 See_Comment N [Aut omated message] The = Monocytes #) system which generated this result tra nsmitted reference range : <=0.8. The reference r charan was not used to int erpret this result as normal/abnormal . [facility] CampusAujcmpeESNZIFHTKZ3763-22-55 18:53:00 Test Item Value Reference Range Interpretation Comments Segs-Bands # (test code = Segs-Bands #) 4.6 1.5-8.1 N [facility] CampusTyygphlEWLSCHOAKC4684-41-79 18:53:00 Test Item Value Reference Range Interpretation Comments Basophils (test code = 1.0 See_Comment N [Aut omated message] The Basophils) system which ge nerated this result tra nsmitted reference range : <=1.0. The reference r charan was not used to int erpret this result as normal/abnormal . [facility] CampusMmhxksuUTFUYSJHTY7606-09-63 18:53:00 Test Item Value Reference Range Interpretation Comments Lymphocytes (test code = Lymphocytes) 34.0 20.0-40.0 N [facility] CampusNigfzijUQMDDWEQXM8021-06-91 18:53:00 Test Item Value Reference Range Interpretation Comments Eosinophils (test code = 1.3 See_Comment N [A utomated message] The Eosinophils) system which ge nerated this result tra nsmitted reference range : <=4.0. The reference r charan was not used to int erpret this result as normal/abnormal . [facility] CampusMbjnwujPHTQLPFIWG9950-30-01 18:53:00 Test Item Value Reference Range Interpretation Comments Monocytes (test code = Monocytes) 8.4 2.0-12.0 N [facility] CampusGlzvprdJMBBTCBDDS7215-73-70 18:53:00 Test Item Value Reference Range Interpretation Comments Segs (test code = Segs) 55.3 45.0-75.0 N [facility] CampusTcpctzlJFVADUUPAY6981-62-13 18:53:00 Test Item Value Reference Range Interpretation Comments PTT (test code = PTT) 27.3 s 22.9-35.8 N [facility] CampusZbbhysdHJDGHTHUBZ5849-20-90 18:53:00 Test Item Value Reference Range Interpretation Comments PT (test code = PT) 13.3 s 12.0-14.7 N [facility] CampusTrvsgscITFHPZWYKO5881-96-74 18:53:00 Test Item Value Reference Range Interpretation Comments INR (test code = INR) 1.02 0.85-1.17 N [facility] CampusBjswwvpMFCSIDJSMH4490-77-12 18:53:00 Test Item Value Reference Range Interpretation Comments MPV (test code = MPV) 7.2 7.4-10.4 L [facility] CampusQfgubbdTBDIBVGHWT2324-28-76 18:53:00 Test Item Value Reference Range Interpretation Comments MCHC (test code = MCHC) 33.5 32.0-36.0 N [facility] CampusZrhdjlkIPAZLFCQQC0989-83-38 18:53:00 Test Item Value Reference Range Interpretation Comments MCH (test code = MCH) 29.8 pg 27.0-31.0 N [facility] CampusPsjyrhiRQSFYNHMLU1811-22-86 18:53:00 Test Item Value Reference Range Interpretation Comments Platelet (test code = Platelet) 305 133-450 N [facility] CampusZzuksmvEEJLCZXKFG1667-34-20 18:53:00 Test Item Value Reference Range Interpretation Comments RDW (test code = RDW) 12.4 11.5-14.5 N [facility] CampusXizweodTZBMAZKBYF2060-71-82 18:53:00 Test Item Value Reference Range Interpretation Comments MCV (test code = MCV) 89.0 81.0-99.0 N [facility] CampusTokryevSKLSXIKVLA6948-24-41 18:53:00 Test Item Value Reference Range Interpretation Comments Hgb (test code = Hgb) 13.3 12.0-16.0 N [facility] CampusHigceogDRCJLXBMWY9225-35-06 18:53:00 Test Item Value Reference Range Interpretation Comments RBC (test code = RBC) 4.45 4.20-5.40 N [facility] CampusJvnfwgjVLAIQHVXEK9334-15-00 18:53:00 Test Item Value Reference Range Interpretation Comments Hct (test code = Hct) 39.6 36.0-48.0 N [facility] CampusWqyxeifOLZWPWISCF0309-18-20 18:53:00 Test Item Value Reference Range Interpretation Comments WBC (test code = WBC) 8.3 3.7-10.4 N [facility] NorthwestYfeltclUKRPCLOTO1248-45-03 18:53:00 Test Item Value Reference Range Interpretation Comments eGFR (test code = eGFR) 96 [facility] NorthwestYmxowgeFBEVILSBK1749-57-95 18:53:00 Test Item Value Reference Range Interpretation Comments Sodium Lvl (test code = Sodium Lvl) 140 135-145 N [facility] NorthwestRzgzsqmUERIQDXZS5315-28-87 18:53:00 Test Item Value Reference Range Interpretation Comments Potassium Lvl (test code = Potassium 3.9 3.5-5.1 N Lvl) [facility] NorthwestZdcnyecDGVKDRQUG9235-63-87 18:53:00 Test Item Value Reference Range Interpretation Comments Chloride Lvl (test code = Chloride Lvl) 105 95-109 N [facility] NorthwestLuciqjpTYBTQPPXR6475-80-01 18:53:00 Test Item Value Reference Range Interpretation Comments CO2 (test code = CO2) 28 24-32 N [facility] NorthwestPbhpyxmJAWMTCUSC0023-95-51 18:53:00 Test Item Value Reference Range Interpretation Comments Glucose Lvl (test code = Glucose Lvl) 92 70-99 N [facility] NorthwestRnkuoupDKIHHPYLN9632-97-48 18:53:00 Test Item Value Reference Range Interpretation Comments BUN (test code = BUN) 14 7-22 N [facility] NorthwestPgkxvwwYHUZRFXLS1555-12-82 18:53:00 Test Item Value Reference Range Interpretation Comments Creatinine Lvl (test code = Creatinine 0.7 0.5-1.4 N Lvl) [facility] NorthwestArqzgrqNPOSCTHLD9239-99-08 18:53:00 Test Item Value Reference Range Interpretation Comments Calcium Lvl (test code = Calcium Lvl) 9.1 8.5-10.5 N [facility] NorthwestAzxtplbDUPVAUGSV3161-56-37 18:53:00 Test Item Value Reference Range Interpretation Comments AGAP (test code = AGAP) 10.9 10.0-20.0 N [facility] CampusAtblmzuQECTSDVBQK9397-18-46 18:53:00 Test Item Value Reference Range Interpretation Comments Basophils # (test code 0.1 See_Comment N [Aut omated message] The = Basophils #) system which generated this result tra nsmitted reference range : <=0.2. The reference r charan was not used to int erpret this result as normal/abnormal . [facility] CampusCdqkfxhGQDPIDOXEF5543-68-09 18:53:00 Test Item Value Reference Range Interpretation Comments Lymphocytes # (test code = Lymphocytes 2.8 1.0-5.5 N #) [facility] CampusZbptcioSUPKGQDBYL8831-69-88 18:53:00 Test Item Value Reference Range Interpretation Comments Eosinophils # (test code 0.1 See_Comment N [A utomated message] The = Eosinophils #) system whic h generated this result tra nsmitted reference range : <=0.5. The reference r charan was not used to int erpret this result as normal/abnormal . [facility] CampusKtmpaixDDPNBMEJUG3637-49-22 18:53:00 Test Item Value Reference Range Interpretation Comments Monocytes # (test code 0.7 See_Comment N [Aut omated message] The = Monocytes #) system which generated this result tra nsmitted reference range : <=0.8. The reference r charan was not used to int erpret this result as normal/abnormal . [facility] CampusMfvshtcBXFAJAKXLV1849-64-88 18:53:00 Test Item Value Reference Range Interpretation Comments Segs-Bands # (test code = Segs-Bands #) 4.6 1.5-8.1 N [facility] CampusCkqmoycQOPIEMPEBH5182-47-62 18:53:00 Test Item Value Reference Range Interpretation Comments Basophils (test code = 1.0 See_Comment N [Aut omated message] The Basophils) system which ge nerated this result tra nsmitted reference range : <=1.0. The reference r charan was not used to int erpret this result as normal/abnormal . [facility] CampusMcdumxlVHYTXALRHG0618-23-38 18:53:00 Test Item Value Reference Range Interpretation Comments Lymphocytes (test code = Lymphocytes) 34.0 20.0-40.0 N [facility] CampusUjlqdwjFMXNRCIVTD3936-63-88 18:53:00 Test Item Value Reference Range Interpretation Comments Eosinophils (test code = 1.3 See_Comment N [A utomated message] The Eosinophils) system which ge nerated this result tra nsmitted reference range : <=4.0. The reference r charan was not used to int erpret this result as normal/abnormal . [facility] CampusYdlaociJQWIACJXBO6439-72-29 18:53:00 Test Item Value Reference Range Interpretation Comments Monocytes (test code = Monocytes) 8.4 2.0-12.0 N [facility] CampusXgqjfeaUWQEFVTIDU6585-88-27 18:53:00 Test Item Value Reference Range Interpretation Comments Segs (test code = Segs) 55.3 45.0-75.0 N [facility] CampusGkcgfwrSFKFFOEHWY7670-15-42 18:53:00 Test Item Value Reference Range Interpretation Comments PTT (test code = PTT) 27.3 s 22.9-35.8 N [facility] CampusPwwwqntJSLGGJCVMP8159-53-24 18:53:00 Test Item Value Reference Range Interpretation Comments PT (test code = PT) 13.3 s 12.0-14.7 N [facility] CampusJoiqnpdGIIKPCSUYC5196-08-94 18:53:00 Test Item Value Reference Range Interpretation Comments INR (test code = INR) 1.02 0.85-1.17 N [facility] CampusMgmvzqjKJGUQUUWIH5248-09-28 18:53:00 Test Item Value Reference Range Interpretation Comments MPV (test code = MPV) 7.2 7.4-10.4 L [facility] CampusJrtxlmcOBJKGHBBHJ9672-82-22 18:53:00 Test Item Value Reference Range Interpretation Comments MCHC (test code = MCHC) 33.5 32.0-36.0 N [facility] CampusQefbcceQTJPMUPCNC6828-11-97 18:53:00 Test Item Value Reference Range Interpretation Comments MCH (test code = MCH) 29.8 pg 27.0-31.0 N [facility] CampusMildwblTZWZOYBPRQ6112-02-07 18:53:00 Test Item Value Reference Range Interpretation Comments Platelet (test code = Platelet) 305 133-450 N [facility] CampusDejvljfVUVMPFAASW2422-09-61 18:53:00 Test Item Value Reference Range Interpretation Comments RDW (test code = RDW) 12.4 11.5-14.5 N [facility] CampusDweunypHJXZLVCFPA4445-39-26 18:53:00 Test Item Value Reference Range Interpretation Comments MCV (test code = MCV) 89.0 81.0-99.0 N [facility] CampusSllduihXXNFWJYQJE8616-26-05 18:53:00 Test Item Value Reference Range Interpretation Comments Hgb (test code = Hgb) 13.3 12.0-16.0 N [facility] CampusHhfeqxtQQRYPUMEKM8636-83-18 18:53:00 Test Item Value Reference Range Interpretation Comments RBC (test code = RBC) 4.45 4.20-5.40 N [facility] CampusTnlhrwhEUNPYXYVIO4846-29-61 18:53:00 Test Item Value Reference Range Interpretation Comments Hct (test code = Hct) 39.6 36.0-48.0 N [facility] CampusCinueeoBYEFSMYRKJ8769-75-91 18:53:00 Test Item Value Reference Range Interpretation Comments WBC (test code = WBC) 8.3 3.7-10.4 N [facility] NorthwestCawlzrbNRIWFXEXP0608-08-26 18:53:00 Test Item Value Reference Range Interpretation Comments eGFR (test code = eGFR) 96 [facility] NorthwestStatilrYJOXRQJBV5492-02-71 18:53:00 Test Item Value Reference Range Interpretation Comments Sodium Lvl (test code = Sodium Lvl) 140 135-145 N [facility] NorthwestKlgkhnfNFAFBSRMK4152-69-95 18:53:00 Test Item Value Reference Range Interpretation Comments Potassium Lvl (test code = Potassium 3.9 3.5-5.1 N Lvl) [facility] NorthwestForjifwDLVXULRVA9898-81-72 18:53:00 Test Item Value Reference Range Interpretation Comments Chloride Lvl (test code = Chloride Lvl) 105 95-109 N [facility] NorthwestTvvsgddXTDQPCKNE9150-04-52 18:53:00 Test Item Value Reference Range Interpretation Comments CO2 (test code = CO2) 28 24-32 N [facility] NorthwestTiqlxwfACHDYAETP4890-63-69 18:53:00 Test Item Value Reference Range Interpretation Comments Glucose Lvl (test code = Glucose Lvl) 92 70-99 N [facility] NorthwestXqytyqtWTXJEWVGN0724-53-99 18:53:00 Test Item Value Reference Range Interpretation Comments BUN (test code = BUN) 14 7-22 N [facility] NorthwestEahwyddGIJEJIEKW2190-68-97 18:53:00 Test Item Value Reference Range Interpretation Comments Creatinine Lvl (test code = Creatinine 0.7 0.5-1.4 N Lvl) [facility] NorthwestOsxkdofLVTHKYKRN3486-51-70 18:53:00 Test Item Value Reference Range Interpretation Comments Calcium Lvl (test code = Calcium Lvl) 9.1 8.5-10.5 N [facility] NorthwestHdzbnovJCYENQWBC9819-22-13 18:53:00 Test Item Value Reference Range Interpretation Comments AGAP (test code = AGAP) 10.9 10.0-20.0 N [facility] CampusOhdhwwsYWFOZIGIOM0881-19-70 18:53:00 Test Item Value Reference Range Interpretation Comments Basophils # (test code 0.1 See_Comment N [Aut omated message] The = Basophils #) system which generated this result tra nsmitted reference range : <=0.2. The reference r charan was not used to int erpret this result as normal/abnormal . [facility] CampusUbhixvwINHBYHVHJK7077-03-13 18:53:00 Test Item Value Reference Range Interpretation Comments Lymphocytes # (test code = Lymphocytes 2.8 1.0-5.5 N #) [facility] CampusIsidqdhJKWSRXNZTV9672-51-09 18:53:00 Test Item Value Reference Range Interpretation Comments Eosinophils # (test code 0.1 See_Comment N [A utomated message] The = Eosinophils #) system whic h generated this result tra nsmitted reference range : <=0.5. The reference r charan was not used to int erpret this result as normal/abnormal . [facility] CampusDdrurbsTXOEPSTNHW0548-29-61 18:53:00 Test Item Value Reference Range Interpretation Comments Monocytes # (test code 0.7 See_Comment N [Aut omated message] The = Monocytes #) system which generated this result tra nsmitted reference range : <=0.8. The reference r charan was not used to int erpret this result as normal/abnormal . [facility] CampusBmuskdrUFKEZJEGKO5969-40-33 18:53:00 Test Item Value Reference Range Interpretation Comments Segs-Bands # (test code = Segs-Bands #) 4.6 1.5-8.1 N [facility] CampusYlrekidKPFGXTMRSK0390-28-96 18:53:00 Test Item Value Reference Range Interpretation Comments Basophils (test code = 1.0 See_Comment N [Aut omated message] The Basophils) system which ge nerated this result tra nsmitted reference range : <=1.0. The reference r charan was not used to int erpret this result as normal/abnormal . [facility] CampusSxwzadvDZQUMQZJXG0453-89-30 18:53:00 Test Item Value Reference Range Interpretation Comments Lymphocytes (test code = Lymphocytes) 34.0 20.0-40.0 N [facility] CampusPgrxmzfZGISBNVPTP9949-69-16 18:53:00 Test Item Value Reference Range Interpretation Comments Eosinophils (test code = 1.3 See_Comment N [A utomated message] The Eosinophils) system which ge nerated this result tra nsmitted reference range : <=4.0. The reference r charan was not used to int erpret this result as normal/abnormal . [facility] CampusGihbtqfPXCPXQGVGW1621-91-80 18:53:00 Test Item Value Reference Range Interpretation Comments Monocytes (test code = Monocytes) 8.4 2.0-12.0 N [facility] CampusCklupedPHGPFAEKEX5848-34-91 18:53:00 Test Item Value Reference Range Interpretation Comments Segs (test code = Segs) 55.3 45.0-75.0 N [facility] CampusIjcidoyNMRHRMIAQO5840-53-74 18:53:00 Test Item Value Reference Range Interpretation Comments PTT (test code = PTT) 27.3 s 22.9-35.8 N [facility] CampusHefwtduCNCGVHYFBU9646-91-53 18:53:00 Test Item Value Reference Range Interpretation Comments PT (test code = PT) 13.3 s 12.0-14.7 N [facility] CampusUxdzdixROYBKGLZBH5055-19-51 18:53:00 Test Item Value Reference Range Interpretation Comments INR (test code = INR) 1.02 0.85-1.17 N [facility] CampusAurgevkLVWRQFOICS9705-54-36 18:53:00 Test Item Value Reference Range Interpretation Comments MPV (test code = MPV) 7.2 7.4-10.4 L [facility] CampusYigxyfyUZTHFMMNRZ6812-84-25 18:53:00 Test Item Value Reference Range Interpretation Comments MCHC (test code = MCHC) 33.5 32.0-36.0 N [facility] CampusLokxolsKZHEIPRUCY4918-06-37 18:53:00 Test Item Value Reference Range Interpretation Comments MCH (test code = MCH) 29.8 pg 27.0-31.0 N [facility] CampusScuflseHERZJFHVHG1728-10-71 18:53:00 Test Item Value Reference Range Interpretation Comments Platelet (test code = Platelet) 305 133-450 N [facility] CampusVwdcmmjRMWMHZFMHU1984-65-19 18:53:00 Test Item Value Reference Range Interpretation Comments RDW (test code = RDW) 12.4 11.5-14.5 N [facility] CampusRkcxswgTKUJCIZPFT2372-00-43 18:53:00 Test Item Value Reference Range Interpretation Comments MCV (test code = MCV) 89.0 81.0-99.0 N [facility] CampusKpimhevBQKCTAXDMN5660-92-18 18:53:00 Test Item Value Reference Range Interpretation Comments Hgb (test code = Hgb) 13.3 12.0-16.0 N [facility] CampusYxuiftxTWXPXGPYJY5325-38-39 18:53:00 Test Item Value Reference Range Interpretation Comments RBC (test code = RBC) 4.45 4.20-5.40 N [facility] CampusXewecgbXMVQXZIZGD7158-60-09 18:53:00 Test Item Value Reference Range Interpretation Comments Hct (test code = Hct) 39.6 36.0-48.0 N [facility] CampusRihsnlgCWERDMTDDN2488-29-02 18:53:00 Test Item Value Reference Range Interpretation Comments WBC (test code = WBC) 8.3 3.7-10.4 N [facility] NorthwestAxipngpJXCQQWDPW6905-94-43 18:53:00 Test Item Value Reference Range Interpretation Comments eGFR (test code = eGFR) 96 [facility] NorthwestCyqbvpcUUECGYTES5930-70-93 18:53:00 Test Item Value Reference Range Interpretation Comments Sodium Lvl (test code = Sodium Lvl) 140 135-145 N [facility] NorthwestBkhikbvGOHRDPVJL3855-05-77 18:53:00 Test Item Value Reference Range Interpretation Comments Potassium Lvl (test code = Potassium 3.9 3.5-5.1 N Lvl) [facility] NorthwestOvvttecHHMXZXQJN6587-47-50 18:53:00 Test Item Value Reference Range Interpretation Comments Chloride Lvl (test code = Chloride Lvl) 105 95-109 N [facility] NorthwestHeyizqmUFDWOCDHK8331-77-18 18:53:00 Test Item Value Reference Range Interpretation Comments CO2 (test code = CO2) 28 24-32 N [facility] NorthwestMayozrjBOIACHIVY5038-66-49 18:53:00 Test Item Value Reference Range Interpretation Comments Glucose Lvl (test code = Glucose Lvl) 92 70-99 N [facility] NorthwestFemvtheIEIRAIKPC2037-98-07 18:53:00 Test Item Value Reference Range Interpretation Comments BUN (test code = BUN) 14 7-22 N [facility] NorthwestPheqgijTROTXEKRU0579-24-11 18:53:00 Test Item Value Reference Range Interpretation Comments Creatinine Lvl (test code = Creatinine 0.7 0.5-1.4 N Lvl) [facility] NorthwestRadrjhdCRBDAKNEA4256-65-57 18:53:00 Test Item Value Reference Range Interpretation Comments Calcium Lvl (test code = Calcium Lvl) 9.1 8.5-10.5 N [facility] NorthwestVxewveoCCWTOXZCE2757-60-81 18:53:00 Test Item Value Reference Range Interpretation Comments AGAP (test code = AGAP) 10.9 10.0-20.0 N [facility] CampusFiqupapUPKQTDOYVG1446-64-81 18:53:00 Test Item Value Reference Range Interpretation Comments Basophils # (test code 0.1 See_Comment N [Aut omated message] The = Basophils #) system which generated this result tra nsmitted reference range : <=0.2. The reference r charan was not used to int erpret this result as normal/abnormal . [facility] CampusYlictjoTRLFUVMTVO3425-46-38 18:53:00 Test Item Value Reference Range Interpretation Comments Lymphocytes # (test code = Lymphocytes 2.8 1.0-5.5 N #) [facility] CampusWrknvqiEEIEDSLLDC2854-71-91 18:53:00 Test Item Value Reference Range Interpretation Comments Eosinophils # (test code 0.1 See_Comment N [A utomated message] The = Eosinophils #) system whic h generated this result tra nsmitted reference range : <=0.5. The reference r charan was not used to int erpret this result as normal/abnormal . [facility] CampusWexzeekXXKVPFFRWS2603-26-79 18:53:00 Test Item Value Reference Range Interpretation Comments Monocytes # (test code 0.7 See_Comment N [Aut omated message] The = Monocytes #) system which generated this result tra nsmitted reference range : <=0.8. The reference r charan was not used to int erpret this result as normal/abnormal . [facility] CampusIohsridKRBXSNGFRS9708-53-38 18:53:00 Test Item Value Reference Range Interpretation Comments Segs-Bands # (test code = Segs-Bands #) 4.6 1.5-8.1 N [facility] CampusBmdipeoNDVLXNCLSP0173-20-71 18:53:00 Test Item Value Reference Range Interpretation Comments Basophils (test code = 1.0 See_Comment N [Aut omated message] The Basophils) system which ge nerated this result tra nsmitted reference range : <=1.0. The reference r charan was not used to int erpret this result as normal/abnormal . [facility] CampusGettafsPPRDKQVTXC1284-94-37 18:53:00 Test Item Value Reference Range Interpretation Comments Lymphocytes (test code = Lymphocytes) 34.0 20.0-40.0 N [facility] CampusAqsihxoOKCGQQXJZB5342-20-90 18:53:00 Test Item Value Reference Range Interpretation Comments Eosinophils (test code = 1.3 See_Comment N [A utomated message] The Eosinophils) system which ge nerated this result tra nsmitted reference range : <=4.0. The reference r charan was not used to int erpret this result as normal/abnormal . [facility] CampusLwuljxkELADAGIHRZ2641-17-56 18:53:00 Test Item Value Reference Range Interpretation Comments Monocytes (test code = Monocytes) 8.4 2.0-12.0 N [facility] CampusExnnmusBBCITUYQJM9555-13-67 18:53:00 Test Item Value Reference Range Interpretation Comments Segs (test code = Segs) 55.3 45.0-75.0 N [facility] CampusLiiqvyhOLRRKJXESE1198-74-20 18:53:00 Test Item Value Reference Range Interpretation Comments PTT (test code = PTT) 27.3 s 22.9-35.8 N [facility] CampusIaonxkyPKJYCDNUOZ6480-26-11 18:53:00 Test Item Value Reference Range Interpretation Comments PT (test code = PT) 13.3 s 12.0-14.7 N [facility] CampusFogbtbpBCWFXNBEPD4701-80-01 18:53:00 Test Item Value Reference Range Interpretation Comments INR (test code = INR) 1.02 0.85-1.17 N [facility] CampusAsrcghcATDMRXEYBG7732-17-11 18:53:00 Test Item Value Reference Range Interpretation Comments MPV (test code = MPV) 7.2 7.4-10.4 L [facility] CampusIofipjiHCMONHZGVX0000-16-66 18:53:00 Test Item Value Reference Range Interpretation Comments MCHC (test code = MCHC) 33.5 32.0-36.0 N [facility] CampusExggreaHMXZVLZCNA2365-87-20 18:53:00 Test Item Value Reference Range Interpretation Comments MCH (test code = MCH) 29.8 pg 27.0-31.0 N [facility] CampusPyvvhldIYRVFMWSVK5848-29-32 18:53:00 Test Item Value Reference Range Interpretation Comments Platelet (test code = Platelet) 305 133-450 N [facility] CampusVuqtczwSMNABTCFDB6406-52-84 18:53:00 Test Item Value Reference Range Interpretation Comments RDW (test code = RDW) 12.4 11.5-14.5 N [facility] CampusHqihvfcTGNGCRNRHD9766-01-84 18:53:00 Test Item Value Reference Range Interpretation Comments MCV (test code = MCV) 89.0 81.0-99.0 N [facility] CampusHuzympkJBLGZSSNQO8686-25-24 18:53:00 Test Item Value Reference Range Interpretation Comments Hgb (test code = Hgb) 13.3 12.0-16.0 N [facility] CampusFcmpyuhONUOWGXXGF5950-02-72 18:53:00 Test Item Value Reference Range Interpretation Comments RBC (test code = RBC) 4.45 4.20-5.40 N [facility] CampusXalrrvdJCXRKCZJDN5804-15-63 18:53:00 Test Item Value Reference Range Interpretation Comments Hct (test code = Hct) 39.6 36.0-48.0 N [facility] CampusWcjcjijXMZQULBROM1799-90-19 18:53:00 Test Item Value Reference Range Interpretation Comments WBC (test code = WBC) 8.3 3.7-10.4 N [facility] Notes Date/Time Note Provider Source 2013-02-07 EXAM: MRI BRAIN WITH AND WITHOUT CONTRAST [facility] 09:47:00-00:00 Center DATE: Feb 07, 2013 [...] than demyelinating disease. 2013-02-06 EXAM: MRI BRAIN [facility] 18:49:00-00:00 Center DATE: Feb 06, 2013 [...] CT ANGIOGRAM OF THE HEAD AND NECK [facility] 14:45:00-00:00 Center DATE: 05/08/2013 at 2:47 [...]
[2023-02-04 11:25] LABS: Absolute Lymphocytes (CBC) 1.6 K/uL (0.7-4.9); Hematocrit 25.8 % (36.0-45.0); Lymphocytes % 17.7 % (15.3-44.8); MCV 90.1 fL (80-100); MPV 6.3 fL (7.6-11.3); Platelets 550 thou/uL (152-406); RBC Red Blood Cell Count 2.87 M/uL (3.86-4.86)
[2023-02-04 11:38] LABS: Potassium 3.8 mEq/L (3.5-5.1)
--- NOTE | 2023-02-04 11:44 | EDPHYS ---
Physician Documentation [facility] Name: Jeni Johnson Age: 67 yrs Sex: Female : 1955 Arrival Date: 02/04/2023 Time: 10:47 Bed 2 Private MD: ED Physician Chris Ortega HPI: 02/04 11:04 This 67 yrs old Female presents to ER via Wheelchair with complaints of ms3 Abnormal Lab Results. 11:04 67-year-old female with past medical history of H. pylori, hypertension, ms3 hyperlipidemia, arthritis, depression presents for lightheadedness, generalized weakness, and anemia. Patient denies pain. Patient denies any alleviating or inciting factors.. Historical: - Allergies: 10:58 No Known Allergies; ap3 - PMHx: 10:58 H Pyloi; Hypertension; Hypercholesterolemia; Arthritis; Depressive disorder; ap3 Cerebrovascular accident; Anemia; - PSHx: 10:58 spinal fusion L4-L5; right hip; ap3 - Immunization history:: Client reports receiving the 2nd dose of the Covid vaccine. - Social history:: Smoking status: Patient reports the use of cigarette tobacco products, smokes one-half pack cigarettes per day. ROS: 11:04 Constitutional: Negative for fever, and chills. Neck: Negative for injury, pain, and ms3 swelling, Cardiovascular: Negative for chest pain, and palpitations. Respiratory: Negative for shortness of breath, cough, wheezing, and pleuritic chest pain, Abdomen/GI: Negative for abdominal pain, nausea, vomiting, diarrhea, and constipation, MS/Extremity: Negative for injury and deformity, Skin: Negative for injury, rash, and discoloration. 11:04 All other systems are negative. Exam: 11:04 Constitutional: This is a well developed, well nourished patient who is awake, alert, ms3 and in no acute distress. Head/Face: Normocephalic, atraumatic. Neck: Trachea midline, no cervical lymphadenopathy. Supple, full range of motion without nuchal rigidity, or vertebral point tenderness. No Meningismus. Chest/axilla: Normal chest wall appearance and motion. Nontender with no deformity. Cardiovascular: Regular rate and rhythm with a normal S1 and S2. No gallops, murmurs, or rubs. Normal PMI, no JVD. No pulse deficits. Respiratory: Lungs have equal breath sounds bilaterally, clear to auscultation and percussion. No rales, rhonchi or wheezes noted. No increased work of breathing, no retractions or nasal flaring. Abdomen/GI: Soft, non-tender, with normal bowel sounds. No distension or tympany. No guarding or rebound. No evidence of tenderness throughout. MS/ Extremity: Pulses equal, no cyanosis. Neurovascular intact. Full, normal range of motion. 11:04 Skin: Ecchymosis right lateral hip. Vital Signs: 10:56 BP 131 / 78; Pulse 76; Resp 18; Temp 98.7; Pulse Ox 100% ; Weight 62.6 kg; ap3 11:14 BP 142 / 63; Pulse 70; Resp 18; Pulse Ox 100% on R/A; ld1 MDM: 11:02 Patient medically screened. ms3 11:04 Differential Diagnosis Anemia vs Electrolyte abnormality vs Deconditioning . ms3 11:44 Data reviewed: vital signs, nurses notes, and as a result, I will discharge patient. ms3 Consideration of Admission/Observation Patient will go to inpatient rehab. Care significantly affected by the following chronic conditions: Hypertension. Counseling: I had a detailed discussion with the patient and/or guardian regarding the historical points, exam findings, and any diagnostic results supporting the discharge/admit diagnosis, lab results, Need for rehab. Special discussion: I discussed with the patient/guardian in detail that at this point there is no indication for admission to the hospital. It is understood, however, that if the symptoms persist or worsen the patient needs to return immediately for re-evaluation. ED course: Discussed patient with Yojana with inpatient rehab. Patient will go to inpatient rehab from the emergency department. Patient was aware of this. All questions answered. 02/04 11:01 Order name: CBC with Diff; Complete Time: 11:39 ms3 02/04 11:01 Order name: BMP; Complete Time: 11:39 ms3 Administered Medications: No medications were administered Disposition Summary: 02/04/23 11:44 Discharge Ordered Location: Home ms3 Condition: Stable ms3 Diagnosis - Anemia, unspecified ms3 - Essential (primary) hypertension ms3 Followup: ms3 - With: Private Physician - When: Today - Reason: Discharge Instructions: - Discharge Summary Sheet ms3 - Anemia ms3 - Hypertension, Adult ms3 Forms: - Medication Reconciliation Form ms3 - Thank You Letter ms3 - Antibiotic Education ms3 - Prescription Opioid Use ms3 - Patient Portal Instructions ms3 - Leadership Thank You Letter ms3 Signatures: Dispatcher [employer] Blanca Buitrago, RN RN ap3 Chris Ortega DO DO ms3
--- NOTE | 2023-02-04 11:44 | ER ---
Nurse's Notes [facility] Name: Jeni Johnson Age: 67 yrs Sex: Female : 1955 Arrival Date: 02/04/2023 Time: 10:47 Bed 2 Private MD: Diagnosis: Anemia, unspecified;Essential (primary) hypertension Presentation: 02/04 10:56 Chief complaint: Patient states: she had a fall with a right hip fracture approx 2 ap3 weeks ago. patient is complaining of being light headed and weak. The [place] [facility] at reports the patient is anemic at this time. Coronavirus screen: At this time, the client does not indicate any symptoms associated with coronavirus-19. Ebola Screen: No symptoms or risks identified at this time. Initial Sepsis Screen: Does the patient meet any 2 criteria? No. Patient's initial sepsis screen is negative. Does the patient have a suspected source of infection? No. Patient's initial sepsis screen is negative. Risk Assessment: Do you want to hurt yourself or someone else? Patient reports no desire to harm self or others. Onset of symptoms is unknown. 10:56 Method Of Arrival: Wheelchair ap3 10:56 Acuity: CHET 3 ap3 Triage Assessment: 11:00 General: Appears uncomfortable, Behavior is calm, cooperative. Pain: Complains of pain ap3 in right hip and right leg. Neuro: Level of Consciousness is awake, alert, obeys commands, Oriented to person, place, time, situation. Historical: - Allergies: 10:58 No Known Allergies; ap3 - PMHx: 10:58 H Pyloi; Hypertension; Hypercholesterolemia; Arthritis; Depressive disorder; ap3 Cerebrovascular accident; Anemia; - PSHx: 10:58 spinal fusion L4-L5; right hip; ap3 - Immunization history:: Client reports receiving the 2nd dose of the Covid vaccine. - Social history:: Smoking status: Patient reports the use of cigarette tobacco products, smokes one-half pack cigarettes per day. Screenin:01 Abuse screen: Denies threats or abuse. Nutritional screening: No deficits noted. ap3 Tuberculosis screening: No symptoms or risk factors identified. 11:14 [facility] ED Fall Risk Assessment (Adult) History of falling in the last 3 months, ld1 including since admission Yes- single mechanical fall (1 pt). Assessment: 11:14 General: Appears in no apparent distress. comfortable, Behavior is calm, cooperative, ld1 appropriate for age. Pain: Denies pain. Neuro: Level of Consciousness is awake, alert, obeys commands, Oriented to person, place, time, situation. Cardiovascular: Capillary refill < 3 seconds Patient's skin is warm and dry. Respiratory: Airway is patent Respiratory effort is even, unlabored. GI: Abdomen is flat, non-distended. : No signs and/or symptoms were reported regarding the genitourinary system. EENT: No signs and/or symptoms were reported regarding the EENT system. Derm: No signs and/or symptoms reported regarding the dermatologic system. Musculoskeletal: No signs and/or symptoms reported regarding the musculoskeletal system. Vital Signs: 10:56 BP 131 / 78; Pulse 76; Resp 18; Temp 98.7; Pulse Ox 100% ; Weight 62.6 kg; ap3 11:14 BP 142 / 63; Pulse 70; Resp 18; Pulse Ox 100% on R/A; ld1 ED Course: 10:49 Patient arrived in ED. ts1 10:51 Chris Ortega DO is Attending Physician. ms3 10:58 Triage completed. ap3 11:01 Arm band placed on right wrist. ap3 11:14 Trinidad Ortega, RN is Primary Nurse. ld1 11:14 Patient has correct armband on for positive identification. Placed in gown. Bed in low ld1 position. Call light in reach. Side rails up X2. secured entrance monitor on. Pulse ox on. NIBP on. Door closed. Noise minimized. Warm blanket given. 11:14 BMP Sent. ld1 11:14 CBC with Diff Sent. ld1 11:14 Inserted saline lock: 20 gauge in right antecubital area, using aseptic technique. ld1 Blood collected. 11:14 No provider procedures requiring assistance completed. ld1 11:48 Provided Education on: na. ko1 11:48 IV discontinued, intact, bleeding controlled, No redness/swelling at site. Pressure ko1 dressing applied. Administered Medications: No medications were administered Medication: 11:14 VIS not applicable for this client. ld1 Outcome: 11:44 Discharge ordered by MD. ms3 11:48 Discharged to home via wheelchair, with family. ko1 11:48 Condition: stable 11:48 Discharge instructions given to patient, family, Instructed on discharge instructions, follow up and referral plans. Demonstrated understanding of instructions, follow-up care. 11:53 Patient left the ED. ko1 Signatures: Blanca Lopez RN RN ap3 Chris Ortega DO DO ms3 Trinidad Ortega RN RN ld1 Ivy Hale RN RN ko1 Felicity Valentine PAS PAS ts1
[2023-02-04 12:03] VITALS: TEMP 98.7; O2SAT 100
[2023-02-04 12:09] VITALS: BP 142/63
== END 2023-02-04 11:53 | disposition home or self-care (01) ==
LOC: ER 10:47
DX: D64.9 Anemia, unspecified (principal); I10 Essential (primary) hypertension; F17.210 Nicotine dependence, cigarettes, uncomplicated
CPT/HCPCS: 36415; 80048; 85025; 99284